=== PATIENT | female | born 1930 | race Caucasian/White ===

== ENCOUNTER 2016-08-25 01:11 | Observation (INO) | payer MEDICARE, BC ==
[2016-08-25] MEDS ORDERED: SODIUM CHLORIDE 0.9% 500 ML IV STA (01:22)
[2016-08-25] MEDS ORDERED: SODIUM CHLORIDE 0.9% 1,000 ML IV STA ×2 (01:22→02:37)
[2016-08-25 02:02] LABS: Basophils % (A) 0 %; CH 29.8; CHCM 33.8; Eosinophils # (A) 0.1 k/uL (0-0.7); Eosinophils % (A) 1 %; HCT 34.6 % (34.0-46.0); HDW 2.27; HGB 11.2 gm/dL (11.4-16.0); Luc # (Auto) 0.07; Luc % (Auto) 1; Lymphocytes # (A) 0.7 k/uL (1.0-4.8); Lymphocytes % (A) 7 %; MCH 28.7 pg (25.0-35.0); MCHC 32.3 g/dL (31.0-37.0); MCV 88.7 fL (80.0-100.0); Mean Platelet Volume 7.2; Monocytes # (A) 0.6 k/uL (0-1.0); Monocytes % (A) 6 %; Neutrophils # (A) 8.9 k/uL (1.3-7.7); Neutrophils % (A) 86 %; RDW 14.5 % (11.5-15.5); WBC 10.4 k/uL (3.8-10.6); WBC (Perox) 11.35
--- NOTE | 2016-08-25 02:05 | ED ---
General Adult HPI - General Chief complaint: Nausea/Vomiting/Diarrhea Stated complaint: nausea,dehydration Time Seen by Provider: 08/25/16 01:18 Source: patient, EMS, RN notes reviewed, old records reviewed Mode of arrival: EMS Limitations: physical limitation - History of Present Illness Initial comments: This is a 85-year-old female to the ER for evaluation. Patient presented here for second time this week for evaluation of diarrhea, weakness, dehydration. Patient does have significant medical history significant for multiple medical Arjun is. Patient does appear weak on exam. Patient has good historian, denies any fevers, also combining of nausea and vomiting. No modifying factors or complaints or symptoms at home. No fevers. Patient unable to keep down her medications. Patient denies any recent antibiotic use - Related Data Home Medications Medication Instructions Recorded Confirmed ALPRAZolam [Xanax] 0.25 mg PO DAILY 04/22/14 08/19/16 amLODIPine BESYLATE [Norvasc] 5 mg PO DAILY 04/22/14 08/19/16 Ergocalciferol [Vitamin D2 50,000 unit PO Q7D 09/09/15 08/19/16 (DRISDOL)] Potassium Chloride ER [K-Dur 10] 10 meq PO DAILY 09/09/15 08/19/16 Simvastatin [Zocor] 20 mg PO HS 09/09/15 08/19/16 Levothyroxine Sodium [Synthroid] 75 mcg PO DAILY 11/10/15 08/19/16 Isosorbide Mononitrate ER [Imdur] 30 mg PO DAILY 11/17/15 08/19/16 Atenolol 25 mg PO DAILY 08/09/16 08/19/16 Meclizine [Antivert] 12.5 mg PO TID PRN 08/09/16 08/19/16 Tolterodine [Detrol] 2 mg PO DAILY 08/09/16 08/19/16 Amiodarone [Cordarone] 200 mg PO DAILY 08/19/16 08/19/16 Previous Rx's Medication Instructions Recorded Furosemide [Lasix] 20 mg PO DAILY #0 11/11/15 traMADol HCL [Ultram] 50 mg PO Q6HR PRN #20 tab 08/09/16 Allergies Allergy/AdvReac Type Severity Reaction Status Date / Time morphine Allergy Confusion Verified 08/19/16 16:05 Penicillins Allergy Unknown Verified 08/19/16 16:05 Sulfa (Sulfonamide Allergy Unknown Verified 08/19/16 16:05 Antibiotics) Review of Systems ROS Statement: Those systems with pertinent positive or pertinent negative responses have been documented in the HPI. ROS Other: All systems not noted in ROS Statement are negative. Past Medical History Past Medical History: Atrial Fibrillation, Coronary Artery Disease (CAD), COPD, Dementia, GERD/Reflux, Hyperlipidemia, Hypertension, Osteoarthritis (OA), Pneumonia, Thyroid Disorder Additional Past Medical History / Comment(s): HIATAL HERNIA, COPD, CARDIMEGALY FOUND PER X RAY,UTI History of Any Multi-Drug Resistant Organisms: None Reported Past Surgical History: Joint Replacement, Orthopedic Surgery Additional Past Surgical History / Comment(s): right shoulder PLATE AND SCREWS, bilat , SANGITA CATARAACTS, RT EYE RETINAL SX, thyroid removed Past Anesthesia/Blood Transfusion Reactions: No Reported Reaction Past Psychological History: No Psychological Hx Reported Smoking Status: Former smoker Past Alcohol Use History: None Reported Past Drug Use History: None Reported - Past Family History Father History Unknown: Yes Family Medical History: Renal Disease Mother History Unknown: Yes Family Medical History: No Reported History Brother(s) Family Medical History: No Reported History Daughter(s) Family Medical History: Cancer Son(s) Family Medical History: No Reported History General Exam Limitations: physical limitation General appearance: lethargic, in distress, cachectic Head exam: Present: atraumatic, normocephalic, normal inspection Eye exam: Present: normal appearance, PERRL, EOMI. Absent: scleral icterus, conjunctival injection, periorbital swelling ENT exam: Present: normal exam, mucous membranes moist Neck exam: Present: normal inspection. Absent: tenderness, meningismus, lymphadenopathy Respiratory exam: Present: normal lung sounds bilaterally. Absent: respiratory distress, wheezes, rales, rhonchi, stridor Cardiovascular Exam: Present: regular rate, normal rhythm, normal heart sounds. Absent: systolic murmur, diastolic murmur, rubs, gallop, clicks GI/Abdominal exam: Present: soft, normal bowel sounds. Absent: distended, tenderness, guarding, rebound, rigid Extremities exam: Present: normal inspection, full ROM, normal capillary refill. Absent: tenderness, pedal edema, joint swelling, calf tenderness Back exam: Present: normal inspection Neurological exam: Present: alert, oriented X3, CN II-XII intact Psychiatric exam: Present: normal affect, normal mood Skin exam: Present: warm, dry, intact, normal color. Absent: rash Course Vital Signs 08/25/16 01:13 Temperature 97.5 F L Pulse Rate 56 L Respiratory 16 Rate Blood Pressure 164/73 O2 Sat by Pulse 96 Oximetry - Reevaluation(s) Reevaluation #1: 08/25/16 02:39 Patient with no real apparent clinical improvement EKG Findings - EKG Comments: EKG Findings:: EKG shows sinus bradycardia rate 50, VT 200, QRS 150, QTC 481 Medical Decision Making - Medical Decision Making A 59 [address] with continued nausea vomiting diarrhea, we'll culture for C. diff , we'll admit for IV fluid and continued monitoring. - Lab Data Result diagrams: 08/25/16 01:42 08/25/16 01:42 Lab Results 08/25/16 08/25/16 08/25/16 Range/Units 01:42 01:42 01:42 WBC 10.4 (3.8-10.6) k/uL RBC 3.90 (3.80-5.40) m/uL Hgb 11.2 L (11.4-16.0) gm/dL Hct 34.6 (34.0-46.0) % MCV 88.7 (80.0-100.0) fL MCH 28.7 (25.0-35.0) pg MCHC 32.3 (31.0-37.0) g/dL RDW 14.5 (11.5-15.5) % Plt Count 301 (150-450) k/uL Neutrophils % 86 % Lymphocytes % 7 % Monocytes % 6 % Eosinophils % 1 % Basophils % 0 % Neutrophils # 8.9 H (1.3-7.7) k/uL Lymphocytes # 0.7 L (1.0-4.8) k/uL Monocytes # 0.6 (0-1.0) k/uL Eosinophils # 0.1 (0-0.7) k/uL Basophils # 0.0 (0-0.2) k/uL PT (9.0-12.0) sec INR (<1.1) APTT (22.0-30.0) sec Sodium 132 L (137-145) mmol/L Potassium 4.0 (3.5-5.1) mmol/L Chloride 99 (98-107) mmol/L Carbon Dioxide 24 (22-30) mmol/L Anion Gap 9 mmol/L BUN 18 H (7-17) mg/dL Creatinine 1.00 (0.52-1.04) mg/dL Est GFR (MDRD) Af Amer >60 (>60 ml/min/1.73 sqM) Est GFR (MDRD) Non-Af 53 (>60 ml/min/1.73 sqM) Glucose 114 H (74-99) mg/dL Plasma Lactic Acid Aakash (0.7-2.0) mmol/L Calcium 8.2 L (8.4-10.2) mg/dL Phosphorus 4.1 (2.5-4.5) mg/dL Magnesium 1.8 (1.6-2.3) mg/dL Total Bilirubin 0.5 (0.2-1.3) mg/dL AST 37 H (14-36) U/L ALT 32 (9-52) U/L Alkaline Phosphatase 76 (38-126) U/L Total Creatine Kinase 44 (30-135) U/L Total Protein 5.8 L (6.3-8.2) g/dL Albumin 3.4 L (3.5-5.0) g/dL Urine Color Urine Appearance (Clear) Urine pH (5.0-8.0) Ur Specific [place] (1.001-1.035) Urine Protein (Negative) Urine Glucose (UA) (Negative) Urine Ketones (Negative) Urine Blood (Negative) Urine Nitrate (Negative) Urine Bilirubin (Negative) Urine Urobilinogen (<2.0) mg/dL Ur Leukocyte Esterase (Negative) 08/25/16 08/25/16 08/25/16 Range/Units 01:42 01:42 02:21 WBC (3.8-10.6) k/uL RBC (3.80-5.40) m/uL Hgb (11.4-16.0) gm/dL Hct (34.0-46.0) % MCV (80.0-100.0) fL MCH (25.0-35.0) pg MCHC (31.0-37.0) g/dL RDW (11.5-15.5) % Plt Count (150-450) k/uL Neutrophils % % Lymphocytes % % Monocytes % % Eosinophils % % Basophils % % Neutrophils # (1.3-7.7) k/uL Lymphocytes # (1.0-4.8) k/uL Monocytes # (0-1.0) k/uL Eosinophils # (0-0.7) k/uL Basophils # (0-0.2) k/uL PT 10.7 (9.0-12.0) sec INR 1.1 (<1.1) APTT 22.6 (22.0-30.0) sec Sodium (137-145) mmol/L Potassium (3.5-5.1) mmol/L Chloride (98-107) mmol/L Carbon Dioxide (22-30) mmol/L Anion Gap mmol/L BUN (7-17) mg/dL Creatinine (0.52-1.04) mg/dL Est GFR (MDRD) Af Amer (>60 ml/min/1.73 sqM) Est GFR (MDRD) Non-Af (>60 ml/min/1.73 sqM) Glucose (74-99) mg/dL Plasma Lactic Acid Aakash 1.0 (0.7-2.0) mmol/L Calcium (8.4-10.2) mg/dL Phosphorus (2.5-4.5) mg/dL Magnesium (1.6-2.3) mg/dL Total Bilirubin (0.2-1.3) mg/dL AST (14-36) U/L ALT (9-52) U/L Alkaline Phosphatase (38-126) U/L Total Creatine Kinase (30-135) U/L Total Protein (6.3-8.2) g/dL Albumin (3.5-5.0) g/dL Urine Color Light Yellow Urine Appearance Clear (Clear) Urine pH 7.0 (5.0-8.0) Ur Specific [place] 1.008 (1.001-1.035) Urine Protein Negative (Negative) Urine Glucose (UA) Negative (Negative) Urine Ketones Negative (Negative) Urine Blood Negative (Negative) Urine Nitrate Negative (Negative) Urine Bilirubin Negative (Negative) Urine Urobilinogen <2.0 (<2.0) mg/dL Ur Leukocyte Esterase Negative (Negative) Disposition Clinical Impression: Bradycardia, Dehydration, Failure of outpatient treatment, Weakness, Nausea & vomiting, Diarrhea Disposition: ADMITTED IP TO THIS [facility] Condition: Fair Referrals: Brandin Escoto MD [Primary Care Provider] - 1-2 days
[2016-08-25 02:10] LABS: INR 1.1 (<1.1); Partial Thromboplastin Time 22.6 sec (22.0-30.0); Prothrombin Time 10.7 sec (9.0-12.0)
[2016-08-25 02:18] LABS: ALT 32 U/L (9-52); AST 37 U/L (14-36); Alkaline Phosphatase 76 U/L (38-126); Anion Gap 9 mmol/L; Blood Urea Nitrogen 18 mg/dL (7-17); Calcium 8.2 mg/dL (8.4-10.2); Carbon Dioxide 24 mmol/L (22-30); Chloride 99 mmol/L (98-107); Glucose 114 mg/dL (74-99); Magnesium 1.8 mg/dL (1.6-2.3); Non-African American GFR(MDRD) 53 (>60 ml/min/1.73 sqM); Phosphorous 4.1 mg/dL (2.5-4.5); Sodium 132 mmol/L (137-145); Total Bilirubin 0.5 mg/dL (0.2-1.3); Total Protein 5.8 g/dL (6.3-8.2)
[2016-08-25 02:22] LABS: Creatine Kinase 44 U/L (30-135)
[2016-08-25 02:33] LABS: Appearance,Urine Clear (Clear); Bilirubin,Urine Negative (Negative); Glucose,Urine (UA) Negative (Negative); Ketones,Urine Negative (Negative); Leukocyte Esterase,Urine Negative (Negative); Nitrite,Urine Negative (Negative); Protein,Urine Negative (Negative); Specific Gravity,Urine 1.008 (1.001-1.035); UA Billing (MACRO vs. MICRO) CHEM; Urobilinogen,Urine <2.0 mg/dL (<2.0)
[2016-08-25 02:35] LABS: Troponin I <0.012 ng/mL (0.000-0.034)
[2016-08-25] MEDS ORDERED: DEXTROSE 5%-0.45% NACL 1,000 ML IV ONE (02:37)
[2016-08-25] MEDS ORDERED: ONDANSETRON 4 MG/2 ML VIAL IVP STA (02:37)
[2016-08-25] MEDS ORDERED: ONDANSETRON 4 MG/2 ML VIAL IVP PRN (02:37)
[2016-08-25 05:02] VITALS: BMI 17.2
--- NOTE | 2016-08-25 06:49 | CT ---
EXAMINATION TYPE: CT brain wo con DATE OF EXAM: 08/25/2016 6:05 AM COMPARISON: 03/27/2016 HISTORY: R/O Bleed, possible fall CT DLP: 1098.80 mGycm Automated exposure control for dose reduction was used. FINDINGS: No depressed skull fracture is noted. No significant cephalohematoma is identified. There is no acute intracranial hemorrhage, mass effect, or midline shift identified. The ventricles and sulci are within normal limits in size. Postsurgical changes are noted in the right eye globe. Mu cosal thickening is noted in the sphenoid sinus on the right side with chronic sinusitis changes. Prostate gland appears slightly prominent in size. IMPRESSION: No acute intracranial hemorrhage, mass effect, or midline shift is seen. Age related atrophic changes of brain. Postsurgical changes in the right eye globe. No significant interval change.
[2016-08-25] MEDS ORDERED: ENOXAPARIN 40 MG/0.4 ML SYRINGE SQ SCH (09:00)
[2016-08-25] MEDS: PANTOPRAZOLE 40 MG/10 ML VIAL IVP SCH (11:02)
[2016-08-25] MEDS ORDERED: traMADol 50 MG TAB PO PRN (15:54)
--- NOTE | 2016-08-25 15:54 | P.HPIM ---
History of Present Illness H&P Date: 08/25/16 Chief Complaint: Vomiting and diarrhea with generalized weakness This is an 85-year-old female patient of Dr. Escoto with a previous medical history significant for hypertension and hypertensive cardiovascular disease, hyperlipidemia, hypothyroidism, vascular dementia, paroxysmal atrial fibrillation. Patient was brought into [facility] emergency center by ambulance. Apparently this was the second time this week with complaints of diarrhea, weakness and dehydration. Patient was noted to have extreme weakness and was a very poor historian. She was complaining of nausea and vomiting. Sodium was 132, blood sugar 114, AST 37, white count 10.4, hemoglobin 11.2. Urinalysis was clear nitrate and leukoesterase negative. CAT scan of the brain showed no acute findings. Age related atrophy, postsurgical changes in the right eye globe. Patient was admitted to the hospital with bradycardia, dehydration, weakness, nausea vomiting and diarrhea. There was concern during the night about nonreactive pupils and a consult was placed with Dr. 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 Consult with Dr. Pace has been canceled. PT and OT evaluations requested and patient was found to have significant weakness and requiring 24-hour supervision. Patient denies having any nausea or vomiting. Regarding the diarrhea, patient did take Imodium at home and has not had a bowel movement since admission. Case management is working with family to set up 24-hour supervision at [facility]. Review of Systems All systems: negative Constitutional: Reports weakness, Denies chills, Denies fever Eyes: denies blurred vision, denies pain Ears, nose, mouth and throat: Denies headache, Denies sore throat Cardiovascular: Denies chest pain, Denies shortness of breath Respiratory: Denies cough Gastrointestinal: Reports diarrhea, Reports nausea, Reports vomiting, Denies abdominal pain Genitourinary: Denies dysuria, Denies hematuria Musculoskeletal: Denies myalgias Integumentary: Denies pruritus, Denies rash Neurological: Denies numbness, Denies weakness Psychiatric: Denies anxiety, Denies depression Endocrine: Denies fatigue, Denies weight change Past Medical History Past Medical History: Atrial Fibrillation, Coronary Artery Disease (CAD), COPD, Dementia, GERD/Reflux, Hyperlipidemia, Hypertension, Osteoarthritis (OA), Pneumonia, Thyroid Disorder Additional Past Medical History / Comment(s): HIATAL HERNIA, COPD, CARDIOMEGALY FOUND PER X RAY,UTI History of Any Multi-Drug Resistant Organisms: None Reported Past Surgical History: Joint Replacement, Orthopedic Surgery Additional Past Surgical History / Comment(s): right shoulder PLATE AND SCREWS, bilat , SANGITA CATARACTS, RT EYE RETINAL SX, thyroid removed Past Anesthesia/Blood Transfusion Reactions: No Reported Reaction Past Psychological History: No Psychological Hx Reported Smoking Status: Former smoker Past Alcohol Use History: None Reported Past Drug Use History: None Reported - Past Family History Father History Unknown: Yes Family Medical History: Renal Disease Mother History Unknown: Yes Family Medical History: Hypertension Brother(s) Family Medical History: No Reported History Daughter(s) Family Medical History: Cancer Son(s) Family Medical History: No Reported History Medications and Allergies Home Medications Medication Instructions Recorded Confirmed Type amLODIPine BESYLATE [Norvasc] 5 mg PO DAILY 04/22/14 08/25/16 History Ergocalciferol [Vitamin D2 50,000 unit PO Q7D 09/09/15 08/25/16 History (DRISDOL)] Potassium Chloride ER [K-Dur 10] 10 meq PO DAILY 09/09/15 08/25/16 History Simvastatin [Zocor] 20 mg PO HS 09/09/15 08/25/16 History Levothyroxine Sodium [Synthroid] 75 mcg PO DAILY 11/10/15 08/25/16 History Isosorbide Mononitrate ER [Imdur] 30 mg PO DAILY 11/17/15 08/25/16 History Atenolol 25 mg PO DAILY 08/09/16 08/25/16 History Meclizine [Antivert] 12.5 mg PO TID PRN 08/09/16 08/25/16 History Tolterodine [Detrol] 2 mg PO DAILY 08/09/16 08/25/16 History Amiodarone [Cordarone] 200 mg PO DAILY 08/19/16 08/25/16 History Allergies Allergy/AdvReac Type Severity Reaction Status Date / Time morphine Allergy Confusion Verified 08/25/16 08:04 Penicillins Allergy Unknown Verified 08/25/16 08:04 Sulfa (Sulfonamide Allergy Unknown Verified 08/25/16 08:04 Antibiotics) Physical Exam Vitals: Vital Signs Temp Pulse Pulse Resp BP BP Pulse Ox 08/25/16 13:57 98.2 F 53 L 16 162/71 97 08/25/16 07:00 97.2 F L 64 16 143/66 97 08/25/16 04:00 57 L 16 08/25/16 03:50 97.6 F 57 L 16 131/66 94 L 08/25/16 03:06 53 L 16 147/70 98 Intake and Output 08/25/16 08/25/16 08/25/16 06:59 14:59 22:59 Intake Total 1083 960 Balance 1083 960 Intake: IV 1083 540 Dextrose 5%-0.45% NaCl 1, 83 540 000 ml @ 83 mls/hr IV . Q12H3M ONE Rx#:[id number] Sodium Chloride 0.9% 1, 1000 000 ml @ 999 mls/hr IV . Q1H1M STA Rx#:[id number] Oral 420 Other: Voiding Method Bedpan # Voids 3 1 Weight 45.359 kg 45.359 kg Patient Weight 08/26/16 06:59 Weight 45.359 kg Gen: This is a 85 she rolled female. She is sitting up in a chair at the bedside and appears to be in no respiratory distress. Patient is anxious and is tearful during part of evaluation. She is concerned about issues with her children. HEENT: Head is atraumatic, normocephalic. Pupils round. Left pupil reactive, right pupil not reactive. Sclerae is anicteric. NECK: Supple. No JVD. No lymphadenopathy. No thyromegaly. LUNGS: Clear to auscultation. No wheezes or rhonchi. No intercostal retractions. HEART: Regular rate and rhythm. Systolic murmur. ABDOMEN: Soft. Bowel sounds are present. No masses. No tenderness. EXTREMITIES: No pedal edema. No calf tenderness. NEUROLOGICAL: Patient is awake, alert and oriented x2. Mild confusion and generalized weakness noted. Cranial nerves 2 through 12 are grossly intact. Results CBC & Chem 7: 08/25/16 01:42 08/25/16 01:42 Thrombosis Risk Factor Assmnt - DVT/VTE Prophylaxis DVT/VTE Prophylaxis: Pharmacologic Prophylaxis ordered Assessment and Plan Plan: 1. Nausea, vomiting, diarrhea which has resolved. Patient has had no documented or noted vomiting. Patient took Imodium at home with resolution of diarrhea. 2. Generalized weakness with mild confusion requiring 24-hour supervision. PT and OT evaluations. Case management working with family to set up 24-hour care at [facility]. 3. Prior history of CAD with mild disease of the LAD. Continue Imdur 15 mg orally once every day. Patient is off beta russell because of episodes of bradycardia. 3. Paroxysmal atrial fibrillation currently in sinus rhythm. Patient is not a candidate for anticoagulation because of the risk of bleeding. Continue amiodarone 200 mg daily and atenolol 25 mg daily. 4. Hyperlipidemia. Continue simvastatin 20 mg orally bedtime. 5. Hypothyroidism. Continue Synthroid 75 g orally once every day. 6. Vascular dementia. Patient was taken off Aricept because of risk of bradycardia. 7. Osteoarthritis. Stable. 8. DVT prophylaxis. Heparin subcu. 9. GI prophylaxis. Continue Prilosec or equivalent. 10. Patient was admitted as an observation Discharge plan: Return to [facility] with 24-hour supervision. Impression and plan of care have been directed as dictated by the signing physician. Irene Villegas nurse practitioner acting as scribe for signing physician. Time with Patient: Greater than 30
[2016-08-25] MEDS ORDERED: ATORVASTATIN 10 MG TAB PO SCH (21:00)
[2016-08-26] MEDS ORDERED: LEVOTHYROXINE 75 MCG TAB PO SCH (06:30)
[2016-08-26 07:41] VITALS: BP 144/72; PULSE 58; RESP 16; TEMP 98.1
[2016-08-26] MEDS: PANTOPRAZOLE 40 MG/10 ML VIAL IVP SCH (08:05)
[2016-08-26] MEDS ORDERED: OXYBUTYNIN XL 5 MG TAB.ER.24 PO SCH (09:00)
[2016-08-26] MEDS ORDERED: amLODIPine 5 MG TAB PO SCH (09:00)
[2016-08-26] MEDS ORDERED: FUROSEMIDE 20 MG TAB PO SCH (09:00)
[2016-08-26] MEDS ORDERED: ENOXAPARIN 30 MG/0.3 ML SYRINGE SQ SCH (09:00)
[2016-08-26] MEDS ORDERED: ISOSORBIDE MONONITRATE ER 30 MG TAB.ER.24H PO SCH (09:00)
[2016-08-26] MEDS ORDERED: AMIODARONE 200 MG TAB PO SCH (09:00)
[2016-08-26] MEDS ORDERED: ATENOLOL 25 MG TAB PO SCH (09:00)
[2016-08-26] MEDS ORDERED: POTASSIUM CHLORIDE ER 10 MEQ TAB.ER.PRT PO SCH (09:00)
[2016-08-27] MEDS ORDERED: PANTOPRAZOLE 40 MG TABLET PO SCH (07:30)
[2016-08-29] MEDS ORDERED: ERGOCALCIFEROL 50,000 UNIT CAP PO SCH (09:00)
== END 2016-08-26 11:55 | disposition home health service (06) ==
LOC: EC 01:11 → 4MS4W 02:38 → 3SUR 03:06
PROVIDERS: ADMIT Internal Medicine Geriatric Medicine; ATTEND Internal Medicine Geriatric Medicine
DX: R00.1 Bradycardia, unspecified (principal); E86.0 Dehydration; R11.2 Nausea with vomiting, unspecified; I48.0 Paroxysmal atrial fibrillation; R19.7 Diarrhea, unspecified; E03.9 Hypothyroidism, unspecified; F01.50 Vascular dementia, unspecified severity, without behavioral disturbance, psychotic disturbance, mood disturbance, and anxiety; I25.10 Atherosclerotic heart disease of native coronary artery without angina pectoris; J44.9 Chronic obstructive pulmonary disease, unspecified; K21.9 Gastro-esophageal reflux disease without esophagitis; E78.5 Hyperlipidemia, unspecified; I10 Essential (primary) hypertension; M19.90 Unspecified osteoarthritis, unspecified site; Z79.899 Other long term (current) drug therapy; Z88.5 Allergy status to narcotic agent; Z88.0 Allergy status to penicillin; Z88.2 Allergy status to sulfonamides; Z87.891 Personal history of nicotine dependence
CPT/HCPCS: 99285; 96374; 36415; 93005; 97116; 97162; 97166; 80053; 82550; 82553; 83605; 83735; 84100; 84484; 85025; 85610; 85730; 81003; 87086; 70450; G0378 ×2; J2405; J1650 ×2; C9113 ×2; 96372; 96375; 96376; 99283

== ENCOUNTER 2016-09-18 21:10 | Inpatient (IN) | payer MEDICARE, BC ==
[2016-09-18] MEDS ORDERED: SODIUM CHLORIDE 0.9% 1,000 ML IV ONE (21:49)
[2016-09-18] MEDS ORDERED: DIPH,PERTUS(ACELL)TETVAC-LF 0.5 ML VIAL IM ONE (21:52)
--- NOTE | 2016-09-18 22:00 | ED ---
General Adult HPI - General Chief complaint: Fall Stated complaint: fell (standing/bent position), left leg injury Time Seen by Provider: 09/18/16 21:20 Source: patient, EMS, RN notes reviewed Mode of arrival: EMS Limitations: no limitations - History of Present Illness Initial comments: Plain history of present illness an 86-year-old female reports when she stood up she stumbled and fell bumping against the wall injuring her left lower leg and bumping her head. Denies loss of consciousness. Answering questions appropriately at this time. She came by ambulance. - Related Data Home Medications Medication Instructions Recorded Confirmed amLODIPine BESYLATE [Norvasc] 5 mg PO DAILY 04/22/14 09/18/16 Ergocalciferol [Vitamin D2 50,000 unit PO Q7D 09/09/15 09/18/16 (DRISDOL)] Potassium Chloride ER [K-Dur 10] 10 meq PO DAILY 09/09/15 09/18/16 Simvastatin [Zocor] 20 mg PO HS 09/09/15 09/18/16 Levothyroxine Sodium [Synthroid] 75 mcg PO DAILY 11/10/15 09/18/16 Isosorbide Mononitrate ER [Imdur] 30 mg PO DAILY 11/17/15 09/18/16 Atenolol 25 mg PO DAILY 08/09/16 09/18/16 Meclizine [Antivert] 12.5 mg PO TID PRN 08/09/16 09/18/16 Tolterodine [Detrol] 2 mg PO DAILY 08/09/16 09/18/16 Amiodarone [Cordarone] 200 mg PO DAILY 08/19/16 09/18/16 Previous Rx's Medication Instructions Recorded Furosemide [Lasix] 20 mg PO DAILY #0 11/11/15 traMADol HCL [Ultram] 50 mg PO Q6HR PRN #20 tab 08/09/16 ALPRAZolam [Xanax] 0.25 mg PO DAILY #0 NS 08/25/16 Omeprazole [PriLOSEC] 20 mg PO AC-BRKFST #1 cap 08/25/16 Allergies Allergy/AdvReac Type Severity Reaction Status Date / Time morphine Allergy Confusion Verified 08/25/16 08:04 Penicillins Allergy Unknown Verified 08/25/16 08:04 Sulfa (Sulfonamide Allergy Unknown Verified 08/25/16 08:04 Antibiotics) Review of Systems ROS Statement: Those systems with pertinent positive or pertinent negative responses have been documented in the HPI. Review of systems starting from her head to her feet the patient's denying any headache she says she has mild neck discomfort no shoulder pain no elbow or wrist pain no low back pelvic pain. The left leg is significantly shorter than the right but she states she's had multiple surgeries which may have caused this. Mild discomfort with active range of motion and no discomfort with passive range of motion with full movement of the hip. She does have a dressing bandage applied to the wound on the lower leg. She does complain of ankle pain on the left side. Past medical problems significant for A. fib, coronary disease, COPD, dementia, GERD, hyperlipidemia and hypertension. He also she also has osteoarthritis pneumonia and hypothyroidism and hiatal hernia. The patient's surgeries include surgery on the right shoulder left hip. Family history noncontributory. ALLERGIES to morphine penicillin and sulfa drugs. Nonsmoker nondrinker ROS Other: All systems not noted in ROS Statement are negative. Past Medical History Past Medical History: Atrial Fibrillation, Coronary Artery Disease (CAD), COPD, Dementia, GERD/Reflux, Hyperlipidemia, Hypertension, Osteoarthritis (OA), Pneumonia, Thyroid Disorder Additional Past Medical History / Comment(s): HIATAL HERNIA, COPD, CARDIOMEGALY FOUND PER X RAY,UTI History of Any Multi-Drug Resistant Organisms: None Reported Past Surgical History: Joint Replacement, Orthopedic Surgery Additional Past Surgical History / Comment(s): right shoulder PLATE AND SCREWS, bilat , SANGITA CATARACTS, RT EYE RETINAL SX, thyroid removed Past Anesthesia/Blood Transfusion Reactions: No Reported Reaction Past Psychological History: No Psychological Hx Reported Smoking Status: Former smoker Past Alcohol Use History: None Reported Past Drug Use History: None Reported - Past Family History Father History Unknown: Yes Family Medical History: Renal Disease Mother History Unknown: Yes Family Medical History: Hypertension Brother(s) Family Medical History: No Reported History Daughter(s) Family Medical History: Cancer Son(s) Family Medical History: No Reported History General Exam - General Exam Comments Initial Comments: General: The patient is awake and alert, explains that she still up felt dizzy and slightly week trip stumbled and fell. Injuring her left lower leg and bumping her head. Vital signs show torus 98.2 pulse 51 respiratory rate 18 pulse ox 95 % on room air blood pressure 167/72. Elevated systolic noted. Patient will be seen by her family physician Eye: Pupils are equal, round and reactive to light, extra-ocular movements are intact ; there is normal conjunctiva bilaterally. No signs of icterus. Ears, nose, mouth and throat: There are moist mucous membranes and no oral lesions. Neck: Complains of neck discomfort after the fall but demonstrates full range of motion no bruising noted no complaint of a numbness tingling to the upper extremities. Cardiovascular: History of A. fib currently rates only 51 first degree A-V block with a left bundle branch block. Respiratory: Lungs are clear to auscultation, respirations are non-labored, breath sounds are equal. No wheezes, stridor, rales, or rhonchi. Gastrointestinal: Soft, non-distended, non-tender abdomen without masses or organomegaly noted. There is no rebound or guarding present. Back: There is no tenderness to palpation in the midline. There is no obvious deformity. Musculoskeletal: Left leg 1-2 inches shorter than the right but she states this is normal post surgeries. Laceration left lower leg. Neurological: CN II-XII intact, There are no obvious motor or sensory deficits. Coordination appears grossly intact. Speech is normal. Skin: Skin is warm and dry and no rashes or lesions are noted. Psychiatric: Cooperative, appropriate mood & affect, normal judgment. Reported history of dementia but patient's answering questions very appropriately. Limitations: no limitations Course Vital Signs 09/18/16 21:15 Temperature 98.2 F Pulse Rate 51 L Respiratory 18 Rate Blood Pressure 167/72 O2 Sat by Pulse 95 Oximetry Medical Decision Making - Medical Decision Making Medical decision-making. The patient remained alert and oriented without having any difficulties while here. Labs show white count 7.1 hemoglobin 10.9 hematocrit 32. INR 1.1. Potassium 4.9 with a BUN of 18 creatinine 1.1 and GFR 47. Glucose 83. CT of the brain and cervical spine were done and his final impression is cerebral atrophy and chronic small vessel ischemia. No intracranial abnormality. Multilevel moderate spondylosis. No significant change in the computed tomography scan of brain and cervical spine compared to old exam. As read by Dr. Zarate X-ray of the left tib-fib was done and reviewed by radiologist his findings are there is osteopenia. There is some sclerosis across the proximal tibial metaphysis that could relate to a healing nondisplaced fracture. The fibula appears intact. There is asked was chronic vascular classification. Ankle mortise is anatomic. Impression possible subacute transverse fracture of the proximal tibia. No displaced fracture seen. No acute bony abnormality seen. As read by Dr. Zarate. On physical examination after this report no evidence of any pain with palpation or movement of the knee. X-ray of the pelvis was done and reviewed by radiologist his impression is bone osteopenic. 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 There is some migration of the left prosthesis acetabulum. It is not change in position compared to 2015. No acute fracture. Impression; there are significant superior migration of the left prosthetic acetabulum but is stable compared to old exam. No acute fracture seen. As read by Dr. Zarate The patient's laceration on her leg measuring 10 cm. With a distal based flap. On her inner aspect of her left lower leg. The patient's heart rate stayed between 46 and 52. I discussed the case with Dr. Pop, her family physician she'll be admitted for symptomatic bradycardia. - Lab Data Result diagrams: 09/18/16 22:20 09/18/16 22:20 Lab Results 09/18/16 09/18/16 09/18/16 Range/Units 22:20 22:20 22:20 WBC 7.1 (3.8-10.6) k/uL RBC 3.66 L (3.80-5.40) m/uL Hgb 10.9 L (11.4-16.0) gm/dL Hct 32.5 L (34.0-46.0) % MCV 88.7 (80.0-100.0) fL MCH 29.7 (25.0-35.0) pg MCHC 33.5 (31.0-37.0) g/dL RDW 13.9 (11.5-15.5) % Plt Count 307 (150-450) k/uL Neutrophils % 72 % Lymphocytes % 12 % Monocytes % 9 % Eosinophils % 4 % Basophils % 1 % Neutrophils # 5.2 (1.3-7.7) k/uL Lymphocytes # 0.9 L (1.0-4.8) k/uL Monocytes # 0.6 (0-1.0) k/uL Eosinophils # 0.3 (0-0.7) k/uL Basophils # 0.1 (0-0.2) k/uL PT 10.9 (9.0-12.0) sec INR 1.1 (<1.1) Sodium 130 L (137-145) mmol/L Potassium 4.9 (3.5-5.1) mmol/L Chloride 96 L (98-107) mmol/L Carbon Dioxide 24 (22-30) mmol/L Anion Gap 10 mmol/L BUN 18 H (7-17) mg/dL Creatinine 1.10 H (0.52-1.04) mg/dL Est GFR (MDRD) Af Amer 57 (>60 ml/min/1.73 sqM) Est GFR (MDRD) Non-Af 47 (>60 ml/min/1.73 sqM) Glucose 83 (74-99) mg/dL Calcium 8.8 (8.4-10.2) mg/dL Disposition Clinical Impression: Bradycardia, Fall Disposition: ADMITTED IP TO THIS HOSP Condition: Fair
[2016-09-18 22:45] LABS: Basophils # (A) 0.1 k/uL (0-0.2); Basophils % (A) 1 %; CH 29.4; CHCM 33.3; Eosinophils # (A) 0.3 k/uL (0-0.7); Eosinophils % (A) 4 %; HCT 32.5 % (34.0-46.0); HDW 2.33; HGB 10.9 gm/dL (11.4-16.0); Luc % (Auto) 1; Lymphocytes # (A) 0.9 k/uL (1.0-4.8); Lymphocytes % (A) 12 %; MCH 29.7 pg (25.0-35.0); MCHC 33.5 g/dL (31.0-37.0); MCV 88.7 fL (80.0-100.0); Mean Platelet Volume 7.3; Monocytes # (A) 0.6 k/uL (0-1.0); Monocytes % (A) 9 %; Neutrophils # (A) 5.2 k/uL (1.3-7.7); Neutrophils % (A) 72 %; RBC 3.66 m/uL (3.80-5.40); RDW 13.9 % (11.5-15.5); WBC 7.1 k/uL (3.8-10.6); WBC (Perox) 7.25
[2016-09-18 22:55] LABS: INR 1.1 (<1.1); Prothrombin Time 10.9 sec (9.0-12.0)
[2016-09-18 22:56] LABS: Calcium 8.8 mg/dL (8.4-10.2); Potassium 4.9 mmol/L (3.5-5.1)
--- NOTE | 2016-09-18 23:41 | XR ---
EXAMINATION TYPE: XR pelvis AP view DATE OF EXAM: 09/18/2016 11:07 PM COMPARISON: NONE HISTORY: Fall. Pain. TECHNIQUE: Single view FINDINGS: Bones are osteopenic. 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 There is some migration of the le ft prosthetic acetabulum. This is not changed in position compared to 03/27/2016. I see no acute fractu re. IMPRESSION: There is significant superior migration of the left prosthetic acetabulum but is stable c ompared to old exam. No acute fracture seen.
--- NOTE | 2016-09-18 23:49 | CT ---
EXAMINATION TYPE: CT brain jennifer wo con DATE OF EXAM: 09/18/2016 11:15 PM COMPARISON: 03/27/2016 HISTORY: fall from standing, no LOC CT DLP: head:1037.30 body:233.70 mGycm Automated exposure control for dose reduction was used. TECHNIQUE: CT scan of the head and cervical spine are performed without contrast. FINDINGS: There is diffuse cervical cortical atrophy. There is no mass effect nor midline shift. Th ere is no sign of intracranial hemorrhage. The calvarium is intact. There is extensive spurring of the endplates throughout the cervical spine. There is a few millimeter anterior subluxation of C7 in relation to T1. Facet joints are intact. There is multilevel hypertrop hic facet arthropathy. There is moderate spurring of the endplates. The skull base is intact. IMPRESSION: Cerebral atrophy and chronic small vessel ischemia. No acute intracranial abnormality. Multilevel moderate spondylosis. No significant change in the CT scan of brain and cervical spine compared to old exam.
--- NOTE | 2016-09-18 23:51 | XR ---
EXAMINATION TYPE: XR tibia fibula LT DATE OF EXAM: 09/18/2016 11:07 PM COMPARISON: NONE HISTORY: Fell. Pain. TECHNIQUE: 2 views FINDINGS: There is osteopenia. There is some sclerosis across the proximal tibial metaphysis that cou ld relate to a healing nondisplaced fracture. The fibula appears intact. There is atherosclerotic vas cular calcification. Ankle mortise is anatomic. IMPRESSION: Possible subacute transverse fracture of the proximal tibia. No displaced fracture seen. No acute bony abnormality seen.
[2016-09-19] MEDS ORDERED: NALOXONE 0.4 MG/ML 1 ML VIAL IV PRN (00:17)
[2016-09-19] MEDS ORDERED: MECLIZINE 12.5 MG TAB PO PRN (00:19)
[2016-09-19 01:09] VITALS: BMI 17.4
[2016-09-19] MEDS: ACETAMINOPHEN TAB 325 MG TAB PO PRN ×3 (02:01→17:47)
[2016-09-19 02:51] LABS: Appearance,Urine Cloudy (Clear); Bacteria,Urine Occasional /hpf; Bilirubin,Urine Negative (Negative); Glucose,Urine (UA) Negative (Negative); Ketones,Urine Negative (Negative); Leukocyte Esterase,Urine Moderate (Negative); Nitrite,Urine Negative (Negative); PH, Urine 7.5 (5.0-8.0); Particle Count 64057; Protein,Urine Negative (Negative); RBC,Urine 3 /hpf (0-5); Specific Gravity,Urine 1.005 (1.001-1.035); UA Billing (MACRO vs. MICRO) MICRO; Urobilinogen,Urine <2.0 mg/dL (<2.0); WBC,Urine 23 /hpf (0-5)
[2016-09-19] MEDS: SODIUM CHLORIDE 0.9% 1,000 ML IV SCH ×2 (04:38→17:40)
[2016-09-19] MEDS: LEVOTHYROXINE 75 MCG TAB PO SCH (06:09)
[2016-09-19] MEDS ORDERED: AMIODARONE 200 MG TAB PO SCH (09:00)
[2016-09-19] MEDS ORDERED: ALPRAZolam 0.25 MG TAB PO SCH (09:00)
[2016-09-19] MEDS: amLODIPine 5 MG TAB PO SCH (09:04)
[2016-09-19] MEDS: POTASSIUM CHLORIDE ER 10 MEQ TAB.ER.PRT PO SCH (09:04)
[2016-09-19] MEDS: OXYBUTYNIN XL 5 MG TAB.ER.24 PO SCH (09:04)
[2016-09-19] MEDS: PANTOPRAZOLE 40 MG TABLET PO SCH (09:04)
[2016-09-19] MEDS ORDERED: traMADol 50 MG TAB PO PRN (12:51)
[2016-09-19] MEDS ORDERED: LEVOFLOXACIN 250 MG TAB PO SCH (14:00)
--- NOTE | 2016-09-19 15:31 | P.HPIM ---
History of Present Illness H&P Date: 09/19/16 Chief Complaint: Fall, closed head trauma, lower extremity weakness, severe bradycardia, chr 86-year-old female one of my office patient with long-standing history of CAD A. fib recurrent angina and chest pain with multiple fall is known to have mild COPD abnormal balance and gait for long time. Patient presented to the emergency department at [facility] on 09/18/2016 because of fall when she stood up she is pump and fell against the wall and hit her head and left lower legs denies any loss of consciousness no concussion slight bruise only she ended up calling 911 and arrived to the emergency department [facility] where was seen and evaluated her x-ray failed to show any major fracture of the time workup to some degree was negative with exception of severe bradycardia on her heart monitor and EKG. Patient has long-standing history of A. fib and previous need for pacemaker which was never done. Patient was admitted to the hospital with the above problem. Review of Systems Constitutional: Reports anorexia, Reports chronic headaches, Reports chronic pain, Reports fatigue, Reports lethargy, Reports malaise, Reports poor appetite , Reports weight loss, Denies as per HPI, Denies chills, Denies daytime sleepiness, Denies fever, Denies night sweats, Denies sweats, Denies weakness, Denies weight gain Eyes: bilateral as per HPI Ears: bilateral: decreased hearing Ears, nose, mouth and throat: Reports ant. neck pain, Reports nasal discharge, Reports sinus pain, Reports sinus pressure, Denies as per HPI, Denies bleeding gums, Denies dental pain, Denies dysphagia, Denies epistaxis, Denies headache, Denies hoarseness, Denies mouth pain, Denies nasal congestion, Denies neck fullness/pressure, Denies neck lump, Denies nose pain, Denies odynophagia, Denies post-nasal drip, Denies swelling in mouth, Denies swelling in throat, Denies sore throat, Denies vertigo, Denies voice changes Cardiovascular: Reports chest pain, Reports decreased exercise tolerance, Reports dyspnea on exertion, Reports edema, Reports high blood pressure, Reports irregular heart beat, Reports leg edema, Reports lightheadedness, Reports orthopnea, Reports paroxysmal nocturnal dyspnea, Reports shortness of breath, Reports syncope, Denies as per HPI, Denies claudication, Denies palpitations, Denies phlebitis, Denies rapid heart beat Respiratory: Reports congestion, Reports cough, Reports cough with sputum, Reports dyspnea, Reports pain on inspiration, Reports respiratory infections, Denies as per HPI, Denies excessive sputum, Denies hemoptysis, Denies home oxygen, Denies pain, Denies pleurisy, Denies sleep apnea, Denies snoring, Denies wheezing Gastrointestinal: Reports abdominal pain, Reports bloating, Reports constipation , Reports dyspepsia, Reports heartburn, Reports indigestion, Reports nausea, Denies as per HPI, Denies belching, Denies BRBPR, Denies change in bowel habits , Denies coffee ground emesis, Denies diarrhea, Denies early satiety, Denies excessive gas, Denies hematemesis, Denies hematochezia, Denies jaundice, Denies lactose intolerance, Denies loss of appetite, Denies melena, Denies vomiting Genitourinary: Reports nocturia, Reports stress incontinence, Reports urge incontinence, Reports urgency, Denies as per HPI, Denies abnormal vaginal bleeding, Denies decreased libido, Denies difficulty conceiving, Denies difficulty voiding, Denies dysmenorrhea, Denies dyspareunia, Denies dysuria, Denies flank pain, Denies genital sores, Denies hematuria, Denies hot flashes, Denies incomplete emptying, Denies kidney stones, Denies menorrhagia, Denies mixed incontinence, Denies pelvic pain, Denies post void dribbling, Denies , Denies prolapse symptoms, Denies urinary frequency, Denies vaginal discharge, Denies vaginal dryness, Denies vaginal itching, Denies vaginal odor Musculoskeletal: Reports arm numbness/tingling, Reports gait dysfunction, Reports low back pain, Reports myalgias, Reports neck pain, Reports shooting arm pain, Denies as per HPI, Denies atrophy, Denies fractures, Denies frequent falls, Denies hot joints, Denies leg numbness/tingling, Denies limitation of motion, Denies loss of height, Denies morning stiffness, Denies muscle cramps, Denies muscle weakness, Denies neck stiffness, Denies prior amputations, Denies redness of joints, Denies shooting leg pain Musculoskeletal: bilateral: ankle stiffness Integumentary: Reports pruritus, Reports rash, Denies as per HPI, Denies acne, Denies boils, Denies brittle nails, Denies change in hair/nails, Denies color changes, Denies darkening of skin, Denies depigmentation, Denies dryness, Denies foot/leg ulcers, Denies growths, Denies hirsutism, Denies lesions, Denies onychomycosis, Denies sores, Denies striae, Denies unusual bruising, Denies wounds Neurological: Reports ataxia, Reports confusion, Reports double vision, Reports memory loss, Reports numbness, Reports paralysis, Reports syncope, Reports tic, Reports tingling, Denies as per HPI, Denies aphasia, Denies balance difficulties , Denies burning pain, Denies change in mentation, Denies change in smell/taste , Denies change in speech, Denies convulsions, Denies gait dysfunction, Denies head injury, Denies headaches, Denies hearing difficulties, Denies lack of coordination, Denies loss of vision, Denies migraines, Denies motor disturbance , Denies paresthesias, Denies seizures, Denies sensory deficit, Denies spasticity, Denies transient paralysis, Denies tremors, Denies vertigo, Denies weakness, Denies visual changes Psychiatric: Reports anhedonia, Reports anxiety, Reports anxiety attacks, Reports depression, Reports mood swings, Reports sadness/tearfulness, Denies as per HPI, Denies change in appetite, Denies change in libido, Denies change in sleep habits, Denies confusion, Denies difficulty concentrating, Denies disorientation, Denies hallucinations, Denies hopelessness, Denies hypersomnia, Denies insomnia, Denies irritability, Denies memory loss, Denies paranoia, Denies sleep disturbances, Denies suicidal ideation Endocrine: Reports cold intolerance, Reports fatigue, Reports flushing, Reports polyuria, Denies as per HPI, Denies deepening of the voice, Denies excessive sweating, Denies excessive thirst, Denies heat intolerance, Denies high blood sugars, Denies increase in ring/shoe/hat size, Denies low blood sugars, Denies nocturia, Denies palpitations, Denies polydipsia, Denies polyphagia, Denies proptosis, Denies recent glucocorticoid use, Denies thyroid mass, Denies weight change Hematologic/Lymphatic: Reports easy bruising, Denies as per HPI, Denies easy bleeding, Denies lymphadenopathy, Denies lymphedema, Denies thrombophilia Allergic/Immunologic: Reports allergic rhinitis, Denies as per HPI, Denies anaphylaxis, Denies angioedema, Denies gluten intolerance, Denies persistent infections, Denies seasonal allergies, Denies urticaria, Denies wheezing Past Medical History Past Medical History: Atrial Fibrillation, Coronary Artery Disease (CAD), COPD, Dementia, GERD/Reflux, Hyperlipidemia, Hypertension, Osteoarthritis (OA), Pneumonia, Thyroid Disorder Additional Past Medical History / Comment(s): HIATAL HERNIA, COPD, CARDIOMEGALY FOUND PER X RAY,UTI History of Any Multi-Drug Resistant Organisms: None Reported Past Surgical History: Joint Replacement, Orthopedic Surgery Additional Past Surgical History / Comment(s): right shoulder PLATE AND SCREWS, bilat , SANGITA CATARACTS, RT EYE RETINAL SX, thyroid removed Past Anesthesia/Blood Transfusion Reactions: No Reported Reaction Past Psychological History: No Psychological Hx Reported Smoking Status: Former smoker Past Alcohol Use History: None Reported Past Drug Use History: None Reported - Past Family History Father History Unknown: Yes Family Medical History: Renal Disease Mother History Unknown: Yes Family Medical History: Hypertension Brother(s) Family Medical History: No Reported History Daughter(s) Family Medical History: Cancer Son(s) Family Medical History: No Reported History Medications and Allergies Home Medications Medication Instructions Recorded Confirmed Type amLODIPine BESYLATE [Norvasc] 5 mg PO DAILY 04/22/14 09/19/16 History Ergocalciferol [Vitamin D2 50,000 unit PO RAMÍREZ 09/09/15 09/19/16 History (DRISDOL)] Potassium Chloride ER [K-Dur 10] 10 meq PO DAILY 09/09/15 09/19/16 History Simvastatin [Zocor] 20 mg PO HS 09/09/15 09/19/16 History Levothyroxine Sodium [Synthroid] 75 mcg PO DAILY 11/10/15 09/19/16 History Isosorbide Mononitrate ER [Imdur] 30 mg PO DAILY 11/17/15 09/19/16 History Atenolol 25 mg PO DAILY 08/09/16 09/19/16 History Meclizine [Antivert] 12.5 mg PO TID PRN 08/09/16 09/19/16 History Amiodarone [Cordarone] 200 mg PO DAILY 08/19/16 09/19/16 History Temazepam [Restoril] 15 mg PO HS PRN 09/19/16 09/19/16 History Tolterodine ER [Detrol LA] 2 mg PO DAILY 09/19/16 09/19/16 History Allergies Allergy/AdvReac Type Severity Reaction Status Date / Time morphine Allergy Confusion Verified 09/19/16 10:55 Penicillins Allergy Unknown Verified 09/19/16 10:55 Sulfa (Sulfonamide Allergy Unknown Verified 09/19/16 10:55 Antibiotics) Physical Exam Vitals: Vital Signs Temp Pulse Pulse Resp BP BP Pulse Ox 09/19/16 07:37 97.5 F L 42 L 16 148/64 97 09/19/16 04:00 98.2 F 37 L 16 140/57 98 09/19/16 00:58 97.6 F 48 L 16 164/73 97 09/19/16 00:45 18 09/19/16 00:29 49 L 20 179/76 97 Intake and Output 09/18/16 09/19/16 09/19/16 22:59 06:59 14:59 Intake Total 270 236 Output Total 325 Balance -55 236 Intake: Amount of Fluid Infused ( 120 ml) Oral 150 236 Output: Urine 325 Other: Voiding Method Bedside Commode # Voids 1 Weight 46 kg - Constitutional General appearance: no average body habitus, cooperative, disheveled, mild distress, no morbidly obese, no no acute distress, no obese, no severe distress , thin - EENT Eyes: no abnormal pupil, anicteric sclerae, no disc margins sharp, no edentulous , no EOMI, no PERRLA, no fundus normal, no photophobia, no dentition normal, no poor dentition, no ptosis, scleral icterus, no normal appearance ENT: no hard of hearing, no hearing grossly normal, no NA/AT, normal oropharynx , no other, no pharyngeal erythema, no thrush, no tonsillar exudates, no tonsillar swelling Ears: bilateral: normal - Neck Neck: no lymphadenopathy, normal ROM, no other, no rigidity, no stridor, no thyromegaly Carotids: bilateral: upstroke normal Thyroid: bilateral: normal size - Respiratory Respiratory: bilateral: CTA, diminished, dullness - Cardiovascular Significant bradycardia still Rhythm: irregularly irregular Heart sounds: normal: S1, S2 Abnormal Heart Sounds: systolic murmur, S3 Gallop - Gastrointestinal General gastrointestinal: no absent bowel sounds, decreased bowel sounds, distended, no hepatomegaly, no hyperactive bowel sounds, normal bowel sounds, no organomegaly, no rigid, no scaphoid, soft, no splenomegaly, no tenderness, no umbilical hernia, no ventral hernia - Integumentary Integumentary: no calor, no cellulitis, no cyanotic, no decreased turgor, no flushed, no jaundiced, normal, no normal turgor, pale, rash, no ulcer - Neurologic Neurologic: CNII-XII intact - Musculoskeletal Musculoskeletal: gait normal, generalized weakness, strength equal bilaterally, no right sided weakness, no left sided weakness - Psychiatric Psychiatric: A&O x's 3, no appropriate affect, no intact judgment & insight Results CBC & Chem 7: 09/18/16 22:20 09/18/16 22:20 Labs: Abnormal Lab Results - Last 24 Hours (Table) 09/19/16 Range/Units 01:48 Urine Appearance Cloudy H (Clear) Ur Leukocyte Esterase Moderate H (Negative) Urine WBC 23 H (0-5) /hpf Urine Bacteria Occasional H (None) /hpf Thrombosis Risk Factor Assmnt - Choose All That Apply Each Factor Represents 1 point: Medical pt on bed rest Each Risk Factor Represents 2 Points: Patient confined to bed Each Risk Factor Represents 3 Points: Age 75 years or older Thrombosis Risk Factor Assessment Total Risk Factor Score: 6 Thrombosis Risk Factor Assessment Level: High Risk Assessment and Plan Plan: 1 severe bradycardia: Patient had long-standing history of A. fib with RVR more tachycardia in the past she is currently on atenolol 25 mg which will be held also she is on amiodarone 200 mg. 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 2 post fall with mild injury, no fracture but patient had significant decreased mobility she was in the hospital recently in 08/25/2016 for generalized weakness nausea and vomiting with diarrhea was supposed to go to assisted rehabilitation at the time. 3 CAD: Has been seeing cardiology for long time no invasive testing lately. For history of paroxysmal atrophy fibrillation more bradycardia lately patient has been on amiodarone and atenolol which probably had a created more bradycardia might require pacemaker for management. 5 vascular dementia patient has been off Aricept for now. 6 hypothyroidism: Continue Synthroid 75 g daily TSH will be done based on the Procardia for now. 7 hyperlipidemia: Patient was on simvastatin 20 mg daily. 8 UTI: Urine was very positive still waiting for culture patient be started on Levaquin 250 mg daily for the next 3-7 days depending on the culture. 9 GI prophylaxis: Continue Prilosec or Pepcid. 10 DVT prophylaxis: Patient will be on heparin subcutaneous. CODE STATUS: Full code. Expectation from this admission: Patient might be the hospital for more than 2 nights.
--- NOTE | 2016-09-19 18:08 | CONS ---
DATE OF CONSULTATION: Mrs. Bui is an 86 -year-old female who presented with history of fall . 12 lead ECG showed sinus rhythm with a prolonged VT interval with a left bundle branch block. Heart rates in the 50s. There is another EKG showed heart rate in the 30s. Past history of tachybrady syndrome. Hence, she is on amiodarone and beta blockers, but she continues to have episodes of bradycardia. REVIEW OF SYSTEMS: No fever, chills, or rigors. No cough or expectoration. No nausea, vomiting venogram or dysuria. No strokes or seizure. No skin lesions or musculoskeletal complaints. Past medical history of paroxysmal atrial fibrillation and tachybrady syndrome, hypertension, dyslipidemia. PAST SURGICAL HISTORY: Joint replacement surgery. SOCIAL HISTORY: She is a former smoker. FAMILY HISTORY: Noncontributory. Medications are reviewed and are documented in the chart. On examination her heart rate is in the high 30s, low 40s, sinus mechanism, prolonged VT interval, left bundle branch block. Blood pressure is 140/57 mm of Hg. Head and neck examination is normal. Heart sounds are S1, S2 are soft. LUNGS: Clear to auscultation. EXTREMITIES: Warm. No edema. IMPRESSION: 1. Symptomatic bradycardia with syncope. 2. Tachybrady syndrome requiring ( ). 3. History of hypertension. SUGGEST: Discontinue amiodarone. Discontinue beta blockers for rate control of paroxysmal atrial fibrillation. Check TSH and electrolytes are normal. I would suggest permanent pacemaker implantation followed by re-institution of beta blockers and stopping amiodarone. She is a patient of Dr. Layne. I will ask him to proceed with pacemaker implantation in the next 1 to 2 days.
[2016-09-19] MEDS: ATORVASTATIN 10 MG TAB PO SCH ×2 (22:47→23:03)
[2016-09-19] MEDS: ALPRAZolam 0.25 MG TAB PO SCH (23:03)
[2016-09-20] MEDS: LEVOTHYROXINE 75 MCG TAB PO SCH (06:22)
[2016-09-20] MEDS: amLODIPine 5 MG TAB PO SCH (06:24)
[2016-09-20] MEDS: FUROSEMIDE 20 MG TAB PO SCH (06:24)
[2016-09-20 07:43] LABS: ALT 50 U/L (9-52); AST 54 U/L (14-36); Alkaline Phosphatase 87 U/L (38-126); Anion Gap 10 mmol/L; Blood Urea Nitrogen 12 mg/dL (7-17); Calcium 8.5 mg/dL (8.4-10.2); Carbon Dioxide 20 mmol/L (22-30); Chloride 103 mmol/L (98-107); Glucose 77 mg/dL (74-99); Non-African American GFR(MDRD) 59 (>60 ml/min/1.73 sqM); Potassium 4.8 mmol/L (3.5-5.1); Sodium 133 mmol/L (137-145); Total Bilirubin 0.7 mg/dL (0.2-1.3); Total Protein 6.5 g/dL (6.3-8.2)
[2016-09-20] MEDS: ALPRAZolam 0.25 MG TAB PO SCH ×3 (08:28→21:06)
[2016-09-20] MEDS: PANTOPRAZOLE 40 MG TABLET PO SCH (08:28)
[2016-09-20] MEDS: ISOSORBIDE MONONITRATE ER 30 MG TAB.ER.24H PO SCH (08:28)
[2016-09-20] MEDS: OXYBUTYNIN XL 5 MG TAB.ER.24 PO SCH (08:28)
[2016-09-20] MEDS: POTASSIUM CHLORIDE ER 10 MEQ TAB.ER.PRT PO SCH (08:28)
[2016-09-20] MEDS: ACETAMINOPHEN TAB 325 MG TAB PO PRN ×2 (08:34→17:31)
[2016-09-20] MEDS ORDERED: TOLTERODINE 2 MG PO SCH (09:00)
[2016-09-20] MEDS ORDERED: FAMOTIDINE 20 MG TAB PO SCH (09:00)
[2016-09-20] MEDS ORDERED: ceFAZolin 1,000 MG in SODIUM CHLORIDE 0.9% IRRIGATIO 250 ML IRRIGATION ONE (09:16)
[2016-09-20] MEDS ORDERED: ceFAZolin 2 GM in SODIUM CHLORIDE 0.9% 100 ML IVPB ONE (09:16)
[2016-09-20] MEDS ORDERED: NITROFURANTOIN MONOHYD/M-CRYST 100 MG CAP PO SCH (13:30)
[2016-09-20] MEDS ORDERED: TEMAZEPAM 15 MG CAP PO PRN (15:47)
--- NOTE | 2016-09-20 15:55 | P.PN ---
Subjective 86-year-old female one of my office patient with long-standing history of CAD A. fib recurrent angina and chest pain with multiple fall is known to have mild COPD abnormal balance and gait for long time. Patient presented to the emergency department at [facility] on 09/18/2016 because of fall when she stood up she is pump and fell against the wall and hit her head and left lower legs denies any loss of consciousness no concussion slight bruise only she ended up calling 911 and arrived to the emergency department [facility] where was seen and evaluated her x-ray failed to show any major fracture of the time workup to some degree was negative with exception of severe bradycardia on her heart monitor and EKG. Patient has long-standing history of A. fib and previous need for pacemaker which was never done. Patient was admitted to the hospital with the above problem. 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 Patient is refusing to have pacemaker placement Objective - Vital Signs Vital signs: Vital Signs Temp 98 F 09/20/16 11:36 Pulse 57 L 09/20/16 11:36 Resp 16 09/20/16 11:36 BP 149/64 09/20/16 11:36 Pulse Ox 97 09/20/16 11:36 Intake & Output 09/19/16 09/20/16 09/20/16 18:59 06:59 18:59 Intake Total 100 200 Balance 100 200 Intake: Oral 100 200 Other: Voiding Method Bedside Commode Bedside Commode Bedside Commode # Voids 1 4 - Exam General appearance: no average body habitus, cooperative, disheveled, mild distress, no morbidly obese, no no acute distress, no obese, no severe distress , thin - EENT Eyes: no abnormal pupil, anicteric sclerae, no disc margins sharp, no edentulous , no EOMI, no PERRLA, no fundus normal, no photophobia, no dentition normal, no poor dentition, no ptosis, scleral icterus, no normal appearance ENT: no hard of hearing, no hearing grossly normal, no NA/AT, normal oropharynx , no other, no pharyngeal erythema, no thrush, no tonsillar exudates, no tonsillar swelling Ears: bilateral: normal - Neck Neck: no lymphadenopathy, normal ROM, no other, no rigidity, no stridor, no thyromegaly Carotids: bilateral: upstroke normal Thyroid: bilateral: normal size - Respiratory Respiratory: bilateral: CTA, diminished, dullness - Cardiovascular Significant bradycardia still Rhythm: irregularly irregular Heart sounds: normal: S1, S2 Abnormal Heart Sounds: systolic murmur, S3 Gallop - Gastrointestinal General gastrointestinal: no absent bowel sounds, decreased bowel sounds, distended, no hepatomegaly, no hyperactive bowel sounds, normal bowel sounds, no organomegaly, no rigid, no scaphoid, soft, no splenomegaly, no tenderness, no umbilical hernia, no ventral hernia - Integumentary Integumentary: no calor, no cellulitis, no cyanotic, no decreased turgor, no flushed, no jaundiced, normal, no normal turgor, pale, rash, no ulcer - Neurologic Neurologic: CNII-XII intact - Musculoskeletal Musculoskeletal: gait normal, generalized weakness, strength equal bilaterally, no right sided weakness, no left sided weakness - Psychiatric Psychiatric: A&O x's 3, no appropriate affect, no intact judgment & insight - Labs CBC & Chem 7: 09/18/16 22:20 09/20/16 07:07 Labs: Abnormal Lab Results - Last 24 Hours (Table) 09/20/16 Range/Units 07:07 Sodium 133 L (137-145) mmol/L Carbon Dioxide 20 L (22-30) mmol/L AST 54 H (14-36) U/L Assessment and Plan Plan: 1 severe bradycardia: Patient had long-standing history of A. fib with RVR more tachycardia in the past she is currently on atenolol 25 mg which was decreased to 12.5 mg daily. Amiodarone decreased from 200 mg daily to 100 mg daily. Cardiology consult is appreciated. Patient is refusing pacemaker. 3 CAD: Has been seeing cardiology for long time no invasive testing lately. 4 history of paroxysmal atrial fibrillation more bradycardia lately patient has been on amiodarone and atenolol which probably had a created more bradycardia might require pacemaker for management. 5 vascular dementia patient has been off Aricept for now. 6 hypothyroidism: Continue Synthroid 75 g daily TSH will be done based on the Procardia for now. 7 hyperlipidemia: Patient was on simvastatin 20 mg daily. 8 UTI: patient on Macrodantin 9. GI prophylaxis: Continue Prilosec or Pepcid. 10 DVT prophylaxis: Patient will be on heparin subcutaneous. CODE STATUS: Full code. Discharge plan: Subacute rehab. PT consult requested. Impression and plan of care have been directed as dictated by the signing physician. Irene Villegas nurse practitioner acting as scribe for signing physician. Time with Patient: Greater than 30
[2016-09-20] MEDS: SODIUM CHLORIDE 0.9% 1,000 ML IV SCH ×3 (16:21→23:29)
[2016-09-20] MEDS ORDERED: BISACODYL 5 MG TABLET.DR PO PRN (18:28)
[2016-09-21] MEDS: LEVOTHYROXINE 75 MCG TAB PO SCH (05:54)
[2016-09-21] MEDS: POTASSIUM CHLORIDE ER 10 MEQ TAB.ER.PRT PO SCH (09:42)
[2016-09-21] MEDS: FUROSEMIDE 20 MG TAB PO SCH (09:42)
[2016-09-21] MEDS: AMIODARONE 100 MG TAB PO SCH (09:42)
[2016-09-21] MEDS: ISOSORBIDE MONONITRATE ER 30 MG TAB.ER.24H PO SCH (09:42)
[2016-09-21] MEDS: ATENOLOL 12.5 MG TAB PO SCH (09:42)
[2016-09-21] MEDS: PANTOPRAZOLE 40 MG TABLET PO SCH (09:42)
[2016-09-21] MEDS: OXYBUTYNIN XL 5 MG TAB.ER.24 PO SCH (09:42)
[2016-09-21] MEDS: amLODIPine 5 MG TAB PO SCH (09:43)
[2016-09-21] MEDS: ALPRAZolam 0.25 MG TAB PO SCH ×3 (09:48→21:03)
--- NOTE | 2016-09-21 10:29 | P.PN ---
Progress Note - Text SUBJECTIVE: This is a progress note dictated for August. This 86- year-old female was admitted to the hospital with a fall and was noted to have severe bradycardia. She has history of coronary artery disease and also paroxysmal and persistent atrial fibrillation. Patient has been on amiodarone 200 mg and atenolol 25 mg. Patient is admitted to the hospital now with bradycardia with heart rates of 38-60. This is sinus bradycardia with evidence of first-degree heart block and also left bundle-branch block pattern. Because of tachybradycardia syndrome, patient was advised to have cardiac pacemaker. Patient however doesn't want to have the pacemaker. She claims that she fell because he slipped and she did not have syncope. At this point we decided to cut back the dose of amiodarone 200 mg and also atenolol to 12.5 mg. She will be monitored on the event monitor. If she is shows evidence of severe bradycardia especially associated with any symptoms then we may consider permanent pacemaker implantation. Prognosis is guarded OBJECTIVE: BP: 130/70 TEMPERATURE: Normal OXYGEN SATURATION: Normal PULSE: 30-60 NECK: No JVD EYES: No jaundice or anemia HEART: S1 and S2 heard short systolic murmur lUNGS: Clear to auscultation percussion ABDOMEN: Soft EXTREMITIES: No edema LABS: Normal electrolytes ASSESSMENT: #1. Severe bradycardia. The dose of the amiodarone and beta blockers is being cut back. Patient refuses to have permanent pacemaker #2. Persistent atrial fibrillation, currently in sinus rhythm #3. Recurrent falls #4. History of coronary artery disease PLAN:Continue current medical therapy as outlined watch for any significant bradyarrhythmias or high degree AV block , patient may be monitored with the event monitor as an outpatient
[2016-09-21] MEDS: SODIUM CHLORIDE 0.9% 1,000 ML IV SCH ×2 (10:45→10:56)
--- NOTE | 2016-09-21 11:45 | P.PN ---
Subjective Principal diagnosis: Fall and bradycardia This 86-year-old female was admitted with a fall. She is unstable and walks with a walker. Apparently she tripped and fell. She claimed that she did not have any syncopal episodes or loss of consciousness. Since admission patient was noted to be bradycardic. The dose of the atenolol and amiodarone were cut back. Patient is complaining of pain in the toes. Her heart rates while awake is in the range of 50-60. We'll continue current medical therapy. No plans for permanent pacemaker at this time Objective - Vital Signs Vital signs: Vital Signs Temp 98.2 F 09/21/16 07:51 Pulse 60 09/21/16 07:51 Resp 16 09/21/16 07:51 BP 155/67 09/21/16 07:51 Pulse Ox 98 09/21/16 07:51 Intake & Output 09/20/16 09/21/16 09/21/16 18:59 06:59 18:59 Intake Total 60 Balance 60 Weight 46 kg 51 kg Intake: Intake, IV Titration 60 Amount Sodium Chloride 0.9% 1, 60 000 ml @ 20 mls/hr IV . Q24H [facility] Rx#:[id number] Other: Voiding Method Bedside Commode Bedside Commode Bedside Commode # Voids 1 1 # Bowel Movements 1 1 - Exam GENERAL EXAM: Patient is alert and oriented and doesn't appear to be in any acute distress HEENT: Normocephalic. Normal reaction of pupils, equal size, normal range of extraocular motion. No erythema or exudates in the throat. NECK: No masses, no nuchal rigidity. CHEST: No chest wall deformity. LUNGS: Equal air entry with no crackles or wheeze. HEART: S1 and S2 normal with no audible mumurs or gallops. Regular rhythm, femorals equal on both sides.. ABDOMEN: No hepatosplenomegaly, normal bowel sounds, no guarding or rigidity. SKIN: No rashes CENTRAL NERVOUS SYSTEM: No focal deficits. EXTREMITIES: No cyanosis, clubbing or edema. - Labs CBC & Chem 7: 09/18/16 22:20 09/20/16 07:07 Labs: Microbiology - Last 24 Hours (Table) 09/21/16 04:23 Urine Culture - Preliminary Urine,Voided Assessment and Plan (1) Bradycardia Status: Acute (2) Fall Status: Acute (3) Degenerative arthritis of left shoulder region Status: Acute (4) Left bundle branch block Status: Acute (5) Renal insufficiency Status: Acute Plan: Continue current medical therapy. Unless significant bradycardia associated symptoms documented, we are not going to do pacemaker at this time. Consider event monitor as an outpatient. Continue low dose of beta russell on amiodarone
--- NOTE | 2016-09-21 14:29 | P.PN ---
Subjective 86-year-old female one of my office patient with long-standing history of CAD A. fib recurrent angina and chest pain with multiple fall is known to have mild COPD abnormal balance and gait for long time. Patient presented to the emergency department at [facility] on 09/18/2016 because of fall when she stood up she is pump and fell against the wall and hit her head and left lower legs denies any loss of consciousness no concussion slight bruise only she ended up calling 911 and arrived to the emergency department [facility] where was seen and evaluated her x-ray failed to show any major fracture of the time workup to some degree was negative with exception of severe bradycardia on her heart monitor and EKG. Patient has long-standing history of A. fib and previous need for pacemaker which was never done. Patient was admitted to the hospital with the above problem. 09/20: Patient has been seen by cost estimating clerk. Patient is refusing to have pacemaker placement 09/21: patient's heart rate has been running 45-60 bpm. She has been resumed back on amiodarone at 100 mg daily and atenolol 12.5 mg daily. Anticipate possible discharge by tomorrow.we will plan to continue monitoring patient overnight. Objective - Vital Signs Vital signs: Vital Signs Temp 98.2 F 09/21/16 07:51 Pulse 60 09/21/16 07:51 Resp 16 09/21/16 07:51 BP 155/67 09/21/16 07:51 Pulse Ox 98 09/21/16 07:51 Intake & Output 09/20/16 09/21/16 09/21/16 18:59 06:59 18:59 Intake Total 60 Balance 60 Weight 46 kg 51 kg Intake: Intake, IV Titration 60 Amount Sodium Chloride 0.9% 1, 60 000 ml @ 20 mls/hr IV . Q24H [facility] Rx#:[id number] Other: Voiding Method Bedside Commode Bedside Commode Bedside Commode # Voids 1 1 2 # Bowel Movements 1 1 - Exam General appearance: no average body habitus, cooperative, disheveled, mild distress, no morbidly obese, no no acute distress, no obese, no severe distress , thin - EENT Eyes: no abnormal pupil, anicteric sclerae, no disc margins sharp, no edentulous , no EOMI, no PERRLA, no fundus normal, no photophobia, no dentition normal, no poor dentition, no ptosis, scleral icterus, no normal appearance ENT: no hard of hearing, no hearing grossly normal, no NA/AT, normal oropharynx , no other, no pharyngeal erythema, no thrush, no tonsillar exudates, no tonsillar swelling Ears: bilateral: normal - Neck Neck: no lymphadenopathy, normal ROM, no other, no rigidity, no stridor, no thyromegaly Carotids: bilateral: upstroke normal Thyroid: bilateral: normal size - Respiratory Respiratory: bilateral: CTA, diminished, dullness - Cardiovascular Significant bradycardia still Rhythm: irregularly irregular Heart sounds: normal: S1, S2 Abnormal Heart Sounds: systolic murmur, S3 Gallop - Gastrointestinal General gastrointestinal: no absent bowel sounds, decreased bowel sounds, distended, no hepatomegaly, no hyperactive bowel sounds, normal bowel sounds, no organomegaly, no rigid, no scaphoid, soft, no splenomegaly, no tenderness, no umbilical hernia, no ventral hernia - Integumentary Integumentary: no calor, no cellulitis, no cyanotic, no decreased turgor, no flushed, no jaundiced, normal, no normal turgor, pale, rash, no ulcer - Neurologic Neurologic: CNII-XII intact - Musculoskeletal Musculoskeletal: gait normal, generalized weakness, strength equal bilaterally, no right sided weakness, no left sided weakness - Psychiatric Psychiatric: A&O x's 3, no appropriate affect, no intact judgment & insight - Labs CBC & Chem 7: 09/18/16 22:20 09/20/16 07:07 Labs: Microbiology - Last 24 Hours (Table) 09/21/16 04:23 Urine Culture - Preliminary Urine,Voided Assessment and Plan Plan: 1 severe bradycardia: Patient had long-standing history of A. fib with RVR more tachycardia in the past she is currently on atenolol 25 mg which was decreased to 12.5 mg daily. Amiodarone decreased from 200 mg daily to 100 mg daily. Cardiology consult is appreciated. Patient is refusing pacemaker. 3 CAD: Has been seeing cardiology for long time no invasive testing lately. 4 history of paroxysmal atrial fibrillation more bradycardia lately patient has been on amiodarone and atenolol which probably had a created more bradycardia might require pacemaker for management. 5 vascular dementia patient has been off Aricept for now. 6 hypothyroidism: Continue Synthroid 75 g daily TSH will be done based on the Procardia for now. 7 hyperlipidemia: Patient was on simvastatin 20 mg daily. 8 UTI: patient on Macrodantin 9. GI prophylaxis: Continue Prilosec or Pepcid. 10 DVT prophylaxis: Patient will be on heparin subcutaneous. CODE STATUS: Full code. Discharge plan: [facility] on Tuesday. Impression and plan of care have been directed as dictated by the signing physician. Irene Villegas nurse practitioner acting as scribe for signing physician. Time with Patient: Greater than 30
[2016-09-21] MEDS: NITROFURANTOIN MACROCRYSTAL 50 MG CAP PO SCH (17:24)
[2016-09-21] MEDS: ATORVASTATIN 10 MG TAB PO SCH (21:03)
[2016-09-22] MEDS: LEVOTHYROXINE 75 MCG TAB PO SCH (06:27)
[2016-09-22] MEDS: SODIUM CHLORIDE 0.9% 1,000 ML IV SCH ×2 (06:27→17:28)
[2016-09-22 08:07] VITALS: PULSE 58; RESP 18
[2016-09-22] MEDS: ATENOLOL 12.5 MG TAB PO SCH (08:54)
[2016-09-22] MEDS: POTASSIUM CHLORIDE ER 10 MEQ TAB.ER.PRT PO SCH (08:55)
[2016-09-22] MEDS: FUROSEMIDE 20 MG TAB PO SCH (08:55)
[2016-09-22] MEDS: PANTOPRAZOLE 40 MG TABLET PO SCH (08:55)
[2016-09-22] MEDS: NITROFURANTOIN MACROCRYSTAL 50 MG CAP PO SCH (08:55)
[2016-09-22] MEDS: amLODIPine 5 MG TAB PO SCH (08:55)
[2016-09-22] MEDS: OXYBUTYNIN XL 5 MG TAB.ER.24 PO SCH (08:55)
[2016-09-22] MEDS: AMIODARONE 100 MG TAB PO SCH (08:55)
[2016-09-22] MEDS: ISOSORBIDE MONONITRATE ER 30 MG TAB.ER.24H PO SCH (08:55)
[2016-09-22] MEDS: ALPRAZolam 0.25 MG TAB PO SCH ×2 (09:03→17:28)
--- NOTE | 2016-09-22 11:45 | P.DS ---
Providers Date of admission: 09/19/16 13:00 Expected date of discharge: 09/22/16 Attending physician: Brandin Escoto Primary care physician: Brandin Jevon [facility] Course: 86-year-old female one of my office patient with long-standing history of CAD A. fib recurrent angina and chest pain with multiple fall is known to have mild COPD abnormal balance and gait for long time. Patient presented to the emergency department at [facility] on 09/18/2016 because of fall when she stood up she is pump and fell against the wall and hit her head and left lower legs denies any loss of consciousness no concussion slight bruise only she ended up calling 911 and arrived to the emergency department [facility] where was seen and evaluated her x-ray failed to show any major fracture of the time workup to some degree was negative with exception of severe bradycardia on her heart monitor and EKG. Patient has long-standing history of A. fib and previous need for pacemaker which was never done. Patient was admitted to the hospital with the above problem. 09/20: Patient has been seen by veterinary surgery technician. Patient is refusing to have pacemaker placement 09/21: patient's heart rate has been running 45-60 bpm. She has been resumed back on amiodarone at 100 mg daily and atenolol 12.5 mg daily. Anticipate possible discharge by tomorrow.we will plan to continue monitoring patient overnight. 09/22: Heart rate is running between 45 and 62. She has been receiving the lower doses of amiodarone and atenolol. Cardiology is requesting event monitor which nursing will make arrangements through cardiology office. Patient will be discharged to [facility] today in stable condition. [facility] by Dr. Escoto. Discharge diagnoses: 1 severe bradycardia 3 CAD 4 history of paroxysmal atrial fibrillation 5 vascular dementia 6 hypothyroidism 7 hyperlipidemia 8 UTI 9 generalized anxiety disorder 10 insomnia Discharge plan: [facility] on Tuesday under Dr. Escoto. Impression and plan of care have been directed as dictated by the signing physician. Irene Villegas nurse practitioner acting as scribe for signing physician. Patient Condition at Discharge: Good Plan - Discharge Summary New Discharge Prescriptions: ALPRAZolam [Xanax] 0.25 mg PO TID #90 tablet NS Temazepam [Restoril] 15 mg PO HS PRN #30 cap PRN Reason: Insomnia traMADol HCL [Ultram] 50 mg PO Q6HR PRN #90 tab PRN Reason: Pain Discharge Medication List amLODIPine BESYLATE [Norvasc] 5 mg PO DAILY 04/22/14 [History] Ergocalciferol [Vitamin D2 (DRISDOL)] 50,000 unit PO RAMÍREZ 09/09/15 [History] Potassium Chloride ER [K-Dur 10] 10 meq PO DAILY 09/09/15 [History] Simvastatin [Zocor] 20 mg PO HS 09/09/15 [History] Levothyroxine Sodium [Synthroid] 75 mcg PO DAILY 11/10/15 [History] Furosemide [Lasix] 20 mg PO DAILY #0 11/11/15 [Rx] Isosorbide Mononitrate ER [Imdur] 30 mg PO DAILY 11/17/15 [History] Meclizine [Antivert] 12.5 mg PO TID PRN 08/09/16 [History] Omeprazole [PriLOSEC] 20 mg PO AC-BRKFST #1 cap 08/25/16 [Rx] Tolterodine ER [Detrol LA] 2 mg PO DAILY 09/19/16 [History] ALPRAZolam [Xanax] 0.25 mg PO TID #90 tablet NS 09/22/16 [Rx] Amiodarone [Cordarone] 100 mg PO DAILY #0 09/22/16 [Rx] Atenolol [Tenormin] 12.5 mg PO DAILY dose 09/22/16 [Rx] Nitrofurantoin Macrocrystal [Macrodantin] 50 mg PO BID #14 cap 09/22/16 [Rx] Temazepam [Restoril] 15 mg PO HS PRN #30 cap 09/22/16 [Rx] traMADol HCL [Ultram] 50 mg PO Q6HR PRN #90 tab 09/22/16 [Rx] Follow up Appointment(s)/Referral(s): Brandin Escoto MD [Primary Care Provider] - 1 Week Discharge Disposition: TRANSFER TO SNF/ECF
[2016-09-22 15:36] VITALS: BP 118/58; TEMP 97.1
== END 2016-09-22 18:25 | DRG 309 ==
LOC: EC 21:10 → 3OBS 09-19 00:20 → OBSVTOIN 09-19 13:00 → 5MS5E 09-20 20:25
PROVIDERS: ADMIT Internal Medicine Geriatric Medicine; ATTEND Internal Medicine Geriatric Medicine
PROC: 3E0234Z Introduction of Serum, Toxoid and Vaccine into Muscle, Percutaneous Approach (ICD-10-PCS; principal; 2016-09-18)
DX: I49.5 Sick sinus syndrome (principal); I48.1 Persistent atrial fibrillation; N39.0 Urinary tract infection, site not specified; J44.9 Chronic obstructive pulmonary disease, unspecified; S09.90XA Unspecified injury of head, initial encounter; F01.50 Vascular dementia, unspecified severity, without behavioral disturbance, psychotic disturbance, mood disturbance, and anxiety; I48.0 Paroxysmal atrial fibrillation; I44.7 Left bundle-branch block, unspecified; Z23 Encounter for immunization; I25.10 Atherosclerotic heart disease of native coronary artery without angina pectoris; E03.9 Hypothyroidism, unspecified; E78.5 Hyperlipidemia, unspecified; F41.1 Generalized anxiety disorder; I10 Essential (primary) hypertension; R29.6 Repeated falls; G47.00 Insomnia, unspecified; I44.0 Atrioventricular block, first degree; K21.9 Gastro-esophageal reflux disease without esophagitis; M47.9 Spondylosis, unspecified; K44.9 Diaphragmatic hernia without obstruction or gangrene; M85.80 Other specified disorders of bone density and structure, unspecified site; N28.9 Disorder of kidney and ureter, unspecified; Z98.41 Cataract extraction status, right eye; Z98.42 Cataract extraction status, left eye; Z87.891 Personal history of nicotine dependence; Z79.899 Other long term (current) drug therapy; Z82.49 Family history of ischemic heart disease and other diseases of the circulatory system; W01.0XXA Fall on same level from slipping, tripping and stumbling without subsequent striking against object, initial encounter
CPT/HCPCS: 36415; 70450; 72125; 72170; 80048; 80053; 81001; 84439; 84443; 85025; 85610; 87086; 90471; 90715; 93005; 93270; 93271; 99285

== ENCOUNTER 2016-11-01 03:26 | Inpatient (IN) | payer MEDICARE, BC ==
[2016-11-01] MEDS ORDERED: SODIUM CHLORIDE 0.9% 500 ML IV STA (03:58)
[2016-11-01] MEDS ORDERED: SODIUM CHLORIDE 0.9% 1,000 ML IV STA (03:58)
--- NOTE | 2016-11-01 04:02 | ED ---
General Adult HPI - General Chief complaint: Fall Stated complaint: fall Time Seen by Provider: 11/01/16 03:28 Source: patient, EMS, RN notes reviewed Mode of arrival: EMS Limitations: no limitations - History of Present Illness Initial comments: Patient is a pleasant 86-year-old female presenting to the emergency department for a fall. Patient states her walker hit the side of the wall and she fell down. Patient was unable to get up on her own. Patient eventually did push her lifeline for assistance. Patient believes she may have been laying on the ground for several hours prior to remembering to push her lifeline. Patient denies syncope. Patient is unclear whether or not she may have hit her head. No chest pain. No abdominal pain. No dyspnea. - Related Data Home Medications Medication Instructions Recorded Confirmed amLODIPine BESYLATE [Norvasc] 5 mg PO DAILY 04/22/14 09/19/16 Ergocalciferol [Vitamin D2 50,000 unit PO RAMÍREZ 09/09/15 09/19/16 (DRISDOL)] Potassium Chloride ER [K-Dur 10] 10 meq PO DAILY 09/09/15 09/19/16 Simvastatin [Zocor] 20 mg PO HS 09/09/15 09/19/16 Levothyroxine Sodium [Synthroid] 75 mcg PO DAILY 11/10/15 09/19/16 Isosorbide Mononitrate ER [Imdur] 30 mg PO DAILY 11/17/15 09/19/16 Meclizine [Antivert] 12.5 mg PO TID PRN 08/09/16 09/19/16 Tolterodine ER [Detrol LA] 2 mg PO DAILY 09/19/16 09/19/16 Previous Rx's Medication Instructions Recorded Furosemide [Lasix] 20 mg PO DAILY #0 11/11/15 Omeprazole [PriLOSEC] 20 mg PO AC-BRKFST #1 cap 08/25/16 ALPRAZolam [Xanax] 0.25 mg PO TID #90 tablet NS 09/22/16 Amiodarone [Cordarone] 100 mg PO DAILY #0 09/22/16 Atenolol [Tenormin] 12.5 mg PO DAILY dose 09/22/16 Nitrofurantoin Macrocrystal 50 mg PO BID #14 cap 09/22/16 [Macrodantin] Temazepam [Restoril] 15 mg PO HS PRN #30 cap 09/22/16 traMADol HCL [Ultram] 50 mg PO Q6HR PRN #90 tab 09/22/16 Allergies Allergy/AdvReac Type Severity Reaction Status Date / Time morphine Allergy Confusion Verified 11/01/16 03:46 Penicillins Allergy Unknown Verified 11/01/16 03:46 Sulfa (Sulfonamide Allergy Unknown Verified 11/01/16 03:46 Antibiotics) Review of Systems ROS Statement: Those systems with pertinent positive or pertinent negative responses have been documented in the HPI. ROS Other: All systems not noted in ROS Statement are negative. Constitutional: Denies: fever Eyes: Denies: eye pain ENT: Denies: ear pain Respiratory: Denies: cough Cardiovascular: Denies: chest pain Endocrine: Denies: fatigue Gastrointestinal: Denies: abdominal pain Genitourinary: Denies: dysuria Musculoskeletal: Denies: back pain Skin: Denies: rash Neurological: Denies: headache, weakness Past Medical History Past Medical History: Atrial Fibrillation, Coronary Artery Disease (CAD), COPD, Dementia, GERD/Reflux, Hyperlipidemia, Hypertension, Osteoarthritis (OA), Pneumonia, Thyroid Disorder Additional Past Medical History / Comment(s): HIATAL HERNIA, COPD, CARDIOMEGALY FOUND PER X RAY,UTI History of Any Multi-Drug Resistant Organisms: None Reported Past Surgical History: Joint Replacement, Orthopedic Surgery Additional Past Surgical History / Comment(s): right shoulder PLATE AND SCREWS, bilat , SANGITA CATARACTS, RT EYE RETINAL SX, thyroid removed Past Anesthesia/Blood Transfusion Reactions: No Reported Reaction Past Psychological History: No Psychological Hx Reported Smoking Status: Former smoker Past Alcohol Use History: None Reported Past Drug Use History: None Reported - Past Family History Father History Unknown: Yes Family Medical History: Renal Disease Mother History Unknown: Yes Family Medical History: Hypertension Brother(s) Family Medical History: No Reported History Daughter(s) Family Medical History: Cancer Son(s) Family Medical History: No Reported History General Exam Limitations: no limitations General appearance: alert, in no apparent distress Head exam: Present: atraumatic Eye exam: Present: normal appearance, PERRL ENT exam: Present: normal oropharynx Neck exam: Present: tenderness (Mild lower cervical spine tenderness) Respiratory exam: Present: normal lung sounds bilaterally Cardiovascular Exam: Present: regular rate, normal rhythm GI/Abdominal exam: Present: soft. Absent: tenderness Extremities exam: Present: normal inspection, full ROM. Absent: tenderness Neurological exam: Present: alert, CN II-XII intact. Absent: motor sensory deficit Expanded Patient oriented to: Present: person, place, time Cranial nerves: EOM's Intact: Normal Motor strength exam: RUE: 5, LUE: 5, RLE: 5, LLE: 5 Eye Response: (4) open spontaneously Motor Response: (6) obeys commands Verbal Response: (5) oriented Psychiatric exam: Present: normal affect, normal mood Skin exam: Absent: rash Course Vital Signs 11/01/16 11/01/16 03:42 06:23 Temperature 97.2 F L Pulse Rate 62 59 L Respiratory 18 18 Rate Blood Pressure 128/67 111/56 O2 Sat by Pulse 96 98 Oximetry EKG Findings - EKG Comments: EKG Findings:: Sinus bradycardia at 59. First-degree AV block with a SC of 242. QRS 94. QT 486. QTc 41. Normal axis. Septal Q waves. Lateral inverted T waves. Medical Decision Making - Medical Decision Making Case was discussed in detail with Dr. Dr. Escoto who is familiar with his patient. He will admit with social work consult. Patient reevaluated and updated. It is in agreement the patient cannot safely live on her own at this point. - Lab Data Result diagrams: 11/01/16 05:20 11/01/16 05:20 Lab Results 11/01/16 11/01/16 11/01/16 Range/Units 05:20 05:20 05:20 WBC 28.6 H* (3.8-10.6) k/uL RBC 4.86 (3.80-5.40) m/uL Hgb 14.1 (11.4-16.0) gm/dL Hct 44.4 (34.0-46.0) % MCV 91.2 (80.0-100.0) fL MCH 29.0 (25.0-35.0) pg MCHC 31.8 (31.0-37.0) g/dL RDW 14.0 (11.5-15.5) % Plt Count 279 (150-450) k/uL Neutrophils % 92 % Lymphocytes % 4 % Monocytes % 4 % Eosinophils % 0 % Basophils % 0 % Neutrophils # 26.2 H (1.3-7.7) k/uL Lymphocytes # 1.1 (1.0-4.8) k/uL Monocytes # 1.1 H (0-1.0) k/uL Eosinophils # 0.0 (0-0.7) k/uL Basophils # 0.0 (0-0.2) k/uL PT 12.8 H (9.0-12.0) sec INR 1.3 (<1.1) APTT 27.7 (22.0-30.0) sec Sodium 138 (137-145) mmol/L Potassium 3.7 (3.5-5.1) mmol/L Chloride 102 (98-107) mmol/L Carbon Dioxide 23 (22-30) mmol/L Anion Gap 13 mmol/L BUN 81 H* (7-17) mg/dL Creatinine 2.17 H (0.52-1.04) mg/dL Est GFR (MDRD) Af Amer 26 (>60 ml/min/1.73 sqM) Est GFR (MDRD) Non-Af 21 (>60 ml/min/1.73 sqM) Glucose 75 (74-99) mg/dL Calcium 8.5 (8.4-10.2) mg/dL Total Bilirubin 1.0 (0.2-1.3) mg/dL AST 205 H (14-36) U/L ALT 150 H (9-52) U/L Alkaline Phosphatase 180 H (38-126) U/L Total Creatine Kinase (30-135) U/L CK-MB (CK-2) (0.0-2.4) ng/mL CK-MB (CK-2) Rel Index Troponin I (0.000-0.034) ng/mL Total Protein 6.0 L (6.3-8.2) g/dL Albumin 2.9 L (3.5-5.0) g/dL Urine Color Urine Appearance (Clear) Urine pH (5.0-8.0) Ur Specific Rena Lara (1.001-1.035) Urine Protein (Negative) Urine Glucose (UA) (Negative) Urine Ketones (Negative) Urine Blood (Negative) Urine Nitrate (Negative) Urine Bilirubin (Negative) Urine Urobilinogen (<2.0) mg/dL Ur Leukocyte Esterase (Negative) 11/01/16 11/01/16 Range/Units 05:20 06:00 WBC (3.8-10.6) k/uL RBC (3.80-5.40) m/uL Hgb (11.4-16.0) gm/dL Hct (34.0-46.0) % MCV (80.0-100.0) fL MCH (25.0-35.0) pg MCHC (31.0-37.0) g/dL RDW (11.5-15.5) % Plt Count (150-450) k/uL Neutrophils % % Lymphocytes % % Monocytes % % Eosinophils % % Basophils % % Neutrophils # (1.3-7.7) k/uL Lymphocytes # (1.0-4.8) k/uL Monocytes # (0-1.0) k/uL Eosinophils # (0-0.7) k/uL Basophils # (0-0.2) k/uL PT (9.0-12.0) sec INR (<1.1) APTT (22.0-30.0) sec Sodium (137-145) mmol/L Potassium (3.5-5.1) mmol/L Chloride (98-107) mmol/L Carbon Dioxide (22-30) mmol/L Anion Gap mmol/L BUN (7-17) mg/dL Creatinine (0.52-1.04) mg/dL Est GFR (MDRD) Af Amer (>60 ml/min/1.73 sqM) Est GFR (MDRD) Non-Af (>60 ml/min/1.73 sqM) Glucose (74-99) mg/dL Calcium (8.4-10.2) mg/dL Total Bilirubin (0.2-1.3) mg/dL AST (14-36) U/L ALT (9-52) U/L Alkaline Phosphatase (38-126) U/L Total Creatine Kinase 28 L (30-135) U/L CK-MB (CK-2) 2.1 (0.0-2.4) ng/mL CK-MB (CK-2) Rel Index 7.5 Troponin I 0.037 H* (0.000-0.034) ng/mL Total Protein (6.3-8.2) g/dL Albumin (3.5-5.0) g/dL Urine Color Yellow Urine Appearance Clear (Clear) Urine pH 5.5 (5.0-8.0) Ur Specific Rena Lara 1.011 (1.001-1.035) Urine Protein Trace H (Negative) Urine Glucose (UA) Negative (Negative) Urine Ketones Negative (Negative) Urine Blood Negative (Negative) Urine Nitrate Negative (Negative) Urine Bilirubin Negative (Negative) Urine Urobilinogen <2.0 (<2.0) mg/dL Ur Leukocyte Esterase Negative (Negative) - Radiology Data Radiology results: report reviewed (Computed tomography scan of the brain and cervical spine reveal no acute abnormality.), image reviewed (Chest x-ray shows no acute process.) Disposition Clinical Impression: Acute renal failure (ARF), Pre-syncope Disposition: ADMITTED IP TO THIS HOSP
--- NOTE | 2016-11-01 05:12 | CT ---
EXAM: CT Head Without Intravenous Contrast. CLINICAL HISTORY: Reason: Pain TECHNIQUE: Axial computed tomography images of the head/brain without intravenous contrast. CTDI is 60.30 mGy and DLP is 1217.10 mGy-cm COMPARISON: 09/18/16 CT. FINDINGS: Brain: Global atrophy and diffuse presumed chronic small vessel ischemic changes are stable. No hemorrhage. Ventricles: Stable. Bones: No acute fracture. Sinuses: Unremarkable as visualized. No acute sinusitis. Mastoid air cells: Unremarkable as visualized. No mastoid effusion. Orbits: Stable chronic appearing postsurgical and/or posttraumatic changes within the right globe and orbit. IMPRESSION: No definite interval change since the previous CT. EXAM: CT Cervical Spine Without Intravenous Contrast. CLINICAL HISTORY: Reason: Pain TECHNIQUE: Axial computed tomography images of the cervical spine without intravenous contrast. CTDI is 13.50 mGy and DLP is 294.40 mGy-cm COMPARISON: 09/18/[address] FINDINGS: Vertebrae: The bones are osteopenic and there is again multilevel degenerative change present throughout. No acute fracture is identified. Alignment is stable including minor grade 1 anterolisthesis at C7-T1. Discs/spinal canal/neural foramina: No acute findings. Multilevel central canal and foraminal stenosis is unchanged. Soft tissues: Unremarkable. Vasculature: Bilateral atherosclerotic calcifications are noted. Lung apices: Unremarkable as visualized. IMPRESSION: No significant change, no new acute fracture is seen. Clinical clearance of the cervical spine is still recommended.
--- NOTE | 2016-11-01 05:15 | XR ---
EXAM: XR Chest, 1 View. CLINICAL HISTORY: Reason: Weakness TECHNIQUE: Frontal view of the chest. COMPARISON: 08/19/16 two-view exam. FINDINGS: Lungs: Unremarkable. No consolidation. Pleural spaces: Unremarkable. No pneumothorax. Heart: Stable cardiomegaly. Mediastinum: Hiatal hernia is now somewhat less conspicuous. Bones: Bones stable including previous proximal right humeral ORIF and associated chronic deformity. There is rightward curvature of the upper lumbar spine that is partially included. No acute fracture. IMPRESSION: No new acute findings.
[2016-11-01 06:05] LABS: Basophils % (A) 0 %; CH 29.3; CHCM 32.3; Eosinophils % (A) 0 %; HCT 44.4 % (34.0-46.0); HDW 2.28; HGB 14.1 gm/dL (11.4-16.0); Luc # (Auto) 0.21; Luc % (Auto) 1; Lymphocytes # (A) 1.1 k/uL (1.0-4.8); Lymphocytes % (A) 4 %; MCHC 31.8 g/dL (31.0-37.0); MCV 91.2 fL (80.0-100.0); Mean Platelet Volume 8.1; Monocytes # (A) 1.1 k/uL (0-1.0); Monocytes % (A) 4 %; Neutrophils # (A) 26.2 k/uL (1.3-7.7); Neutrophils % (A) 92 %; RBC 4.86 m/uL (3.80-5.40); WBC (Perox) 28.97
[2016-11-01 06:06] LABS: INR 1.3 (<1.1); Partial Thromboplastin Time 27.7 sec (22.0-30.0); Prothrombin Time 12.8 sec (9.0-12.0)
[2016-11-01 06:13] LABS: Calcium 8.5 mg/dL (8.4-10.2); Potassium 3.7 mmol/L (3.5-5.1)
[2016-11-01 06:17] LABS: Appearance,Urine Clear (Clear); Bilirubin,Urine Negative (Negative); Glucose,Urine (UA) Negative (Negative); Ketones,Urine Negative (Negative); Leukocyte Esterase,Urine Negative (Negative); Nitrite,Urine Negative (Negative); PH, Urine 5.5 (5.0-8.0); Protein,Urine Trace (Negative); Specific Gravity,Urine 1.011 (1.001-1.035); UA Billing (MACRO vs. MICRO) CHEM; Urobilinogen,Urine <2.0 mg/dL (<2.0)
[2016-11-01 06:24] LABS: WBC 28.6 k/uL (3.8-10.6)
[2016-11-01 06:42] LABS: Creatine Kinase MB 2.1 ng/mL (0.0-2.4)
[2016-11-01 06:49] LABS: Troponin I 0.037 ng/mL (0.000-0.034)
[2016-11-01] MEDS ORDERED: NALOXONE 0.4 MG/ML 1 ML VIAL IV PRN (07:20)
[2016-11-01 09:18] LABS: Glucose,Whole Blood 68 mg/dL (75-99)
[2016-11-01 09:37] LABS: Glucose,Whole Blood 157 mg/dL (75-99)
[2016-11-01] MEDS ORDERED: traMADol 50 MG TAB PO PRN (10:07)
[2016-11-01 11:56] LABS: Creatine Kinase MB 2.2 ng/mL (0.0-2.4); Troponin I 0.032 ng/mL (0.000-0.034)
[2016-11-01] MEDS: amLODIPine 5 MG TAB PO SCH (12:22)
[2016-11-01] MEDS: ISOSORBIDE MONONITRATE ER 30 MG TAB.ER.24H PO SCH (12:22)
[2016-11-01] MEDS: SODIUM CHLORIDE 0.9% 1,000 ML IV SCH ×2 (12:22→20:10)
[2016-11-01 15:12] VITALS: BMI 15.4
--- NOTE | 2016-11-01 15:29 | P.HPIM ---
History of Present Illness H&P Date: 11/01/16 Chief Complaint: fall 86-year-old female patient of Dr. Dr. Escoto with long-standing history of CAD, A. fib, recurrent angina and chest pain with multiple fall is known to have mild COPD, abnormal balance and gait for long time. Patient was recently hospitalized in August after a fall for bradycardia and changes were made to her amiodarone and atenolol. Patient went to [facility] for rehab where her course was complicated by a lower extremity wound infection. She was discharged from [facility] on Tuesday and went to [facility]. She apparently had a fall there and laid on the floor for an unknown amount of time. Patient is a very poor historian. CAT scan of the brain showed no interval change. CAT scan cervical spine revealed no significant change. Her white count was a 28.6. BUN 81 and creatinine 2.17. Liver enzymes were all elevated and troponin was 0.037. Urinalysis was clear with nitrate and leukoesterase negative. Patient has been admitted to the selective care unit, currently in ICU as an overflow. Consult requested with cardiology area did repeat lab work ordered, PT, OT and social work consult. Review of Systems All systems: negative Constitutional: Denies chills, Denies fever Eyes: denies blurred vision, denies pain Ears, nose, mouth and throat: Denies headache, Denies sore throat Cardiovascular: Reports syncope, Denies chest pain, Denies shortness of breath Respiratory: Denies cough Gastrointestinal: Denies abdominal pain, Denies diarrhea, Denies nausea, Denies vomiting Genitourinary: Denies dysuria, Denies hematuria Musculoskeletal: Reports frequent falls, Reports gait dysfunction, Reports muscle weakness, Denies myalgias Integumentary: Denies pruritus, Denies rash Neurological: Denies numbness, Denies weakness Psychiatric: Denies anxiety, Denies depression Endocrine: Denies fatigue, Denies weight change Past Medical History Past Medical History: Atrial Fibrillation, Coronary Artery Disease (CAD), Chest Pain / Angina, Heart Failure, COPD, Dementia, Eye Disorder, GERD/Reflux, Hyperlipidemia, Hypertension, Osteoarthritis (OA), Pneumonia, Thyroid Disorder, Vascular Disorder Additional Past Medical History / Comment(s): Bradycardia, left ventricular hypertrophy, PAD, macular degeneration R eye, R shoulder pain, UTIs, osteoporosis, vitamin D deficiency, multiple falls, gait dysturbance, abnormal balance, diverticulosis, goiter. History of Any Multi-Drug Resistant Organisms: None Reported Past Surgical History: Joint Replacement, Orthopedic Surgery Additional Past Surgical History / Comment(s): right shoulder PLATE AND SCREWS, SANGITA CATARACTS, RT EYE RETINAL SX, thyroid removed, total R hip, Total L hip with revision, total R knee, colonoscopy/polypectomy. Past Anesthesia/Blood Transfusion Reactions: No Reported Reaction Past Psychological History: No Psychological Hx Reported Additional Psychological History / Comment(s): Pt states she resides alone in a senior facility. She cannot recall name of facility. She states she does not have to use stairs-there is an elevator. Her law is active in her care. She has a caregiver twice a week. She no longer drives. Her caregiver takes her to appts. She uses a walker to ambulate. She has had falls. Smoking Status: Former smoker Past Alcohol Use History: None Reported Additional Past Alcohol Use History / Comment(s): Pt started smoking in 1948 and quit in 1993 Past Drug Use History: None Reported - Past Family History Father History Unknown: Yes Family Medical History: Renal Disease Mother History Unknown: Yes Family Medical History: Hypertension Brother(s) Family Medical History: No Reported History Daughter(s) Family Medical History: Cancer Additional Family Medical History / Comment(s): Pt states her oldest law of breast cancer. Son(s) Family Medical History: No Reported History Medications and Allergies Home Medications Medication Instructions Recorded Confirmed Type amLODIPine BESYLATE [Norvasc] 5 mg PO DAILY 04/22/14 11/01/16 History Ergocalciferol [Vitamin D2 50,000 unit PO RAMÍREZ 09/09/15 11/01/16 History (DRISDOL)] Potassium Chloride ER [K-Dur 10] 10 meq PO DAILY 09/09/15 11/01/16 History Simvastatin [Zocor] 20 mg PO HS 09/09/15 11/01/16 History Levothyroxine Sodium [Synthroid] 75 mcg PO MOTUWEFRSA 11/10/15 11/01/16 History Isosorbide Mononitrate ER [Imdur] 30 mg PO DAILY 11/17/15 11/01/16 History Meclizine [Antivert] 12.5 mg PO TID PRN 08/09/16 11/01/16 History Tolterodine ER [Detrol LA] 2 mg PO DAILY 09/19/16 11/01/16 History Atenolol [Tenormin] 25 mg PO DAILY 11/01/16 11/01/16 History Diphenoxylate HCl/Atropine 1 tab PO BID PRN 11/01/16 11/01/16 History [Lomotil] Ferrous Sulfate [Feosol] 325 mg PO DAILY 11/01/16 11/01/16 History Furosemide [Lasix] 40 mg PO DAILY 11/01/16 11/01/16 History Levothyroxine Sodium [Levoxyl] 37.5 mcg PO SUTH 11/01/16 11/01/16 History prednisoLONE ACETATE [Pred Forte] 1 drop RIGHT EYE QID 11/01/16 11/01/16 History Allergies Allergy/AdvReac Type Severity Reaction Status Date / Time morphine Allergy Confusion Verified 11/01/16 10:42 Penicillins Allergy Unknown Verified 11/01/16 10:42 Sulfa (Sulfonamide Allergy Unknown Verified 11/01/16 10:42 Antibiotics) Physical Exam Vitals: Vital Signs Pulse Resp BP Pulse Ox 11/01/16 08:33 54 L 14 134/59 95 11/01/16 07:40 53 L 14 127/58 98 Intake and Output 10/31/16 11/01/16 11/01/16 22:59 06:59 14:59 Intake Total 75 Balance 75 Intake: IV 75 Sodium Chloride 0.9% 1, 75 000 ml @ 75 mls/hr IV . [id number] [facility] Rx#:[id number] General appearance: no average body habitus, cooperative, disheveled, mild distress, no morbidly obese, no no acute distress, no obese, no severe distress , thin - EENT Eyes: no abnormal pupil, anicteric sclerae, no disc margins sharp, no edentulous , no EOMI, no PERRLA, no fundus normal, no photophobia, no dentition normal, no poor dentition, no ptosis, scleral icterus, no normal appearance ENT: no hard of hearing, no hearing grossly normal, no NA/AT, normal oropharynx , no other, no pharyngeal erythema, no thrush, no tonsillar exudates, no tonsillar swelling Ears: bilateral: normal - Neck Neck: no lymphadenopathy, normal ROM, no other, no rigidity, no stridor, no thyromegaly Carotids: bilateral: upstroke normal Thyroid: bilateral: normal size - Respiratory Respiratory: bilateral: CTA, diminished, dullness - Cardiovascular Significant bradycardia still Rhythm: irregularly irregular Heart sounds: normal: S1, S2 Abnormal Heart Sounds: systolic murmur, S3 Gallop - Gastrointestinal General gastrointestinal: no absent bowel sounds, decreased bowel sounds, distended, no hepatomegaly, no hyperactive bowel sounds, normal bowel sounds, no organomegaly, no rigid, no scaphoid, soft, no splenomegaly, no tenderness, no umbilical hernia, no ventral hernia - Integumentary Integumentary: no calor, no cellulitis, no cyanotic, no decreased turgor, no flushed, no jaundiced, normal, no normal turgor, pale, rash, no ulcer - Neurologic Neurologic: CNII-XII intact - Musculoskeletal Musculoskeletal: gait normal, generalized weakness, strength equal bilaterally, no right sided weakness, no left sided weakness - Psychiatric Psychiatric: A&O x's 3, no appropriate affect, no intact judgment & insight Results CBC & Chem 7: 11/01/16 05:20 11/01/16 05:20 Labs: Abnormal Lab Results - Last 24 Hours (Table) 11/01/16 11/01/16 Range/Units 09:10 09:36 POC Glucose (mg/dL) 68 L 157 H (75-99) mg/dL Thrombosis Risk Factor Assmnt - DVT/VTE Prophylaxis DVT/VTE Prophylaxis: Pharmacologic Prophylaxis ordered - Choose All That Apply Any of the Below Risk Factors Present?: Yes Each Factor Represents 1 point: Abnormal pulmonary function (COPD) Other Risk Factors: Yes Each Risk Factor Represents 3 Points: Age 75 years or older Other congenital or acquired thrombophilia - If yes, enter type in comment: No Thrombosis Risk Factor Assessment Total Risk Factor Score: 4 Thrombosis Risk Factor Assessment Level: Moderate Risk Assessment and Plan Plan: 1 fall versus possible syncopal episode. Patient had long-standing history of A. fib with RVR as well as recent hospitalization for bradycardia. Atenolol and amiodarone on hold. Cardiology consult. 2 acute kidney injury. Continue IV fluids at 75 mL per hour. Repeat lab work in the morning. 3 elevated liver function tests. Continue to monitor. Medications reviewed 4 CAD: Continue Lipitor. 5 history of paroxysmal atrial fibrillation more bradycardia lately patient has been on amiodarone and atenolol which probably had a created more bradycardia. Patient has refused pacemaker in the past 6 vascular dementia patient has been off Aricept for now. 7 hypothyroidism: Continue Synthroid 75 g daily TSH will be done based on the Procardia for now. 8 hyperlipidemia: Patient was on simvastatin 20 mg daily. 9 GI prophylaxis: Continue Prilosec or Pepcid. 10 DVT prophylaxis: Patient will be on heparin subcutaneous. CODE STATUS: Full code. Expectation from this admission: Patient might be the hospital for more than 2 nights. Discharge plan: PT, OT, social work consults Impression and plan of care have been directed as dictated by the signing physician. Irene Villegas nurse practitioner acting as scribe for signing physician. Time with Patient: Greater than 30
[2016-11-01 18:08] LABS: Creatine Kinase MB 2.1 ng/mL (0.0-2.4); Troponin I 0.029 ng/mL (0.000-0.034)
[2016-11-01] MEDS: ATORVASTATIN 10 MG TAB PO SCH (20:09)
[2016-11-01] MEDS: HEPARIN SODIUM,PORCINE 5,000 UNIT/ML 1 ML VIAL SQ SCH (20:09)
[2016-11-02 04:57] LABS: CH 29.3; CHCM 32.4; HCT 35.1 % (34.0-46.0); HDW 2.34; HGB 11.4 gm/dL (11.4-16.0); MCH 29.5 pg (25.0-35.0); MCHC 32.4 g/dL (31.0-37.0); MCV 90.9 fL (80.0-100.0); Mean Platelet Volume 8.1; RBC 3.86 m/uL (3.80-5.40); RDW 14.1 % (11.5-15.5); WBC 13.8 k/uL (3.8-10.6)
[2016-11-02 05:19] LABS: Calcium 7.5 mg/dL (8.4-10.2); Potassium 3.2 mmol/L (3.5-5.1); Total Bilirubin 0.8 mg/dL (0.2-1.3); Total Protein 4.5 g/dL (6.3-8.2)
[2016-11-02] MEDS: LEVOTHYROXINE 75 MCG TAB PO SCH (07:02)
[2016-11-02] MEDS: HEPARIN SODIUM,PORCINE 5,000 UNIT/ML 1 ML VIAL SQ SCH ×2 (08:12→20:36)
[2016-11-02] MEDS: amLODIPine 5 MG TAB PO SCH (08:12)
[2016-11-02] MEDS: ISOSORBIDE MONONITRATE ER 30 MG TAB.ER.24H PO SCH (08:12)
[2016-11-02] MEDS: PANTOPRAZOLE 40 MG TABLET PO SCH (08:12)
[2016-11-02 09:09] VITALS: RESP 18
--- NOTE | 2016-11-02 11:05 | P.CRDCN ---
History of Present Illness Consult date: 11/02/16 Requesting physician: Snow Randall Reason for Consult (text): Bradycardia Chief complaint: Fall History of present illness: This is a pleasant 86-year-old female with history of paroxysmal atrial fibrillation, hypertension, hyperlipidemia, tachybradycardia's hypo- thyroidism, coronary artery disease with documented LAD stenosis, multiple falls , COPD. Patient was recently in the hospital in August of this year after experiencing a fall. Patient was found to be significantly bradycardic and medication adjustments were made to her amiodarone and atenolol at that time. The patient again presents to the hospital on this occasion after experiencing a fall at the [facility] where she resides. According to the patient, her walker got caught on the side of the door, she became unsteady and fell. Patient does have mild dementia and clear history is difficult to obtain from her. EKG on arrival here shows a sinus bradycardia, first-degree AV block. Asked x-ray did not reveal any acute findings. CT of the head and spine did not reveal any definite interval change from prior. The pressure on arrival 128 /67 with a heart rate in the 50s. Blood cell count on admission 28.6, 13.8 this morning. Sodium 135 potassium 3.2 BUN on arrival 81 and creatinine 2.1 this morning BUN 50, creatinine 1.3. AST on arrival 205 ALT 150 alk phos 180, this morning AST 125, ALT 103, and alk phos 168. Troponins 0.029, 0.032, 0.037. At this time my examination this morning, patient is sitting up in the chair at bedside, denies any dizziness, no lightheadedness, just complains of pain from her dentures. Echocardiogram with Doppler study performed in October of last year revealed severe pulmonary hypertension ejection fraction 60-65%. On patient's recent admission in August , recommendation was to proceed with pacemaker implantation by Dr. Layne, we will speak with him regarding this. In August of this year patient did have a Holter monitor in place which revealed multiple episodes of bradycardia heart rate down into the 20s. Past Medical History Past Medical History: Atrial Fibrillation, Coronary Artery Disease (CAD), Chest Pain / Angina, Heart Failure, COPD, Dementia, Eye Disorder, GERD/Reflux, Hyperlipidemia, Hypertension, Osteoarthritis (OA), Pneumonia, Thyroid Disorder, Vascular Disorder Additional Past Medical History / Comment(s): Bradycardia, left ventricular hypertrophy, PAD, macular degeneration R eye, R shoulder pain, UTIs, osteoporosis, vitamin D deficiency, multiple falls, gait dysturbance, abnormal balance, diverticulosis, goiter. History of Any Multi-Drug Resistant Organisms: None Reported Past Surgical History: Joint Replacement, Orthopedic Surgery Additional Past Surgical History / Comment(s): right shoulder PLATE AND SCREWS, SANGITA CATARACTS, RT EYE RETINAL SX, thyroid removed, total R hip, Total L hip with revision, total R knee, colonoscopy/polypectomy. Past Anesthesia/Blood Transfusion Reactions: No Reported Reaction Past Psychological History: No Psychological Hx Reported Additional Psychological History / Comment(s): Pt states she resides alone in a senior facility. She cannot recall name of facility. She states she does not have to use stairs-there is an elevator. Her law is active in her care. She has a caregiver twice a week. She no longer drives. Her caregiver takes her to appts. She uses a walker to ambulate. She has had falls. Smoking Status: Former smoker Past Alcohol Use History: None Reported Additional Past Alcohol Use History / Comment(s): Pt started smoking in 1948 and quit in 1993 Past Drug Use History: None Reported - Past Family History Father History Unknown: Yes Family Medical History: Renal Disease Mother History Unknown: Yes Family Medical History: Hypertension Brother(s) Family Medical History: No Reported History Daughter(s) Family Medical History: Cancer Additional Family Medical History / Comment(s): Pt states her oldest law of breast cancer. Son(s) Family Medical History: No Reported History Medications and Allergies Home Medications Medication Instructions Recorded Confirmed Type amLODIPine BESYLATE [Norvasc] 5 mg PO DAILY 04/22/14 11/01/16 History Ergocalciferol [Vitamin D2 50,000 unit PO RAMÍREZ 09/09/15 11/01/16 History (DRISDOL)] Potassium Chloride ER [K-Dur 10] 10 meq PO DAILY 09/09/15 11/01/16 History Simvastatin [Zocor] 20 mg PO HS 09/09/15 11/01/16 History Levothyroxine Sodium [Synthroid] 75 mcg PO MOTUWEFRSA 11/10/15 11/01/16 History Isosorbide Mononitrate ER [Imdur] 30 mg PO DAILY 11/17/15 11/01/16 History Meclizine [Antivert] 12.5 mg PO TID PRN 08/09/16 11/01/16 History Tolterodine ER [Detrol LA] 2 mg PO DAILY 09/19/16 11/01/16 History Atenolol [Tenormin] 25 mg PO DAILY 11/01/16 11/01/16 History Diphenoxylate HCl/Atropine 1 tab PO BID PRN 11/01/16 11/01/16 History [Lomotil] Ferrous Sulfate [Feosol] 325 mg PO DAILY 11/01/16 11/01/16 History Furosemide [Lasix] 40 mg PO DAILY 11/01/16 11/01/16 History Levothyroxine Sodium [Levoxyl] 37.5 mcg PO SUTH 11/01/16 11/01/16 History prednisoLONE ACETATE [Pred Forte] 1 drop RIGHT EYE QID 11/01/16 11/01/16 History Allergies Allergy/AdvReac Type Severity Reaction Status Date / Time morphine Allergy Confusion Verified 11/01/16 10:42 Penicillins Allergy Unknown Verified 11/01/16 10:42 Sulfa (Sulfonamide Allergy Unknown Verified 11/01/16 10:42 Antibiotics) Physical Exam Vitals: Vital Signs Temp Pulse Pulse Resp BP BP Pulse Ox 11/02/16 08:00 97.1 F L 56 L 18 129/63 97 11/02/16 03:47 14 11/02/16 03:00 55 L 96 11/02/16 02:00 54 L 96 11/02/16 01:00 55 L 96 11/02/16 00:00 97.7 F 55 L 14 94 L 11/01/16 23:00 55 L 11/01/16 22:17 55 L 11/01/16 22:00 55 L 95 11/01/16 21:00 55 L 96 11/01/16 20:00 98.3 F 55 L 14 119/48 96 11/01/16 19:00 54 L 95 11/01/16 18:00 97.5 F L 54 L 119/48 96 11/01/16 17:00 54 L 95 11/01/16 16:00 57 L 18 98 11/01/16 15:00 53 L 98 11/01/16 14:00 52 L 98 11/01/16 13:00 51 L 18 123/57 98 11/01/16 12:00 97.2 F L 51 L 20 123/57 97 11/01/16 11:00 51 L 101/50 96 Intake and Output 11/01/16 11/02/16 11/02/16 22:59 06:59 14:59 Intake Total 500 1140 30 Balance 500 1140 30 Intake: IV 500 900 Sodium Chloride 0.9% 1, 500 900 000 ml @ 75 mls/hr IV . [id number] [facility] Rx#:[id number] Oral 240 30 Other: Voiding Method Diaper Diaper Diaper # Voids 4 4 1 Weight 40.823 kg 41.7 kg PHYSICAL EXAMINATION: HEENT: Head is atraumatic, normocephalic. Pupils equal, round. Neck is supple. There is no elevated jugular venous pressure. HEART EXAMINATION: Heart S1 and S2 systolic murmur is heard. CHEST EXAMINATION: Lungs are clear to auscultation and precussion. No chest wall tenderness is noted on palpation or with deep breathing. ABDOMEN: Soft, nontender. Bowel sounds are heard. No organomegaly noted. EXTREMITIES: 2+ peripheral pulses with no evidence of peripheral edema and no calf tenderness noted. NEUROLOGIC patient is awake, alert and oriented times2. . Results 11/02/16 04:14 11/02/16 04:14 Cardiac Enzymes 11/01/16 11/01/16 11/02/16 Range/Units 11:03 17:21 04:14 AST 125 H (14-36) U/L CK-MB (CK-2) 2.2 2.1 (0.0-2.4) ng/mL Troponin I 0.032 0.029 (0.000-0.034) ng/mL CBC 11/02/16 Range/Units 04:14 WBC 13.8 H (3.8-10.6) k/uL RBC 3.86 (3.80-5.40) m/uL Hgb 11.4 (11.4-16.0) gm/dL Hct 35.1 (34.0-46.0) % Plt Count 219 (150-450) k/uL Comprehensive Metabolic Panel 11/02/16 Range/Units 04:14 Sodium 135 L (137-145) mmol/L Potassium 3.2 L (3.5-5.1) mmol/L Chloride 106 (98-107) mmol/L Carbon Dioxide 19 L (22-30) mmol/L BUN 50 H (7-17) mg/dL Creatinine 1.30 H (0.52-1.04) mg/dL Glucose 57 L (74-99) mg/dL Calcium 7.5 L (8.4-10.2) mg/dL AST 125 H (14-36) U/L ALT 103 H (9-52) U/L Alkaline Phosphatase 168 H (38-126) U/L Total Protein 4.5 L (6.3-8.2) g/dL Albumin 2.1 L (3.5-5.0) g/dL Current Medications Generic Name Dose Route Start Last Admin Trade Name Freq PRN Reason Stop Dose Admin Amlodipine Besylate 5 mg 11/01/16 10:15 11/02/16 08:12 Norvasc PO 5 mg DAILY LILI Administration Atorvastatin Calcium 10 mg 11/01/16 21:00 11/01/16 20:09 Lipitor PO 10 mg HS LILI Administration Ergocalciferol 50,000 unit 11/07/16 09:00 Vitamin D2 PO Ramírez@0900 LILI Heparin Sodium (Porcine) 5,000 unit 11/01/16 21:00 11/02/16 08:12 Heparin SQ 5,000 unit Q12HR LILI Administration Sodium Chloride 1,000 mls @ 75 mls/hr 11/01/16 07:30 11/01/16 20:10 Saline 0.9% IV 75 mls/hr .[id number] [facility]ILI Administration Isosorbide Mononitrate 30 mg 11/01/16 10:15 11/02/16 08:12 Imdur PO 30 mg DAILY [facility]ILI Administration Levothyroxine Sodium 75 mcg 11/02/16 06:30 11/02/16 07:02 Synthroid PO 75 mcg 0630 LILI Administration Naloxone HCl 0.2 mg 11/01/16 07:20 Narcan IV Q2M PRN Opioid Reversal Pantoprazole Sodium 40 mg 11/02/16 07:30 11/02/16 08:12 Protonix PO 40 mg [id number] L[facility]I Administration Tramadol HCl 50 mg 11/01/16 10:07 11/01/16 23:36 Ultram PO 50 mg Q6HR PRN Administration Pain Intake and Output 11/01/16 11/02/16 11/02/16 22:59 06:59 14:59 Intake Total 500 1140 30 Balance 500 1140 30 Intake: IV 500 900 Sodium Chloride 0.9% 1, 500 900 000 ml @ 75 mls/hr IV . [id number] [facility] Rx#:[id number] Oral 240 30 Other: Voiding Method Diaper Diaper Diaper # Voids 4 4 1 Weight 40.823 kg 41.7 kg 11/02/16 04:14 11/02/16 04:14 EKG Interpretations (text) EKG shows a sinus bradycardia with first-degree AV block. Assessment and Plan Plan: Assessment and plan #1 fall no clear-cut evidence of syncope on this occasion. Likely secondary to unsteadiness. History of frequent falls #2 sinus bradycardia, patient has documented history of tachybradycardia syndrome as well as paroxysmal atrial fibrillation. Seen by Dr. Griffin in consultation in August, recommended at that time to undergo implantation of permanent pacemaker by Dr. Layne who she follows in the office. #3 known history of coronary artery disease, patient did have prior cardiac catheterization which revealed mid LAD stenosis and medical therapy was recommended this was performed in 2006 #4 hypertension # 5 hyperlipidemia #6 acute on chronic kidney failure, currently receiving IV fluids. #7 vascular dementia #8 mild troponin abnormality, not consistent with acute coronary syndrome. #9 abnormal liver functions Plan Amiodarone and Tenormin have currently been placed on hold. We will continue to monitor the patient's heart rate. We will also obtain records from the office and speak with Dr. Layne regarding the original plan for pacemaker. He has a patient's dementia, she does not recall discussing pacemaker in the past. Patient is not currently on anticoagulation because of the frequent falls. Obtain free T4 and TSH level. Further recommendations to follow. DNP note has been reviewed, I agree with a documented findings and plan of care. Patient was seen and examined.
[2016-11-02] MEDS: SODIUM CHLORIDE 0.9% 1,000 ML IV SCH (12:23)
--- NOTE | 2016-11-02 13:51 | P.PN ---
Subjective 86-year-old female patient of Dr. Dr. Escoto with long-standing history of CAD, A. fib, recurrent angina and chest pain with multiple fall is known to have mild COPD, abnormal balance and gait for long time. Patient was recently hospitalized in August after a fall for bradycardia and changes were made to her amiodarone and atenolol. Patient went to [facility] for rehab where her course was complicated by a lower extremity wound infection. She was discharged from [facility] on Tuesday and went to [facility]. She apparently had a fall there and laid on the floor for an unknown amount of time. Patient is a very poor historian. CAT scan of the brain showed no interval change. CAT scan cervical spine revealed no significant change. Her white count was a 28.6. BUN 81 and creatinine 2.17. Liver enzymes were all elevated and troponin was 0.037. Urinalysis was clear with nitrate and leukoesterase negative. Patient has been admitted to the selective care unit, currently in ICU as an overflow. Consult requested with cardiology area did repeat lab work ordered, PT, OT and social work consult. 11/02: Repeat BUN 15 creatinine 1.3. Repeat troponins were 0.032 and 0.029. Liver function tests have improved. She has been seen by cardiology and heart rate is between monitored. No anticoagulation due to frequent falls. Objective - Vital Signs Vital signs: Vital Signs Temp 97.7 F 11/02/16 00:00 Pulse 55 L 11/02/16 03:00 Resp 14 11/02/16 03:47 BP 119/48 11/01/16 20:00 Pulse Ox 96 11/02/16 03:00 Intake & Output 11/01/16 11/02/16 11/02/16 18:59 06:59 18:59 Intake Total 575 1140 Balance 575 1140 Weight 40.823 kg 41.7 kg Intake: IV 575 900 Sodium Chloride 0.9% 1, 575 900 000 ml @ 75 mls/hr IV . [id number] LILI Rx#:[id number] Oral 240 Other: Voiding Method Diaper Diaper # Voids 2 4 - Exam General appearance: no average body habitus, cooperative, disheveled, mild distress, no morbidly obese, no no acute distress, no obese, no severe distress , thin - EENT Eyes: no abnormal pupil, anicteric sclerae, no disc margins sharp, no edentulous , no EOMI, no PERRLA, no fundus normal, no photophobia, no dentition normal, no poor dentition, no ptosis, scleral icterus, no normal appearance ENT: no hard of hearing, no hearing grossly normal, no NA/AT, normal oropharynx , no other, no pharyngeal erythema, no thrush, no tonsillar exudates, no tonsillar swelling Ears: bilateral: normal - Neck Neck: no lymphadenopathy, normal ROM, no other, no rigidity, no stridor, no thyromegaly Carotids: bilateral: upstroke normal Thyroid: bilateral: normal size - Respiratory Respiratory: bilateral: CTA, diminished, dullness - Cardiovascular Significant bradycardia still Rhythm: irregularly irregular Heart sounds: normal: S1, S2 Abnormal Heart Sounds: systolic murmur, S3 Gallop - Gastrointestinal General gastrointestinal: no absent bowel sounds, decreased bowel sounds, distended, no hepatomegaly, no hyperactive bowel sounds, normal bowel sounds, no organomegaly, no rigid, no scaphoid, soft, no splenomegaly, no tenderness, no umbilical hernia, no ventral hernia - Integumentary Integumentary: no calor, no cellulitis, no cyanotic, no decreased turgor, no flushed, no jaundiced, normal, no normal turgor, pale, rash, no ulcer - Neurologic Neurologic: CNII-XII intact - Musculoskeletal Musculoskeletal: gait normal, generalized weakness, strength equal bilaterally, no right sided weakness, no left sided weakness - Psychiatric Psychiatric: A&O x's 3, no appropriate affect, no intact judgment & insight - Labs CBC & Chem 7: 11/02/16 04:14 11/02/16 04:14 Labs: Abnormal Lab Results - Last 24 Hours (Table) 11/01/16 11/01/16 11/02/16 Range/Units 09:10 09:36 04:14 WBC (3.8-10.6) k/uL Sodium 135 L (137-145) mmol/L Potassium 3.2 L (3.5-5.1) mmol/L Carbon Dioxide 19 L (22-30) mmol/L BUN 50 H (7-17) mg/dL Creatinine 1.30 H (0.52-1.04) mg/dL Glucose 57 L (74-99) mg/dL POC Glucose (mg/dL) 68 L 157 H (75-99) mg/dL Calcium 7.5 L (8.4-10.2) mg/dL AST 125 H (14-36) U/L ALT 103 H (9-52) U/L Alkaline Phosphatase 168 H (38-126) U/L Total Protein 4.5 L (6.3-8.2) g/dL Albumin 2.1 L (3.5-5.0) g/dL 11/02/16 Range/Units 04:14 WBC 13.8 H (3.8-10.6) k/uL Sodium (137-145) mmol/L Potassium (3.5-5.1) mmol/L Carbon Dioxide (22-30) mmol/L BUN (7-17) mg/dL Creatinine (0.52-1.04) mg/dL Glucose (74-99) mg/dL POC Glucose (mg/dL) (75-99) mg/dL Calcium (8.4-10.2) mg/dL AST (14-36) U/L ALT (9-52) U/L Alkaline Phosphatase (38-126) U/L Total Protein (6.3-8.2) g/dL Albumin (3.5-5.0) g/dL Assessment and Plan Plan: 1 fall versus possible syncopal episode. Patient had long-standing history of A. fib with RVR as well as recent hospitalization for bradycardia. Atenolol and amiodarone on hold. Cardiology consult. 2 acute kidney injury. Continue IV fluids at 75 mL per hour. Repeat lab work in the morning. 3 elevated liver function tests. Continue to monitor. Medications reviewed 4 CAD: Continue Lipitor. 5 history of paroxysmal atrial fibrillation more bradycardia lately patient has been on amiodarone and atenolol which probably had a created more bradycardia. Patient has refused pacemaker in the past 6 vascular dementia patient has been off Aricept for now. 7 hypothyroidism: Continue Synthroid 75 g daily TSH will be done based on the Procardia for now. 8 hyperlipidemia: Patient was on simvastatin 20 mg daily. 9 GI prophylaxis: Continue Prilosec or Pepcid. 10 DVT prophylaxis: Patient will be on heparin subcutaneous. 11. Wound left ankle. Medihoney daily. (Hasn't on admission CODE STATUS: Full code. Expectation from this admission: Patient might be the hospital for more than 2 nights. Discharge plan: PT, OT, social work consults Impression and plan of care have been directed as dictated by the signing physician. Irene Villegas nurse practitioner acting as scribe for signing physician. Time with Patient: Greater than 30
[2016-11-02] MEDS ORDERED: ALPRAZolam 0.25 MG TAB PO PRN (19:50)
[2016-11-02] MEDS: ATORVASTATIN 10 MG TAB PO SCH (20:35)
[2016-11-03] MEDS: SODIUM CHLORIDE 0.9% 1,000 ML IV SCH (00:36)
[2016-11-03 03:55] VITALS: TEMP 97.3
[2016-11-03 06:46] LABS: CHCM 30.9; HCT 38.3 % (34.0-46.0); HDW 2.41; HGB 11.6 gm/dL (11.4-16.0); Hypochromasia Slight; MCH 28.5 pg (25.0-35.0); MCHC 30.2 g/dL (31.0-37.0); MCV 94.3 fL (80.0-100.0); Mean Platelet Volume 7.8; RBC 4.06 m/uL (3.80-5.40); RDW 14.1 % (11.5-15.5); WBC 10.5 k/uL (3.8-10.6)
[2016-11-03] MEDS: LEVOTHYROXINE 75 MCG TAB PO SCH (06:53)
[2016-11-03] MEDS: PANTOPRAZOLE 40 MG TABLET PO SCH (06:53)
[2016-11-03 07:10] LABS: Calcium 7.9 mg/dL (8.4-10.2); Total Bilirubin 0.8 mg/dL (0.2-1.3); Total Protein 4.8 g/dL (6.3-8.2)
[2016-11-03] MEDS ORDERED: Potassium Replacement Protocol 1 EACH MISC MISCELLANE PRN (07:49)
[2016-11-03] MEDS: POTASSIUM CHLORIDE ER 20 MEQ TAB.ER PO SCH ×2 (08:21→09:37)
[2016-11-03] MEDS: HEPARIN SODIUM,PORCINE 5,000 UNIT/ML 1 ML VIAL SQ SCH (08:22)
[2016-11-03] MEDS: ISOSORBIDE MONONITRATE ER 30 MG TAB.ER.24H PO SCH (08:23)
[2016-11-03] MEDS: amLODIPine 5 MG TAB PO SCH (08:23)
--- NOTE | 2016-11-03 11:49 | P.DS ---
Providers Date of admission: 11/01/16 07:20 Expected date of discharge: 11/03/16 Attending physician: Brandin Escoto Consults: 11/01/16 10:27 Consult Physician Routine Consulting Provider: Reji Tabor Consult Reason/Comments: fall, possible syncope Do you want consulting provider notified?: Yes Primary care physician: [facility] Course: 86-year-old female patient of Dr. Dr. Escoto with long-standing history of CAD, A. fib, recurrent angina and chest pain with multiple fall is known to have mild COPD, abnormal balance and gait for long time. Patient was recently hospitalized in August after a fall for bradycardia and changes were made to her amiodarone and atenolol. Patient went to [facility] for rehab where her course was complicated by a lower extremity wound infection. She was discharged from [facility] on Tuesday and went to [facility]. She apparently had a fall there and laid on the floor for an unknown amount of time. Patient is a very poor historian. CAT scan of the brain showed no interval change. CAT scan cervical spine revealed no significant change. Her white count was a 28.6. BUN 81 and creatinine 2.17. Liver enzymes were all elevated and troponin was 0.037. Urinalysis was clear with nitrate and leukoesterase negative. Patient has been admitted to the selective care unit, currently in ICU as an overflow. Consult requested with cardiology area did repeat lab work ordered, PT, OT and social work consult. 11/02: Repeat BUN 15 creatinine 1.3. Repeat troponins were 0.032 and 0.029. Liver function tests have improved. She has been seen by cardiology and heart rate is between monitored. No anticoagulation due to frequent falls. 11/03: Patient has had increased confusion due to 's. Lipitor discontinued due to elevated liver enzymes. Bun 34 and creatinine 1.14. IV fluids stopped yesterday. Potassium replaced. Patient's son has wanted patient to return to [facility] but due to concern for safety, we are recommending return to [facility]. Social work is working with son and the final determination is to return to [facility] with 24-hour care. Ativan was decreased to once daily if needed,Lomotil, Detroland sleeping pill were discontinued. Discharge Diagnoses: 1 fall versus possible syncopal episode. 2 acute kidney injury. 3 elevated liver function tests. Lipitor stopped. 4 CAD 5 history of paroxysmal atrial fibrillation 6 vascular dementia 7 hypothyroidism 8 hyperlipidemia 9 Wound left ankle. Discharge plan: [facility]. Impression and plan of care have been directed as dictated by the signing physician. Irene Villegas nurse practitioner acting as scribe for signing physician. Patient Condition at Discharge: Good Plan - Discharge Summary New Discharge Prescriptions: ALPRAZolam [Xanax] 0.25 mg PO TID #90 tablet NS traMADol HCL [Ultram] 50 mg PO Q6HR PRN #90 tab PRN Reason: Pain Discharge Medication List amLODIPine BESYLATE [Norvasc] 5 mg PO DAILY 04/22/14 [History] Ergocalciferol [Vitamin D2 (DRISDOL)] 50,000 unit PO RAMÍREZ 09/09/15 [History] Potassium Chloride ER [K-Dur 10] 10 meq PO DAILY 09/09/15 [History] Levothyroxine Sodium [Synthroid] 75 mcg PO MOTUWEFRSA 11/10/15 [History] Isosorbide Mononitrate ER [Imdur] 30 mg PO DAILY 11/17/15 [History] Meclizine [Antivert] 12.5 mg PO TID PRN 08/09/16 [History] Omeprazole [PriLOSEC] 20 mg PO AC-BRKFST #1 cap 08/25/16 [Rx] Atenolol [Tenormin] 25 mg PO DAILY 11/01/16 [History] Ferrous Sulfate [Feosol] 325 mg PO DAILY 11/01/16 [History] Levothyroxine Sodium [Levoxyl] 37.5 mcg PO SUTH 11/01/16 [History] prednisoLONE ACETATE [Pred Forte] 1 drop RIGHT EYE QID 11/01/16 [History] ALPRAZolam [Xanax] 0.25 mg PO TID #90 tablet NS 11/03/16 [Rx] Furosemide [Lasix] 20 mg PO DAILY #0 11/03/16 [Rx] traMADol HCL [Ultram] 50 mg PO Q6HR PRN #90 tab 11/03/16 [Rx] Follow up Appointment(s)/Referral(s): Brandin Escoto MD [Primary Care Provider] - 11/11/16 1:00 pm () Patient Instructions/Handouts: Syncope (DC) Activity/Diet/Wound Care/Special Instructions: Return to [facility] with 14/03 care provided by [facility] - RN, PT, EMPLOYEE SERVICES MANAGER, HUNTER TRAPPER - The Care Team - [phone] Discharge Disposition: HOME WITH HOME HEALTH SERVICES
[2016-11-03 11:52] VITALS: BP 137/65; PULSE 63
[2016-11-03] MEDS ORDERED: POTASSIUM CHLORIDE ER 20 MEQ TAB.ER PO SCH (12:00)
--- NOTE | 2016-11-03 14:48 | P.PN ---
Subjective Principal diagnosis: Fall This is a pleasant 86-year-old female with history of paroxysmal atrial fibrillation, hypertension, hyperlipidemia, tachybradycardia's hypo- thyroidism, coronary artery disease with documented LAD stenosis, multiple falls , COPD. Patient was recently in the hospital in August of this year after experiencing a fall. Patient was found to be significantly bradycardic and medication adjustments were made to her amiodarone and atenolol at that time. The patient again presents to the hospital on this occasion after experiencing a fall at the [facility] where she resides. According to the patient, her walker got caught on the side of the door, she became unsteady and fell. Patient does have mild dementia and clear history is difficult to obtain from her. EKG on arrival here shows a sinus bradycardia, first-degree AV block. blood pressure 136/60, heart rate in the 60s. Patient is scheduled to be discharged home today. Objective - Vital Signs Vital signs: Vital Signs Temp 97.3 F L 11/03/16 03:54 Pulse 63 11/03/16 11:46 Resp 18 11/03/16 11:46 BP 137/65 11/03/16 11:46 Pulse Ox 98 11/03/16 11:46 Intake & Output 11/02/16 11/03/16 11/03/16 18:59 06:59 18:59 Intake Total 30 650 Balance 30 650 Weight 39 kg Intake: Oral 30 650 Other: Voiding Method Diaper Diaper Diaper # Voids 1 0 1 - Exam PHYSICAL EXAMINATION: HEENT: Head is atraumatic, normocephalic. Pupils equal, round. Neck is supple. There is no elevated jugular venous pressure. HEART EXAMINATION: Heart S1 and S2 systolic murmur is heard. CHEST EXAMINATION: Lungs are clear to auscultation and precussion. No chest wall tenderness is noted on palpation or with deep breathing. ABDOMEN: Soft, nontender. Bowel sounds are heard. No organomegaly noted. EXTREMITIES: 2+ peripheral pulses with no evidence of peripheral edema and no calf tenderness noted. NEUROLOGIC patient is awake, alert and oriented times2. - Labs CBC & Chem 7: 11/03/16 06:18 11/03/16 06:18 Labs: Abnormal Lab Results - Last 24 Hours (Table) 11/03/16 11/03/16 Range/Units 06:18 06:18 MCHC 30.2 L (31.0-37.0) g/dL Potassium 3.0 L* (3.5-5.1) mmol/L Chloride 109 H (98-107) mmol/L Carbon Dioxide 19 L (22-30) mmol/L BUN 34 H (7-17) mg/dL Creatinine 1.14 H (0.52-1.04) mg/dL Calcium 7.9 L (8.4-10.2) mg/dL AST 129 H (14-36) U/L ALT 92 H (9-52) U/L Alkaline Phosphatase 181 H (38-126) U/L Total Protein 4.8 L (6.3-8.2) g/dL Albumin 2.2 L (3.5-5.0) g/dL Assessment and Plan Plan: Assessment and plan #1 fall no clear-cut evidence of syncope on this occasion. Likely secondary to unsteadiness. History of frequent falls #2 sinus bradycardia, patient has documented history of tachybradycardia syndrome as well as paroxysmal atrial fibrillation. Seen by Dr. Sneed in consultation in August, recommended at that time to undergo implantation of permanent pacemaker by Dr. Layne but patient refused. #3 known history of coronary artery disease, patient did have prior cardiac catheterization which revealed mid LAD stenosis and medical therapy was recommended this was performed in 2006 #4 hypertension # 5 hyperlipidemia #6 acute on chronic kidney failure, currently receiving IV fluids. #7 vascular dementia #8 mild troponin abnormality, not consistent with acute coronary syndrome. #9 abnormal liver functions Plan Cardiology's perspective, patient may be able to be discharged. Follow-up appointment will be made with Dr. Layne in the office post discharge. DNP note has been reviewed, I agree with a documented findings and plan of care. Patient was seen and examined.
== END 2016-11-03 15:07 | disposition home health service (06) | DRG 309 ==
LOC: EC 03:26 → 6SEL 07:20 → 6ICU 08:41 → 6SEL 11-02 06:40
PROVIDERS: ADMIT Internal Medicine Geriatric Medicine; ATTEND Internal Medicine Geriatric Medicine
DX: I49.5 Sick sinus syndrome (principal); N17.9 Acute kidney failure, unspecified; I27.2 Other secondary pulmonary hypertension; I50.9 Heart failure, unspecified; F01.50 Vascular dementia, unspecified severity, without behavioral disturbance, psychotic disturbance, mood disturbance, and anxiety; I12.9 Hypertensive chronic kidney disease with stage 1 through stage 4 chronic kidney disease, or unspecified chronic kidney disease; E78.5 Hyperlipidemia, unspecified; E03.9 Hypothyroidism, unspecified; H35.30 Unspecified macular degeneration; I25.119 Atherosclerotic heart disease of native coronary artery with unspecified angina pectoris; Z87.891 Personal history of nicotine dependence; I44.0 Atrioventricular block, first degree; I48.0 Paroxysmal atrial fibrillation; J44.9 Chronic obstructive pulmonary disease, unspecified; K21.9 Gastro-esophageal reflux disease without esophagitis; M81.0 Age-related osteoporosis without current pathological fracture; N18.9 Chronic kidney disease, unspecified; R29.6 Repeated falls; Z82.49 Family history of ischemic heart disease and other diseases of the circulatory system; Z79.899 Other long term (current) drug therapy; Z91.81 History of falling; W19.XXXA Unspecified fall, initial encounter; R26.81 Unsteadiness on feet; R94.5 Abnormal results of liver function studies; R89.0 Abnormal level of enzymes in specimens from other organs, systems and tissues; E55.9 Vitamin D deficiency, unspecified; S91.002A Unspecified open wound, left ankle, initial encounter; M19.90 Unspecified osteoarthritis, unspecified site; K57.90 Diverticulosis of intestine, part unspecified, without perforation or abscess without bleeding; Z96.643 Presence of artificial hip joint, bilateral; Z96.651 Presence of right artificial knee joint; Z86.010 Personal history of colon polyps; Z60.2 Problems related to living alone; Z88.5 Allergy status to narcotic agent; Z88.0 Allergy status to penicillin; Z88.2 Allergy status to sulfonamides
CPT/HCPCS: 36415; 70450; 71010; 72125; 80053; 81003; 82550; 82553; 84484; 85025; 85027; 85610; 85730; 93005; 96360; 96361; 99285

== ENCOUNTER 2016-11-05 13:42 | Inpatient (IN) | payer MEDICARE, BC ==
[~2016-11-05 13:42] MED LIST: LEVOTHYROXINE 75 MCG TAB PO SCH
--- NOTE | 2016-11-05 14:12 | ED ---
General Adult HPI - General Stated complaint: psych Time Seen by Provider: 11/05/16 14:03 Source: RN notes reviewed, old records reviewed - History of Present Illness Initial comments: This is an 86-year-old female ER today for evaluation of altered mental status. Patient coming in for combative behavior that acting appropriately. Patient' s coming in from extended care facility. Patient's poor strength. From EMS and the patient's staff patient has a significant complex medical history including heart disease diabetes cholesterol hypertension, patient coming at [facility] care facility as she was combative with staff, not acting appropriately and throwing feces, history is obtained from EMS and the patient' s caregivers. - Related Data Home Medications Medication Instructions Recorded Confirmed amLODIPine BESYLATE [Norvasc] 5 mg PO DAILY 04/22/14 11/05/16 Ergocalciferol [Vitamin D2 50,000 unit PO RAMÍREZ 09/09/15 11/05/16 (DRISDOL)] Potassium Chloride ER [K-Dur 10] 10 meq PO DAILY 09/09/15 11/05/16 Levothyroxine Sodium [Synthroid] 75 mcg PO MOTUWEFRSA 11/10/15 11/05/16 Isosorbide Mononitrate ER [Imdur] 30 mg PO DAILY 11/17/15 11/05/16 Meclizine [Antivert] 12.5 mg PO TID PRN 08/09/16 11/05/16 Atenolol [Tenormin] 12.5 mg PO DAILY 11/01/16 11/05/16 Ferrous Sulfate [Feosol] 325 mg PO DAILY 11/01/16 11/05/16 Levothyroxine Sodium [Levoxyl] 37.5 mcg PO SUTH 11/01/16 11/05/16 prednisoLONE ACETATE [Pred Forte] 1 drop RIGHT EYE QID 11/01/16 11/05/16 Famotidine [Pepcid] 20 mg PO DAILY 11/05/16 11/05/16 Previous Rx's Medication Instructions Recorded Omeprazole [PriLOSEC] 20 mg PO AC-BRKFST #1 cap 08/25/16 ALPRAZolam [Xanax] 0.25 mg PO TID #90 tablet NS 11/03/16 Furosemide [Lasix] 20 mg PO DAILY #0 11/03/16 traMADol HCL [Ultram] 50 mg PO Q6HR PRN #90 tab 11/03/16 Allergies Allergy/AdvReac Type Severity Reaction Status Date / Time morphine Allergy Confusion Verified 11/01/16 10:42 Penicillins Allergy Unknown Verified 11/01/16 10:42 Sulfa (Sulfonamide Allergy Unknown Verified 11/01/16 10:42 Antibiotics) Review of Systems ROS Statement: Those systems with pertinent positive or pertinent negative responses have been documented in the HPI. ROS Other: All systems not noted in ROS Statement are negative. Past Medical History Past Medical History: Atrial Fibrillation, Coronary Artery Disease (CAD), Chest Pain / Angina, Heart Failure, COPD, Dementia, Eye Disorder, GERD/Reflux, Hyperlipidemia, Hypertension, Osteoarthritis (OA), Pneumonia, Thyroid Disorder, Vascular Disorder Additional Past Medical History / Comment(s): Bradycardia, left ventricular hypertrophy, PAD, macular degeneration R eye, R shoulder pain, UTIs, osteoporosis, vitamin D deficiency, multiple falls, gait dysturbance, abnormal balance, diverticulosis, goiter. History of Any Multi-Drug Resistant Organisms: None Reported Past Surgical History: Joint Replacement, Orthopedic Surgery Additional Past Surgical History / Comment(s): right shoulder PLATE AND SCREWS, SANGITA CATARACTS, RT EYE RETINAL SX, thyroid removed, total R hip, Total L hip with revision, total R knee, colonoscopy/polypectomy. Past Anesthesia/Blood Transfusion Reactions: No Reported Reaction Past Psychological History: No Psychological Hx Reported Additional Psychological History / Comment(s): Pt states she resides alone in a senior facility. She cannot recall name of facility. She states she does not have to use stairs-there is an elevator. Her law is active in her care. She has a caregiver twice a week. She no longer drives. Her caregiver takes her to appts. She uses a walker to ambulate. She has had falls. Smoking Status: Former smoker Past Alcohol Use History: None Reported Additional Past Alcohol Use History / Comment(s): Pt started smoking in 1948 and quit in 1993 Past Drug Use History: None Reported - Past Family History Father History Unknown: Yes Family Medical History: Renal Disease Mother History Unknown: Yes Family Medical History: Hypertension Brother(s) Family Medical History: No Reported History Daughter(s) Family Medical History: Cancer Additional Family Medical History / Comment(s): Pt states her oldest law of breast cancer. Son(s) Family Medical History: No Reported History General Exam General appearance: alert, in no apparent distress Head exam: Present: atraumatic, normocephalic, normal inspection Eye exam: Present: normal appearance, PERRL, EOMI. Absent: scleral icterus, conjunctival injection, periorbital swelling ENT exam: Present: normal exam, mucous membranes moist Neck exam: Present: normal inspection. Absent: tenderness, meningismus, lymphadenopathy Respiratory exam: Present: normal lung sounds bilaterally. Absent: respiratory distress, wheezes, rales, rhonchi, stridor Cardiovascular Exam: Present: regular rate, normal rhythm, normal heart sounds. Absent: systolic murmur, diastolic murmur, rubs, gallop, clicks GI/Abdominal exam: Present: soft, normal bowel sounds. Absent: distended, tenderness, guarding, rebound, rigid Extremities exam: Present: normal inspection, full ROM, normal capillary refill. Absent: tenderness, pedal edema, joint swelling, calf tenderness Back exam: Present: normal inspection Neurological exam: Present: alert, oriented X3, CN II-XII intact Psychiatric exam: Present: normal affect, normal mood Skin exam: Present: warm, dry, intact, normal color. Absent: rash Course Vital Signs 11/05/16 15:00 Temperature 97.5 F L Pulse Rate 83 Respiratory 18 Rate Blood Pressure 126/61 O2 Sat by Pulse 97 Oximetry - Reevaluation(s) Reevaluation #1: 11/05/16 15:58 Patient has significant urinary tract infection contributing to medical condition Medical Decision Making - Medical Decision Making Eighth female here for evaluation of altered mental status, gression anger not cooperativeness, positive urinary tract infection, patient will be admitted for IV hydration IV resuscitation treatment of UTI - Lab Data Result diagrams: 11/05/16 14:36 11/05/16 14:36 Lab Results 11/05/16 11/05/16 11/05/16 Range/Units 14:36 14:36 14:36 WBC 10.9 H (3.8-10.6) k/uL RBC 3.93 (3.80-5.40) m/uL Hgb 11.5 (11.4-16.0) gm/dL Hct 36.1 (34.0-46.0) % MCV 92.0 (80.0-100.0) fL MCH 29.2 (25.0-35.0) pg MCHC 31.8 (31.0-37.0) g/dL RDW 14.5 (11.5-15.5) % Plt Count 263 (150-450) k/uL Neutrophils % 82 % Lymphocytes % 11 % Monocytes % 4 % Eosinophils % 1 % Basophils % 1 % Neutrophils # 8.9 H (1.3-7.7) k/uL Lymphocytes # 1.2 (1.0-4.8) k/uL Monocytes # 0.5 (0-1.0) k/uL Eosinophils # 0.2 (0-0.7) k/uL Basophils # 0.1 (0-0.2) k/uL Sodium 136 L (137-145) mmol/L Potassium 4.1 (3.5-5.1) mmol/L Chloride 107 (98-107) mmol/L Carbon Dioxide 19 L (22-30) mmol/L Anion Gap 10 mmol/L BUN 23 H (7-17) mg/dL Creatinine 1.25 H (0.52-1.04) mg/dL Est GFR (MDRD) Af Amer 49 (>60 ml/min/1.73 sqM) Est GFR (MDRD) Non-Af 41 (>60 ml/min/1.73 sqM) Glucose 58 L (74-99) mg/dL POC Glucose (mg/dL) (75-99) mg/dL POC Glu Waiter/Waitress Cabin Class ID Calcium 8.0 L (8.4-10.2) mg/dL Urine Color Yellow Urine Appearance Cloudy H (Clear) Urine pH 6.5 (5.0-8.0) Ur Specific [place] 1.008 (1.001-1.035) Urine Protein Negative (Negative) Urine Glucose (UA) Negative (Negative) Urine Ketones Negative (Negative) Urine Blood Negative (Negative) Urine Nitrite Negative (Negative) Urine Bilirubin Negative (Negative) Urine Urobilinogen <2.0 (<2.0) mg/dL Ur Leukocyte Esterase Large H (Negative) Urine RBC 3 (0-5) /hpf Urine WBC 72 H (0-5) /hpf Urine Bacteria Occasional H (None) /hpf Urine Mucus Rare H (None) /hpf Salicylates <1.0 mg/dL Urine Opiates Screen Not Detected (NotDetected) Ur Oxycodone Screen Not Detected (NotDetected) Urine Methadone Screen Not Detected (NotDetected) Ur Propoxyphene Screen Not Detected (NotDetected) Acetaminophen <10.0 ug/mL Ur Barbiturates Screen Not Detected (NotDetected) U Tricyclic Antidepress Not Detected (NotDetected) Ur Phencyclidine Scrn Not Detected (NotDetected) Ur Amphetamines Screen Not Detected (NotDetected) U Methamphetamines Scrn Not Detected (NotDetected) U Benzodiazepines Scrn Detected H (NotDetected) Urine Cocaine Screen Not Detected (NotDetected) U Marijuana (THC) Screen Not Detected (NotDetected) Serum Alcohol <10 mg/dL 11/05/16 Range/Units 15:55 WBC (3.8-10.6) k/uL RBC (3.80-5.40) m/uL Hgb (11.4-16.0) gm/dL Hct (34.0-46.0) % MCV (80.0-100.0) fL MCH (25.0-35.0) pg MCHC (31.0-37.0) g/dL RDW (11.5-15.5) % Plt Count (150-450) k/uL Neutrophils % % Lymphocytes % % Monocytes % % Eosinophils % % Basophils % % Neutrophils # (1.3-7.7) k/uL Lymphocytes # (1.0-4.8) k/uL Monocytes # (0-1.0) k/uL Eosinophils # (0-0.7) k/uL Basophils # (0-0.2) k/uL Sodium (137-145) mmol/L Potassium (3.5-5.1) mmol/L Chloride (98-107) mmol/L Carbon Dioxide (22-30) mmol/L Anion Gap mmol/L BUN (7-17) mg/dL Creatinine (0.52-1.04) mg/dL Est GFR (MDRD) Af Amer (>60 ml/min/1.73 sqM) Est GFR (MDRD) Non-Af (>60 ml/min/1.73 sqM) Glucose (74-99) mg/dL POC Glucose (mg/dL) 81 (75-99) mg/dL POC Glu Waiter/Waitress Cabin Class ID Karishma Rabago Calcium (8.4-10.2) mg/dL Urine Color Urine Appearance (Clear) Urine pH (5.0-8.0) Ur Specific [place] (1.001-1.035) Urine Protein (Negative) Urine Glucose (UA) (Negative) Urine Ketones (Negative) Urine Blood (Negative) Urine Nitrite (Negative) Urine Bilirubin (Negative) Urine Urobilinogen (<2.0) mg/dL Ur Leukocyte Esterase (Negative) Urine RBC (0-5) /hpf Urine WBC (0-5) /hpf Urine Bacteria (None) /hpf Urine Mucus (None) /hpf Salicylates mg/dL Urine Opiates Screen (NotDetected) Ur Oxycodone Screen (NotDetected) Urine Methadone Screen (NotDetected) Ur Propoxyphene Screen (NotDetected) Acetaminophen ug/mL Ur Barbiturates Screen (NotDetected) U Tricyclic Antidepress (NotDetected) Ur Phencyclidine Scrn (NotDetected) Ur Amphetamines Screen (NotDetected) U Methamphetamines Scrn (NotDetected) U Benzodiazepines Scrn (NotDetected) Urine Cocaine Screen (NotDetected) U Marijuana (THC) Screen (NotDetected) Serum Alcohol mg/dL Disposition Clinical Impression: Altered mental status, Acute renal failure (ARF), Delirium due to general medical condition, Dehydration, UTI (urinary tract infection) Disposition: ADMITTED IP TO THIS [facility] Condition: Fair Referrals: Brandin Escoto MD [Primary Care Provider] - 1-2 days
[2016-11-05 15:15] LABS: Basophils # (A) 0.1 k/uL (0-0.2); Basophils % (A) 1 %; CH 29.8; CHCM 32.6; Eosinophils # (A) 0.2 k/uL (0-0.7); Eosinophils % (A) 1 %; HCT 36.1 % (34.0-46.0); HDW 2.69; HGB 11.5 gm/dL (11.4-16.0); Luc # (Auto) 0.12; Luc % (Auto) 1; Lymphocytes # (A) 1.2 k/uL (1.0-4.8); Lymphocytes % (A) 11 %; MCH 29.2 pg (25.0-35.0); MCHC 31.8 g/dL (31.0-37.0); Mean Platelet Volume 8.6; Monocytes # (A) 0.5 k/uL (0-1.0); Monocytes % (A) 4 %; Neutrophils # (A) 8.9 k/uL (1.3-7.7); Neutrophils % (A) 82 %; RBC 3.93 m/uL (3.80-5.40); RDW 14.5 % (11.5-15.5); WBC 10.9 k/uL (3.8-10.6); WBC (Perox) 11.34
[2016-11-05 15:25] LABS: Appearance,Urine Cloudy (Clear); Bacteria,Urine Occasional /hpf; Bilirubin,Urine Negative (Negative); Glucose,Urine (UA) Negative (Negative); Ketones,Urine Negative (Negative); Leukocyte Esterase,Urine Large (Negative); Mucus,Urine Rare /hpf; Nitrite,Urine Negative (Negative); PH, Urine 6.5 (5.0-8.0); Particle Count 23439; Protein,Urine Negative (Negative); RBC,Urine 3 /hpf (0-5); Specific Gravity,Urine 1.008 (1.001-1.035); UA Billing (MACRO vs. MICRO) MICRO; Urobilinogen,Urine <2.0 mg/dL (<2.0); WBC,Urine 72 /hpf (0-5)
[2016-11-05 15:27] LABS: Acetaminophen <10.0 ug/mL; Alcohol <10 mg/dL; Anion Gap 10 mmol/L; Blood Urea Nitrogen 23 mg/dL (7-17); Carbon Dioxide 19 mmol/L (22-30); Chloride 107 mmol/L (98-107); Glucose 58 mg/dL (74-99); Non-African American GFR(MDRD) 41 (>60 ml/min/1.73 sqM); Potassium 4.1 mmol/L (3.5-5.1); Salicylate <1.0 mg/dL; Sodium 136 mmol/L (137-145)
[2016-11-05 15:57] LABS: Glucose,Whole Blood 81 mg/dL (75-99)
[2016-11-05] MEDS ORDERED: SODIUM CHLORIDE 0.9% 1,000 ML IV ONE (16:38)
[2016-11-05] MEDS ORDERED: cefTRIAXone 2,000 MG in SODIUM CHLORIDE 0.9% 100 ML IVPB STA (16:39)
[2016-11-05] MEDS ORDERED: MECLIZINE 12.5 MG TAB PO PRN (22:28)
[2016-11-05] MEDS ORDERED: traMADol 50 MG TAB PO PRN (22:28)
[2016-11-06] MEDS: LEVOTHYROXINE 75 MCG TAB PO SCH (06:08)
[2016-11-06 07:44] LABS: Basophils % (A) 0 %; CH 29.2; CHCM 32.3; Eosinophils # (A) 0.2 k/uL (0-0.7); Eosinophils % (A) 2 %; HCT 33.8 % (34.0-46.0); HDW 2.55; HGB 10.9 gm/dL (11.4-16.0); Luc # (Auto) 0.08; Luc % (Auto) 1; Lymphocytes % (A) 10 %; MCH 29.4 pg (25.0-35.0); MCHC 32.4 g/dL (31.0-37.0); MCV 90.9 fL (80.0-100.0); Mean Platelet Volume 7.6; Monocytes # (A) 0.4 k/uL (0-1.0); Monocytes % (A) 4 %; Neutrophils # (A) 7.8 k/uL (1.3-7.7); Neutrophils % (A) 82 %; RBC 3.72 m/uL (3.80-5.40); RDW 14.6 % (11.5-15.5); WBC 9.4 k/uL (3.8-10.6); WBC (Perox) 9.98
[2016-11-06 08:07] LABS: Calcium 7.6 mg/dL (8.4-10.2); Potassium 3.8 mmol/L (3.5-5.1)
[2016-11-06] MEDS ORDERED: ENOXAPARIN 40 MG/0.4 ML SYRINGE SQ SCH (09:00)
[2016-11-06] MEDS: amLODIPine 5 MG TAB PO SCH (09:07)
[2016-11-06] MEDS: PANTOPRAZOLE 40 MG TABLET PO SCH (09:07)
[2016-11-06] MEDS: FUROSEMIDE 40 MG TAB PO SCH (09:08)
[2016-11-06] MEDS: FAMOTIDINE 20 MG TAB PO SCH (09:08)
[2016-11-06] MEDS: ATENOLOL 12.5 MG TAB PO SCH (09:08)
[2016-11-06] MEDS: HEPARIN SODIUM,PORCINE 5,000 UNIT/ML 1 ML VIAL SQ SCH ×2 (09:09→21:21)
[2016-11-06] MEDS: POTASSIUM CHLORIDE ER 10 MEQ TAB.ER.PRT PO SCH (09:09)
[2016-11-06] MEDS: prednisoLONE ACETATE 1% OPHTH DROPS 1 ML BTL RIGHT EYE SCH ×5 (09:09→21:21)
[2016-11-06] MEDS: FERROUS SULFATE 325 MG TAB PO SCH ×2 (09:09→09:27)
[2016-11-06] MEDS: ISOSORBIDE MONONITRATE ER 30 MG TAB.ER.24H PO SCH (09:09)
[2016-11-06 10:32] VITALS: BMI 19.2
[2016-11-06] MEDS: ALPRAZolam 0.25 MG TAB PO SCH ×3 (11:18→21:21)
--- NOTE | 2016-11-06 15:55 | HP ---
DATE OF ADMISSION: CODE STATUS: DNR. CHIEF COMPLAINT: Altered mental status. HISTORY OF PRESENT ILLNESS: This is an 86-year-old female who is a resident of independent living and recently assisted living who presented to the hospital with worsening mental status and agitation according to the caregiver, who called the son who called EMS and brought her to the hospital. Patient currently is still confused, not sure about her baseline but son said that she is definitely worse where she is more confused, agitated at the time and combative at some point. No major events reported by nursing staff. In the emergency department blood work showed positive UA and patient was dehydrated and started on IV fluids, IV antibiotics and admitted to the medical floor. REVIEW OF SYSTEMS: Limited to do patient's confusion, but seems to be negative except as in H&P. HOME MEDICATIONS: 1. Norvasc. 2. Vitamin D. 3. Potassium chloride. 4. Levothyroxine. 5. Imdur. 6. Meclizine. 7. Atenolol. 8. Ferrous sulfate. 9. Prednisone eyedrop. 10. Pepcid. ALLERGIES: 1. MORPHINE that causes her confusion. 2. PENICILLIN, unknown. 3. SULFA, unknown. PAST MEDICAL AND SURGICAL HISTORY: 1. Atrial fibrillation. 2. Coronary artery disease. 3. Congestive heart failure. 4. Chronic obstructive pulmonary disease. 5. Dementia. 6. Cataract. 7. GERD. 8. Hyperlipidemia. 9. Hypertension. 10. Osteoarthritis. 11. Hypothyroidism. 12. Peripheral vascular disease. 13. Macular degeneration of the right eye. 14. Recurrent urinary tract infection. 15. Osteoporosis. 16. Vitamin D deficiency. 17. Gait instability and frequent falls. 18. Diverticulosis. 19. Right shoulder plate and screws. 20. Bilateral cataract. 21. Right eye retinal detachment and surgery for repair more than one year ago. 22. Thyroid removal. 23. Right total hip arthroplasty. 24. Left hip with revision. 25. Colonoscopy. 26. Polypectomy. SOCIAL HISTORY: No tobacco, alcohol or drug use, but patient quit smoking more than 20 years ago. FAMILY HISTORY: Mother with hypertension. Father with renal disease. PHYSICAL EXAMINATION: VITAL SIGNS: Reviewed and stable. GENERAL: In her stated age, in no acute distress. HEENT: Atraumatic, normocephalic. PERRLA. LUNGS: Clear to auscultation bilaterally. HEART: Normal S1, S2. ABDOMEN: Soft, no tenderness, positive bowel sounds in all 4 quadrants. EXTREMITIES: Lower extremity no edema. PSYCH: Alert only, does not follow commands and seems to be confused and slightly agitated. NEURO: Unable to assess as patient is moving all 4 extremities without difficulties. IMAGING AND LABS: CBC showed white blood count slightly elevated at 10.9, normal otherwise. Chem-7 showed sodium 136, bicarb 19, BUN slightly elevated at 23, creat slightly irregular 1.25. Glucose was low at 58, but currently is 109. UA was positive for large leukocyte esterase, occasional bacteria and urine drug screen was positive only for benzo, which is consistent with for home medication. ASSESSMENT AND PLAN: 1. Altered mental status, likely related to urinary tract infection. We will continue with Rocephin 1 gram IV daily. Follow-up on urine culture results. 2. Dehydration. We will continue with gentle hydration. Encourage p.o. intake. 3. Cachexia and severe protein calorie malnutrition. The patient with advanced dementia made the criteria for hospice. I discussed with the son who would like to discuss it with the sister and return to me in the morning about the possibility of hospice care. No hospitalizations in the future. 4. Hypertension, under fair control. Continue home medication. 5. Hypothyroidism. Will continue Synthroid. Check on her TSH level. 6. Gastroesophageal reflux disease. Will continue proton pump inhibitors. 7. Anemia. We will continue with ferrous sulfate. 8. Discharge process based on clinical progress.
[2016-11-07] MEDS ORDERED: LEVOTHYROXINE 75 MCG TAB PO SCH ×2 (06:30→09:00)
[2016-11-07] MEDS: ALPRAZolam 0.25 MG TAB PO SCH ×3 (08:54→22:47)
[2016-11-07] MEDS: FAMOTIDINE 20 MG TAB PO SCH (08:54)
[2016-11-07] MEDS: ISOSORBIDE MONONITRATE ER 30 MG TAB.ER.24H PO SCH (08:54)
[2016-11-07] MEDS: HEPARIN SODIUM,PORCINE 5,000 UNIT/ML 1 ML VIAL SQ SCH ×2 (08:54→20:49)
[2016-11-07] MEDS: FUROSEMIDE 40 MG TAB PO SCH (08:54)
[2016-11-07] MEDS: ATENOLOL 12.5 MG TAB PO SCH (08:54)
[2016-11-07] MEDS: amLODIPine 5 MG TAB PO SCH (08:56)
[2016-11-07] MEDS: PANTOPRAZOLE 40 MG TABLET PO SCH (08:57)
[2016-11-07] MEDS ORDERED: ERGOCALCIFEROL 50,000 UNIT CAP PO SCH (09:00)
[2016-11-07] MEDS: POTASSIUM CHLORIDE ER 10 MEQ TAB.ER.PRT PO SCH (09:01)
[2016-11-07] MEDS: FERROUS SULFATE 325 MG TAB PO SCH (09:01)
[2016-11-07] MEDS: prednisoLONE ACETATE 1% OPHTH DROPS 1 ML BTL RIGHT EYE SCH ×4 (09:02→20:51)
[2016-11-07 15:24] VITALS: RESP 16
--- NOTE | 2016-11-07 17:24 | PN ---
INTERVAL HISTORY: The patient continues to be hemodynamically stable. No major events reported by nursing staff. Still with poor appetite, requiring 2-people assistance to ambulate and patient currently sitting up in chair. The patient is not oriented but alert and awake, following commands. PHYSICAL EXAMINATION: VITAL SIGNS: 98.3, 47, 16, 105/37, saturation is 99% on room air. LUNGS: Clear to auscultation bilaterally. HEART: Normal S1, S2. ABDOMEN: Soft, no tenderness. Normal bowel sounds. EXTREMITIES: Lower extremities positive for muscle wasting. SKIN: No new rash. IMAGING AND LABS: Reviewed. ASSESSMENT AND PLAN: 1. Acute encephalopathy, metabolic in nature, likely related to urinary tract infection. The patient seems to be improving. We will continue current antibiotics. Follow up on culture results. 2. Severe dehydration. We will continue with gentle hydration given the patient's is poor oral intake. 3. Cachexia and severe protein calorie malnutrition. We will discuss with the family alternative measures for feeding, given the patient's ongoing weight loss with advanced dementia. 4. Advanced dementia discuss with family hospice option and son is aware and he would like to discuss with the sister. I would like to wait on the family decision in that regard as the patient meets the criteria for hospice care given the advanced dementia and ongoing declining with weight loss and current hospitalization. 5. Anemia. We will continue monitoring. 6. Severe debility and weakness. Consider discharging to a care home tomorrow.
[2016-11-07 19:37] LABS: Glucose,Whole Blood 128 mg/dL (75-99)
[2016-11-07 22:29] VITALS: PULSE 52
[2016-11-08] MEDS: LEVOTHYROXINE 75 MCG TAB PO SCH (06:16)
[2016-11-08 07:43] LABS: Glucose,Whole Blood 75 mg/dL (75-99)
[2016-11-08 07:58] VITALS: BP 129/62; TEMP 97.8
[2016-11-08 09:43] LABS: Basophils % (A) 0 %; CH 29.5; CHCM 32.3; Eosinophils # (A) 0.2 k/uL (0-0.7); Eosinophils % (A) 2 %; HCT 34.1 % (34.0-46.0); HDW 2.67; HGB 10.7 gm/dL (11.4-16.0); Luc % (Auto) 1; Lymphocytes # (A) 1.2 k/uL (1.0-4.8); Lymphocytes % (A) 14 %; MCHC 31.5 g/dL (31.0-37.0); MCV 92.1 fL (80.0-100.0); Mean Platelet Volume 8.5; Monocytes # (A) 0.4 k/uL (0-1.0); Monocytes % (A) 5 %; Neutrophils # (A) 6.5 k/uL (1.3-7.7); Neutrophils % (A) 77 %; RDW 14.8 % (11.5-15.5); WBC 8.4 k/uL (3.8-10.6); WBC (Perox) 8.74
[2016-11-08 10:06] LABS: ALT 58 U/L (9-52); AST 66 U/L (14-36); Alkaline Phosphatase 159 U/L (38-126); Anion Gap 7 mmol/L; Blood Urea Nitrogen 15 mg/dL (7-17); Calcium 7.6 mg/dL (8.4-10.2); Carbon Dioxide 19 mmol/L (22-30); Chloride 108 mmol/L (98-107); Glucose 67 mg/dL (74-99); Non-African American GFR(MDRD) 60 (>60 ml/min/1.73 sqM); Potassium 4.1 mmol/L (3.5-5.1); Sodium 134 mmol/L (137-145); Total Bilirubin 0.5 mg/dL (0.2-1.3); Total Protein 4.6 g/dL (6.3-8.2)
[2016-11-08] MEDS: PANTOPRAZOLE 40 MG TABLET PO SCH (13:23)
[2016-11-08] MEDS: amLODIPine 5 MG TAB PO SCH (13:23)
[2016-11-08] MEDS: ATENOLOL 12.5 MG TAB PO SCH (13:23)
[2016-11-08] MEDS: POTASSIUM CHLORIDE ER 10 MEQ TAB.ER.PRT PO SCH (13:24)
[2016-11-08] MEDS: FERROUS SULFATE 325 MG TAB PO SCH (13:24)
[2016-11-08] MEDS: FUROSEMIDE 40 MG TAB PO SCH (13:24)
[2016-11-08] MEDS: prednisoLONE ACETATE 1% OPHTH DROPS 1 ML BTL RIGHT EYE SCH ×2 (13:25)
[2016-11-08] MEDS: FAMOTIDINE 20 MG TAB PO SCH (13:32)
[2016-11-08] MEDS: ISOSORBIDE MONONITRATE ER 30 MG TAB.ER.24H PO SCH (13:33)
[2016-11-08] MEDS: ALPRAZolam 0.25 MG TAB PO SCH ×2 (13:33→15:38)
[2016-11-08] MEDS: HEPARIN SODIUM,PORCINE 5,000 UNIT/ML 1 ML VIAL SQ SCH (13:33)
--- NOTE | 2016-11-08 14:33 | P.DS ---
Providers Date of admission: 11/05/16 16:38 Expected date of discharge: 11/08/16 Attending physician: Snow Randall [facility] Course: 86-year-old female patient of Dr. Dr. Escoto with long-standing history of CAD, paroxysmal A. fib, vascular dementia, hypothyroidism, hyperlipidemia off Lipitor due to elevated liver function tests, acute kidney injury, recurrent angina and chest pain with multiple fall is known to have mild COPD, abnormal balance and gait for long time. Patient was recently hospitalized in August after a fall for bradycardia and changes were made to her amiodarone and atenolol. Patient went to [facility] for rehab where her course was complicated by a lower extremity wound infection. She was discharged from [facility] on a Tuesday and went to [facility]. She apparently had a fall there and laid on the floor for an unknown amount of time. she was then hospitalized at [facility]. Physician and PT as well as social work recommended to the family the patient was not safe to be home or at [facility] alone. Son was adamant the patient was to return to [facility]. Patient was discharged on November 03.patient presented back to the hospital on November 05 due to worsening mental status and agitation according to the caregiver. The son was called and EMS brought the patient in the hospital. Apparently no major events happened at [facility]. Urinalysis was positive for urinary tract infection and dehydration and patient was started on IV fluids and antibiotics [facility]patient was hemodynamically stable over the weekend. She required 2 person assist to ambulate. Patient continued to have confusion but was able to follow commands. 11/08: Patient is pleasantly confused. Plan to discharge to [facility] today once arrangements are completed. Urine culture is currently pending. Patient will be discharged today in stable condition. Discharge Diagnoses: 1. Acute metabolic encephalopathy due to urinary tract infection and dehydration. 2. Cachexia and severe protein calorie malnutrition with ongoing weight loss and BMI of 19 and advanced dementia. protein supplementation 3. Advanced vascular dementia. 4. Frequent falls and syncopal episodes possibly due to bradycardia with previous hospitalizations. 5. Eelevated liver function tests. Lipitor was discontinued on last hospitalization. 6. CAD and hypertension. 7. History of paroxysmal atrial fibrillation 8. Hypothyroidism: 9. Hyperlipidemia. Off statin. 10. Wound left ankle. Medihoney daily. CODE STATUS: No code. Discharge plan: [place] under the care of Dr. Escoto Impression and plan of care have been directed as dictated by the signing physician. Irene Villegas nurse practitioner acting as scribe for signing physician. Patient Condition at Discharge: Fair Plan - Discharge Summary New Discharge Prescriptions: ALPRAZolam [Xanax] 0.25 mg PO TID #90 tablet NS Nitrofurantoin Macrocrystal [Macrodantin] 50 mg PO DAILY #7 capsule traMADol HCL [Ultram] 50 mg PO Q6HR PRN #90 tab PRN Reason: Pain Discharge Medication List amLODIPine BESYLATE [Norvasc] 5 mg PO DAILY 04/22/14 [History] Ergocalciferol [Vitamin D2 (DRISDOL)] 50,000 unit PO RAMÍREZ 09/09/15 [History] Potassium Chloride ER [K-Dur 10] 10 meq PO DAILY 09/09/15 [History] Levothyroxine Sodium [Synthroid] 75 mcg PO MOTUWEFRSA 11/10/15 [History] Isosorbide Mononitrate ER [Imdur] 30 mg PO DAILY 11/17/15 [History] Meclizine [Antivert] 12.5 mg PO TID PRN 08/09/16 [History] Omeprazole [PriLOSEC] 20 mg PO AC-BRKFST #1 cap 08/25/16 [Rx] Atenolol [Tenormin] 12.5 mg PO DAILY 11/01/16 [History] Ferrous Sulfate [Feosol] 325 mg PO DAILY 11/01/16 [History] Levothyroxine Sodium [Levoxyl] 37.5 mcg PO SUTH 11/01/16 [History] prednisoLONE ACETATE [Pred Forte] 1 drop RIGHT EYE QID 11/01/16 [History] Furosemide [Lasix] 20 mg PO DAILY #0 11/03/16 [Rx] Famotidine [Pepcid] 20 mg PO DAILY 11/05/16 [History] ALPRAZolam [Xanax] 0.25 mg PO TID #90 tablet NS 11/08/16 [Rx] Nitrofurantoin Macrocrystal [Macrodantin] 50 mg PO DAILY #7 capsule 11/08/16 [Rx ] traMADol HCL [Ultram] 50 mg PO Q6HR PRN #90 tab 11/08/16 [Rx] Follow up Appointment(s)/Referral(s): Brandin Escoto MD [Primary Care Provider] - 1 Week Discharge Disposition: TRANSFER TO SNF/ECF
== END 2016-11-08 16:50 | DRG 689 ==
LOC: EC 13:42 → 5MS5E 16:38
PROVIDERS: ADMIT Internal Medicine; ATTEND Internal Medicine
DX: N39.0 Urinary tract infection, site not specified (principal); G93.41 Metabolic encephalopathy; E43 Unspecified severe protein-calorie malnutrition; N17.9 Acute kidney failure, unspecified; F05 Delirium due to known physiological condition; I48.0 Paroxysmal atrial fibrillation; E11.51 Type 2 diabetes mellitus with diabetic peripheral angiopathy without gangrene; Z68.1 Body mass index [BMI] 19.9 or less, adult; R64 Cachexia; I50.9 Heart failure, unspecified; E86.0 Dehydration; I11.0 Hypertensive heart disease with heart failure; F01.50 Vascular dementia, unspecified severity, without behavioral disturbance, psychotic disturbance, mood disturbance, and anxiety; J44.9 Chronic obstructive pulmonary disease, unspecified; Z66 Do not resuscitate; S90.912A Unspecified superficial injury of left ankle, initial encounter; T46.6X5S Adverse effect of antihyperlipidemic and antiarteriosclerotic drugs, sequela; R74.8 Abnormal levels of other serum enzymes; I25.10 Atherosclerotic heart disease of native coronary artery without angina pectoris; M62.50 Muscle wasting and atrophy, not elsewhere classified, unspecified site; R53.1 Weakness; E89.0 Postprocedural hypothyroidism; E55.9 Vitamin D deficiency, unspecified; M25.511 Pain in right shoulder; M19.90 Unspecified osteoarthritis, unspecified site; K57.90 Diverticulosis of intestine, part unspecified, without perforation or abscess without bleeding; E78.5 Hyperlipidemia, unspecified; R29.6 Repeated falls; D64.9 Anemia, unspecified; M81.0 Age-related osteoporosis without current pathological fracture; H35.30 Unspecified macular degeneration; K21.9 Gastro-esophageal reflux disease without esophagitis; R26.9 Unspecified abnormalities of gait and mobility; Z88.5 Allergy status to narcotic agent; Z88.0 Allergy status to penicillin; Z88.2 Allergy status to sulfonamides; Z91.81 History of falling; Z86.19 Personal history of other infectious and parasitic diseases; Z82.49 Family history of ischemic heart disease and other diseases of the circulatory system; Z87.891 Personal history of nicotine dependence; Z87.440 Personal history of urinary (tract) infections; Z79.899 Other long term (current) drug therapy; Z80.3 Family history of malignant neoplasm of breast; Z71.3 Dietary counseling and surveillance; Z96.643 Presence of artificial hip joint, bilateral; Z96.651 Presence of right artificial knee joint; Z98.42 Cataract extraction status, left eye; Z98.41 Cataract extraction status, right eye; Z87.01 Personal history of pneumonia (recurrent); Z86.010 Personal history of colon polyps; Z84.1 Family history of disorders of kidney and ureter
CPT/HCPCS: 36415; 80048; 80053; 80306; 80320; 81001; 83520; 85025; 87086; 99285

== ENCOUNTER 2016-11-11 15:32 | Emergency (ER) | payer MEDICARE, BC ==
[2016-11-11 15:47] VITALS: TEMP 98.7
[2016-11-11] MEDS ORDERED: SODIUM CHLORIDE 0.9% 500 ML IV STA (15:51)
[2016-11-11 16:41] LABS: Appearance,Urine Clear (Clear); Bilirubin,Urine Negative (Negative); Glucose,Urine (UA) Negative (Negative); Ketones,Urine Trace (Negative); Leukocyte Esterase,Urine Negative (Negative); Nitrite,Urine Negative (Negative); PH, Urine 6.5 (5.0-8.0); Protein,Urine Negative (Negative); Specific Gravity,Urine 1.007 (1.001-1.035); UA Billing (MACRO vs. MICRO) CHEM; Urobilinogen,Urine <2.0 mg/dL (<2.0)
[2016-11-11 17:12] LABS: Basophils % (A) 0 %; CH 29.8; Eosinophils # (A) 0.1 k/uL (0-0.7); Eosinophils % (A) 1 %; HCT 41.3 % (34.0-46.0); HGB 13.5 gm/dL (11.4-16.0); Luc # (Auto) 0.14; Luc % (Auto) 2; Lymphocytes # (A) 0.9 k/uL (1.0-4.8); Lymphocytes % (A) 9 %; MCH 29.6 pg (25.0-35.0); MCHC 32.6 g/dL (31.0-37.0); MCV 90.9 fL (80.0-100.0); Mean Platelet Volume 7.6; Monocytes # (A) 0.3 k/uL (0-1.0); Monocytes % (A) 3 %; Neutrophils % (A) 84 %; RBC 4.54 m/uL (3.80-5.40); RDW 14.9 % (11.5-15.5); WBC 9.4 k/uL (3.8-10.6); WBC (Perox) 10.13
[2016-11-11 17:18] LABS: INR 1.1 (<1.1); Partial Thromboplastin Time 23.4 sec (22.0-30.0); Prothrombin Time 10.7 sec (9.0-12.0)
[2016-11-11 17:25] LABS: ALT 62 U/L (9-52); AST 87 U/L (14-36); Alcohol <10 mg/dL; Alkaline Phosphatase 188 U/L (38-126); Amylase 152 U/L (30-110); Anion Gap 9 mmol/L; Blood Urea Nitrogen 9 mg/dL (7-17); Calcium 8.4 mg/dL (8.4-10.2); Carbon Dioxide 23 mmol/L (22-30); Chloride 101 mmol/L (98-107); Glucose 74 mg/dL (74-99); Magnesium 1.9 mg/dL (1.6-2.3); Non-African American GFR(MDRD) 54 (>60 ml/min/1.73 sqM); Potassium 3.9 mmol/L (3.5-5.1); Sodium 133 mmol/L (137-145); Total Bilirubin 0.8 mg/dL (0.2-1.3)
--- NOTE | 2016-11-11 17:30 | XR ---
EXAMINATION TYPE: XR chest 2V DATE OF EXAM: 11/11/2016 5:25 PM COMPARISON: 11/01/2016 HISTORY: Abdominal pain and weakness TECHNIQUE: Frontal and lateral views of the chest are obtained. FINDINGS: There is a hiatal hernia. Exam is limited by the arms over the heart on the lateral view. There is no heart failure. Lungs are clear of consolidation. There is slight blunting of left costoph renic angle. There are chest leads. There is right shoulder surgery noted. Thoracic aorta is atheroma tous. IMPRESSION: There is a new small left pleural effusion compared to old exam. Hiatal hernia. No heart failure. Mild cardiomegaly. COPD.
[2016-11-11 17:39] LABS: Creatine Kinase 30 U/L (30-135)
[2016-11-11 17:52] LABS: Creatine Kinase MB 1.1 ng/mL (0.0-2.4); Troponin I <0.012 ng/mL (0.000-0.034)
--- NOTE | 2016-11-11 19:05 | ED ---
Nausea/Vomiting/Diarrhea HPI - General Source: patient, EMS, RN notes reviewed Mode of arrival: EMS Limitations: no limitations <Beau Poon - Last Filed: 11/11/16 19:02> <Timmy De Los Santos - Last Filed: 11/11/16 20:29> - General Chief complaint: Nausea/Vomiting/Diarrhea Stated complaint: Diarrhea/weak Time Seen by Provider: 11/11/16 15:47 - History of Present Illness Initial comments: 86-year-old female presents emergency Department from assisted living home for weakness, diarrhea and depression. Patient states she's had some loose stools the last 2 days states that she is woken up with stool in her brief. Patient states she was recently admitted for urinary tract infection. Patient denies any abdominal pain abdominal cramping, nausea vomiting. She states she just has a few episodes of diarrhea which just been loose. Denies any melena or hematochezia. Patient states that she is just tired of living in assisted living and feeling the way she does appear she states she just wishes she would . Patient denies any homicidal thoughts. (Beau Poon) - Related Data Home Medications Medication Instructions Recorded Confirmed amLODIPine BESYLATE [Norvasc] 5 mg PO DAILY 04/22/14 11/11/16 Ergocalciferol [Vitamin D2 50,000 unit PO RAMÍREZ 09/09/15 11/11/16 (DRISDOL)] Potassium Chloride ER [K-Dur 10] 10 meq PO DAILY 09/09/15 11/11/16 Levothyroxine Sodium [Synthroid] 75 mcg PO MOTUWEFRSA 11/10/15 11/11/16 Isosorbide Mononitrate ER [Imdur] 30 mg PO DAILY 11/17/15 11/11/16 Meclizine [Antivert] 12.5 mg PO TID PRN 08/09/16 11/11/16 Atenolol [Tenormin] 12.5 mg PO DAILY 11/01/16 11/11/16 Ferrous Sulfate [Feosol] 325 mg PO DAILY 11/01/16 11/11/16 Levothyroxine Sodium [Levoxyl] 37.5 mcg PO SUTH 11/01/16 11/11/16 prednisoLONE ACETATE [Pred Forte] 1 drop RIGHT EYE QID 11/01/16 11/11/16 Famotidine [Pepcid] 20 mg PO DAILY 11/05/16 11/11/16 ALPRAZolam [Xanax] 0.5 mg PO TID 11/11/16 11/11/16 Previous Rx's Medication Instructions Recorded Omeprazole [PriLOSEC] 20 mg PO AC-BRKFST #1 cap 08/25/16 Furosemide [Lasix] 20 mg PO DAILY #0 11/03/16 Nitrofurantoin Macrocrystal 50 mg PO DAILY #7 capsule 11/08/16 [Macrodantin] traMADol HCL [Ultram] 50 mg PO Q6HR PRN #90 tab 11/08/16 Allergies Allergy/AdvReac Type Severity Reaction Status Date / Time morphine Allergy Confusion Verified 11/11/16 17:16 Penicillins Allergy Unknown Verified 11/11/16 17:16 Sulfa (Sulfonamide Allergy Unknown Verified 11/11/16 17:16 Antibiotics) Review of Systems ROS Other: All systems not noted in ROS Statement are negative. <Beau Poon - Last Filed: 11/11/16 19:02> ROS Other: All systems not noted in ROS Statement are negative. <Timmy De Los Santos - Last Filed: 11/11/16 20:29> ROS Statement: Those systems with pertinent positive or pertinent negative responses have been documented in the HPI. Past Medical History Past Medical History: Atrial Fibrillation, Coronary Artery Disease (CAD), Chest Pain / Angina, Heart Failure, COPD, Dementia, Eye Disorder, GERD/Reflux, Hyperlipidemia, Hypertension, Osteoarthritis (OA), Pneumonia, Thyroid Disorder, Vascular Disorder Additional Past Medical History / Comment(s): Bradycardia, left ventricular hypertrophy, PAD, macular degeneration R eye, R shoulder pain, UTIs, osteoporosis, vitamin D deficiency, multiple falls, gait dysturbance, abnormal balance, diverticulosis, goiter. History of Any Multi-Drug Resistant Organisms: None Reported Past Surgical History: Joint Replacement, Orthopedic Surgery Additional Past Surgical History / Comment(s): right shoulder PLATE AND SCREWS, SANGITA CATARACTS, RT EYE RETINAL SX, thyroid removed, total R hip, Total L hip with revision, total R knee, colonoscopy/polypectomy. Past Anesthesia/Blood Transfusion Reactions: No Reported Reaction Past Psychological History: No Psychological Hx Reported Additional Psychological History / Comment(s): AT TIME OF THIS ADMIT PT CONFUSEDPT cannot recall WHERE SHE LIVES. . She has a caregiver twice a week. She no longer drives. Her caregiver takes her to appts. She uses a walker to ambulate. She has had falls. Smoking Status: Former smoker Past Alcohol Use History: None Reported Additional Past Alcohol Use History / Comment(s): Pt started smoking in 1948 and quit in 1993 Past Drug Use History: None Reported - Past Family History Father History Unknown: Yes Family Medical History: Renal Disease Mother History Unknown: Yes Family Medical History: Hypertension Brother(s) Family Medical History: No Reported History Daughter(s) Family Medical History: Cancer Additional Family Medical History / Comment(s): Pt states her oldest law of breast cancer. Son(s) Family Medical History: No Reported History <Beau Poon - Last Filed: 11/11/16 19:02> General Exam Limitations: no limitations General appearance: alert, in no apparent distress Head exam: Present: atraumatic, normocephalic, normal inspection Eye exam: Present: normal appearance, PERRL, EOMI. Absent: scleral icterus, conjunctival injection, periorbital swelling ENT exam: Present: normal exam, normal oropharynx, mucous membranes moist, TM's normal bilaterally, normal external ear exam Neck exam: Present: normal inspection, full ROM. Absent: tenderness, meningismus, lymphadenopathy Respiratory exam: Present: normal lung sounds bilaterally. Absent: respiratory distress, wheezes, rales, rhonchi, stridor Cardiovascular Exam: Present: normal rhythm, bradycardia, normal heart sounds. Absent: systolic murmur, diastolic murmur, rubs, gallop, clicks GI/Abdominal exam: Present: soft, normal bowel sounds. Absent: distended, tenderness, guarding, rebound, rigid Neurological exam: Present: alert Psychiatric exam: Present: depressed <Beau Poon - Last Filed: 11/11/16 19:02> Course <Beau Poon - Last Filed: 11/11/16 19:02> <Timmy De Los Santos - Last Filed: 11/11/16 20:29> Vital Signs 11/11/16 11/11/16 15:35 17:44 Temperature 98.7 F Pulse Rate 52 L 51 L Respiratory 16 16 Rate Blood Pressure 123/58 158/71 O2 Sat by Pulse 100 100 Oximetry And was endorsed to me by Beau was evaluated by psych department and now they felt that since they felt comfortable that she could go home she is able to contract for the safety denies any thoughts of self-harm and she contracts and she'll come back if she feels that she is being overwhelmed considering that she be discharged home to follow with the family doctor (Timmy De Los Santos) Medical Decision Making - Lab Data Result diagrams: 11/11/16 16:59 11/11/16 16:59 <Beau Poon - Last Filed: 11/11/16 19:02> - Lab Data Result diagrams: 11/11/16 16:59 11/11/16 16:59 <Timmy De Los Santos - Last Filed: 11/11/16 20:29> - Medical Decision Making 86-year-old female presented for diarrhea weakness and depression. Patient has a mild elevation in her amylase and lipase though she has no abdominal tenderness. Patient most likely is viral diarrhea as she has been unable to provide a sample here for C. diff testing. Patient's screening lab work comparable to prior. There is no evidence UTI. Patient's EKG unchanged. (Beau Poon) - Lab Data Lab Results 11/11/16 11/11/16 11/11/16 Range/Units 16:30 16:59 16:59 WBC (3.8-10.6) k/uL RBC (3.80-5.40) m/uL Hgb (11.4-16.0) gm/dL Hct (34.0-46.0) % MCV (80.0-100.0) fL MCH (25.0-35.0) pg MCHC (31.0-37.0) g/dL RDW (11.5-15.5) % Plt Count (150-450) k/uL Neutrophils % % Lymphocytes % % Monocytes % % Eosinophils % % Basophils % % Neutrophils # (1.3-7.7) k/uL Lymphocytes # (1.0-4.8) k/uL Monocytes # (0-1.0) k/uL Eosinophils # (0-0.7) k/uL Basophils # (0-0.2) k/uL PT (9.0-12.0) sec INR (<1.1) APTT (22.0-30.0) sec Sodium 133 L (137-145) mmol/L Potassium 3.9 (3.5-5.1) mmol/L Chloride 101 (98-107) mmol/L Carbon Dioxide 23 (22-30) mmol/L Anion Gap 9 mmol/L BUN 9 (7-17) mg/dL Creatinine 0.98 (0.52-1.04) mg/dL Est GFR (MDRD) Af Amer >60 (>60 ml/min/1.73 sqM) Est GFR (MDRD) Non-Af 54 (>60 ml/min/1.73 sqM) Glucose 74 (74-99) mg/dL Calcium 8.4 (8.4-10.2) mg/dL Magnesium 1.9 (1.6-2.3) mg/dL Total Bilirubin 0.8 (0.2-1.3) mg/dL AST 87 H (14-36) U/L ALT 62 H (9-52) U/L Alkaline Phosphatase 188 H (38-126) U/L Total Creatine Kinase 30 (30-135) U/L CK-MB (CK-2) 1.1 (0.0-2.4) ng/mL CK-MB (CK-2) Rel Index 3.7 Troponin I <0.012 (0.000-0.034) ng/mL Total Protein 6.0 L (6.3-8.2) g/dL Albumin 3.0 L (3.5-5.0) g/dL Amylase 152 H (30-110) U/L Lipase 520 H (23-300) U/L Urine Color Yellow Urine Appearance Clear (Clear) Urine pH 6.5 (5.0-8.0) Ur Specific [place] 1.007 (1.001-1.035) Urine Protein Negative (Negative) Urine Glucose (UA) Negative (Negative) Urine Ketones Trace H (Negative) Urine Blood Negative (Negative) Urine Nitrite Negative (Negative) Urine Bilirubin Negative (Negative) Urine Urobilinogen <2.0 (<2.0) mg/dL Ur Leukocyte Esterase Negative (Negative) Urine Opiates Screen Not Detected (NotDetected) Ur Oxycodone Screen Not Detected (NotDetected) Urine Methadone Screen Not Detected (NotDetected) Ur Propoxyphene Screen Not Detected (NotDetected) Ur Barbiturates Screen Not Detected (NotDetected) U Tricyclic Antidepress Not Detected (NotDetected) Ur Phencyclidine Scrn Not Detected (NotDetected) Ur Amphetamines Screen Not Detected (NotDetected) U Methamphetamines Scrn Not Detected (NotDetected) U Benzodiazepines Scrn Detected H (NotDetected) Urine Cocaine Screen Not Detected (NotDetected) U Marijuana (THC) Screen Not Detected (NotDetected) Serum Alcohol <10 mg/dL 11/11/16 11/11/16 Range/Units 16:59 16:59 WBC 9.4 (3.8-10.6) k/uL RBC 4.54 (3.80-5.40) m/uL Hgb 13.5 (11.4-16.0) gm/dL Hct 41.3 (34.0-46.0) % MCV 90.9 (80.0-100.0) fL MCH 29.6 (25.0-35.0) pg MCHC 32.6 (31.0-37.0) g/dL RDW 14.9 (11.5-15.5) % Plt Count 326 (150-450) k/uL Neutrophils % 84 % Lymphocytes % 9 % Monocytes % 3 % Eosinophils % 1 % Basophils % 0 % Neutrophils # 8.0 H (1.3-7.7) k/uL Lymphocytes # 0.9 L (1.0-4.8) k/uL Monocytes # 0.3 (0-1.0) k/uL Eosinophils # 0.1 (0-0.7) k/uL Basophils # 0.0 (0-0.2) k/uL PT 10.7 (9.0-12.0) sec INR 1.1 (<1.1) APTT 23.4 (22.0-30.0) sec Sodium (137-145) mmol/L Potassium (3.5-5.1) mmol/L Chloride (98-107) mmol/L Carbon Dioxide (22-30) mmol/L Anion Gap mmol/L BUN (7-17) mg/dL Creatinine (0.52-1.04) mg/dL Est GFR (MDRD) Af Amer (>60 ml/min/1.73 sqM) Est GFR (MDRD) Non-Af (>60 ml/min/1.73 sqM) Glucose (74-99) mg/dL Calcium (8.4-10.2) mg/dL Magnesium (1.6-2.3) mg/dL Total Bilirubin (0.2-1.3) mg/dL AST (14-36) U/L ALT (9-52) U/L Alkaline Phosphatase (38-126) U/L Total Creatine Kinase (30-135) U/L CK-MB (CK-2) (0.0-2.4) ng/mL CK-MB (CK-2) Rel Index Troponin I (0.000-0.034) ng/mL Total Protein (6.3-8.2) g/dL Albumin (3.5-5.0) g/dL Amylase (30-110) U/L Lipase (23-300) U/L Urine Color Urine Appearance (Clear) Urine pH (5.0-8.0) Ur Specific [place] (1.001-1.035) Urine Protein (Negative) Urine Glucose (UA) (Negative) Urine Ketones (Negative) Urine Blood (Negative) Urine Nitrite (Negative) Urine Bilirubin (Negative) Urine Urobilinogen (<2.0) mg/dL Ur Leukocyte Esterase (Negative) Urine Opiates Screen (NotDetected) Ur Oxycodone Screen (NotDetected) Urine Methadone Screen (NotDetected) Ur Propoxyphene Screen (NotDetected) Ur Barbiturates Screen (NotDetected) U Tricyclic Antidepress (NotDetected) Ur Phencyclidine Scrn (NotDetected) Ur Amphetamines Screen (NotDetected) U Methamphetamines Scrn (NotDetected) U Benzodiazepines Scrn (NotDetected) Urine Cocaine Screen (NotDetected) U Marijuana (THC) Screen (NotDetected) Serum Alcohol mg/dL 11/11/16 19:05 EKG performed at 16:02 sinus bradycardia with rate of 49 RI interval 198, QRS duration 108, QT/QTC 532/480 (Beau Poon) Disposition <Beau Poon - Last Filed: 11/11/16 19:02> <Timmy De Los Santos - Last Filed: 11/11/16 20:29> Clinical Impression: Diarrhea, Anxiety Disposition: HOME SELF-CARE Condition: Good
[2016-11-11 20:29] VITALS: BP 138/64; PULSE 52; RESP 18
== END 2016-11-11 21:01 | disposition home or self-care (01) ==
LOC: EC 15:32
DX: R19.7 Diarrhea, unspecified (principal); F41.9 Anxiety disorder, unspecified; R53.1 Weakness; F32.9 Major depressive disorder, single episode, unspecified; I48.91 Unspecified atrial fibrillation; I25.10 Atherosclerotic heart disease of native coronary artery without angina pectoris; I11.0 Hypertensive heart disease with heart failure; I50.9 Heart failure, unspecified; J44.9 Chronic obstructive pulmonary disease, unspecified; F03.90 Unspecified dementia, unspecified severity, without behavioral disturbance, psychotic disturbance, mood disturbance, and anxiety; K21.9 Gastro-esophageal reflux disease without esophagitis; I10 Essential (primary) hypertension; M19.90 Unspecified osteoarthritis, unspecified site; E07.9 Disorder of thyroid, unspecified; Z87.891 Personal history of nicotine dependence; Z79.899 Other long term (current) drug therapy; Z88.0 Allergy status to penicillin; Z88.5 Allergy status to narcotic agent; Z88.2 Allergy status to sulfonamides
CPT/HCPCS: 36415; 71020; 80053; 80306; 80320; 81003; 82150; 82550; 82553; 83690; 83735; 84484; 85025; 85610; 85730; 93005; 99285

== ENCOUNTER → 2017-06-08 | Outpatient (CLI) | payer MEDICARE, BC ==
[2017-06-08 13:51] LABS: CH 27.2; CHCM 30.3; HCT 37.1 % (34.0-46.0); HDW 2.36; HGB 10.8 gm/dL (11.4-16.0); Hypochromasia Moderate; MCH 26.3 pg (25.0-35.0); MCHC 29.1 g/dL (31.0-37.0); MCV 90.2 fL (80.0-100.0); Mean Platelet Volume 6.8; RBC 4.11 m/uL (3.80-5.40); RDW 12.7 % (11.5-15.5); WBC 8.1 k/uL (3.8-10.6)
[2017-06-08 16:15] LABS: Erythrocyte Sedimentation Rate 20 mm/hr (0-20)
== END ==
LOC: LABWHC1 13:20
PROVIDERS: ATTEND Ophthalmology
DX: H54.7 Unspecified visual loss (principal)
CPT/HCPCS: 36415; 85027; 85652; 86140

== ENCOUNTER 2017-10-15 10:21 | Emergency (ER) | payer MEDICARE, BC ==
[2017-10-15] MEDS ORDERED: SODIUM CHLORIDE 0.9% 500 ML IV STA (10:47)
[2017-10-15 11:20] LABS: Basophils # (A) 0.1 k/uL (0-0.2); Basophils % (A) 1 %; Eosinophils # (A) 0.2 k/uL (0-0.7); Eosinophils % (A) 3 %; HCT 35.6 % (34.0-46.0); HGB 11.1 gm/dL (11.4-16.0); Lymphocytes # (A) 1.3 k/uL (1.0-4.8); Lymphocytes % (A) 21 %; MCH 25.8 pg (25.0-35.0); MCHC 31.1 g/dL (31.0-37.0); Mean Platelet Volume 6.8; Monocytes # (A) 0.4 k/uL (0-1.0); Monocytes % (A) 6 %; Neutrophils % (A) 67 %; Platelet Count 357 k/uL (150-450); RDW 13.8 % (11.5-15.5)
[2017-10-15 11:28] LABS: ALT 17 U/L (9-52); AST 23 U/L (14-36); Albumin 3.7 g/dL (3.5-5.0); Alkaline Phosphatase 85 U/L (38-126); Anion Gap 12 mmol/L; Blood Urea Nitrogen 15 mg/dL (7-17); Carbon Dioxide 22 mmol/L (22-30); Chloride 101 mmol/L (98-107); Glucose 80 mg/dL (74-99); Potassium 4.4 mmol/L (3.5-5.1); Sodium 135 mmol/L (137-145); Total Bilirubin 0.6 mg/dL (0.2-1.3); Total Protein 6.4 g/dL (6.3-8.2)
[2017-10-15 11:32] LABS: INR 1.1 (<1.2); Partial Thromboplastin Time 23.4 sec (22.0-30.0); Prothrombin Time 10.5 sec (9.0-12.0)
--- NOTE | 2017-10-15 11:35 | ED ---
General Adult HPI - General Chief complaint: Dizziness Stated complaint: Dehydration Time Seen by Provider: 10/15/17 10:23 Source: patient, EMS, RN notes reviewed Mode of arrival: EMS Limitations: no limitations - History of Present Illness Initial comments: 87-year-old female presents to the emergency department with a chief complaint of feeling woozy. She had multiple falls in the past and she states she felt kind of woozy today and she was concerned that she may have a fall. She states she has no pain there is no injury. She states that she just feels kind of woozy. She states that she is also feeling very dehydrated. She has a very dry mouth. She denies any other complaints. She denies any chest pain or shortness of breath. She states just continues to say woozy. She denies a headache.Patient denies any recent fever, chills, shortness of breath, chest pain, back pain, abdominal pain, nausea vomiting, numbness or tingling, dysuria or hematuria, constipation or diarrhea, headaches or visual changes, or any other current symptoms. - Related Data Home Medications Medication Instructions Recorded Confirmed amLODIPine BESYLATE [Norvasc] 5 mg PO DAILY 04/22/14 10/15/17 Ergocalciferol [Vitamin D2 50,000 unit PO RAMÍREZ 09/09/15 10/15/17 (DRISDOL)] Potassium Chloride ER [K-Dur 10] 10 meq PO DAILY 09/09/15 10/15/17 Levothyroxine Sodium [Synthroid] 75 mcg PO DAILY 11/10/15 10/15/17 Isosorbide Mononitrate ER [Imdur] 30 mg PO DAILY 11/17/15 10/15/17 ALPRAZolam [Xanax] 0.25 mg PO DAILY PRN 10/15/17 10/15/17 Acetaminophen Tab [Tylenol Tab] 500 mg PO Q6H PRN 10/15/17 10/15/17 Acetaminophen-Codeine 300-30mg 1 tab PO Q6H PRN 10/15/17 10/15/17 [Tylenol #3] Diphenoxylate HCl/Atropine 1 tab PO DAILY PRN 10/15/17 10/15/17 [Lomotil 2.5-0.025 mg Tablet] Furosemide [Lasix] 40 mg PO DAILY 10/15/17 10/15/17 Gabapentin [Neurontin] 100 mg PO DAILY 10/15/17 10/15/17 Metoprolol Succinate [Toprol XL] 25 mg PO DAILY 10/15/17 10/15/17 Simvastatin [Zocor] 20 mg PO HS 10/15/17 10/15/17 Temazepam [Restoril] 15 mg PO HS PRN 10/15/17 10/15/17 Allergies Allergy/AdvReac Type Severity Reaction Status Date / Time morphine Allergy Confusion Verified 11/11/16 17:16 Penicillins Allergy Unknown Verified 11/11/16 17:16 Sulfa (Sulfonamide Allergy Unknown Verified 11/11/16 17:16 Antibiotics) Review of Systems ROS Statement: Those systems with pertinent positive or pertinent negative responses have been documented in the HPI. ROS Other: All systems not noted in ROS Statement are negative. Past Medical History Past Medical History: Atrial Fibrillation, Coronary Artery Disease (CAD), Chest Pain / Angina, Heart Failure, COPD, Dementia, Eye Disorder, GERD/Reflux, Hyperlipidemia, Hypertension, Osteoarthritis (OA), Pneumonia, Thyroid Disorder, Vascular Disorder Additional Past Medical History / Comment(s): Bradycardia, left ventricular hypertrophy, PAD, macular degeneration R eye, R shoulder pain, UTIs, osteoporosis, vitamin D deficiency, multiple falls, gait dysturbance, abnormal balance, diverticulosis, goiter. History of Any Multi-Drug Resistant Organisms: None Reported Past Surgical History: Joint Replacement, Orthopedic Surgery Additional Past Surgical History / Comment(s): right shoulder PLATE AND SCREWS, SANGITA CATARACTS, RT EYE RETINAL SX, thyroid removed, total R hip, Total L hip with revision, total R knee, colonoscopy/polypectomy. Past Anesthesia/Blood Transfusion Reactions: No Reported Reaction Past Psychological History: Anxiety, Depression Smoking Status: Former smoker Past Alcohol Use History: None Reported Past Drug Use History: None Reported - Past Family History Father History Unknown: Yes Family Medical History: Renal Disease Mother History Unknown: Yes Family Medical History: Hypertension Brother(s) Family Medical History: No Reported History Daughter(s) Family Medical History: Cancer Additional Family Medical History / Comment(s): Pt states her oldest law of breast cancer. Son(s) Family Medical History: No Reported History General Exam - General Exam Comments Initial Comments: General: The patient is awake and alert, in no distress, and does not appear acutely ill. Eye: left eye reactive to light. surgery to right eye. extra-ocular movements are intact; there is normal conjunctiva bilaterally. No signs of icterus. Ears, nose, mouth and throat: There are moist mucous membranes and no oral lesions. Neck: The neck is supple, there is no tenderness. Cardiovascular: There is a regular rate and rhythm. No murmur, rub or gallop is appreciated. Respiratory: Lungs are clear to auscultation, respirations are non-labored, breath sounds are equal. No wheezes, stridor, rales, or rhonchi. Gastrointestinal: Soft, non-distended, non-tender abdomen without masses or organomegaly noted. There is no rebound or guarding present. No CVA tenderness. Bowel sounds are unremarkable. Back: There is no tenderness to palpation in the midline. There is no obvious deformity. No rashes noted. Musculoskeletal: Normal ROM, no tenderness, There is no pedal edema. There is no calf tenderness or swelling. Sensation intact. Pulses equal bilaterally 2+. Neurological: CN II-XII intact, There are no obvious motor or sensory deficits. Coordination appears grossly intact. Speech is normal. Skin: Skin is warm and dry and no rashes or lesions are noted. Psychiatric: Cooperative, appropriate mood & affect, normal judgment. Limitations: no limitations Course Vital Signs 10/15/17 10/15/17 10/15/17 10:24 11:06 12:56 Temperature 97.2 F L 97.8 F Pulse Rate 83 84 105 H Respiratory 20 16 18 Rate Blood Pressure 165/88 169/83 163/88 O2 Sat by Pulse 99 99 97 Oximetry EKG Findings - EKG Comments: EKG Findings:: Atrial fibrillation, ventricular 83, or x-ray should ice 6, QT 376 Medical Decision Making - Medical Decision Making 87-year-old female presents for chief complaint of feeling woozy. This time lab work is been reviewed as well as imaging. This time there does not appear to be acute cause for her woozy numbness. She is able to get up and on the commode without any difficulties. Blood pressure has remained stable. At this time we discussed that we did hydrate her. We discussed that she can return home. We discussed close follow-up with her doctor. We discussed return parameters all questions. Patient stated that she understood and she is agreement this plan. She doesn't hear from anxiety patient has not been anxious with us. She states she is feeling better and she doesn't comfortable being discharged as well. - Lab Data Result diagrams: 10/15/17 11:00 10/15/17 11:00 Lab Results 10/15/17 10/15/17 10/15/17 Range/Units 11:00 11:00 11:00 WBC 6.0 (3.8-10.6) k/uL RBC 4.30 (3.80-5.40) m/uL Hgb 11.1 L (11.4-16.0) gm/dL Hct 35.6 (34.0-46.0) % MCV 83.0 (80.0-100.0) fL MCH 25.8 (25.0-35.0) pg MCHC 31.1 (31.0-37.0) g/dL RDW 13.8 (11.5-15.5) % Plt Count 357 (150-450) k/uL Neutrophils % 67 % Lymphocytes % 21 % Monocytes % 6 % Eosinophils % 3 % Basophils % 1 % Neutrophils # 4.0 (1.3-7.7) k/uL Lymphocytes # 1.3 (1.0-4.8) k/uL Monocytes # 0.4 (0-1.0) k/uL Eosinophils # 0.2 (0-0.7) k/uL Basophils # 0.1 (0-0.2) k/uL PT (9.0-12.0) sec INR (<1.2) APTT (22.0-30.0) sec Sodium 135 L (137-145) mmol/L Potassium 4.4 (3.5-5.1) mmol/L Chloride 101 (98-107) mmol/L Carbon Dioxide 22 (22-30) mmol/L Anion Gap 12 mmol/L BUN 15 (7-17) mg/dL Creatinine 0.83 (0.52-1.04) mg/dL Est GFR (MDRD) Af Amer >60 (>60 ml/min/1.73 sqM) Est GFR (MDRD) Non-Af >60 (>60 ml/min/1.73 sqM) Glucose 80 (74-99) mg/dL Calcium 9.0 (8.4-10.2) mg/dL Magnesium 2.0 (1.6-2.3) mg/dL Total Bilirubin 0.6 (0.2-1.3) mg/dL AST 23 (14-36) U/L ALT 17 (9-52) U/L Alkaline Phosphatase 85 (38-126) U/L Total Creatine Kinase 44 (30-135) U/L CK-MB (CK-2) 0.7 (0.0-2.4) ng/mL CK-MB (CK-2) Rel Index 1.6 Troponin I <0.012 (0.000-0.034) ng/mL NT-Pro-B Natriuret Pep pg/mL Total Protein 6.4 (6.3-8.2) g/dL Albumin 3.7 (3.5-5.0) g/dL Urine Color Urine Appearance (Clear) Urine pH (5.0-8.0) Ur Specific [place] (1.001-1.035) Urine Protein (Negative) Urine Glucose (UA) (Negative) Urine Ketones (Negative) Urine Blood (Negative) Urine Nitrite (Negative) Urine Bilirubin (Negative) Urine Urobilinogen (<2.0) mg/dL Ur Leukocyte Esterase (Negative) 10/15/17 10/15/17 10/15/17 Range/Units 11:00 11:00 12:55 WBC (3.8-10.6) k/uL RBC (3.80-5.40) m/uL Hgb (11.4-16.0) gm/dL Hct (34.0-46.0) % MCV (80.0-100.0) fL MCH (25.0-35.0) pg MCHC (31.0-37.0) g/dL RDW (11.5-15.5) % Plt Count (150-450) k/uL Neutrophils % % Lymphocytes % % Monocytes % % Eosinophils % % Basophils % % Neutrophils # (1.3-7.7) k/uL Lymphocytes # (1.0-4.8) k/uL Monocytes # (0-1.0) k/uL Eosinophils # (0-0.7) k/uL Basophils # (0-0.2) k/uL PT 10.5 (9.0-12.0) sec INR 1.1 (<1.2) APTT 23.4 (22.0-30.0) sec Sodium (137-145) mmol/L Potassium (3.5-5.1) mmol/L Chloride (98-107) mmol/L Carbon Dioxide (22-30) mmol/L Anion Gap mmol/L BUN (7-17) mg/dL Creatinine (0.52-1.04) mg/dL Est GFR (MDRD) Af Amer (>60 ml/min/1.73 sqM) Est GFR (MDRD) Non-Af (>60 ml/min/1.73 sqM) Glucose (74-99) mg/dL Calcium (8.4-10.2) mg/dL Magnesium (1.6-2.3) mg/dL Total Bilirubin (0.2-1.3) mg/dL AST (14-36) U/L ALT (9-52) U/L Alkaline Phosphatase (38-126) U/L Total Creatine Kinase (30-135) U/L CK-MB (CK-2) (0.0-2.4) ng/mL CK-MB (CK-2) Rel Index Troponin I (0.000-0.034) ng/mL NT-Pro-B Natriuret Pep 1110 pg/mL Total Protein (6.3-8.2) g/dL Albumin (3.5-5.0) g/dL Urine Color Light Yellow Urine Appearance Clear (Clear) Urine pH 7.5 (5.0-8.0) Ur Specific [place] 1.004 (1.001-1.035) Urine Protein Negative (Negative) Urine Glucose (UA) Negative (Negative) Urine Ketones Negative (Negative) Urine Blood Negative (Negative) Urine Nitrite Negative (Negative) Urine Bilirubin Negative (Negative) Urine Urobilinogen <2.0 (<2.0) mg/dL Ur Leukocyte Esterase Negative (Negative) - Radiology Data Radiology results: report reviewed, image reviewed Disposition Clinical Impression: Anxiety Disposition: HOME SELF-CARE Condition: Stable Instructions: Anxiety (ED) Additional Instructions: Please use medication as discussed. Please follow up with family doctor if symptoms have not improved over the next two days. Please return to the emergency room if your symptoms increase or worsen or for any other concerns. Referrals: Brandin Escoto MD [Primary Care Provider] - 1-2 days Time of Disposition: 13:07
[2017-10-15 11:42] LABS: Creatine Kinase 44 U/L (30-135)
--- NOTE | 2017-10-15 11:51 | XR ---
EXAMINATION TYPE: XR chest 2V DATE OF EXAM: 10/15/2017 HISTORY: Chest Pain. REFERENCE: Previous study dated 11/11/2016. FINDINGS: There has been previous internal fixation of the right humerus. The right humeral head neck appears to have been resorbed. Lung volumes are prominent. The heart is enlarged. There is unfolding of the thoracic aorta. Pleural spaces are clear. The lungs are clear. IMPRESSION: 1. CARDIOMEGALY. 2. COPD.
[2017-10-15 11:55] LABS: Creatine Kinase MB 0.7 ng/mL (0.0-2.4); Troponin I <0.012 ng/mL (0.000-0.034)
[2017-10-15 12:58] VITALS: RESP 18
[2017-10-15 13:03] LABS: Appearance,Urine Clear (Clear); Bilirubin,Urine Negative (Negative); Blood,Urine Negative (Negative); Color,Urine Light Yellow; Glucose,Urine (UA) Negative (Negative); Ketones,Urine Negative (Negative); Leukocyte Esterase,Urine Negative (Negative); Nitrite,Urine Negative (Negative); PH, Urine 7.5 (5.0-8.0); Protein,Urine Negative (Negative); Specific Gravity,Urine 1.004 (1.001-1.035); Urobilinogen,Urine <2.0 mg/dL (<2.0)
[2017-10-15 13:22] VITALS: BP 145/76; TEMP 97.4
[2017-10-15 14:08] VITALS: PULSE 97
== END 2017-10-15 16:05 | disposition home or self-care (01) ==
LOC: EC 10:21
DX: F41.9 Anxiety disorder, unspecified (principal); R68.2 Dry mouth, unspecified; E78.5 Hyperlipidemia, unspecified; I11.0 Hypertensive heart disease with heart failure; I50.9 Heart failure, unspecified; I25.10 Atherosclerotic heart disease of native coronary artery without angina pectoris; E07.9 Disorder of thyroid, unspecified; Z87.891 Personal history of nicotine dependence; Z79.899 Other long term (current) drug therapy; Z88.0 Allergy status to penicillin; Z88.2 Allergy status to sulfonamides; Z88.5 Allergy status to narcotic agent
CPT/HCPCS: 36415; 71046; 80053; 81003; 82550; 82553; 83735; 83880; 84484; 85025; 85610; 85730; 87086; 93005; 96360; 96361; 99285

== ENCOUNTER 2017-11-16 12:23 | Emergency (ER) | payer MEDICARE, BC ==
[2017-11-16 12:33] VITALS: TEMP 97.8
[2017-11-16] MEDS ORDERED: LORazepam 2 MG/ML INJ IV STA (12:36)
--- NOTE | 2017-11-16 12:42 | ED ---
General Adult HPI - General Chief complaint: Recheck/Abnormal Lab/Rx Stated complaint: Anxiety Time Seen by Provider: 11/16/17 12:30 Source: patient, EMS, RN notes reviewed Mode of arrival: ambulatory Limitations: no limitations - History of Present Illness Initial comments: This is an 87-year-old female who is brought into the emergency department because she thinks she's anxious. Patient states she's been concerned that she might be dehydrated since she's been drinking a lot of water but she still feels anxious. EMS states that they've been called to the house 3 times today. Family try to convince the patient she did not need to go to the hospital but she insisted. Patient denies any headache patient denies numbness weakness. Patient denies chest pain palpitations difficulty breathing or shortness of breath per patient denies abdominal pain patient denies nausea vomiting or diarrhea. Patient denies any recent fever chills or cough patient denies any abdominal pain patient denies nausea vomiting diarrhea - Related Data Home Medications Medication Instructions Recorded Confirmed amLODIPine BESYLATE [Norvasc] 5 mg PO DAILY 04/22/14 11/16/17 Ergocalciferol [Vitamin D2 50,000 unit PO RAMÍREZ 09/09/15 11/16/17 (DRISDOL)] Potassium Chloride ER [K-Dur 10] 10 meq PO DAILY 09/09/15 11/16/17 Levothyroxine Sodium [Synthroid] 75 mcg PO DAILY 11/10/15 11/16/17 Isosorbide Mononitrate ER [Imdur] 30 mg PO DAILY 11/17/15 11/16/17 ALPRAZolam [Xanax] 0.25 mg PO DAILY PRN 10/15/17 11/16/17 Acetaminophen Tab [Tylenol Tab] 1,000 mg PO Q4H PRN 10/15/17 11/16/17 Acetaminophen-Codeine 300-30mg 1 tab PO Q6H PRN 10/15/17 11/16/17 [Tylenol #3] Diphenoxylate HCl/Atropine 1 tab PO DAILY PRN 10/15/17 11/16/17 [Lomotil 2.5-0.025 mg Tablet] Furosemide [Lasix] 20 mg PO DAILY 10/15/17 11/16/17 Gabapentin [Neurontin] 100 mg PO DAILY 10/15/17 11/16/17 Metoprolol Succinate [Toprol XL] 25 mg PO DAILY 10/15/17 11/16/17 Simvastatin [Zocor] 20 mg PO HS 10/15/17 11/16/17 Temazepam [Restoril] 15 mg PO HS PRN 10/15/17 11/16/17 Acetaminophen [Tylenol] 325 mg PO Q4H PRN 11/16/17 11/16/17 Amiodarone [Cordarone] 100 mg PO DAILY 11/16/17 11/16/17 Famotidine [Pepcid] 20 mg PO DAILY 11/16/17 11/16/17 Meclizine [Antivert] 12.5 mg PO Q8HR PRN 11/16/17 11/16/17 Tolterodine [Detrol] 2 mg PO DAILY 11/16/17 11/16/17 prednisoLONE ACETATE 1% OPHTH 1 drops RIGHT EYE QID 11/16/17 11/16/17 [Pred Forte 1%] traMADol HCL [Ultram] 50 mg PO Q6HR PRN 11/16/17 11/16/17 Allergies Allergy/AdvReac Type Severity Reaction Status Date / Time morphine Allergy Confusion Verified 11/16/17 12:30 Penicillins Allergy Unknown Verified 11/16/17 12:30 Sulfa (Sulfonamide Allergy Unknown Verified 11/16/17 12:30 Antibiotics) Review of Systems ROS Statement: Those systems with pertinent positive or pertinent negative responses have been documented in the HPI. ROS Other: All systems not noted in ROS Statement are negative. Past Medical History Past Medical History: Atrial Fibrillation, Coronary Artery Disease (CAD), Chest Pain / Angina, Heart Failure, COPD, Dementia, Eye Disorder, GERD/Reflux, Hyperlipidemia, Hypertension, Osteoarthritis (OA), Pneumonia, Thyroid Disorder, Vascular Disorder Additional Past Medical History / Comment(s): Bradycardia, left ventricular hypertrophy, PAD, macular degeneration R eye, R shoulder pain, UTIs, osteoporosis, vitamin D deficiency, multiple falls, gait dysturbance, abnormal balance, diverticulosis, goiter. History of Any Multi-Drug Resistant Organisms: None Reported Past Surgical History: Joint Replacement, Orthopedic Surgery Additional Past Surgical History / Comment(s): right shoulder PLATE AND SCREWS, SANGITA CATARACTS, RT EYE RETINAL SX, thyroid removed, total R hip, Total L hip with revision, total R knee, colonoscopy/polypectomy. Past Anesthesia/Blood Transfusion Reactions: No Reported Reaction Past Psychological History: Anxiety, Depression Smoking Status: Former smoker Past Alcohol Use History: None Reported Past Drug Use History: None Reported - Past Family History Father History Unknown: Yes Family Medical History: Renal Disease Mother History Unknown: Yes Family Medical History: Hypertension Brother(s) Family Medical History: No Reported History Daughter(s) Family Medical History: Cancer Additional Family Medical History / Comment(s): Pt states her oldest law of breast cancer. Son(s) Family Medical History: No Reported History General Exam - General Exam Comments Initial Comments: GENERAL: Patient is well-developed and well-nourished. Patient is nontoxic and well- hydrated and is in no acute distress. ENT: Neck is soft and supple. No significant lymphadenopathy is noted. Oropharynx is clear. Moist mucous membranes. Neck has full range of motion without eliciting any pain. Which I'm told is her baseline EYES: The sclera were anicteric and conjunctiva were pink and moist. Extraocular movements were intact and pupils were equal round and reactive to light. Eyelids were unremarkable. PULMONARY: Unlabored respirations. Good breath sounds bilaterally. No audible rales rhonchi or wheezing was noted. CARDIOVASCULAR: Patient's heart rate is about 100 beats a minute and irregular ABDOMEN: Soft and nontender with normal bowel sounds. No palpable organomegaly was noted. There is no palpable pulsatile mass. SKIN: Skin is clear with no lesions or rashes and otherwise unremarkable. NEUROLOGIC: Patient is alert and oriented 2. Cranial nerves II through XII are grossly intact. Motor and sensory are also intact. Normal speech, volume and content. Symmetrical smile. MUSCULOSKELETAL: Normal extremities with adequate strength and full range of motion. No lower extremity swelling or edema. No calf tenderness. LYMPHATICS: No significant lymphadenopathy is noted PSYCHIATRIC: Patient is moderately anxious Limitations: no limitations Course Vital Signs 11/16/17 11/16/17 11/16/17 12:30 13:33 14:50 Temperature 97.8 F Pulse Rate 131 H 112 H 107 H Respiratory 20 18 18 Rate Blood Pressure 137/97 162/78 117/82 O2 Sat by Pulse 98 98 98 Oximetry 11/16/17 11/16/17 15:40 16:08 Temperature Pulse Rate 100 107 H Respiratory 18 Rate Blood Pressure 153/83 O2 Sat by Pulse 98 Oximetry Medical Decision Making - Medical Decision Making Patient was slightly tachycardic when she got here but she stated she did not take any of her meds today including her amiodarone and her metoprolol. I gave the patient those meds in the emergency department and her heart rate came down nicely. Patient also felt relaxant was no longer anxious. The patient feels anxious she needs to take her Xanax as prescribed. - Lab Data Result diagrams: 11/16/17 12:40 11/16/17 12:41 Lab Results 11/16/17 11/16/17 11/16/17 Range/Units 12:40 12:41 13:30 WBC 7.3 (3.8-10.6) k/uL RBC 4.07 (3.80-5.40) m/uL Hgb 10.4 L (11.4-16.0) gm/dL Hct 32.9 L (34.0-46.0) % MCV 80.8 (80.0-100.0) fL MCH 25.6 (25.0-35.0) pg MCHC 31.8 (31.0-37.0) g/dL RDW 14.4 (11.5-15.5) % Plt Count 342 (150-450) k/uL Neutrophils % 63 % Lymphocytes % 24 % Monocytes % 7 % Eosinophils % 4 % Basophils % 1 % Neutrophils # 4.6 (1.3-7.7) k/uL Lymphocytes # 1.8 (1.0-4.8) k/uL Monocytes # 0.5 (0-1.0) k/uL Eosinophils # 0.3 (0-0.7) k/uL Basophils # 0.0 (0-0.2) k/uL Sodium 137 (137-145) mmol/L Potassium 4.1 (3.5-5.1) mmol/L Chloride 102 (98-107) mmol/L Carbon Dioxide 21 L (22-30) mmol/L Anion Gap 14 mmol/L BUN 14 (7-17) mg/dL Creatinine 0.76 (0.52-1.04) mg/dL Est GFR (CKD-EPI)AfAm 82 (>60 ml/min/1.73 sqM) Est GFR (CKD-EPI)NonAf 71 (>60 ml/min/1.73 sqM) Glucose 78 (74-99) mg/dL Calcium 9.1 (8.4-10.2) mg/dL Total Bilirubin 0.7 (0.2-1.3) mg/dL AST 22 (14-36) U/L ALT 18 (9-52) U/L Alkaline Phosphatase 75 (38-126) U/L Total Protein 6.4 (6.3-8.2) g/dL Albumin 3.7 (3.5-5.0) g/dL Urine Color Colorless Urine Appearance Clear (Clear) Urine pH 7.5 (5.0-8.0) Ur Specific [place] 1.004 (1.001-1.035) Urine Protein Negative (Negative) Urine Glucose (UA) Negative (Negative) Urine Ketones Negative (Negative) Urine Blood Negative (Negative) Urine Nitrite Negative (Negative) Urine Bilirubin Negative (Negative) Urine Urobilinogen <2.0 (<2.0) mg/dL Ur Leukocyte Esterase Moderate H (Negative) Urine RBC 1 (0-5) /hpf Urine WBC 2 (0-5) /hpf Disposition Clinical Impression: Anxiety, Atrial fibrillation with RVR Disposition: HOME SELF-CARE Instructions: Anxiety (ED) Referrals: Brandin Escoto MD [Primary Care Provider] - 1-2 days Time of Disposition: 15:21
[2017-11-16] MEDS ORDERED: SODIUM CHLORIDE 0.9% 500 ML IV ONE (12:43)
[2017-11-16 12:51] LABS: Basophils % (A) 1 %; Eosinophils # (A) 0.3 k/uL (0-0.7); Eosinophils % (A) 4 %; HCT 32.9 % (34.0-46.0); HGB 10.4 gm/dL (11.4-16.0); Lymphocytes # (A) 1.8 k/uL (1.0-4.8); Lymphocytes % (A) 24 %; MCH 25.6 pg (25.0-35.0); MCHC 31.8 g/dL (31.0-37.0); MCV 80.8 fL (80.0-100.0); Mean Platelet Volume 7.3; Monocytes # (A) 0.5 k/uL (0-1.0); Monocytes % (A) 7 %; Neutrophils # (A) 4.6 k/uL (1.3-7.7); Neutrophils % (A) 63 %; Platelet Count 342 k/uL (150-450); RBC 4.07 m/uL (3.80-5.40); RDW 14.4 % (11.5-15.5); WBC 7.3 k/uL (3.8-10.6)
[2017-11-16 13:00] LABS: Albumin 3.7 g/dL (3.5-5.0); Calcium 9.1 mg/dL (8.4-10.2); Potassium 4.1 mmol/L (3.5-5.1); Total Bilirubin 0.7 mg/dL (0.2-1.3); Total Protein 6.4 g/dL (6.3-8.2)
[2017-11-16 13:36] VITALS: RESP 18
[2017-11-16 14:14] LABS: Appearance,Urine Clear (Clear); Bilirubin,Urine Negative (Negative); Blood,Urine Negative (Negative); Color,Urine Colorless; Glucose,Urine (UA) Negative (Negative); Ketones,Urine Negative (Negative); Leukocyte Esterase,Urine Moderate (Negative); Nitrite,Urine Negative (Negative); PH, Urine 7.5 (5.0-8.0); Protein,Urine Negative (Negative); RBC,Urine 1 /hpf (0-5); Specific Gravity,Urine 1.004 (1.001-1.035); Urobilinogen,Urine <2.0 mg/dL (<2.0); WBC,Urine 2 /hpf (0-5)
[2017-11-16] MEDS ORDERED: AMIODARONE 100 MG TAB PO STA (14:32)
[2017-11-16] MEDS ORDERED: amLODIPine 5 MG TAB PO STA (14:33)
[2017-11-16] MEDS ORDERED: METOPROLOL SUCCINATE (ER) 25 MG TAB.ER.24H PO STA (14:33)
[2017-11-16 18:18] VITALS: BP 144/79; PULSE 102
== END 2017-11-16 18:18 | disposition home or self-care (01) ==
LOC: EC 12:23
DX: F41.9 Anxiety disorder, unspecified (principal); I48.91 Unspecified atrial fibrillation; R00.0 Tachycardia, unspecified; E07.9 Disorder of thyroid, unspecified; I25.10 Atherosclerotic heart disease of native coronary artery without angina pectoris; I11.0 Hypertensive heart disease with heart failure; I50.9 Heart failure, unspecified; E78.5 Hyperlipidemia, unspecified; K21.9 Gastro-esophageal reflux disease without esophagitis; M81.0 Age-related osteoporosis without current pathological fracture; H35.30 Unspecified macular degeneration; E66.9 Obesity, unspecified; Z88.0 Allergy status to penicillin; Z88.2 Allergy status to sulfonamides; Z88.5 Allergy status to narcotic agent; Z79.52 Long term (current) use of systemic steroids; Z79.899 Other long term (current) drug therapy; Z87.891 Personal history of nicotine dependence
CPT/HCPCS: 96374; 99284; 36415; 80053; 85025; 81001; J2060

== ENCOUNTER 2017-12-27 22:33 | Emergency (ER) | payer MEDICARE, BC ==
[2017-12-27] MEDS ORDERED: ACETAMINOPHEN IV (For NPO) 1,000 MG in EMPTY BAG 1 BAG IVPB STA (22:53)
[2017-12-27] MEDS ORDERED: fentaNYL (PF) 50 MCG/ML 2 ML AMP IV STA (22:53)
--- NOTE | 2017-12-27 23:15 | ED ---
General Adult HPI - General Chief complaint: Extremity Injury, Upper Stated complaint: arm injury Time Seen by Provider: 12/27/17 22:43 Source: patient, EMS, RN notes reviewed, old records reviewed Mode of arrival: EMS Limitations: physical limitation - History of Present Illness Initial comments: This is an 79-year-old female the ER for evaluation. Presents today for evaluation regarding right shoulder pain. Denies any injury, she does have significant bruising and right shoulder, is unremarkable. Denies thoughts, no headache. No chest pain or shortness of breath. No other injury. Just right shoulder injury - Related Data Home Medications Medication Instructions Recorded Confirmed amLODIPine BESYLATE [Norvasc] 5 mg PO DAILY 04/22/14 12/27/17 Ergocalciferol [Vitamin D2 50,000 unit PO RAMÍREZ 09/09/15 12/27/17 (DRISDOL)] Potassium Chloride ER [K-Dur 10] 10 meq PO DAILY 09/09/15 12/27/17 Levothyroxine Sodium [Synthroid] 75 mcg PO DAILY 11/10/15 12/27/17 Isosorbide Mononitrate ER [Imdur] 30 mg PO DAILY 11/17/15 12/27/17 ALPRAZolam [Xanax] 0.25 mg PO DAILY PRN 10/15/17 12/27/17 Acetaminophen Tab [Tylenol Tab] 1,000 mg PO Q4H PRN 10/15/17 12/27/17 Acetaminophen-Codeine 300-30mg 1 tab PO Q6H PRN 10/15/17 12/27/17 [Tylenol #3] Diphenoxylate HCl/Atropine 1 tab PO DAILY PRN 10/15/17 12/27/17 [Lomotil 2.5-0.025 mg Tablet] Furosemide [Lasix] 20 mg PO DAILY 10/15/17 12/27/17 Gabapentin [Neurontin] 100 mg PO DAILY 10/15/17 12/27/17 Metoprolol Succinate [Toprol XL] 25 mg PO DAILY 10/15/17 12/27/17 Simvastatin [Zocor] 20 mg PO HS 10/15/17 12/27/17 Temazepam [Restoril] 15 mg PO HS PRN 10/15/17 12/27/17 Acetaminophen [Tylenol] 325 mg PO Q4H PRN 11/16/17 12/27/17 Amiodarone [Cordarone] 100 mg PO DAILY 11/16/17 12/27/17 Famotidine [Pepcid] 20 mg PO DAILY 11/16/17 12/27/17 Meclizine [Antivert] 12.5 mg PO TID PRN 11/16/17 12/27/17 Tolterodine [Detrol] 2 mg PO DAILY 11/16/17 12/27/17 prednisoLONE ACETATE 1% OPHTH 1 drops RIGHT EYE QID 11/16/17 12/27/17 [Pred Forte 1%] traMADol HCL [Ultram] 50 mg PO Q6HR PRN 11/16/17 12/27/17 Allergies Allergy/AdvReac Type Severity Reaction Status Date / Time morphine Allergy Confusion Verified 11/16/17 12:30 Penicillins Allergy Unknown Verified 11/16/17 12:30 Sulfa (Sulfonamide Allergy Unknown Verified 11/16/17 12:30 Antibiotics) Review of Systems ROS Statement: Those systems with pertinent positive or pertinent negative responses have been documented in the HPI. ROS Other: All systems not noted in ROS Statement are negative. Past Medical History Past Medical History: Atrial Fibrillation, Coronary Artery Disease (CAD), Chest Pain / Angina, Heart Failure, COPD, Dementia, Eye Disorder, GERD/Reflux, Hyperlipidemia, Hypertension, Osteoarthritis (OA), Pneumonia, Thyroid Disorder, Vascular Disorder Additional Past Medical History / Comment(s): Bradycardia, left ventricular hypertrophy, PAD, macular degeneration R eye, R shoulder pain, UTIs, osteoporosis, vitamin D deficiency, multiple falls, gait dysturbance, abnormal balance, diverticulosis, goiter. History of Any Multi-Drug Resistant Organisms: None Reported Past Surgical History: Joint Replacement, Orthopedic Surgery Additional Past Surgical History / Comment(s): right shoulder PLATE AND SCREWS, SANGITA CATARACTS, RT EYE RETINAL SX, thyroid removed, total R hip, Total L hip with revision, total R knee, colonoscopy/polypectomy. Past Anesthesia/Blood Transfusion Reactions: No Reported Reaction Past Psychological History: Anxiety, Depression Smoking Status: Former smoker Past Alcohol Use History: None Reported Past Drug Use History: None Reported - Past Family History Father History Unknown: Yes Family Medical History: Renal Disease Mother History Unknown: Yes Family Medical History: Hypertension Brother(s) Family Medical History: No Reported History Daughter(s) Family Medical History: Cancer Additional Family Medical History / Comment(s): Pt states her oldest law of breast cancer. Son(s) Family Medical History: No Reported History General Exam Limitations: physical limitation General appearance: alert, in no apparent distress Head exam: Present: atraumatic, normocephalic, normal inspection Eye exam: Present: normal appearance, PERRL, EOMI. Absent: scleral icterus, conjunctival injection, periorbital swelling ENT exam: Present: normal exam, mucous membranes moist Neck exam: Present: normal inspection. Absent: tenderness, meningismus, lymphadenopathy Respiratory exam: Present: normal lung sounds bilaterally. Absent: respiratory distress, wheezes, rales, rhonchi, stridor Cardiovascular Exam: Present: regular rate, normal rhythm, normal heart sounds. Absent: systolic murmur, diastolic murmur, rubs, gallop, clicks GI/Abdominal exam: Present: soft, normal bowel sounds. Absent: distended, tenderness, guarding, rebound, rigid Extremities exam: Present: normal inspection, full ROM, normal capillary refill , other (Shoulder pain and bruising). Absent: tenderness, pedal edema, joint swelling, calf tenderness Back exam: Present: normal inspection Neurological exam: Present: alert, oriented X3, CN II-XII intact Psychiatric exam: Present: normal affect, normal mood Skin exam: Present: warm, dry, intact, normal color. Absent: rash Course Vital Signs 12/27/17 22:41 Temperature 96.9 F L Pulse Rate 67 Respiratory 18 Rate Blood Pressure 117/65 O2 Sat by Pulse 97 Oximetry Disposition Clinical Impression: Contusion of right shoulder, Shoulder pain Disposition: HOME SELF-CARE Condition: Good Instructions: Shoulder Pain (ED) Is patient prescribed a controlled substance at d/c from ED?: No Referrals: Brandin Escoto MD [Primary Care Provider] - 1-2 days
--- NOTE | 2017-12-28 00:07 | XR ---
EXAMINATION TYPE: XR chest 1V DATE OF EXAM: 12/27/2017 COMPARISON: 10/15/2017 HISTORY: Fall and arm pain TECHNIQUE: Single frontal view of the chest is obtained. FINDINGS: There is a large hiatal hernia. There is no heart failure. Costophrenic angles are clear. There is osteopenia. There is old right humerus fracture with a plate and screws. IMPRESSION: Cardiomegaly. No active cardiopulmonary disease. Large hiatal hernia. No acute lung dise ase. No change.
--- NOTE | 2017-12-28 00:10 | XR ---
EXAMINATION TYPE: XR shoulder complete RT DATE OF EXAM: 12/27/2017 COMPARISON: 08/09/2016 HISTORY: Pain TECHNIQUE: 3 views FINDINGS: There is a plate with screws fixing an old humeral neck fracture. I see no acute fracture. There is significant osteopenia. I see no dislocation. There is some widening of AC joint space. IMPRESSION: Old humeral neck fracture. No acute fracture seen. No significant change compared to old exam. There is widening of the AC joint space that is a change compared to old exam. This is suggestive of an acute ligamentous tear in this patient with a fall.
--- NOTE | 2017-12-28 00:11 | XR ---
EXAMINATION TYPE: XR humerus RT DATE OF EXAM: 12/27/2017 COMPARISON: 10/02/2014 HISTORY: Fall. Pain. TECHNIQUE: 2 views FINDINGS: There is IMPRESSION: A plate with screws fixing an old humeral neck fracture. There is some angulation at the lower end of the plate. This is however a stable appearance compared to old exam. I see no acute frac ture. CONCLUSION: No acute abnormality of the right humerus. Old proximal fracture.
[2017-12-28 00:54] VITALS: BP 121/78; PULSE 71; RESP 17; TEMP 97.1
== END 2017-12-28 00:54 | disposition home or self-care (01) ==
LOC: EC 22:33
DX: S40.011A Contusion of right shoulder, initial encounter (principal); I48.91 Unspecified atrial fibrillation; I25.119 Atherosclerotic heart disease of native coronary artery with unspecified angina pectoris; I11.0 Hypertensive heart disease with heart failure; I50.9 Heart failure, unspecified; J44.9 Chronic obstructive pulmonary disease, unspecified; K21.9 Gastro-esophageal reflux disease without esophagitis; E78.5 Hyperlipidemia, unspecified; M19.90 Unspecified osteoarthritis, unspecified site; F32.9 Major depressive disorder, single episode, unspecified; F41.9 Anxiety disorder, unspecified; Z87.891 Personal history of nicotine dependence; Z79.899 Other long term (current) drug therapy; Z88.0 Allergy status to penicillin; Z88.2 Allergy status to sulfonamides; Z88.5 Allergy status to narcotic agent
CPT/HCPCS: 73030; 73060; 71045; 99284; 96374; 96375; J3010; J0131

== ENCOUNTER 2018-01-01 08:24 | Emergency (ER) | payer MEDICARE, BC ==
[2018-01-01] MEDS ORDERED: SODIUM CHLORIDE 0.9% 1,000 ML IV STA (08:31)
[2018-01-01] MEDS ORDERED: SODIUM CHLORIDE 0.9% 500 ML IV STA (08:31)
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
[2018-01-01 08:55] LABS: Basophils # (A) 0.1 k/uL (0-0.2); Basophils % (A) 1 %; Eosinophils # (A) 0.3 k/uL (0-0.7); Eosinophils % (A) 4 %; HCT 27.1 % (34.0-46.0); Lymphocytes # (A) 0.9 k/uL (1.0-4.8); Lymphocytes % (A) 12 %; MCH 26.8 pg (25.0-35.0); MCHC 31.9 g/dL (31.0-37.0); MCV 84.1 fL (80.0-100.0); Mean Platelet Volume 7.5; Monocytes # (A) 0.7 k/uL (0-1.0); Monocytes % (A) 10 %; Neutrophils # (A) 5.6 k/uL (1.3-7.7); Neutrophils % (A) 73 %; Platelet Count 334 k/uL (150-450); RBC 3.22 m/uL (3.80-5.40); RDW 14.7 % (11.5-15.5); WBC 7.6 k/uL (3.8-10.6)
--- NOTE | 2018-01-01 09:01 | XR ---
EXAMINATION TYPE: XR chest 2V DATE OF EXAM: 01/01/2018 HISTORY: cough. REFERENCE: Previous study dated 12/27/2017. FINDINGS: There has been previous internal fixation of the right humerus. The heart is enlarged. There is minimal atelectatic change in the right midlung. Lungs otherwise lucio r. Pleural spaces are clear. There is a hiatal hernia present behind the heart. IMPRESSION: 1. CARDIOMEGALY. 2. HIATAL HERNIA. 3. POSTSURGICAL CHANGE.
[2018-01-01 09:02] LABS: HGB 8.6 gm/dL (11.4-16.0)
[2018-01-01 09:13] LABS: Creatine Kinase MB 0.9 ng/mL (0.0-2.4)
[2018-01-01 09:46] LABS: Appearance,Urine Clear (Clear); Bilirubin,Urine Negative (Negative); Blood,Urine Negative (Negative); Color,Urine Yellow; Glucose,Urine (UA) Negative (Negative); Ketones,Urine Negative (Negative); Leukocyte Esterase,Urine Negative (Negative); Nitrite,Urine Negative (Negative); PH, Urine 6.5 (5.0-8.0); Protein,Urine Trace (Negative); Urobilinogen,Urine <2.0 mg/dL (<2.0)
[2018-01-01 10:04] LABS: Albumin 3.6 g/dL (3.5-5.0); Calcium 8.9 mg/dL (8.4-10.2); Potassium 4.7 mmol/L (3.5-5.1); Total Bilirubin 0.9 mg/dL (0.2-1.3); Total Protein 6.2 g/dL (6.3-8.2)
[2018-01-01 12:10] VITALS: BP 144/64; PULSE 101; RESP 16; TEMP 97.9
== END 2018-01-01 12:09 | disposition home or self-care (01) ==
LOC: EC 08:24
DX: S20.211D Contusion of right front wall of thorax, subsequent encounter (principal); S20.01XD Contusion of right breast, subsequent encounter; S40.021D Contusion of right upper arm, subsequent encounter; S30.1XXD Contusion of abdominal wall, subsequent encounter; D64.9 Anemia, unspecified; E86.0 Dehydration; M40.209 Unspecified kyphosis, site unspecified; R23.8 Other skin changes; I48.91 Unspecified atrial fibrillation; E78.5 Hyperlipidemia, unspecified; I11.0 Hypertensive heart disease with heart failure; I50.9 Heart failure, unspecified; I25.10 Atherosclerotic heart disease of native coronary artery without angina pectoris; E04.9 Nontoxic goiter, unspecified; K21.9 Gastro-esophageal reflux disease without esophagitis; H35.30 Unspecified macular degeneration; E55.9 Vitamin D deficiency, unspecified; F41.9 Anxiety disorder, unspecified; Z87.891 Personal history of nicotine dependence; Z79.52 Long term (current) use of systemic steroids; Z79.899 Other long term (current) drug therapy; Z88.0 Allergy status to penicillin; Z88.2 Allergy status to sulfonamides; Z88.5 Allergy status to narcotic agent; Z86.79 Personal history of other diseases of the circulatory system; W22.8XXD Striking against or struck by other objects, subsequent encounter; Z98.890 Other specified postprocedural states
CPT/HCPCS: 36415; 71046; 80053; 81003; 82550; 82553; 83735; 85025; 96360; 96361; 99284

== ENCOUNTER 2018-01-31 21:52 | Emergency (ER) | payer MEDICARE, BC ==
[2018-01-31 22:07] VITALS: RESP 18
[2018-01-31] MEDS ORDERED: MORPHINE SULFATE 2 MG/ML SYRINGE IV STA (22:13)
--- NOTE | 2018-01-31 22:20 | ED ---
Upper Extremity HPI - General Chief Complaint: Extremity Injury, Upper Stated Complaint: RT arm pain Time Seen by Provider: 01/31/18 22:01 Source: patient, EMS Mode of arrival: EMS Limitations: no limitations - History of Present Illness Initial Comments: This patient is an 87-year-old woman who presents to the emergency department by ambulance. They were called to bring the patient as she was complaining of right shoulder/arm pain. Patient states that it started tonight when she was attempting to get into bed. She states that the blankets were too tight on the bed and when she was trying to pull him, she injured the upper portion of her right arm into the shoulder. When the pain was not relieved she felt she needed to be seen in the ambulance was called. She did receive 2mg morphine from EMS, but states it hasn't really helped much. She denies numbness or weakness into the hand. She states that she did have shoulder replacement surgery but this was many many years ago. MD Complaint: Injury to:: right, shoulder, arm -: hour(s) Other Extremity Injury: Arm: Right, Shoulder: Right Other Injuries: none Handedness: right Place: home Improves With: none Worsens With: none Associated Symptoms: denies other symptoms Treatments Prior to Arrival: other (Morphine) - Related Data Home Medications Medication Instructions Recorded Confirmed amLODIPine BESYLATE [Norvasc] 5 mg PO DAILY 04/22/14 01/01/18 Ergocalciferol [Vitamin D2 50,000 unit PO RAMÍREZ 09/09/15 01/01/18 (DRISDOL)] Potassium Chloride ER [K-Dur 10] 10 meq PO DAILY 09/09/15 01/01/18 Levothyroxine Sodium [Synthroid] 75 mcg PO DAILY 11/10/15 01/01/18 Isosorbide Mononitrate ER [Imdur] 30 mg PO DAILY 11/17/15 01/01/18 ALPRAZolam [Xanax] 0.25 mg PO DAILY PRN 10/15/17 01/01/18 Acetaminophen Tab [Tylenol Tab] 1,000 mg PO Q4H PRN 10/15/17 01/01/18 Acetaminophen-Codeine 300-30mg 1 tab PO Q6H PRN 10/15/17 01/01/18 [Tylenol #3] Diphenoxylate HCl/Atropine 1 tab PO DAILY PRN 10/15/17 01/01/18 [Lomotil 2.5-0.025 mg Tablet] Furosemide [Lasix] 20 mg PO DAILY 10/15/17 01/01/18 Gabapentin [Neurontin] 100 mg PO DAILY 10/15/17 01/01/18 Metoprolol Succinate [Toprol XL] 25 mg PO DAILY 10/15/17 01/01/18 Simvastatin [Zocor] 20 mg PO HS 10/15/17 01/01/18 Temazepam [Restoril] 15 mg PO HS PRN 10/15/17 01/01/18 Acetaminophen [Tylenol] 325 mg PO Q4H PRN 11/16/17 01/01/18 Amiodarone [Cordarone] 100 mg PO DAILY 11/16/17 01/01/18 Famotidine [Pepcid] 20 mg PO DAILY 11/16/17 01/01/18 Meclizine [Antivert] 12.5 mg PO TID PRN 11/16/17 01/01/18 Tolterodine [Detrol] 2 mg PO DAILY 11/16/17 01/01/18 prednisoLONE ACETATE 1% OPHTH 1 drops RIGHT EYE QID 11/16/17 01/01/18 [Pred Forte 1%] traMADol HCL [Ultram] 50 mg PO Q6HR PRN 11/16/17 01/01/18 Allergies Allergy/AdvReac Type Severity Reaction Status Date / Time morphine Allergy Confusion Verified 01/01/18 08:32 Penicillins Allergy Unknown Verified 01/01/18 08:32 Sulfa (Sulfonamide Allergy Unknown Verified 01/01/18 08:32 Antibiotics) Review of Systems ROS Statement: Those systems with pertinent positive or pertinent negative responses have been documented in the HPI. ROS Other: All systems not noted in ROS Statement are negative. Constitutional: Denies: fever, chills, weakness Respiratory: Denies: cough, dyspnea Cardiovascular: Denies: chest pain Musculoskeletal: Reports: as per HPI, arthralgia. Denies: back pain, joint swelling Skin: Denies: rash Neurological: Denies: headache, weakness, numbness, paresthesias Past Medical History Past Medical History: Atrial Fibrillation, Coronary Artery Disease (CAD), Chest Pain / Angina, Heart Failure, COPD, Dementia, Eye Disorder, GERD/Reflux, Hyperlipidemia, Hypertension, Osteoarthritis (OA), Pneumonia, Thyroid Disorder, Vascular Disorder Additional Past Medical History / Comment(s): Bradycardia, left ventricular hypertrophy, PAD, macular degeneration R eye, R shoulder pain, UTIs, osteoporosis, vitamin D deficiency, multiple falls, gait dysturbance, abnormal balance, diverticulosis, goiter. History of Any Multi-Drug Resistant Organisms: None Reported Past Surgical History: Joint Replacement, Orthopedic Surgery Additional Past Surgical History / Comment(s): right shoulder PLATE AND SCREWS, SANGITA CATARACTS, RT EYE RETINAL SX, thyroid removed, total R hip, Total L hip with revision, total R knee, colonoscopy/polypectomy. Past Anesthesia/Blood Transfusion Reactions: No Reported Reaction Past Psychological History: Anxiety, Depression Smoking Status: Former smoker Past Alcohol Use History: None Reported Past Drug Use History: None Reported - Past Family History Father History Unknown: Yes Family Medical History: Renal Disease Mother History Unknown: Yes Family Medical History: Hypertension Brother(s) Family Medical History: No Reported History Daughter(s) Family Medical History: Cancer Additional Family Medical History / Comment(s): Pt states her oldest law of breast cancer. Son(s) Family Medical History: No Reported History General Exam Limitations: no limitations General appearance: alert, in no apparent distress, cachectic Head exam: Present: atraumatic, normocephalic Neck exam: Present: tenderness, full ROM Cardiovascular Exam: Present: regular rate, normal rhythm, other (Radial pulse normal in strength, capillary refill it and normal) GI/Abdominal exam: Present: soft. Absent: distended, tenderness Extremities exam: Present: normal capillary refill, other (There is some ecchymosis to the lateral aspect of the humerus at about the proximal third level. This does appear to be subacute.) Back exam: Absent: CVA tenderness (R), CVA tenderness (L), paraspinal tenderness , vertebral tenderness Neurological exam: Present: alert. Absent: motor sensory deficit Skin exam: Present: warm, dry, intact, normal color. Absent: rash Course Vital Signs 01/31/18 21:55 Temperature 97 F L Pulse Rate 105 H Respiratory 18 Rate Blood Pressure 142/101 O2 Sat by Pulse 98 Oximetry Disposition Clinical Impression: Shoulder pain, right Disposition: HOME SELF-CARE Condition: Fair Instructions: Shoulder Sprain (ED), Shoulder Pain (ED) Is patient prescribed a controlled substance at d/c from ED?: No Referrals: Brandin Escoto MD [Primary Care Provider] - 1-2 days
--- NOTE | 2018-01-31 22:39 | XR ---
EXAMINATION TYPE: XR shoulder complete RT DATE OF EXAM: 01/31/2018 COMPARISON: 12/27/2017 HISTORY: Shoulder pain TECHNIQUE: 3 views FINDINGS: There is a plate with screws fixing the proximal right humerus and old fracture. There is d eformity of the glenoid. There is deformity of the humeral head. I see no acute fracture. There is wi dening of the AC joint space. IMPRESSION: Deformity of the right shoulder. No change compared to old exam. No acute fracture seen.
--- NOTE | 2018-01-31 22:41 | XR ---
EXAMINATION TYPE: XR humerus RT DATE OF EXAM: 01/31/2018 COMPARISON: 12/27/2017 HISTORY: Arm pain TECHNIQUE: 4 views FINDINGS: There is a plate with screws fixing the proximal humerus. There is an old healed fracture a t the lower end of the plate. I see no acute fracture nor dislocation. There is deformity of the scap jana. IMPRESSION: No acute abnormality of the right humerus. No change compared to old exam. Osteopenia.
[2018-01-31 23:41] VITALS: BP 121/66; PULSE 100; TEMP 97.2
== END 2018-01-31 23:52 | disposition home or self-care (01) ==
LOC: EC 21:52
DX: M25.511 Pain in right shoulder (principal); I48.91 Unspecified atrial fibrillation; I25.10 Atherosclerotic heart disease of native coronary artery without angina pectoris; S40.021A Contusion of right upper arm, initial encounter; I11.0 Hypertensive heart disease with heart failure; I50.9 Heart failure, unspecified; K21.9 Gastro-esophageal reflux disease without esophagitis; E78.5 Hyperlipidemia, unspecified; M19.90 Unspecified osteoarthritis, unspecified site; E07.9 Disorder of thyroid, unspecified; F41.9 Anxiety disorder, unspecified; F32.9 Major depressive disorder, single episode, unspecified; Z87.891 Personal history of nicotine dependence; Z98.890 Other specified postprocedural states; Z96.619 Presence of unspecified artificial shoulder joint; Z79.52 Long term (current) use of systemic steroids; Z79.899 Other long term (current) drug therapy; Z88.0 Allergy status to penicillin; Z88.2 Allergy status to sulfonamides; Z88.5 Allergy status to narcotic agent; X50.0XXA Overexertion from strenuous movement or load, initial encounter; Y92.009 Unspecified place in unspecified non-institutional (private) residence as the place of occurrence of the external cause
CPT/HCPCS: 73030; 73060; 99284; 96374; J2270

== ENCOUNTER 2018-06-01 07:55 | Emergency (ER) | payer MEDICARE, BC ==
[2018-06-01] MEDS ORDERED: SODIUM CHLORIDE 0.9% 1,000 ML IV ONE (08:12)
[2018-06-01] MEDS ORDERED: Acetaminophen-Codeine 300-30mg TAB PO STA (08:12)
--- NOTE | 2018-06-01 08:28 | ED ---
Recheck HPI - General Chief Complaint: Recheck/Abnormal Lab/Rx Stated Complaint: Anxiety Time Seen by Provider: 06/01/18 08:02 Source: patient, RN notes reviewed Mode of arrival: ambulatory Limitations: no limitations - History of Present Illness Initial Comments: This an 87-year-old female presents emergency Department with chief complaint of possible dehydration. Patient states that she [facility] [place] states that she's not been eating and drinking much because of food is not good for her. Patient states that she has lost weight but she knows this is related to because she does not eat much. She states that his heartbeat certain foods because she has dentures. Patient does complain that she is out of her pain medication, codeine for her arthritis. Patient states she is ambulatory uses a walker. Patient denies any chest pain, shortness breath, headache or dizziness. She has no nausea vomiting diarrhea constipation. Patient states that she attempted to call her PCP but cannot get in for her appointment also called her pharmacist and which are attempting to get a refill of her medication though she felt that she should just come to the emergency department at this point. Patient does admit that she is very anxious about her condition. Patient states she is anxious because her family does not come and visit - Related Data Home Medications Medication Instructions Recorded Confirmed amLODIPine BESYLATE [Norvasc] 5 mg PO DAILY 04/22/14 06/01/18 Ergocalciferol [Vitamin D2 50,000 unit PO RAMÍREZ 09/09/15 06/01/18 (DRISDOL)] Potassium Chloride ER [K-Dur 10] 10 meq PO DAILY 09/09/15 06/01/18 Levothyroxine Sodium [Synthroid] 75 mcg PO DAILY 11/10/15 06/01/18 Isosorbide Mononitrate ER [Imdur] 30 mg PO DAILY 11/17/15 06/01/18 ALPRAZolam [Xanax] 0.25 mg PO DAILY PRN 10/15/17 06/01/18 Furosemide [Lasix] 20 mg PO DAILY 10/15/17 06/01/18 Gabapentin [Neurontin] 100 mg PO DAILY 10/15/17 06/01/18 Metoprolol Succinate [Toprol XL] 25 mg PO DAILY 10/15/17 06/01/18 Simvastatin [Zocor] 20 mg PO HS 10/15/17 06/01/18 Temazepam [Restoril] 15 mg PO HS PRN 10/15/17 06/01/18 Previous Rx's Medication Instructions Recorded Cephalexin [Keflex] 500 mg PO Q6HR #28 cap 06/01/18 Allergies Allergy/AdvReac Type Severity Reaction Status Date / Time morphine Allergy Confusion Verified 06/01/18 09:08 Penicillins Allergy Unknown Verified 06/01/18 09:08 Sulfa (Sulfonamide Allergy Unknown Verified 06/01/18 09:08 Antibiotics) Review of Systems ROS Statement: Those systems with pertinent positive or pertinent negative responses have been documented in the HPI. ROS Other: All systems not noted in ROS Statement are negative. Past Medical History Past Medical History: Atrial Fibrillation, Coronary Artery Disease (CAD), Chest Pain / Angina, Heart Failure, COPD, Dementia, Eye Disorder, GERD/Reflux, Hyperlipidemia, Hypertension, Osteoarthritis (OA), Pneumonia, Thyroid Disorder, Vascular Disorder Additional Past Medical History / Comment(s): Bradycardia, left ventricular hypertrophy, PAD, macular degeneration R eye, R shoulder pain, UTIs, osteoporosis, vitamin D deficiency, multiple falls, gait dysturbance, abnormal balance, diverticulosis, goiter. History of Any Multi-Drug Resistant Organisms: None Reported Past Surgical History: Joint Replacement, Orthopedic Surgery Additional Past Surgical History / Comment(s): right shoulder PLATE AND SCREWS, SANGITA CATARACTS, RT EYE RETINAL SX, thyroid removed, total R hip, Total L hip with revision, total R knee, colonoscopy/polypectomy. Past Anesthesia/Blood Transfusion Reactions: No Reported Reaction Past Psychological History: Anxiety, Depression Smoking Status: Former smoker Past Alcohol Use History: None Reported Past Drug Use History: None Reported - Past Family History Father History Unknown: Yes Family Medical History: Renal Disease Mother History Unknown: Yes Family Medical History: Hypertension Brother(s) Family Medical History: No Reported History Daughter(s) Family Medical History: Cancer Additional Family Medical History / Comment(s): Pt states her oldest law of breast cancer. Son(s) Family Medical History: No Reported History General Exam Limitations: no limitations General appearance: alert, in no apparent distress Head exam: Present: atraumatic, normocephalic, normal inspection Eye exam: Present: normal appearance, PERRL, EOMI. Absent: scleral icterus, conjunctival injection, periorbital swelling ENT exam: Present: normal oropharynx, mucous membranes moist Neck exam: Present: normal inspection, full ROM. Absent: tenderness, meningismus, lymphadenopathy Respiratory exam: Present: normal lung sounds bilaterally. Absent: respiratory distress, wheezes, rales, rhonchi, stridor Cardiovascular Exam: Present: regular rate, normal rhythm, normal heart sounds. Absent: systolic murmur, diastolic murmur, rubs, gallop, clicks GI/Abdominal exam: Present: soft, normal bowel sounds. Absent: distended, tenderness, guarding, rebound, rigid Back exam: Absent: CVA tenderness (R), CVA tenderness (L) Neurological exam: Present: alert, oriented X3, CN II-XII intact Skin exam: Present: warm, dry, intact, normal color. Absent: rash Course Vital Signs 06/01/18 07:58 Temperature 97.3 F L Pulse Rate 86 Respiratory 18 Rate Blood Pressure 166/103 O2 Sat by Pulse 98 Oximetry Medical Decision Making - Medical Decision Making 87-year-old female presented for possible dehydration, out of her pain medication. Patient does feel improved after child codeine. Patient's found to have a urinary tract infection and which she'll be started on Keflex for. Patient will be discharged back to [facility] and return parameters were discussed. Patient will follow-up with her PCP in one to 2 days. - Lab Data Result diagrams: 06/01/18 08:27 06/01/18 08:27 Lab Results 06/01/18 06/01/18 06/01/18 Range/Units 08:27 08:27 09:37 WBC 5.9 (3.8-10.6) k/uL RBC 4.21 (3.80-5.40) m/uL Hgb 11.2 L (11.4-16.0) gm/dL Hct 35.2 (34.0-46.0) % MCV 83.6 (80.0-100.0) fL MCH 26.6 (25.0-35.0) pg MCHC 31.8 (31.0-37.0) g/dL RDW 15.2 (11.5-15.5) % Plt Count 377 (150-450) k/uL Neutrophils % 70 % Lymphocytes % 17 % Monocytes % 7 % Eosinophils % 4 % Basophils % 1 % Neutrophils # 4.2 (1.3-7.7) k/uL Lymphocytes # 1.0 (1.0-4.8) k/uL Monocytes # 0.4 (0-1.0) k/uL Eosinophils # 0.2 (0-0.7) k/uL Basophils # 0.1 (0-0.2) k/uL Hypochromasia Slight Sodium 140 (137-145) mmol/L Potassium 4.6 (3.5-5.1) mmol/L Chloride 107 (98-107) mmol/L Carbon Dioxide 23 (22-30) mmol/L Anion Gap 10 mmol/L BUN 15 (7-17) mg/dL Creatinine 0.75 (0.52-1.04) mg/dL Est GFR (CKD-EPI)AfAm 82 (>60 ml/min/1.73 sqM) Est GFR (CKD-EPI)NonAf 72 (>60 ml/min/1.73 sqM) Glucose 95 (74-99) mg/dL Calcium 9.0 (8.4-10.2) mg/dL Total Bilirubin 0.5 (0.2-1.3) mg/dL AST 23 (14-36) U/L ALT 14 (9-52) U/L Alkaline Phosphatase 69 (38-126) U/L Total Protein 6.8 (6.3-8.2) g/dL Albumin 3.8 (3.5-5.0) g/dL Lipase 90 (23-300) U/L Urine Color Yellow Urine Appearance Cloudy H (Clear) Urine pH 7.5 (5.0-8.0) Ur Specific [place] 1.011 (1.001-1.035) Urine Protein Trace H (Negative) Urine Glucose (UA) Negative (Negative) Urine Ketones Negative (Negative) Urine Blood Negative (Negative) Urine Nitrite Positive H (Negative) Urine Bilirubin Negative (Negative) Urine Urobilinogen <2.0 (<2.0) mg/dL Ur Leukocyte Esterase Large H (Negative) Urine WBC 167 H (0-5) /hpf Urine WBC Clumps Few H (None) /hpf Ur Squamous Epith Cells 2 (0-4) /hpf Urine Bacteria Occasional H (None) /hpf Urine Mucus Rare H (None) /hpf Disposition Clinical Impression: UTI (urinary tract infection), Chronic pain of multiple joints Disposition: HOME SELF-CARE Condition: Stable Instructions: Urinary Tract Infection in Men (ED) Additional Instructions: Please return to the Emergency Department if symptoms worsen or any other concerns. Prescriptions: Cephalexin [Keflex] 500 mg PO Q6HR #28 cap Is patient prescribed a controlled substance at d/c from ED?: No Referrals: Brandin Escoto MD [Primary Care Provider] - 1-2 days Time of Disposition: 10:14
[2018-06-01 08:36] LABS: Basophils # (A) 0.1 k/uL (0-0.2); Basophils % (A) 1 %; Eosinophils # (A) 0.2 k/uL (0-0.7); Eosinophils % (A) 4 %; HCT 35.2 % (34.0-46.0); HGB 11.2 gm/dL (11.4-16.0); Hypochromasia Slight; Lymphocytes % (A) 17 %; MCH 26.6 pg (25.0-35.0); MCHC 31.8 g/dL (31.0-37.0); MCV 83.6 fL (80.0-100.0); Mean Platelet Volume 6.8; Monocytes # (A) 0.4 k/uL (0-1.0); Monocytes % (A) 7 %; Neutrophils # (A) 4.2 k/uL (1.3-7.7); Neutrophils % (A) 70 %; Platelet Count 377 k/uL (150-450); RBC 4.21 m/uL (3.80-5.40); RDW 15.2 % (11.5-15.5); WBC 5.9 k/uL (3.8-10.6)
[2018-06-01 08:46] LABS: Albumin 3.8 g/dL (3.5-5.0); Potassium 4.6 mmol/L (3.5-5.1); Total Bilirubin 0.5 mg/dL (0.2-1.3); Total Protein 6.8 g/dL (6.3-8.2)
[2018-06-01 10:02] LABS: Appearance,Urine Cloudy (Clear); Bacteria,Urine Occasional /hpf; Bilirubin,Urine Negative (Negative); Blood,Urine Negative (Negative); Color,Urine Yellow; Glucose,Urine (UA) Negative (Negative); Ketones,Urine Negative (Negative); Leukocyte Esterase,Urine Large (Negative); Mucus,Urine Rare /hpf; Nitrite,Urine Positive (Negative); PH, Urine 7.5 (5.0-8.0); Protein,Urine Trace (Negative); Specific Gravity,Urine 1.011 (1.001-1.035); Squamous Epithelial Cell,Urine 2 /hpf (0-4); Urobilinogen,Urine <2.0 mg/dL (<2.0); WBC,Urine 167 /hpf (0-5)
[2018-06-01] MEDS ORDERED: ACET/COD 300 MG/30 MG STARTER PACK 6 TAB BTL PO STA (10:12)
[2018-06-01] MEDS ORDERED: CEPHALEXIN 500MG STARTER PACK 4 CAP BTL PO STA (10:12)
[2018-06-01 10:42] VITALS: BP 139/93; PULSE 98; RESP 20; TEMP 97.9
== END 2018-06-01 10:47 | disposition home or self-care (01) ==
LOC: EC 07:55
DX: N39.0 Urinary tract infection, site not specified (principal); G89.29 Other chronic pain; M19.90 Unspecified osteoarthritis, unspecified site; F41.9 Anxiety disorder, unspecified; E07.9 Disorder of thyroid, unspecified; I48.91 Unspecified atrial fibrillation; I25.10 Atherosclerotic heart disease of native coronary artery without angina pectoris; E78.5 Hyperlipidemia, unspecified; I11.0 Hypertensive heart disease with heart failure; I50.9 Heart failure, unspecified; F32.9 Major depressive disorder, single episode, unspecified; I73.9 Peripheral vascular disease, unspecified; Z87.891 Personal history of nicotine dependence; Z96.643 Presence of artificial hip joint, bilateral; Z96.651 Presence of right artificial knee joint; Z98.890 Other specified postprocedural states; Z79.899 Other long term (current) drug therapy; Z88.0 Allergy status to penicillin; Z88.2 Allergy status to sulfonamides; Z88.5 Allergy status to narcotic agent
CPT/HCPCS: 36415; 80053; 81001; 83690; 85025; 87077; 87086; 87186; 96360; 99283

== ENCOUNTER 2018-06-03 15:34 | Inpatient (IN) | payer MEDICARE, BC ==
[2018-06-03] MEDS ORDERED: DILTIAZEM DRIP BOLUS FROM BAG 1 MG SOLN IV ONE (16:28)
[2018-06-03] MEDS ORDERED: HEPARIN SOD,PORK IN 0.45% NACL 25,000 UNIT in 0.45% NACL 1 500ML.BAG IV SCH (16:30)
--- NOTE | 2018-06-03 16:33 | ED ---
General Adult HPI - General Chief complaint: Psychiatric Symptoms Stated complaint: Weakness Time Seen by Provider: 06/03/18 15:53 Source: patient, EMS Mode of arrival: EMS Limitations: no limitations - History of Present Illness Initial comments: Patient is an 87-year-old female presenting for psychiatric evaluation. Family comes from assisted living facility and they requested the patient come in as she has been becoming more and more depressed. She is upset that her family will not visit her and denies any physical complaints including chest pain, shortness breath, abdominal discomfort, nausea/vomiting/diarrhea. She was also seen here a couple days ago for concern about dehydration and she states that she was told that she had a urinary tract infection. She also states that she has been drinking increased water but she still feels maybe a little dehydrated. - Related Data Home Medications Medication Instructions Recorded Confirmed amLODIPine BESYLATE [Norvasc] 5 mg PO DAILY 04/22/14 06/03/18 Ergocalciferol [Vitamin D2 50,000 unit PO RAMÍREZ 09/09/15 06/03/18 (DRISDOL)] Potassium Chloride ER [K-Dur 10] 10 meq PO DAILY 09/09/15 06/03/18 Levothyroxine Sodium [Synthroid] 75 mcg PO DAILY 11/10/15 06/03/18 Isosorbide Mononitrate ER [Imdur] 30 mg PO DAILY 11/17/15 06/03/18 ALPRAZolam [Xanax] 0.25 mg PO DAILY PRN 10/15/17 06/03/18 Furosemide [Lasix] 20 mg PO DAILY 10/15/17 06/03/18 Gabapentin [Neurontin] 100 mg PO DAILY 10/15/17 06/03/18 Metoprolol Succinate [Toprol XL] 25 mg PO DAILY 10/15/17 06/03/18 Simvastatin [Zocor] 20 mg PO HS 10/15/17 06/03/18 Temazepam [Restoril] 15 mg PO HS PRN 10/15/17 06/03/18 Previous Rx's Medication Instructions Recorded Cephalexin [Keflex] 500 mg PO Q6HR #28 cap 06/01/18 Allergies Allergy/AdvReac Type Severity Reaction Status Date / Time morphine Allergy Confusion Verified 06/03/18 15:59 Penicillins Allergy Unknown Verified 06/03/18 15:59 Sulfa (Sulfonamide Allergy Unknown Verified 06/03/18 15:59 Antibiotics) Review of Systems ROS Statement: Those systems with pertinent positive or pertinent negative responses have been documented in the HPI. Constitutional: Negative for chills, and fever. Positive for fatigue HENT: Negative for congestion. Respiratory: Negative for chest tightness, shortness of breath and wheezing. Negative for cough Cardiovascular: Negative for chest pain and palpitations. Gastrointestinal: Positive for abdominal pain. Negative for abdominal distention , diarrhea, nausea and vomiting. Genitourinary: Negative for dysuria. Musculoskeletal: Negative for back pain, neck pain and neck stiffness. Skin: Negative for color change. Neurological: Negative for dizziness, speech difficulty, weakness and light- headedness. Psychiatric/Behavioral: Negative for agitation and confusion. Positive for anxiety and depression ROS Other: All systems not noted in ROS Statement are negative. Past Medical History Past Medical History: Atrial Fibrillation, Coronary Artery Disease (CAD), Chest Pain / Angina, Heart Failure, COPD, Dementia, Eye Disorder, GERD/Reflux, Hyperlipidemia, Hypertension, Osteoarthritis (OA), Pneumonia, Thyroid Disorder, Vascular Disorder Additional Past Medical History / Comment(s): Bradycardia, left ventricular hypertrophy, PAD, macular degeneration R eye, R shoulder pain, UTIs, osteoporosis, vitamin D deficiency, multiple falls, gait dysturbance, abnormal balance, diverticulosis, goiter. History of Any Multi-Drug Resistant Organisms: None Reported Past Surgical History: Joint Replacement, Orthopedic Surgery Additional Past Surgical History / Comment(s): right shoulder PLATE AND SCREWS, SANGITA CATARACTS, RT EYE RETINAL SX, thyroid removed, total R hip, Total L hip with revision, total R knee, colonoscopy/polypectomy. Past Anesthesia/Blood Transfusion Reactions: No Reported Reaction Past Psychological History: Anxiety, Depression Smoking Status: Former smoker Past Alcohol Use History: None Reported Past Drug Use History: None Reported - Past Family History Father History Unknown: Yes Family Medical History: Renal Disease Mother History Unknown: Yes Family Medical History: Hypertension Brother(s) Family Medical History: No Reported History Daughter(s) Family Medical History: Cancer Additional Family Medical History / Comment(s): Pt states her oldest law of breast cancer. Son(s) Family Medical History: No Reported History General Exam - General Exam Comments Initial Comments: Constitutional: Pt is oriented to person, place, and time. Pt appears well- developed and well-nourished. No distress. HENT: Head: Normocephalic and atraumatic. Eyes: EOM are normal. Neck: Normal range of motion. Neck supple. Cardiovascular: Irregularly irregular with tachycardia. S1 normal, S2 normal and normal heart sounds. Exam reveals no gallop and no friction rub. No murmur heard. Pulmonary/Chest: Effort normal and breath sounds normal. No tachypnea and no bradypnea. No respiratory distress. No wheezes or rales noted. Abdominal: Soft. Bowel sounds are normal. Pt exhibits no shifting dullness, no distension, no pulsatile liver, no fluid wave, no abdominal bruit and no ascites. There is no tenderness. There is no rigidity, no rebound, no guarding, no tenderness at McBurney's point and negative Bunch's sign. Musculoskeletal: Normal range of motion. Neurological: Pt is alert and oriented to person, place, and time. No cranial nerve deficit. Skin: Skin is warm and dry. No rash noted. Pt is not diaphoretic. No erythema. No pallor. Psychiatric: Pt has a normal mood and affect. Pt behavior is normal. Thought content normal. Limitations: no limitations Course Vital Signs 06/03/18 06/03/18 06/03/18 15:55 17:30 19:12 Temperature 98.8 F Pulse Rate 112 H 92 84 Pulse Rate [ Hand [place] ] Respiratory 16 16 16 Rate Blood Pressure 137/94 116/64 103/55 O2 Sat by Pulse 95 92 L 95 Oximetry 06/03/18 06/03/18 20:20 20:25 Temperature Pulse Rate 94 Pulse Rate [ 140 H [employer] [place] ] Respiratory 16 Rate Blood Pressure 133/66 O2 Sat by Pulse 97 Oximetry EKG Findings - EKG Comments: EKG Findings:: EKG shows atrial fibrillation with RVR. Rate of 117, QRS duration 88, QTC 460. There is mild ST depression in lead V6 measuring approximately 1-2 mm Medical Decision Making - Medical Decision Making Laboratory studies showed a hemoglobin was stable at 10.5 and there is no evidence of leukocytosis. Chest x-ray also showed no evidence of acute infiltrate. Electrolytes were within normal limits and from a cardiac standpoint, troponin was not elevated. However, EKG did show atrial fibrillation with RVR for which the patient was started on a Cardizem drip. Additionally, BNP was elevated at 2280 and therefore the patient was given Lasix. Because of the concern of underlying CHF as well as A. fib with RVR, patient will be admitted to the hospital. Patient has profound dementia and is unable to give us the history about anticoagulation and because the patient has a high ChadVasc score, the patient was started on heparin drip. Explained all labs and diagnostic test results and that we will admit patient to hospital. Pt is agreeable to plan and case has been discussed with Dr. Khan and they agree to accept the pt. - Lab Data Result diagrams: 06/03/18 17:20 06/03/18 17:20 Lab Results 06/03/18 06/03/18 06/03/18 Range/Units 17:20 17:20 17:20 WBC 11.4 H (3.8-10.6) k/uL RBC 4.04 (3.80-5.40) m/uL Hgb 10.5 L (11.4-16.0) gm/dL Hct 33.5 L (34.0-46.0) % MCV 82.9 (80.0-100.0) fL MCH 26.0 (25.0-35.0) pg MCHC 31.4 (31.0-37.0) g/dL RDW 15.1 (11.5-15.5) % Plt Count 354 (150-450) k/uL Neutrophils % 88 % Lymphocytes % 7 % Monocytes % 4 % Eosinophils % 1 % Basophils % 0 % Neutrophils # 10.0 H (1.3-7.7) k/uL Lymphocytes # 0.8 L (1.0-4.8) k/uL Monocytes # 0.4 (0-1.0) k/uL Eosinophils # 0.1 (0-0.7) k/uL Basophils # 0.0 (0-0.2) k/uL PT (9.0-12.0) sec INR (<1.2) APTT (22.0-30.0) sec Sodium 135 L (137-145) mmol/L Potassium 4.5 (3.5-5.1) mmol/L Chloride 104 (98-107) mmol/L Carbon Dioxide 22 (22-30) mmol/L Anion Gap 9 mmol/L BUN 14 (7-17) mg/dL Creatinine 0.75 (0.52-1.04) mg/dL Est GFR (CKD-EPI)AfAm 82 (>60 ml/min/1.73 sqM) Est GFR (CKD-EPI)NonAf 72 (>60 ml/min/1.73 sqM) Glucose 85 (74-99) mg/dL Calcium 8.8 (8.4-10.2) mg/dL Magnesium 1.9 (1.6-2.3) mg/dL Total Bilirubin 1.1 (0.2-1.3) mg/dL AST 24 (14-36) U/L ALT 16 (9-52) U/L Alkaline Phosphatase 59 (38-126) U/L Total Creatine Kinase 62 (30-135) U/L CK-MB (CK-2) 0.7 (0.0-2.4) ng/mL CK-MB (CK-2) Rel Index 1.1 Troponin I <0.012 (0.000-0.034) ng/mL NT-Pro-B Natriuret Pep pg/mL Total Protein 6.4 (6.3-8.2) g/dL Albumin 3.6 (3.5-5.0) g/dL Lipase 43 (23-300) U/L 06/03/18 06/03/18 Range/Units 17:20 17:20 WBC (3.8-10.6) k/uL RBC (3.80-5.40) m/uL Hgb (11.4-16.0) gm/dL Hct (34.0-46.0) % MCV (80.0-100.0) fL MCH (25.0-35.0) pg MCHC (31.0-37.0) g/dL RDW (11.5-15.5) % Plt Count (150-450) k/uL Neutrophils % % Lymphocytes % % Monocytes % % Eosinophils % % Basophils % % Neutrophils # (1.3-7.7) k/uL Lymphocytes # (1.0-4.8) k/uL Monocytes # (0-1.0) k/uL Eosinophils # (0-0.7) k/uL Basophils # (0-0.2) k/uL PT 11.0 (9.0-12.0) sec INR 1.1 (<1.2) APTT 23.8 (22.0-30.0) sec Sodium (137-145) mmol/L Potassium (3.5-5.1) mmol/L Chloride (98-107) mmol/L Carbon Dioxide (22-30) mmol/L Anion Gap mmol/L BUN (7-17) mg/dL Creatinine (0.52-1.04) mg/dL Est GFR (CKD-EPI)AfAm (>60 ml/min/1.73 sqM) Est GFR (CKD-EPI)NonAf (>60 ml/min/1.73 sqM) Glucose (74-99) mg/dL Calcium (8.4-10.2) mg/dL Magnesium (1.6-2.3) mg/dL Total Bilirubin (0.2-1.3) mg/dL AST (14-36) U/L ALT (9-52) U/L Alkaline Phosphatase (38-126) U/L Total Creatine Kinase (30-135) U/L CK-MB (CK-2) (0.0-2.4) ng/mL CK-MB (CK-2) Rel Index Troponin I (0.000-0.034) ng/mL NT-Pro-B Natriuret Pep 2280 pg/mL Total Protein (6.3-8.2) g/dL Albumin (3.5-5.0) g/dL Lipase (23-300) U/L Disposition Clinical Impression: CHF exacerbation, Atrial fibrillation with RVR Disposition: ADMITTED IP TO THIS [facility] Condition: Fair Decision to Admit Reason: Admit from EC Decision Date: 06/03/18 Decision Time: 19:01
[2018-06-03] MEDS: DILTIAZEM 50 MG in SODIUM CHLORIDE 0.9% 40 ML IV SCH ×2 (17:19→22:40)
[2018-06-03 17:35] LABS: Basophils % (A) 0 %; Eosinophils # (A) 0.1 k/uL (0-0.7); Eosinophils % (A) 1 %; HCT 33.5 % (34.0-46.0); HGB 10.5 gm/dL (11.4-16.0); Lymphocytes # (A) 0.8 k/uL (1.0-4.8); Lymphocytes % (A) 7 %; MCHC 31.4 g/dL (31.0-37.0); MCV 82.9 fL (80.0-100.0); Monocytes # (A) 0.4 k/uL (0-1.0); Monocytes % (A) 4 %; Neutrophils % (A) 88 %; Platelet Count 354 k/uL (150-450); RBC 4.04 m/uL (3.80-5.40); RDW 15.1 % (11.5-15.5); WBC 11.4 k/uL (3.8-10.6)
[2018-06-03 17:40] LABS: INR 1.1 (<1.2); Partial Thromboplastin Time 23.8 sec (22.0-30.0)
[2018-06-03 17:48] LABS: Albumin 3.6 g/dL (3.5-5.0); Calcium 8.8 mg/dL (8.4-10.2); Creatine Kinase 62 U/L (30-135); Magnesium 1.9 mg/dL (1.6-2.3); Potassium 4.5 mmol/L (3.5-5.1); Total Bilirubin 1.1 mg/dL (0.2-1.3); Total Protein 6.4 g/dL (6.3-8.2)
[2018-06-03 18:00] LABS: Creatine Kinase MB 0.7 ng/mL (0.0-2.4); Troponin I <0.012 ng/mL (0.000-0.034)
--- NOTE | 2018-06-03 18:20 | XR ---
EXAMINATION TYPE: XR chest 2V DATE OF EXAM: 06/03/2018 COMPARISON: Chest x-ray from 5 months ago. HISTORY: History of atrial fibrillation with chest pain. TECHNIQUE: Frontal and lateral views of the chest are obtained. FINDINGS: There is chronic parenchymal change without suspicious focal air space opacity, pleural ef fusion, or pneumothorax seen. The cardiac silhouette size remains enlarged. Retrocardiac opacity co nsistent with moderate to large size hiatal hernia is again seen. The osseous structures remain demin eralized. Underlying scoliosis is redemonstrated. Surgical change right proximal humerus is redemonst rated. IMPRESSION: Cardiomegaly and chronic parenchymal change without acute pulmonary process.
[2018-06-03] MEDS ORDERED: FUROSEMIDE 10 MG/ML 4 ML VIAL IV STA (18:50)
[2018-06-03] MEDS ORDERED: NALOXONE 0.4 MG/ML 1 ML VIAL IV PRN (19:01)
[2018-06-03 19:57] LABS: Appearance,Urine Clear (Clear); Bilirubin,Urine Negative (Negative); Blood,Urine Negative (Negative); Color,Urine Yellow; Glucose,Urine (UA) Negative (Negative); Hyaline Casts,Urine 3 /lpf (0-2); Ketones,Urine 2+ (Negative); Leukocyte Esterase,Urine Small (Negative); Mucus,Urine Rare /hpf; Nitrite,Urine Negative (Negative); PH, Urine 6.5 (5.0-8.0); Protein,Urine Negative (Negative); RBC,Urine 1 /hpf (0-5); Squamous Epithelial Cell,Urine <1 /hpf (0-4); Urobilinogen,Urine <2.0 mg/dL (<2.0); WBC,Urine 1 /hpf (0-5)
[2018-06-03] MEDS ORDERED: ALPRAZolam 0.25 MG TAB PO PRN (21:31)
[2018-06-03] MEDS: ATORVASTATIN 10 MG TAB PO SCH (22:13)
[2018-06-03] MEDS: CEPHALEXIN 500 MG CAP PO SCH (23:14)
[2018-06-04] MEDS: DILTIAZEM 50 MG in SODIUM CHLORIDE 0.9% 40 ML IV SCH (04:04)
[2018-06-04] MEDS: LEVOTHYROXINE 75 MCG TAB PO SCH (06:53)
--- NOTE | 2018-06-04 06:57 | P.CRDCN ---
History of Present Illness Consult date: 06/04/18 History of present illness: This is a pleasant 87-year-old female patient with a past medical history significant for chronic atrial fibrillation not on any oral anticoagulation as well as history of underlying dementia who was brought into the hospital because she was not feeling well. Overall the patient is a poor historian. No indication of any chest pain or chest discomfort, shortness of breath, dizziness or lightheadedness, or loss of consciousness. When the patient arrived to the emergency room, she was in A. fib with RVR and she was started on Cardizem drip at 5 mg per hour. Currently she has been maintaining a heart rate around 80 bpm. I am going to increase the dose of oral metoprolol to 25 mg by mouth twice a day. The right wean her from the Cardizem drip. With her dementia and high risk of falling and bleeding I do not recommend the patient to be on any oral anticoagulation. I will DC the heparin IV on her at this point. And obtain an echocardiogram was Doppler. Past Medical History Past Medical History: Atrial Fibrillation, Coronary Artery Disease (CAD), Chest Pain / Angina, Heart Failure, COPD, Dementia, Eye Disorder, GERD/Reflux, Hyperlipidemia, Hypertension, Osteoarthritis (OA), Pneumonia, Thyroid Disorder, Vascular Disorder Additional Past Medical History / Comment(s): Bradycardia, left ventricular hypertrophy, PAD, macular degeneration R eye, R shoulder pain, UTIs, osteoporosis, vitamin D deficiency, multiple falls, gait dysturbance, abnormal balance, diverticulosis, goiter. History of Any Multi-Drug Resistant Organisms: None Reported Past Surgical History: Joint Replacement, Orthopedic Surgery Additional Past Surgical History / Comment(s): right shoulder PLATE AND SCREWS, SANGITA CATARACTS, RT EYE RETINAL SX, thyroid removed, total R hip, Total L hip with revision, total R knee, colonoscopy/polypectomy. Past Anesthesia/Blood Transfusion Reactions: No Reported Reaction Past Psychological History: Anxiety, Depression Smoking Status: Former smoker Past Alcohol Use History: None Reported Past Drug Use History: None Reported - Past Family History Father History Unknown: Yes Family Medical History: Renal Disease Mother History Unknown: Yes Family Medical History: Hypertension Brother(s) Family Medical History: No Reported History Daughter(s) Family Medical History: Cancer Additional Family Medical History / Comment(s): Pt states her oldest law of breast cancer. Son(s) Family Medical History: No Reported History Medications and Allergies Home Medications Medication Instructions Recorded Confirmed Type amLODIPine BESYLATE [Norvasc] 5 mg PO DAILY 04/22/14 06/03/18 History Ergocalciferol [Vitamin D2 50,000 unit PO RAMÍREZ 09/09/15 06/03/18 History (DRISDOL)] Potassium Chloride ER [K-Dur 10] 10 meq PO DAILY 09/09/15 06/03/18 History Levothyroxine Sodium [Synthroid] 75 mcg PO DAILY 11/10/15 06/03/18 History Isosorbide Mononitrate ER [Imdur] 30 mg PO DAILY 11/17/15 06/03/18 History ALPRAZolam [Xanax] 0.25 mg PO DAILY PRN 10/15/17 06/03/18 History Furosemide [Lasix] 20 mg PO DAILY 10/15/17 06/03/18 History Gabapentin [Neurontin] 100 mg PO DAILY 10/15/17 06/03/18 History Metoprolol Succinate [Toprol XL] 25 mg PO DAILY 10/15/17 06/03/18 History Simvastatin [Zocor] 20 mg PO HS 10/15/17 06/03/18 History Temazepam [Restoril] 15 mg PO HS PRN 10/15/17 06/03/18 History Cephalexin [Keflex] 500 mg PO Q6HR #28 cap 06/01/18 06/03/18 Rx Allergies Allergy/AdvReac Type Severity Reaction Status Date / Time morphine Allergy Confusion Verified 06/03/18 15:59 Penicillins Allergy Unknown Verified 06/03/18 15:59 Sulfa (Sulfonamide Allergy Unknown Verified 06/03/18 15:59 Antibiotics) Physical Exam Vitals: Vital Signs Temp Pulse Pulse Pulse Resp BP BP 06/04/18 04:00 98.1 F 98 18 112/64 06/03/18 23:00 97.9 F 98 18 132/67 06/03/18 21:10 97.7 F 98 18 133/67 06/03/18 20:30 97.7 F 98 18 133/67 06/03/18 20:25 140 H 06/03/18 20:20 94 16 133/66 06/03/18 19:12 84 16 103/55 06/03/18 17:30 92 16 116/64 10/13/18 15:55 98.8 F 112 H 16 137/94 Pulse Ox 06/04/18 04:00 06/03/18 23:00 97 06/03/18 21:10 96 06/03/18 20:30 96 06/03/18 20:25 06/03/18 20:20 97 06/03/18 19:12 95 06/03/18 17:30 92 L 06/03/18 15:55 95 Intake and Output 06/03/18 06/03/18 06/04/18 14:59 22:59 06:59 Intake Total 50 191.114 Output Total 1100 Balance 50 -908.886 Intake: Intake, IV Titration 50 191.114 Amount Diltiazem 50 mg In Sodium 50 50 Chloride 0.9% 40 ml @ Per Protocol IV .Q0M [facility] Rx#:[id number] Heparin Sod,Pork in 0.45% 141.114 NaCl 25,000 unit In 0.45 % NaCl 1 500ml.bag @ 12 UNITS/KG/HR 9.79 mls/hr IV .Q24H [facility] Rx#: [id number] Output: Urine 1100 Other: Voiding Method Indwelling Catheter Indwelling Catheter Weight 45 kg 41.4 kg - Constitutional General appearance: no acute distress - Respiratory Respiratory: bilateral: CTA - Cardiovascular Rhythm: irregularly irregular Heart sounds: normal: S1, S2 Results 06/03/18 17:20 06/03/18 17:20 Cardiac Enzymes 06/03/18 06/03/18 Range/Units 17:20 17:20 AST 24 (14-36) U/L CK-MB (CK-2) 0.7 (0.0-2.4) ng/mL Troponin I <0.012 (0.000-0.034) ng/mL Coagulation 06/03/18 06/03/18 06/04/18 Range/Units 17:20 23:37 05:12 PT 11.0 (9.0-12.0) sec APTT 23.8 33.6 H 41.3 H (22.0-30.0) sec CBC 06/03/18 Range/Units 17:20 WBC 11.4 H (3.8-10.6) k/uL RBC 4.04 (3.80-5.40) m/uL Hgb 10.5 L (11.4-16.0) gm/dL Hct 33.5 L (34.0-46.0) % Plt Count 354 (150-450) k/uL Comprehensive Metabolic Panel 06/03/18 Range/Units 17:20 Sodium 135 L (137-145) mmol/L Potassium 4.5 (3.5-5.1) mmol/L Chloride 104 (98-107) mmol/L Carbon Dioxide 22 (22-30) mmol/L BUN 14 (7-17) mg/dL Creatinine 0.75 (0.52-1.04) mg/dL Glucose 85 (74-99) mg/dL Calcium 8.8 (8.4-10.2) mg/dL AST 24 (14-36) U/L ALT 16 (9-52) U/L Alkaline Phosphatase 59 (38-126) U/L Total Protein 6.4 (6.3-8.2) g/dL Albumin 3.6 (3.5-5.0) g/dL Current Medications Generic Name Dose Route Start Last Admin Trade Name Freq PRN Reason Stop Dose Admin Alprazolam 0.25 mg 06/03/18 21:31 Xanax PO DAILY PRN Anxiety Amlodipine Besylate 5 mg 06/04/18 09:00 Norvasc PO DAILY [facility] Atorvastatin Calcium 10 mg 06/03/18 21:45 06/03/18 22:13 Lipitor PO 10 mg HS [facility] Administration Cephalexin 500 mg 06/04/18 00:00 06/03/18 23:14 Keflex PO 500 mg Q12H [facility] Administration Ergocalciferol 50,000 unit 06/04/18 09:00 Vitamin D2 PO RAMÍREZ [facility] Furosemide 20 mg 06/04/18 09:00 Lasix PO DAILY [facility] Gabapentin 100 mg 06/04/18 09:00 Neurontin PO DAILY [facility] Diltiazem HCl 50 mg/ Sodium 50 mls @ 0 mls/hr 06/03/18 16:30 06/04/18 04:04 Chloride IV 10 ml/hr .Q0M [facility] 10 mls/hr Administration Protocol Per Protocol Isosorbide Mononitrate 30 mg 06/04/18 09:00 Imdur PO DAILY [facility] Levothyroxine Sodium 75 mcg 06/04/18 06:30 06/04/18 06:53 Synthroid PO 75 mcg DAILY@0630 [facility] Administration Metoprolol Succinate 25 mg 06/04/18 09:00 Toprol Xl PO BID [facility] Naloxone HCl 0.2 mg 06/03/18 19:01 Narcan IV Q2M PRN Opioid Reversal Potassium Chloride 10 meq 06/04/18 09:00 K-Dur 10 PO DAILY [facility] Temazepam 15 mg 06/03/18 21:31 Restoril PO HS PRN RESTLESS LEGS Intake and Output 06/03/18 06/03/18 06/04/18 14:59 22:59 06:59 Intake Total 50 191.114 Output Total 1100 Balance 50 -908.886 Intake: Intake, IV Titration 50 191.114 Amount Diltiazem 50 mg In Sodium 50 50 Chloride 0.9% 40 ml @ Per Protocol IV .Q0M [facility] Rx#:[id number] Heparin Sod,Pork in 0.45% 141.114 NaCl 25,000 unit In 0.45 % NaCl 1 500ml.bag @ 12 UNITS/KG/HR 9.79 mls/hr IV .Q24H [facility] Rx#: [id number] Output: Urine 1100 Other: Voiding Method Indwelling Catheter Indwelling Catheter Weight 45 kg 41.4 kg Patient Weight 06/04/18 06:59 Weight 41.4 kg 06/03/18 17:20 06/03/18 17:20 Assessment and Plan Assessment: Assessment A. fib with RVR Known chronic atrial fibrillation Known underlying dementia Plan Increase the dose of metoprolol Wean the patient from the Cardizem drip Obtain an echocardiogram was Doppler Follow-up with the patient
[2018-06-04] MEDS: POTASSIUM CHLORIDE ER 10 MEQ TAB.ER.PRT PO SCH (08:20)
[2018-06-04] MEDS: amLODIPine 5 MG TAB PO SCH (08:20)
[2018-06-04] MEDS: METOPROLOL SUCCINATE (ER) 25 MG TAB.ER.24H PO SCH ×2 (08:20→20:42)
[2018-06-04] MEDS: ISOSORBIDE MONONITRATE ER 30 MG TAB.ER.24H PO SCH (08:20)
[2018-06-04] MEDS: FUROSEMIDE 40 MG TAB PO SCH (08:20)
[2018-06-04] MEDS: GABAPENTIN 100 MG CAP PO SCH (08:20)
[2018-06-04] MEDS ORDERED: METOPROLOL SUCCINATE (ER) 25 MG TAB.ER.24H PO SCH (09:00)
[2018-06-04] MEDS ORDERED: ERGOCALCIFEROL 50,000 UNIT CAP PO SCH (09:00)
[2018-06-04] MEDS: CEPHALEXIN 500 MG CAP PO SCH ×2 (13:32→23:06)
--- NOTE | 2018-06-04 14:27 | P.HPIM ---
History of Present Illness H&P Date: 06/04/18 This is an 87-year-old female patient of Dr. Dr. Escoto with long- standing history of CAD, A. fib, recurrent angina and chest pain with multiple fall is known to have mild COPD, abnormal balance and gait for long time, apparently the patient was brought into the emergency department at [facility] and for evaluation of psychiatric illness due to her dementia and behavioral disturbances and she was found to have an atrial fibrillation with rapid response, she was placed on Cardizem drip as well as heparin drip, spoke with the ER physician that the patient has chronic atrial fibrillation and she is very poor candidate for anticoagulation because of her age recurrent falls as well as the dementia history, however the patient ended up admitted to the hospital with cardiology evaluation. Patient was taken off her Cardizem drip as well as her heparin drip, she was started on metoprolol 25 mg orally twice every day, patient developed to have history of bradycardia in the past and we have to be very careful introducing beta russell to her regimen. Review of Systems Constitutional: Reports fatigue, Reports weakness, Reports weight loss Eyes: bilateral blurred vision Ears: bilateral: decreased hearing Ears, nose, mouth and throat: Denies dysphagia, Denies neck lump, Denies sore throat Cardiovascular: Reports decreased exercise tolerance, Reports dyspnea on exertion, Reports high blood pressure, Reports rapid heart beat, Reports shortness of breath, Denies chest pain, Denies syncope Respiratory: Denies congestion, Denies cough with sputum, Denies hemoptysis, Denies home oxygen, Denies snoring, Denies wheezing Gastrointestinal: Denies abdominal pain, Denies BRBPR, Denies heartburn, Denies melena, Denies nausea, Denies vomiting Genitourinary: Denies dysuria, Denies hematuria Menstruation: Reports postmenopausal Musculoskeletal: Reports atrophy, Reports frequent falls, Reports gait dysfunction Musculoskeletal: absent: ankle pain, ankle stiffness, ankle swelling, elbow pain , elbow stiffness, elbow swelling, foot pain, foot stiffness, foot swelling, hand pain, hand stiffness, hand swelling, hip pain, hip stiffness, hip swelling , knee pain, knee stiffness, knee swelling, shoulder pain, shoulder stiffness, shoulder swelling, wrist pain, wrist stiffness, wrist swelling Integumentary: Denies pruritus, Denies rash Neurological: Denies numbness, Denies weakness Psychiatric: Reports anxiety, Reports confusion, Reports irritability, Reports memory loss Endocrine: Denies fatigue, Denies weight change Past Medical History Past Medical History: Atrial Fibrillation, Coronary Artery Disease (CAD), Chest Pain / Angina, Heart Failure, COPD, Dementia, Eye Disorder, GERD/Reflux, Hyperlipidemia, Hypertension, Osteoarthritis (OA), Pneumonia, Thyroid Disorder, Vascular Disorder Additional Past Medical History / Comment(s): Bradycardia, left ventricular hypertrophy, PAD, macular degeneration R eye, R shoulder pain, UTIs, osteoporosis, vitamin D deficiency, multiple falls, gait dysturbance, abnormal balance, diverticulosis, goiter. History of Any Multi-Drug Resistant Organisms: None Reported Past Surgical History: Joint Replacement, Orthopedic Surgery Additional Past Surgical History / Comment(s): right shoulder PLATE AND SCREWS, SANGITA CATARACTS, RT EYE RETINAL SX, thyroid removed, total R hip, Total L hip with revision, total R knee, colonoscopy/polypectomy. Past Anesthesia/Blood Transfusion Reactions: No Reported Reaction Past Psychological History: Anxiety, Depression Smoking Status: Former smoker Past Alcohol Use History: None Reported Past Drug Use History: None Reported - Past Family History Father History Unknown: Yes Family Medical History: Renal Disease Mother History Unknown: Yes Family Medical History: Hypertension Brother(s) Family Medical History: No Reported History Daughter(s) Family Medical History: Cancer Additional Family Medical History / Comment(s): Pt states her oldest law of breast cancer. Son(s) Family Medical History: No Reported History Medications and Allergies Home Medications Medication Instructions Recorded Confirmed Type amLODIPine BESYLATE [Norvasc] 5 mg PO DAILY 04/22/14 06/03/18 History Ergocalciferol [Vitamin D2 50,000 unit PO RAMÍREZ 09/09/15 06/03/18 History (DRISDOL)] Potassium Chloride ER [K-Dur 10] 10 meq PO DAILY 09/09/15 06/03/18 History Levothyroxine Sodium [Synthroid] 75 mcg PO DAILY 11/10/15 06/03/18 History Isosorbide Mononitrate ER [Imdur] 30 mg PO DAILY 11/17/15 06/03/18 History ALPRAZolam [Xanax] 0.25 mg PO DAILY PRN 10/15/17 06/03/18 History Furosemide [Lasix] 20 mg PO DAILY 10/15/17 06/03/18 History Gabapentin [Neurontin] 100 mg PO DAILY 10/15/17 06/03/18 History Metoprolol Succinate [Toprol XL] 25 mg PO DAILY 10/15/17 06/03/18 History Simvastatin [Zocor] 20 mg PO HS 10/15/17 06/03/18 History Temazepam [Restoril] 15 mg PO HS PRN 10/15/17 06/03/18 History Cephalexin [Keflex] 500 mg PO Q6HR #28 cap 06/01/18 06/03/18 Rx Allergies Allergy/AdvReac Type Severity Reaction Status Date / Time morphine Allergy Confusion Verified 06/03/18 15:59 Penicillins Allergy Unknown Verified 06/03/18 15:59 Sulfa (Sulfonamide Allergy Unknown Verified 06/03/18 15:59 Antibiotics) Physical Exam Vitals: Vital Signs Temp Pulse Pulse Pulse Resp BP BP 06/04/18 08:00 97.7 F 85 18 109/64 06/04/18 06:57 80 06/04/18 04:00 98.1 F 98 18 112/64 06/03/18 23:00 97.9 F 98 18 132/67 06/03/18 21:10 97.7 F 98 18 133/67 06/03/18 20:30 97.7 F 98 18 133/67 06/03/18 20:25 140 H 06/03/18 20:20 94 16 133/66 06/03/18 19:12 84 16 103/55 06/03/18 17:30 92 16 116/64 06/03/18 15:55 98.8 F 112 H 16 137/94 Pulse Ox 06/04/18 08:00 95 06/04/18 06:57 06/04/18 04:00 06/03/18 23:00 97 06/03/18 21:10 96 06/03/18 20:30 96 06/03/18 20:25 06/03/18 20:20 97 06/03/18 19:12 95 06/03/18 17:30 92 L 06/03/18 15:55 95 Intake and Output 06/03/18 06/04/18 06/04/18 22:59 06:59 14:59 Intake Total 50 191.114 180 Output Total 1100 Balance 50 -908.886 180 Intake: Intake, IV Titration 50 191.114 Amount Diltiazem 50 mg In Sodium 50 50 Chloride 0.9% 40 ml @ Per Protocol IV .Q0M [facility] Rx#:[id number] Heparin Sod,Pork in 0.45% 141.114 NaCl 25,000 unit In 0.45 % NaCl 1 500ml.bag @ 12 UNITS/KG/HR 9.79 mls/hr IV .Q24H [facility] Rx#: [id number] Oral 180 Output: Urine 1100 Other: Voiding Method Indwelling Catheter Indwelling Catheter Indwelling Catheter Weight 45 kg 41.4 kg - Constitutional General appearance: mild distress, thin - EENT Eyes: anicteric sclerae, EOMI, PERRLA, no ptosis, no scleral icterus, normal appearance ENT: hard of hearing, NA/AT, normal oropharynx Ears: bilateral: normal - Neck Neck: no lymphadenopathy, normal ROM, no rigidity, no stridor, no thyromegaly Carotids: bilateral: upstroke delayed Thyroid: bilateral: normal size - Respiratory Respiratory: bilateral: diminished, negative: dullness, rales, rhonchi, wheezing , prolonged expiration, prolonged inspiration - Cardiovascular Rhythm: irregularly irregular Heart sounds: normal: S1, S2 Abnormal Heart Sounds: systolic murmur - Gastrointestinal General gastrointestinal: normal bowel sounds, soft, no splenomegaly, no tenderness, no umbilical hernia - Integumentary Integumentary: normal, normal turgor - Neurologic Neurologic: CNII-XII intact - Musculoskeletal Musculoskeletal: generalized weakness - Psychiatric Psychiatric: no A&O x's 3, no appropriate affect, no intact judgment & insight Results CBC & Chem 7: 06/03/18 17:20 06/03/18 17:20 Labs: Abnormal Lab Results - Last 24 Hours (Table) 06/03/18 06/03/18 06/03/18 Range/Units 17:20 17:20 19:20 WBC 11.4 H (3.8-10.6) k/uL Hgb 10.5 L (11.4-16.0) gm/dL Hct 33.5 L (34.0-46.0) % Neutrophils # 10.0 H (1.3-7.7) k/uL Lymphocytes # 0.8 L (1.0-4.8) k/uL APTT (22.0-30.0) sec Sodium 135 L (137-145) mmol/L Urine Ketones 2+ H (Negative) Ur Leukocyte Esterase Small H (Negative) Hyaline Casts 3 H (0-2) /lpf Urine Mucus Rare H (None) /hpf 06/03/18 06/04/18 Range/Units 23:37 05:12 WBC (3.8-10.6) k/uL Hgb (11.4-16.0) gm/dL Hct (34.0-46.0) % Neutrophils # (1.3-7.7) k/uL Lymphocytes # (1.0-4.8) k/uL APTT 33.6 H 41.3 H (22.0-30.0) sec Sodium (137-145) mmol/L Urine Ketones (Negative) Ur Leukocyte Esterase (Negative) Hyaline Casts (0-2) /lpf Urine Mucus (None) /hpf Thrombosis Risk Factor Assmnt - DVT/VTE Prophylaxis DVT/VTE Prophylaxis: Mechanical Prophylaxis ordered - Choose All That Apply Each Risk Factor Represents 3 Points: Age 75 years or older Thrombosis Risk Factor Assessment Total Risk Factor Score: 3 Thrombosis Risk Factor Assessment Level: Moderate Risk Assessment and Plan Assessment: Assessment and plan: 1. Atrial fibrillation with rapid ventricular response. Discontinue Cardizem drip, discontinue heparin drip, continue patient on metoprolol 25 mg orally twice every day, monitor the patient very closely, echocardiogram was done, cardiology already saw the patient. 2. History of CAD. Continue patient on Lipitor 10 mg orally once every day, Imdur 30 mg orally once every day, Toprol-XL 25 mg orally twice every day. 3. Hypertension and hypertensive cardiovascular disease. Continue patient on Toprol-XL 25 mg orally twice every day as well as Norvasc 5 mg orally once every day. 4. vascular dementia patient has been off Aricept for now. 5. hypothyroidism: Continue Synthroid 75 g daily. 6. hyperlipidemia. Continue Lipitor 10 mg orally once every day. 7. Anxiety. Continue patient on Xanax 0.25 mg orally once every day as needed. 8. Insomnia. Continue patient on Restoril 15 mg orally once at bedtime. 9. Chronic anemia. Monitor the patient's CBC. 10. Vitamin D deficiency. Continue vitamin D 2 once a week. 11. Recent UTI. Complete Keflex 500 mg orally twice every day until done. 12. Patient is full code. 13. Admit to inpatient. Estimate length of stay 2 midnights.
[2018-06-04] MEDS: ATORVASTATIN 10 MG TAB PO SCH (20:42)
[2018-06-04] MEDS: TEMAZEPAM 15 MG CAP PO PRN (23:06)
[2018-06-05] MEDS: LEVOTHYROXINE 75 MCG TAB PO SCH (05:57)
[2018-06-05 09:00] LABS: Basophils % (A) 0 %; Eosinophils # (A) 0.2 k/uL (0-0.7); Eosinophils % (A) 3 %; HCT 36.1 % (34.0-46.0); HGB 11.5 gm/dL (11.4-16.0); Lymphocytes # (A) 0.9 k/uL (1.0-4.8); Lymphocytes % (A) 13 %; MCH 26.2 pg (25.0-35.0); MCV 81.8 fL (80.0-100.0); Mean Platelet Volume 7.1; Monocytes # (A) 0.6 k/uL (0-1.0); Monocytes % (A) 8 %; Neutrophils # (A) 4.8 k/uL (1.3-7.7); Neutrophils % (A) 73 %; Platelet Count 354 k/uL (150-450); RBC 4.41 m/uL (3.80-5.40); RDW 14.9 % (11.5-15.5); WBC 6.5 k/uL (3.8-10.6)
[2018-06-05] MEDS: amLODIPine 5 MG TAB PO SCH (09:07)
[2018-06-05] MEDS: ISOSORBIDE MONONITRATE ER 30 MG TAB.ER.24H PO SCH (09:07)
[2018-06-05] MEDS: GABAPENTIN 100 MG CAP PO SCH (09:07)
[2018-06-05] MEDS: METOPROLOL SUCCINATE (ER) 25 MG TAB.ER.24H PO SCH ×2 (09:07→20:02)
[2018-06-05] MEDS: FUROSEMIDE 40 MG TAB PO SCH (09:07)
[2018-06-05] MEDS: POTASSIUM CHLORIDE ER 10 MEQ TAB.ER.PRT PO SCH (09:07)
[2018-06-05 09:14] LABS: Albumin 3.7 g/dL (3.5-5.0); Calcium 8.8 mg/dL (8.4-10.2); Potassium 3.9 mmol/L (3.5-5.1); Total Bilirubin 0.7 mg/dL (0.2-1.3); Total Protein 6.7 g/dL (6.3-8.2)
[2018-06-05 11:56] VITALS: BMI 17.2
--- NOTE | 2018-06-05 12:18 | P.PN ---
Subjective Progress Note Date: 06/05/18 Assessment pleasant 87-year-old female patient with past medical history significant for #chronic atrial fibrillation, not on any oral anticoagulation, history of underlying dementia. She is brought to the hospital because she was not feeling well. Overall the patient is a poor historian. No indication of any chest discomfort or pain, shortness of breath, dizziness, lightheadedness or loss of consciousness. She was found to be in atrial fibrillation with rapid ventricular response when she was admitted to the emergency department and was started on Cardizem drip at 5 mg per hour. Cardizem drip has since been discontinued and patient has been started on metoprolol succinate 25 mg by mouth twice a day. Heart rate remains around 100 bpm. We're waiting echocardiogram results. Objective - Vital Signs Vital signs: Vital Signs Temp 98.1 F 06/05/18 08:00 Pulse 102 H 06/05/18 08:00 Resp 18 06/05/18 08:00 BP 111/57 06/05/18 08:00 Pulse Ox 98 06/05/18 08:00 Intake & Output 06/04/18 06/05/18 06/05/18 18:59 06:59 18:59 Intake Total 298 100 Output Total 400 Balance -102 100 Weight 41.2 kg 41.2 kg Intake: Oral 298 100 Output: Urine 400 Uretheral (Bell) 200 Other: Voiding Method Toilet Toilet Diaper Diaper # Voids 1 # Bowel Movements 2 - Exam PHYSICAL EXAMINATION: HEENT: Head is atraumatic, normocephalic. Pupils equal, round. Neck is supple. There is no elevated jugular venous pressure. HEART EXAMINATION: Heart sounds irregularly irregular, S1 and S2 systolic murmur. CHEST EXAMINATION: Lungs are clear to auscultation and precussion. No chest wall tenderness is noted on palpation or with deep breathing. ABDOMEN: Soft, nontender. Bowel sounds are heard. No organomegaly noted. EXTREMITIES: 2+ peripheral pulses with no evidence of peripheral edema and no calf tenderness noted. NEUROLOGIC patient is awake, alert and oriented x1-2. . - Labs CBC & Chem 7: 06/05/18 08:04 06/05/18 08:04 Labs: Abnormal Lab Results - Last 24 Hours (Table) 06/05/18 06/05/18 Range/Units 08:04 08:04 Lymphocytes # 0.9 L (1.0-4.8) k/uL ALT 8 L (9-52) U/L Assessment and Plan Assessment: #1 atrial fibrillation with rapid ventricular response #2 known chronic atrial fibrillation, not on long-term anticoagulation due to advanced dementia, fall risk and risk of bleeding #3 dementia Plan: Cardiology's perspective, we will maximize dose of metoprolol. Await results of echocardiogram. We will continue to follow the patient and write further recommendations accordingly. VULCANIZER note has been reviewed, I agree with a documented findings and plan of care. Patient was seen and examined.
[2018-06-05] MEDS: CEPHALEXIN 500 MG CAP PO SCH ×2 (12:24→23:12)
--- NOTE | 2018-06-05 12:33 | ECHOF ---
Referral Reason:chf MEASUREMENTS -------- HEIGHT: 154.9 cm WEIGHT: 40.8 kg BP: 130/61 RVIDd: 2.4 cm (< 3.3) IVSd: 1.3 cm (0.6 - 1.1) LVIDd: 3.0 cm (3.9 - 5.3) LVPWd: 1.6 cm (0.6 - 1.1) IVSs: 1.9 cm LVIDs: 1.7 cm LVPWs: 2.0 cm LAESV Index (A-L): 44.43 ml/m Ao Diam: 2.3 cm (2.0 - 3.7) AV Cusp: 1.1 cm (1.5 - 2.6) LA Diam: 3.3 cm (2.7 - 3.8) MV EXCURSION: 8.503 mm (> 18.000) MV EF SLOPE: 37 mm/s (70 - 150) EPSS: 0.8 cm AV maxP.96 mmHg AV meanP.37 mmHg AR PHT: 278 ms RAP: 5.00 mmHg RVSP: 31.07 mmHg FINDINGS -------- Atrial fibrillation. This was a technically good study. The left ventricular size is normal. There is mild concentric left ventricular hypertrophy. Overa ll left ventricular systolic function is normal with, an EF between 55 - 60 %. The right ventricle is normal in size and function. LA is severely dilated >40 ml/m2 RA appears enlarged. Aortic valve is trileaflet and is moderately thickened. There is moderate aortic valve sclerosis. There is mild aortic regurgitation. Peak/mean gradient across the Aortic Valve is 11.96mmHg / 7.37 mmHg. The mitral valve leaflets are mildly thickened. Mild mitral regurgitation is present. Severe tricuspid regurgitation present. The right ventricular systolic pressure, as measured by Dop pler, is 31.07mmHg. Pulmonic valve appears structurally normal. The aortic root size is normal. Normal inferior vena cava with normal inspiratory collapse consistent with estimated right atrial pre ssure of 5 mmHg. The pericardium is normal. CONCLUSIONS -------- 1. Atrial fibrillation. 2. This was a technically good study. 3. The left ventricular size is normal. 4. There is mild concentric left ventricular hypertrophy. 5. Overall left ventricular systolic function is normal with, an EF between 55 - 60 %. 6. The right ventricle is normal in size and function. 7. LA is severely dilated >40 ml/m2 8. RA appears enlarged. 9. Aortic valve is trileaflet and is moderately thickened. 10. There is moderate aortic valve sclerosis. 11. There is mild aortic regurgitation. 12. Peak/mean gradient across the Aortic Valve is 11.96mmHg / 7.37mmHg. 13. The mitral valve leaflets are mildly thickened. 14. Mild mitral regurgitation is present. 15. Severe tricuspid regurgitation present. 16. The right ventricular systolic pressure, as measured by Doppler, is 31.07mmHg. 17. Pulmonic valve appears structurally normal. 18. The aortic root size is normal. 19. Normal inferior vena cava with normal inspiratory collapse consistent with estimated right atrial pressure of 5 mmHg. 20. The pericardium is normal. CAROUSEL ATTENDANT: Hina Diaz RDCS
--- NOTE | 2018-06-05 13:40 | P.PN ---
Subjective This is an 87-year-old female patient of Dr. Dr. Escoto with long- standing history of CAD, A. fib, recurrent angina and chest pain with multiple fall is known to have mild COPD, abnormal balance and gait for long time, apparently the patient was brought into the emergency department at [facility] and for evaluation of psychiatric illness due to her dementia and behavioral disturbances and she was found to have an atrial fibrillation with rapid response, she was placed on Cardizem drip as well as heparin drip, spoke with the ER physician that the patient has chronic atrial fibrillation and she is very poor candidate for anticoagulation because of her age recurrent falls as well as the dementia history, however the patient ended up admitted to the hospital with cardiology evaluation. Patient was taken off her Cardizem drip as well as her heparin drip, she was started on metoprolol 25 mg orally twice every day, patient developed to have history of bradycardia in the past and we have to be very careful introducing beta russell to her regimen. 06/05: Patient evaluated today, denies any shortness of breath or chest pain. Cardizem drip was discontinued, she remains on metoprolol 25 mg twice a day. Heart rate remains in the 100s. Echocardiogram shows a.fib, EF 55-60%, mild aortic regurgitation, mild mitral regurgitation, and severe tricuspid regurgitation. Will have PT evaluate patient, may need rehab upon discharge. Objective - Vital Signs Vital signs: Vital Signs Temp 97.8 F 06/04/18 20:00 Pulse 101 H 06/05/18 04:00 Resp 20 06/05/18 04:00 BP 130/61 06/05/18 04:00 Pulse Ox 96 06/05/18 04:00 Intake & Output 06/04/18 06/05/18 06/05/18 18:59 06:59 18:59 Intake Total 298 100 Output Total 400 Balance -102 100 Weight 41.2 kg Intake: Oral 298 100 Output: Urine 400 Uretheral (Bell) 200 Other: Voiding Method Toilet Toilet Diaper Diaper # Voids 1 # Bowel Movements 2 - Exam - Constitutional General appearance: mild distress, thin - EENT Eyes: anicteric sclerae, EOMI, PERRLA, no ptosis, no scleral icterus, normal appearance ENT: hard of hearing, NA/AT, normal oropharynx Ears: bilateral: normal - Neck Neck: no lymphadenopathy, normal ROM, no rigidity, no stridor, no thyromegaly Carotids: bilateral: upstroke delayed Thyroid: bilateral: normal size - Respiratory Respiratory: bilateral: diminished, negative: dullness, rales, rhonchi, wheezing , prolonged expiration, prolonged inspiration - Cardiovascular Rhythm: irregularly irregular Heart sounds: normal: S1, S2 Abnormal Heart Sounds: systolic murmur - Gastrointestinal General gastrointestinal: normal bowel sounds, soft, no splenomegaly, no tenderness, no umbilical hernia - Integumentary Integumentary: normal, normal turgor - Neurologic Neurologic: CNII-XII intact - Musculoskeletal Musculoskeletal: generalized weakness - Psychiatric Psychiatric: no A&O x's 3, no appropriate affect, no intact judgment & insight - Labs CBC & Chem 7: 06/05/18 08:04 06/05/18 08:04 Labs: Abnormal Lab Results - Last 24 Hours (Table) 06/05/18 06/05/18 Range/Units 08:04 08:04 Lymphocytes # 0.9 L (1.0-4.8) k/uL ALT 8 L (9-52) U/L Assessment and Plan Plan: 1. Atrial fibrillation with rapid ventricular response. Discontinue Cardizem drip, discontinue heparin drip, continue patient on metoprolol 25 mg orally twice every day, monitor the patient very closely, echocardiogram done, cardiology already saw the patient. 2. History of CAD. Continue patient on Lipitor 10 mg orally once every day, Imdur 30 mg orally once every day, Toprol-XL 25 mg orally twice every day. 3. Hypertension and hypertensive cardiovascular disease. Continue patient on Toprol-XL 25 mg orally twice every day as well as Norvasc 5 mg orally once every day. 4. vascular dementia patient has been off Aricept for now. 5. hypothyroidism: Continue Synthroid 75 g daily. 6. hyperlipidemia. Continue Lipitor 10 mg orally once every day. 7. Anxiety. Continue patient on Xanax 0.25 mg orally once every day as needed. 8. Insomnia. Continue patient on Restoril 15 mg orally once at bedtime. 9. Chronic anemia. Monitor the patient's CBC. 10. Vitamin D deficiency. Continue vitamin D 2 once a week. 11. Recent UTI. Complete Keflex 500 mg orally twice every day until done. 12. Patient is full code. 13. Admit to inpatient. Estimate length of stay 2 midnights. The above impression and plan of care have been discussed and directed by signing physician. Dayana Villanueva nurse practitioner acting as scribe for signing physician.
[2018-06-05] MEDS: ATORVASTATIN 10 MG TAB PO SCH (20:02)
[2018-06-05] MEDS: TEMAZEPAM 15 MG CAP PO PRN (23:12)
[2018-06-06] MEDS: LEVOTHYROXINE 75 MCG TAB PO SCH (06:46)
[2018-06-06] MEDS: POTASSIUM CHLORIDE ER 10 MEQ TAB.ER.PRT PO SCH (09:07)
[2018-06-06] MEDS: ISOSORBIDE MONONITRATE ER 30 MG TAB.ER.24H PO SCH (09:07)
[2018-06-06] MEDS: GABAPENTIN 100 MG CAP PO SCH (09:07)
[2018-06-06] MEDS: METOPROLOL SUCCINATE (ER) 25 MG TAB.ER.24H PO SCH (09:07)
[2018-06-06] MEDS: FUROSEMIDE 40 MG TAB PO SCH (09:07)
[2018-06-06] MEDS: amLODIPine 5 MG TAB PO SCH (09:07)
[2018-06-06 09:12] VITALS: RESP 20
[2018-06-06] MEDS: CEPHALEXIN 500 MG CAP PO SCH (11:25)
[2018-06-06 12:26] VITALS: BP 97/61; PULSE 94; TEMP 97.6
--- NOTE | 2018-06-06 12:33 | P.DS ---
Providers Date of admission: 06/03/18 19:01 Attending physician: Snow Randall Consults: 06/03/18 19:03 Consult Physician Routine Consulting Provider: Tristan Tejada Consult Reason/Comments: Atrial fibrillation with RVR Do you want consulting provider notified?: Yes Primary care physician: Brandin Escoto [facility] Course: This is an 87-year-old female patient of Dr. Dr. Escoto with long- standing history of CAD, A. fib, recurrent angina and chest pain with multiple fall is known to have mild COPD, abnormal balance and gait for long time, apparently the patient was brought into the emergency department at [facility] and for evaluation of psychiatric illness due to her dementia and behavioral disturbances and she was found to have an atrial fibrillation with rapid response, she was placed on Cardizem drip as well as heparin drip, spoke with the ER physician that the patient has chronic atrial fibrillation and she is very poor candidate for anticoagulation because of her age recurrent falls as well as the dementia history, however the patient ended up admitted to the hospital with cardiology evaluation. Patient was taken off her Cardizem drip as well as her heparin drip, she was started on metoprolol 25 mg orally twice every day, patient developed to have history of bradycardia in the past and we have to be very careful introducing beta russell to her regimen. 06/05: Patient evaluated today, denies any shortness of breath or chest pain. Cardizem drip was discontinued, she remains on metoprolol 25 mg twice a day. Heart rate remains in the 100s. Echocardiogram shows a.fib, EF 55-60%, mild aortic regurgitation, mild mitral regurgitation, and severe tricuspid regurgitation. Will have PT evaluate patient, may need rehab upon discharge. 06/06: Patient noted to be sitting up in bedside chair today. She reports she is feeling well, no chest pain, palpitations, or shortness of breath. She will be discharged to [facility] for subacute rehab. She will continue on Metoprolol 25mg BID, no anticoagulation is recommended due to her high risk for falls. Heart rate remains in the 100's. Discharge Diagnoses: 1. Atrial fibrillation with rapid ventricular response. 2. History of CAD. 3. Hypertension and hypertensive cardiovascular disease. 4. vascular dementia 5. hypothyroidism 6. hyperlipidemia 7. Anxiety 8. Insomnia 9. Chronic anemia 10. Vitamin D deficiency 11. Recent UTI The above impression and plan of care have been discussed and directed by signing physician. Dayana Villanueva nurse practitioner acting as scribe for signing physician. Patient Condition at Discharge: Good Plan - Discharge Summary New Discharge Prescriptions: No Action amLODIPine BESYLATE [Norvasc] 5 mg PO DAILY Ergocalciferol [Vitamin D2 (DRISDOL)] 50,000 unit PO RAMÍREZ Potassium Chloride ER [K-Dur 10] 10 meq PO DAILY Levothyroxine Sodium [Synthroid] 75 mcg PO DAILY Isosorbide Mononitrate ER [Imdur] 30 mg PO DAILY Temazepam [Restoril] 15 mg PO HS PRN PRN Reason: RESTLESS LEGS Simvastatin [Zocor] 20 mg PO HS Metoprolol Succinate [Toprol XL] 25 mg PO DAILY Gabapentin [Neurontin] 100 mg PO DAILY ALPRAZolam [Xanax] 0.25 mg PO DAILY PRN PRN Reason: Anxiety Furosemide [Lasix] 20 mg PO DAILY Cephalexin [Keflex] 500 mg PO Q6HR #28 cap Discharge Medication List amLODIPine BESYLATE [Norvasc] 5 mg PO DAILY 04/22/14 [History] Ergocalciferol [Vitamin D2 (DRISDOL)] 50,000 unit PO RAMÍREZ 09/09/15 [History] Potassium Chloride ER [K-Dur 10] 10 meq PO DAILY 09/09/15 [History] Levothyroxine Sodium [Synthroid] 75 mcg PO DAILY 11/10/15 [History] Isosorbide Mononitrate ER [Imdur] 30 mg PO DAILY 11/17/15 [History] ALPRAZolam [Xanax] 0.25 mg PO DAILY PRN 10/15/17 [History] Furosemide [Lasix] 20 mg PO DAILY 10/15/17 [History] Gabapentin [Neurontin] 100 mg PO DAILY 10/15/17 [History] Metoprolol Succinate [Toprol XL] 25 mg PO DAILY 10/15/17 [History] Simvastatin [Zocor] 20 mg PO HS 10/15/17 [History] Temazepam [Restoril] 15 mg PO HS PRN 10/15/17 [History] Cephalexin [Keflex] 500 mg PO Q6HR #28 cap 06/01/18 [Rx] Follow up Appointment(s)/Referral(s): Brandin Escoto MD [Primary Care Provider] - 1-2 days
--- NOTE | 2018-06-06 14:15 | P.PN ---
Subjective Progress Note Date: 06/06/18 Assessment pleasant 87-year-old female patient with past medical history significant for #chronic atrial fibrillation, not on any oral anticoagulation, history of underlying dementia. She is brought to the hospital because she was not feeling well. Overall the patient is a poor historian. No indication of any chest discomfort or pain, shortness of breath, dizziness, lightheadedness or loss of consciousness. She was found to be in atrial fibrillation with rapid ventricular response when she was admitted to the emergency department and was started on Cardizem drip at 5 mg per hour. Cardizem drip has since been discontinued and patient has been started on metoprolol succinate 25 mg by mouth twice a day. Heart rate are reasonably well controlled. Cardiogram showed normal LV systolic function with ejection fraction between 55-60%, moderate aortic valve sclerosis, mild aortic regurgitation, mild mitral regurgitation and severe tricuspid regurgitation. Upon Examination this morning, patient is sitting up in a chair. Overall she feels fairly well. She is anticipating being discharged to an extended care facility. Objective - Vital Signs Vital signs: Vital Signs Temp 97.6 F 06/06/18 12:00 Pulse 94 06/06/18 12:00 Resp 20 06/06/18 12:00 BP 97/61 06/06/18 12:00 Pulse Ox 96 06/06/18 12:00 Intake & Output 06/05/18 06/06/18 06/06/18 18:59 06:59 18:59 Intake Total 580 120 400 Balance 580 120 400 Weight 41.2 kg 41.1 kg Intake: Oral 580 120 400 Other: Voiding Method Toilet Diaper # Voids 1 1 # Bowel Movements 0 - Exam PHYSICAL EXAMINATION: HEENT: Head is atraumatic, normocephalic. Pupils equal, round. Neck is supple. There is no elevated jugular venous pressure. HEART EXAMINATION: Heart sounds irregularly irregular, S1 and S2 systolic murmur. CHEST EXAMINATION: Lungs are clear to auscultation and precussion. No chest wall tenderness is noted on palpation or with deep breathing. ABDOMEN: Soft, nontender. Bowel sounds are heard. No organomegaly noted. EXTREMITIES: 2+ peripheral pulses with no evidence of peripheral edema and no calf tenderness noted. NEUROLOGIC patient is awake, alert and oriented x3. . - Labs CBC & Chem 7: 06/05/18 08:04 06/05/18 08:04 Assessment and Plan Assessment: #1 atrial fibrillation with rapid ventricular response #2 known chronic atrial fibrillation, not on long-term anticoagulation due to advanced dementia, fall risk and risk of bleeding #3 dementia Plan: Cardiology's perspective, we will continue current medications. Anticipate discharge today. PUMPER GAUGER APPRENTICE note has been reviewed, I agree with a documented findings and plan of care. Patient was seen and examined.
--- NOTE | 2018-06-08 08:29 | CDI ---
Last Revision, July 2017 Documentation Clarification Form Date: 06/08/18 From: Kristie Serra Phone: If you have a question regarding this query, please contact Mery Fink at [phone] between 8am and 5pm. Admit Date: 06/03/2018 7:01:00 PM Patient Name: Christin Bui Visit Number: [id number] Discharge Date: 06/06/18 ATTENTION: The Clinical Documentation Specialists (CDI) and [facility] Coding Staff appreciate your assistance in clarifying documentation. Please respond to the clarification below the line at the bottom and electronically sign. The CDI & [facility] Coding staff will review the response and follow-up if needed. Please note: Queries are made part of the Legal Health Record. If you have any questions, please contact the author of this message via ITS. Derrick Ames MD CHF exacerbation is documented in the H&P. Heart failure is documented in the past medical history of the H&P and your consult note. History/Risk Factors: Patient has a history of hypertension, CAD and mitral, tricuspid and aortic regurgitation. Clinical Indicators: Weakness, dyspnea on exertion, rapid heart rate, shortness of breath VS/Pulse OX: T. 98.8, P. 112, R. 16, BP 137/94, Pulse Ox. 95% BNP: 2280 Echocardiogram Results: Overall LV systolic function is normal with an EF between 55 - 60% Chest X Ray: Cardiomegaly and chronic parenchymal without acute pulmonary process. Treatment: IV Lasix 40 mg once, PO Lasix 20 mg daily. In your professional opinion, can you please clarify the acuity and type of CHF if known? Systolic Heart Failure: Acute Chronic Acute on Chronic Diastolic Heart Failure: Acute Chronic Acute on Chronic Systolic & Diastolic Heart Failure: Acute Chronic Acute on Chronic Heart Failure Unable to Determine Other, please specify MTDD
[2018-06-11] MEDS ORDERED: ERGOCALCIFEROL 50,000 UNIT CAP PO SCH (09:00)
== END 2018-06-06 15:54 | DRG 309 ==
LOC: EC 15:34 → 6SEL 19:01 → 3SCARD 06-04 11:17 → 6SEL 06-04 11:17 → 3SCARD 06-05 16:19
PROVIDERS: ADMIT Internal Medicine; ATTEND Internal Medicine
DX: I48.2 Chronic atrial fibrillation (principal); F01.51 Vascular dementia, unspecified severity, with behavioral disturbance; N39.0 Urinary tract infection, site not specified; D64.9 Anemia, unspecified; E89.0 Postprocedural hypothyroidism; E55.9 Vitamin D deficiency, unspecified; E78.5 Hyperlipidemia, unspecified; F32.9 Major depressive disorder, single episode, unspecified; F41.9 Anxiety disorder, unspecified; G47.00 Insomnia, unspecified; H35.30 Unspecified macular degeneration; I08.3 Combined rheumatic disorders of mitral, aortic and tricuspid valves; I11.0 Hypertensive heart disease with heart failure; I25.10 Atherosclerotic heart disease of native coronary artery without angina pectoris; J44.9 Chronic obstructive pulmonary disease, unspecified; K21.9 Gastro-esophageal reflux disease without esophagitis; M81.0 Age-related osteoporosis without current pathological fracture; R29.6 Repeated falls; K57.90 Diverticulosis of intestine, part unspecified, without perforation or abscess without bleeding; M19.90 Unspecified osteoarthritis, unspecified site; I73.9 Peripheral vascular disease, unspecified; R26.9 Unspecified abnormalities of gait and mobility; Z87.891 Personal history of nicotine dependence; Z79.899 Other long term (current) drug therapy; Z88.5 Allergy status to narcotic agent; Z88.0 Allergy status to penicillin; Z88.2 Allergy status to sulfonamides; Z87.01 Personal history of pneumonia (recurrent); Z98.42 Cataract extraction status, left eye; Z98.41 Cataract extraction status, right eye; Z96.1 Presence of intraocular lens; Z96.643 Presence of artificial hip joint, bilateral; Z96.651 Presence of right artificial knee joint; Z80.3 Family history of malignant neoplasm of breast; Z82.49 Family history of ischemic heart disease and other diseases of the circulatory system; Z84.1 Family history of disorders of kidney and ureter
CPT/HCPCS: 36415; 51798; 71046; 80053; 81001; 82550; 82553; 83690; 83735; 83880; 84484; 85025; 85610; 85730; 87077; 87086; 87186; 93005; 93306; 96360; 96365; 96366; 96368; 96375; 96376; 99283; 99285

== ENCOUNTER 2018-08-24 07:45 | Inpatient (IN) | payer MEDICARE, BC ==
[2018-08-24] MEDS ORDERED: SODIUM CHLORIDE 0.9% 1,000 ML IV STA (07:57)
--- NOTE | 2018-08-24 08:11 | ED ---
General Adult HPI - General Stated complaint: POSS CVA Time Seen by Provider: 08/24/18 07:45 Source: RN notes reviewed - History of Present Illness Initial comments: This is an 87-year-old female presents emergency Department complaining slurred speech and left-sided facial droop and left arm weakness. According to the staff the last time the patient was seen normal was 8 PM last evening. Patient is a poor historian and cannot add much to this history. We have no other history at this time. Patient does not complain of any chest pain or abdominal pain. There has been no history of any trauma. - Related Data Home Medications Medication Instructions Recorded Confirmed amLODIPine BESYLATE [Norvasc] 5 mg PO DAILY 04/22/14 08/24/18 Ergocalciferol [Vitamin D2 50,000 unit PO RAMÍREZ 09/09/15 08/24/18 (DRISDOL)] Potassium Chloride ER [K-Dur 10] 10 meq PO DAILY 09/09/15 08/24/18 Levothyroxine Sodium [Synthroid] 75 mcg PO DAILY 11/10/15 08/24/18 Isosorbide Mononitrate ER [Imdur] 30 mg PO DAILY 11/17/15 08/24/18 Furosemide [Lasix] 20 mg PO DAILY 10/15/17 08/24/18 Gabapentin [Neurontin] 100 mg PO DAILY 10/15/17 08/24/18 Metoprolol Succinate [Toprol XL] 25 mg PO DAILY 10/15/17 08/24/18 Simvastatin [Zocor] 20 mg PO HS 10/15/17 08/24/18 Previous Rx's Medication Instructions Recorded ALPRAZolam [Xanax] 0.25 mg PO DAILY PRN #3 tab 06/06/18 Temazepam [Restoril] 15 mg PO HS PRN #3 cap 06/06/18 Allergies Allergy/AdvReac Type Severity Reaction Status Date / Time morphine Allergy Confusion Verified 06/03/18 15:59 Penicillins Allergy Unknown Verified 06/03/18 15:59 Sulfa (Sulfonamide Allergy Unknown Verified 06/03/18 15:59 Antibiotics) Review of Systems ROS Statement: Those systems with pertinent positive or pertinent negative responses have been documented in the HPI. ROS Other: All systems not noted in ROS Statement are negative. Past Medical History Past Medical History: Atrial Fibrillation, Coronary Artery Disease (CAD), Chest Pain / Angina, Heart Failure, COPD, Dementia, Eye Disorder, GERD/Reflux, Hyperlipidemia, Hypertension, Osteoarthritis (OA), Pneumonia, Thyroid Disorder, Vascular Disorder Additional Past Medical History / Comment(s): Bradycardia, left ventricular hypertrophy, PAD, macular degeneration R eye, R shoulder pain, UTIs, osteoporosis, vitamin D deficiency, multiple falls, gait dysturbance, abnormal balance, diverticulosis, goiter. History of Any Multi-Drug Resistant Organisms: None Reported Past Surgical History: Joint Replacement, Orthopedic Surgery Additional Past Surgical History / Comment(s): right shoulder PLATE AND SCREWS, SANGITA CATARACTS, RT EYE RETINAL SX, thyroid removed, total R hip, Total L hip with revision, total R knee, colonoscopy/polypectomy. Past Anesthesia/Blood Transfusion Reactions: No Reported Reaction Past Psychological History: Anxiety, Depression Smoking Status: Former smoker Past Alcohol Use History: None Reported Past Drug Use History: None Reported - Past Family History Father History Unknown: Yes Family Medical History: Renal Disease Mother History Unknown: Yes Family Medical History: Hypertension Brother(s) Family Medical History: No Reported History Daughter(s) Family Medical History: Cancer Additional Family Medical History / Comment(s): Pt states her oldest law of breast cancer. Son(s) Family Medical History: No Reported History General Exam - General Exam Comments Initial Comments: GENERAL: Patient is well-developed and well-nourished. Patient is nontoxic and well- hydrated and is in no acute distress. ENT: Neck is soft and supple. No significant lymphadenopathy is noted. Oropharynx is clear. Moist mucous membranes. Neck has full range of motion without eliciting any pain. EYES: The sclera were anicteric and conjunctiva were pink and moist. Extraocular movements were intact and pupils were equal round and reactive to light. Eyelids were unremarkable. PULMONARY: Unlabored respirations. Good breath sounds bilaterally. No audible rales rhonchi or wheezing was noted. CARDIOVASCULAR: Patient has an irregular rate and rhythm ABDOMEN: Soft and nontender with normal bowel sounds. No palpable organomegaly was noted. There is no palpable pulsatile mass. SKIN: Skin is clear with no lesions or rashes and otherwise unremarkable. NEUROLOGIC: Patient is alert and oriented 2. Patient has slurred speech and left-sided facial droop. Rations left arm is considerably weaker than the right. Patient has slurred speech. Please review nursing notes for the full NIH score MUSCULOSKELETAL: Normal extremities with adequate strength and full range of motion. No lower extremity swelling or edema. No calf tenderness. LYMPHATICS: No significant lymphadenopathy is noted PSYCHIATRIC: Normal psychiatric evaluation. Course Vital Signs 08/24/18 08/24/18 08/24/18 07:48 08:11 08:15 Temperature 98.5 F Pulse Rate 96 98 100 Respiratory 20 20 20 Rate Blood Pressure 163/103 186/100 163/103 O2 Sat by Pulse 98 98 99 Oximetry 08/24/18 08/24/18 08/24/18 08:21 08:45 09:00 Temperature Pulse Rate 90 97 96 Respiratory 18 20 18 Rate Blood Pressure 163/100 163/97 144/86 O2 Sat by Pulse 100 99 100 Oximetry 08/24/18 08/24/18 08/24/18 09:15 10:00 10:15 Temperature Pulse Rate 105 H 104 H Respiratory 18 22 Rate Blood Pressure 148/82 160/105 176/108 O2 Sat by Pulse Oximetry 08/24/18 10:30 Temperature Pulse Rate 106 H Respiratory 21 Rate Blood Pressure 160/89 O2 Sat by Pulse Oximetry Medical Decision Making - Medical Decision Making EKG shows atrial fibrillation at 96 bpm QRS is 84 QT interval 366 QTC C is 462. Patient's EKG shows no ST segment elevation or depression or T wave abnormalities are noted. Dr. Liang reviewed the CT of the brain and the CTA and determined that there was no intervention at this time is far as thrombectomy or TPA. Patient was going to get Lipitor and Plavix however patient is unable to pass a swallow screen so that will be held at this time. Patient will be admitted I spoke with Dr. sevilla. Agreed to admit the patient admitted the patient remaining was consulted neurology - Lab Data Result diagrams: 08/24/18 07:55 08/24/18 07:55 Lab Results 08/24/18 08/24/18 08/24/18 Range/Units 07:55 07:55 07:55 WBC 6.7 (3.8-10.6) k/uL RBC 4.07 (3.80-5.40) m/uL Hgb 10.8 L (11.4-16.0) gm/dL Hct 34.5 (34.0-46.0) % MCV 84.7 (80.0-100.0) fL MCH 26.4 (25.0-35.0) pg MCHC 31.2 (31.0-37.0) g/dL RDW 14.3 (11.5-15.5) % Plt Count 338 (150-450) k/uL Neutrophils % 64 % Lymphocytes % 16 % Monocytes % 9 % Eosinophils % 8 % Basophils % 1 % Neutrophils # 4.3 (1.3-7.7) k/uL Lymphocytes # 1.1 (1.0-4.8) k/uL Monocytes # 0.6 (0-1.0) k/uL Eosinophils # 0.5 (0-0.7) k/uL Basophils # 0.0 (0-0.2) k/uL Hypochromasia Slight PT (9.0-12.0) sec INR (<1.2) APTT (22.0-30.0) sec Sodium 142 (137-145) mmol/L Potassium 4.7 (3.5-5.1) mmol/L Chloride 109 H (98-107) mmol/L Carbon Dioxide 25 (22-30) mmol/L Anion Gap 8 mmol/L BUN 17 (7-17) mg/dL Creatinine 0.82 (0.52-1.04) mg/dL Est GFR (CKD-EPI)AfAm 74 (>60 ml/min/1.73 sqM) Est GFR (CKD-EPI)NonAf 64 (>60 ml/min/1.73 sqM) Glucose 88 (74-99) mg/dL Calcium 8.7 (8.4-10.2) mg/dL Total Bilirubin 0.4 (0.2-1.3) mg/dL AST 19 (14-36) U/L ALT 18 (9-52) U/L Alkaline Phosphatase 73 (38-126) U/L Total Creatine Kinase 33 (30-135) U/L CK-MB (CK-2) 0.5 (0.0-2.4) ng/mL CK-MB (CK-2) Rel Index 1.5 Troponin I <0.012 (0.000-0.034) ng/mL Total Protein 6.3 (6.3-8.2) g/dL Albumin 3.5 (3.5-5.0) g/dL 08/24/18 Range/Units 07:55 WBC (3.8-10.6) k/uL RBC (3.80-5.40) m/uL Hgb (11.4-16.0) gm/dL Hct (34.0-46.0) % MCV (80.0-100.0) fL MCH (25.0-35.0) pg MCHC (31.0-37.0) g/dL RDW (11.5-15.5) % Plt Count (150-450) k/uL Neutrophils % % Lymphocytes % % Monocytes % % Eosinophils % % Basophils % % Neutrophils # (1.3-7.7) k/uL Lymphocytes # (1.0-4.8) k/uL Monocytes # (0-1.0) k/uL Eosinophils # (0-0.7) k/uL Basophils # (0-0.2) k/uL Hypochromasia PT 10.2 (9.0-12.0) sec INR 0.9 (<1.2) APTT 22.2 (22.0-30.0) sec Sodium (137-145) mmol/L Potassium (3.5-5.1) mmol/L Chloride (98-107) mmol/L Carbon Dioxide (22-30) mmol/L Anion Gap mmol/L BUN (7-17) mg/dL Creatinine (0.52-1.04) mg/dL Est GFR (CKD-EPI)AfAm (>60 ml/min/1.73 sqM) Est GFR (CKD-EPI)NonAf (>60 ml/min/1.73 sqM) Glucose (74-99) mg/dL Calcium (8.4-10.2) mg/dL Total Bilirubin (0.2-1.3) mg/dL AST (14-36) U/L ALT (9-52) U/L Alkaline Phosphatase (38-126) U/L Total Creatine Kinase (30-135) U/L CK-MB (CK-2) (0.0-2.4) ng/mL CK-MB (CK-2) Rel Index Troponin I (0.000-0.034) ng/mL Total Protein (6.3-8.2) g/dL Albumin (3.5-5.0) g/dL Disposition Clinical Impression: Cerebrovascular accident Disposition: ADMITTED IP TO THIS HOSP Referrals: Brandin Escoto MD [Primary Care Provider] - 1-2 days Time of Disposition: 10:46
[2018-08-24 08:24] LABS: Basophils % (A) 1 %; Eosinophils # (A) 0.5 k/uL (0-0.7); Eosinophils % (A) 8 %; HCT 34.5 % (34.0-46.0); HGB 10.8 gm/dL (11.4-16.0); Hypochromasia Slight; Lymphocytes # (A) 1.1 k/uL (1.0-4.8); Lymphocytes % (A) 16 %; MCH 26.4 pg (25.0-35.0); MCHC 31.2 g/dL (31.0-37.0); MCV 84.7 fL (80.0-100.0); Monocytes # (A) 0.6 k/uL (0-1.0); Monocytes % (A) 9 %; Neutrophils # (A) 4.3 k/uL (1.3-7.7); Neutrophils % (A) 64 %; Platelet Count 338 k/uL (150-450); RBC 4.07 m/uL (3.80-5.40); RDW 14.3 % (11.5-15.5); WBC 6.7 k/uL (3.8-10.6)
[2018-08-24 08:39] LABS: Albumin 3.5 g/dL (3.5-5.0); Calcium 8.7 mg/dL (8.4-10.2); Potassium 4.7 mmol/L (3.5-5.1); Total Bilirubin 0.4 mg/dL (0.2-1.3); Total Protein 6.3 g/dL (6.3-8.2)
--- NOTE | 2018-08-24 08:50 | CT ---
EXAMINATION TYPE: CT brain wo con for TPA DATE OF EXAM: 08/24/2018 COMPARISON: 11/01/2016 HISTORY: Lt facial droop, arm weakness CT DLP: 1164.4 mGycm Automated exposure control for dose reduction was used. FINDINGS: There is encephalomalacia of the left temporal lobe as seen on the prior exam of 11/01/2016. Old lacun ar injuries are seen within the external capsules, also unchanged from the prior. Few dystrophic waylon gn basal ganglia calcifications are noted. There is focal hypoattenuation of the right frontal lobe t hat appears to have volume loss and is near CSF attenuation although not seen on the prior exam of 20 17. Given the imaging findings this is favored to be chronic or at least subacute there is symmetric prominence of the peripheral sulci and ventricular system compatible with age-related volume loss. No acute intracranial hemorrhage, midline shift or mass effect. Confluent areas of hypoattenuation are noted within the periventricular and subcortical white matter. Incidentally noted hyperostosis frontal sinus and talus. Bilateral scleral calcifications and right s cleral banding are seen. Mild mucosal thickening of the sphenoid, left maxillary, and ethmoid sinuses are noted. Remaining paranasal sinuses and mastoid air cells are well aerated. Calvarium displays os seous demineralization. IMPRESSION: 1. RIGHT FRONTAL REGIONAL HYPOATTENUATION WITH NEAR CSF ATTENUATION AND SULCAL ATROPHY IS COMPATIBLE WITH ENCEPHALOMALACIA FROM PRIOR INFARCT HAVING OCCURRED IN THE INTERIM IN COMPARISON TO EXAM OF 2016. 2. NO ACUTE INTRACRANIAL HEMORRHAGE OR MIDLINE SHIFT. 3. ADDITIONAL ENCEPHALOMALACIA IN THE LEFT TEMPORAL LOBE AND INSULAR CORTICES UNCHANGED FROM THE PRIO R. AGE-RELATED VOLUME LOSS AND MODERATE BURDEN NONSPECIFIC WHITE MATTER CHANGE ARE ALSO SEEN.
--- NOTE | 2018-08-24 08:57 | CT ---
EXAMINATION TYPE: CT angio head neck DATE OF EXAM: 08/24/2018 COMPARISON: None HISTORY: Lt facial droop, arm weakness CT DLP: 1164.4 mGycm CONTRAST: Performed with IV Contrast, patient injected with 65 mL of Isovue 370. Combination Contrast CTA cervical carotids and [place] CTA cervical carotids with 3-D recons truction Contrast CTA of the cervical carotids was performed 3-D reconstruction imaging obtained at a separate workstation. Right carotid system: Mild plaque is seen of the right common carotid artery. There is mild plaque a lso noted at the carotid bulb and proximal ICA. Moderate to tortuosity of the right ICA noted. 50% st enosis seen mid Right ICA. ECA is patent. Right vertebral artery appears unremarkable. Left carotid system: Mild plaque is seen of the left common carotid artery. There is mild plaque als o noted at the carotid bulb and proximal ICA. No significant diameter reduction. ECA is patent. Lef t vertebral artery appears unremarkable. IMPRESSION: 1. No significant diameter reduction to account for the patient's symptoms. CTA [place] with 3-D reconstruction Contrast CTA of the [place] was performed 3-D reconstruction imaging obtained at a separate workstation. Vertebrobasilar system as well as intracranial portions of the internal carotid arteries and their ma erlinda tributaries are patent. I do not see evidence for sizable aneurysm or vascular malformation. Poo r visualization right A1 segment. Please note MRI provides greater sensitivity and specificity. Visu alized brain appears grossly unremarkable. IMPRESSION: 1. Poor visualization right A1 segment. Otherwise unremarkable study.
[2018-08-24 08:58] LABS: INR 0.9 (<1.2); Partial Thromboplastin Time 22.2 sec (22.0-30.0); Prothrombin Time 10.2 sec (9.0-12.0)
[2018-08-24 09:17] LABS: Creatine Kinase 33 U/L (30-135)
[2018-08-24 09:28] LABS: Creatine Kinase MB 0.5 ng/mL (0.0-2.4); Troponin I <0.012 ng/mL (0.000-0.034)
[2018-08-24] MEDS ORDERED: ATORVASTATIN 80 MG TAB PO STA (09:35)
--- NOTE | 2018-08-24 10:14 | XR ---
EXAMINATION TYPE: XR chest 2V DATE OF EXAM: 08/24/2018 COMPARISON: 06/03/2018 HISTORY: Shortness of breath TECHNIQUE: Frontal and lateral views of the chest are obtained. FINDINGS: Scattered senescent parenchymal changes noted. Hyperinflation compatible with COPD. No evidence for infiltrate. No evidence for atelectasis. Heart size is stable. Mediastinal structures are stable and grossly unremarkable. No evidence for hilar prominence. Degenerative changes dorsal spine. IMPRESSION: 1. No evidence for acute pulmonary disease.
[2018-08-24] MEDS ORDERED: ALPRAZolam 0.25 MG TAB PO PRN (12:35)
[2018-08-24] MEDS ORDERED: TEMAZEPAM 15 MG CAP PO PRN (12:35)
[2018-08-24] MEDS ORDERED: FUROSEMIDE 20 MG TAB PO SCH (12:45)
[2018-08-24] MEDS ORDERED: METOPROLOL SUCCINATE (ER) 25 MG TAB.ER.24H PO SCH (12:45)
[2018-08-24] MEDS ORDERED: GABAPENTIN 100 MG CAP PO SCH (12:45)
[2018-08-24] MEDS ORDERED: ISOSORBIDE MONONITRATE ER 30 MG TAB.ER.24H PO SCH (12:45)
[2018-08-24] MEDS ORDERED: POTASSIUM CHLORIDE ER 10 MEQ TAB.ER.PRT PO SCH (12:45)
[2018-08-24] MEDS ORDERED: ENALAPRILAT 1.25 MG/ML 1 ML VIAL IVP PRN (14:55)
[2018-08-24] MEDS ORDERED: METOCLOPRAMIDE 5 MG/ML 2 ML VIAL IVP SCH (15:00)
--- NOTE | 2018-08-24 15:19 | P.HPIM ---
History of Present Illness H&P Date: 08/24/18 Chief Complaint: Left-sided weakness This is an 87-year-old female patient of Dr. Escoto with long-standing history of CAD, chronic A. fib but poor candidate for anticoagulation due to her age and recurrent falls and dementia history, recurrent angina and chest pain with multiple fall is known to have mild COPD, abnormal balance and gait for long time. Apparently the patient was brought into the emergency department at [facility] for evaluation of left facial droop, left-sided weakness. She states that her caregiver thought she had a stroke and she was brought in here. She apparently has had 3 recent falls. she is currently residing in a [facility]. Patient also states she has had a weight loss of 60 pounds since living at [facility]. Chest x-ray shows no evidence of acute pulmonary disease. CT angiogram of the head and neck showed no significant diameter reduction to account for the patient's symptoms. CTA of the [place] showed poor visualization and right A1 segment but otherwise unremarkable. CT of the brain showed right frontal regional hypoattenuation with near CSF attenuation and sulcal atrophy is compatible with encephalomalacia from prior infarct having occurred in the interim in comparison to exam of October 2016. No acute intracranial hemorrhage or midline shift. Additional encephalomalacia in the left temporal lobe and insular cortices unchanged from the prior. Age-related volume loss and moderate burden nonspecific white matter change are also seen. Patient was determined to not be candidate for thrombectomy or TPA. EKG is atrial fibrillation rate controlled. Blood pressures running high 163/103. Patient awaiting admission to the selective care unit. Neurology consult requested. Patient has failed swallow eval in the emergency center. Speech, physical and occupational therapies requested. Review of Systems All systems: negative Constitutional: Reports fatigue, Reports weakness, Reports weight loss, Denies chills, Denies fever Eyes: denies blurred vision, denies pain Ears, nose, mouth and throat: Denies dysphagia, Denies headache, Denies hoarseness, Denies mouth pain, Denies nasal congestion, Denies nasal discharge, Denies sore throat, Denies vertigo Cardiovascular: Denies chest pain, Denies decreased exercise tolerance, Denies dyspnea on exertion, Denies edema, Denies irregular heart beat, Denies lightheadedness, Denies shortness of breath, Denies syncope Respiratory: Denies cough Gastrointestinal: Denies abdominal pain, Denies diarrhea, Denies loss of appetite, Denies melena, Denies nausea, Denies vomiting Genitourinary: Denies dysuria, Denies hematuria, Denies urgency, Denies urinary frequency Musculoskeletal: Reports frequent falls, Reports gait dysfunction, Denies myalgias Integumentary: Denies pruritus, Denies rash, Denies wounds Neurological: Reports balance difficulties, Reports change in speech, Reports gait dysfunction, Denies change in mentation, Denies confusion, Denies convulsions, Denies double vision, Denies head injury, Denies numbness, Denies vertigo, Denies weakness Psychiatric: Denies anxiety, Denies depression Endocrine: Denies fatigue, Denies weight change Past Medical History Past Medical History: Atrial Fibrillation, Coronary Artery Disease (CAD), Chest Pain / Angina, Heart Failure, COPD, Dementia, Eye Disorder, GERD/Reflux, Hyperlipidemia, Hypertension, Osteoarthritis (OA), Pneumonia, Thyroid Disorder, Vascular Disorder Additional Past Medical History / Comment(s): Bradycardia, left ventricular hypertrophy, PAD, macular degeneration R eye, R shoulder pain, UTIs, osteoporosis, vitamin D deficiency, multiple falls, gait dysturbance, abnormal balance, diverticulosis, goiter. History of Any Multi-Drug Resistant Organisms: None Reported Past Surgical History: Joint Replacement, Orthopedic Surgery Additional Past Surgical History / Comment(s): right shoulder PLATE AND SCREWS, SANGITA CATARACTS, RT EYE RETINAL SX, thyroid removed, total R hip, Total L hip with revision, total R knee, colonoscopy/polypectomy. Past Anesthesia/Blood Transfusion Reactions: No Reported Reaction Past Psychological History: Anxiety, Depression Smoking Status: Former smoker Past Alcohol Use History: None Reported Past Drug Use History: None Reported - Past Family History Father History Unknown: Yes Family Medical History: Renal Disease Mother History Unknown: Yes Family Medical History: Hypertension Brother(s) Family Medical History: No Reported History Daughter(s) Family Medical History: Cancer Additional Family Medical History / Comment(s): Pt states her oldest law of breast cancer. Son(s) Family Medical History: No Reported History Medications and Allergies Home Medications Medication Instructions Recorded Confirmed Type amLODIPine BESYLATE [Norvasc] 5 mg PO DAILY 04/22/14 08/24/18 History Ergocalciferol [Vitamin D2 50,000 unit PO RAMÍREZ 09/09/15 08/24/18 History (DRISDOL)] Potassium Chloride ER [K-Dur 10] 10 meq PO DAILY 09/09/15 08/24/18 History Levothyroxine Sodium [Synthroid] 75 mcg PO DAILY 11/10/15 08/24/18 History Isosorbide Mononitrate ER [Imdur] 30 mg PO DAILY 11/17/15 08/24/18 History Furosemide [Lasix] 20 mg PO DAILY 10/15/17 08/24/18 History Gabapentin [Neurontin] 100 mg PO DAILY 10/15/17 08/24/18 History Metoprolol Succinate [Toprol XL] 25 mg PO DAILY 10/15/17 08/24/18 History Simvastatin [Zocor] 20 mg PO HS 10/15/17 08/24/18 History ALPRAZolam [Xanax] 0.25 mg PO DAILY PRN #3 tab 06/06/18 08/24/18 Rx Temazepam [Restoril] 15 mg PO HS PRN #3 cap 06/06/18 08/24/18 Rx Allergies Allergy/AdvReac Type Severity Reaction Status Date / Time morphine Allergy Confusion Verified 06/03/18 15:59 Penicillins Allergy Unknown Verified 06/03/18 15:59 Sulfa (Sulfonamide Allergy Unknown Verified 06/03/18 15:59 Antibiotics) Physical Exam Vitals: Vital Signs Temp Pulse Resp BP Pulse Ox 08/24/18 13:14 98.7 F 110 H 24 166/100 96 08/24/18 12:15 115 H 22 167/85 08/24/18 11:45 103 H 20 151/77 08/24/18 11:30 97 18 152/96 08/24/18 11:00 105 H 22 152/97 08/24/18 10:45 110 H 20 158/98 08/24/18 10:30 106 H 21 160/89 08/24/18 10:15 104 H 22 176/108 08/24/18 10:00 160/105 08/24/18 09:15 105 H 18 148/82 08/24/18 09:00 96 18 144/86 100 08/24/18 08:45 97 20 163/97 99 08/24/18 08:21 90 18 163/100 100 01/03/19 08:15 100 20 163/103 99 08/24/18 08:11 98 20 186/100 98 08/24/18 07:48 98.5 F 96 20 163/103 98 Intake and Output 08/23/18 08/24/18 08/24/18 22:59 06:59 14:59 Other: Weight 43.091 kg General appearance: no distress, thin - EENT Eyes: anicteric sclerae, EOMI, PERRLA, no ptosis, no scleral icterus, normal appearance ENT: hard of hearing, NA/AT, normal oropharynx Ears: bilateral: normal - Neck Neck: no lymphadenopathy, normal ROM, no rigidity, no stridor, no thyromegaly Carotids: bilateral: upstroke delayed Thyroid: bilateral: normal size - Respiratory Respiratory: bilateral: diminished, negative: dullness, rales, rhonchi, wheezing , prolonged expiration, prolonged inspiration - Cardiovascular Rhythm: irregularly irregular Heart sounds: normal: S1, S2 Abnormal Heart Sounds: systolic murmur - Gastrointestinal General gastrointestinal: normal bowel sounds, soft, no splenomegaly, no tenderness, no umbilical hernia - Integumentary Integumentary: normal, normal turgor - Neurologic Neurologic: CNII-XII intact - Musculoskeletal Musculoskeletal: generalized weakness - Psychiatric Psychiatric: A&O x's 2-3, appropriate affect, intact judgment & insight, patient is slow to respond to questions. Speech is slurred and somewhat difficult to understand. Left-sided facial droop, strength left lower extremity 3/5, right 5/5. Results CBC & Chem 7: 08/24/18 07:55 08/24/18 07:55 Labs: Abnormal Lab Results - Last 24 Hours (Table) 08/24/18 08/24/18 Range/Units 07:55 07:55 Hgb 10.8 L (11.4-16.0) gm/dL Chloride 109 H (98-107) mmol/L Thrombosis Risk Factor Assmnt - DVT/VTE Prophylaxis DVT/VTE Prophylaxis: Pharmacologic Prophylaxis ordered Assessment and Plan Plan: 1. 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 Patient admitted to the selective care unit, neurology consult requested, neuro checks per protocol. Speech, physical and occupational therapies requested. Patient started on full strength aspirin rectally. Patient has failed swallow evaluation. 2. Chronic atrial fibrillation. Patient has not been a candidate for any anticoagulation due to frequent falls. Patient started on Lopressor 5 mg IV push every 6 hours. 2. History of CAD. Start nitro bid ointment 0.5 inch every 8 hours. 3. Hypertension and hypertensive cardiovascular disease. Vasotec 1.25 mg IV push every 6 hours as needed for systolic blood pressure greater than 160. 4. Vascular dementia patient has been off Aricept for now. 5. Hhypothyroidism: Continue Synthroid 75 g daily and will be switched to IV at 37.5 g daily. 6. Hyperlipidemia. 7. Generalized anxiety disorder Anxiety. IV Ativan as needed. 8. Insomnia. IV Ativan as needed. 9. Chronic anemia of chronic disease. 10. Vitamin D deficiency. . 11. DVT prophylaxis. Heparin subcu. 12. GI prophylaxis. Protonix IV. 13. Admit to inpatient. Estimate length of stay 2 midnights. Discharge plan: Most likely subacute rehab Impression and plan of care have been directed as dictated by the signing physician. Irene Villegas nurse practitioner acting as scribe for signing physician.
[2018-08-24] MEDS: SODIUM CHLORIDE 0.9% 1,000 ML IV SCH (15:40)
[2018-08-24] MEDS: NITROGLYCERIN OINT 1 INCH/GM PACKET TOPICAL SCH ×2 (16:19→22:59)
[2018-08-24] MEDS: METOPROLOL TARTRATE 5 MG/5 ML VIAL IVP SCH ×2 (16:20→22:59)
[2018-08-24] MEDS: LORazepam 2 MG/ML INJ IV PRN ×2 (16:28→20:55)
[2018-08-24] MEDS ORDERED: ATORVASTATIN 10 MG TAB PO SCH (21:00)
--- NOTE | 2018-08-24 22:08 | P.CNNES ---
History of Present Illness Consult date: 08/24/18 History of Present Illness: The patient is an 87-year-old woman a resident of [facility], with history of multiple medical problems including atrial fibrillation dementia coronary artery disease hypertension recurrent falls who was found to have some left facial droop and left-sided weakness today. Patient is a poor historian. She is able to speak. He is able to follow a few commands. She states she wants us cigarette and a match. She had a CT of the brain which showed right frontal infarct with encephalomalacia as well as a left temporal lobe infarct and some atrophy. There is encephalomalacia of the left temporal lobe which was seen in the prior scan of October 2016 and unchanged. There appears to be a new focal hypoattenuation in the right frontal lobe which was not seen in 2017. Neurology is requested see the patient regarding stroke. She is admitted to the hospital with right sided stroke and left-sided weakness. She has a history of chronic A. fib but not on anticoagulation due to recurrent falls. The patient underwent CTA was found not to be TPA candidate in the emergency room. Review of Systems ROS unobtainable: due to mental status Past Medical History Past Medical History: Atrial Fibrillation, Coronary Artery Disease (CAD), Chest Pain / Angina, Heart Failure, COPD, Dementia, Eye Disorder, GERD/Reflux, Hyperlipidemia, Hypertension, Osteoarthritis (OA), Pneumonia, Thyroid Disorder, Vascular Disorder Additional Past Medical History / Comment(s): Bradycardia, left ventricular hypertrophy, PAD, macular degeneration R eye, R shoulder pain, UTIs, osteoporosis, vitamin D deficiency, multiple falls, gait dysturbance, abnormal balance, diverticulosis, goiter. History of Any Multi-Drug Resistant Organisms: None Reported Past Surgical History: Joint Replacement, Orthopedic Surgery Additional Past Surgical History / Comment(s): right shoulder PLATE AND SCREWS, SANGITA CATARACTS, RT EYE RETINAL SX, thyroid removed, total R hip, Total L hip with revision, total R knee, colonoscopy/polypectomy. Past Anesthesia/Blood Transfusion Reactions: No Reported Reaction Past Psychological History: Anxiety, Depression Smoking Status: Former smoker Past Alcohol Use History: None Reported Past Drug Use History: None Reported - Past Family History Father History Unknown: Yes Family Medical History: Renal Disease Mother History Unknown: Yes Family Medical History: Hypertension Brother(s) Family Medical History: No Reported History Daughter(s) Family Medical History: Cancer Additional Family Medical History / Comment(s): Pt states her oldest law of breast cancer. Son(s) Family Medical History: No Reported History Medications and Allergies Home Medications Medication Instructions Recorded Confirmed Type amLODIPine BESYLATE [Norvasc] 5 mg PO DAILY 04/22/14 08/24/18 History Ergocalciferol [Vitamin D2 50,000 unit PO RAMÍREZ 09/09/15 08/24/18 History (DRISDOL)] Potassium Chloride ER [K-Dur 10] 10 meq PO DAILY 09/09/15 08/24/18 History Levothyroxine Sodium [Synthroid] 75 mcg PO DAILY 11/10/15 08/24/18 History Isosorbide Mononitrate ER [Imdur] 30 mg PO DAILY 11/17/15 08/24/18 History Furosemide [Lasix] 20 mg PO DAILY 10/15/17 08/24/18 History Gabapentin [Neurontin] 100 mg PO DAILY 10/15/17 08/24/18 History Metoprolol Succinate [Toprol XL] 25 mg PO DAILY 10/15/17 08/24/18 History Simvastatin [Zocor] 20 mg PO HS 10/15/17 08/24/18 History ALPRAZolam [Xanax] 0.25 mg PO DAILY PRN #3 tab 06/06/18 08/24/18 Rx Temazepam [Restoril] 15 mg PO HS PRN #3 cap 06/06/18 08/24/18 Rx Allergies Allergy/AdvReac Type Severity Reaction Status Date / Time morphine Allergy Confusion Verified 06/03/18 15:59 Penicillins Allergy Unknown Verified 06/03/18 15:59 Sulfa (Sulfonamide Allergy Unknown Verified 06/03/18 15:59 Antibiotics) Physical Examination - Vital Signs Vital Signs: Vital Signs Temp Pulse Pulse Resp BP BP Pulse Ox 08/24/18 20:00 98 F 130 H 22 146/70 97 08/24/18 19:52 102 H 20 148/90 97 08/24/18 17:46 107 H 144/93 08/24/18 16:00 97.8 F 106 H 20 154/93 94 L 08/24/18 15:46 147/86 08/24/18 13:46 147/86 08/24/18 13:14 98.7 F 110 H 24 166/100 96 08/24/18 12:46 167/85 08/24/18 12:15 115 H 22 167/85 08/24/18 11:45 103 H 20 151/77 08/24/18 11:30 97 18 152/96 08/24/18 11:00 105 H 22 152/97 08/24/18 10:45 110 H 20 158/98 08/24/18 10:30 106 H 21 160/89 08/24/18 10:15 104 H 22 176/108 08/24/18 10:00 160/105 08/24/18 09:15 105 H 18 148/82 08/24/18 09:00 96 18 144/86 100 08/24/18 08:45 97 20 163/97 99 08/24/18 08:21 90 18 163/100 100 08/24/18 08:15 100 20 163/103 99 08/24/18 08:11 98 20 186/100 98 08/24/18 07:48 98.5 F 96 20 163/103 98 Intake and Output 08/24/18 08/24/18 08/24/18 06:59 14:59 22:59 Other: Voiding Method Diaper # Voids 3 1 Weight 43.091 kg - Constitutional General appearance: disheveled, thin - EENT EENT: PERRL, vision intact - Respiratory Respiratory: lungs clear - Cardiovascular Cardiovascular: regular rate - Neurologic Neurologic examination: Next Mental status: She was awake and alert. She was oriented to person. She had mild dysarthria. She knew she was in the hospital. Cranial nerve examination: Left facial droop X Motor examination: She had some difficulty lifting her left leg and's gravity Gait: Could not be tested Results - Laboratory Findings CBC and BMP: 08/24/18 07:55 08/24/18 07:55 Abnormal Lab Findings: Abnormal Labs 08/24/18 08/24/18 07:55 07:55 Hgb 10.8 L Chloride 109 H Assessment and Plan (1) Cerebrovascular accident Current Visit: Yes Status: Acute SNOMED Code(s): 364816775 (2) Atrial fibrillation with RVR Current Visit: No Status: Acute SNOMED Code(s): 214241782498492 (3) Dementia Current Visit: Yes Status: Acute SNOMED Code(s): 69743015 Plan: Patient is an 87-year-old woman admitted to the hospital with left facial droop and left arm weakness. She has a history of prior strokes. She was unable to be on anticoagulation for her atrial fibrillation due to her unsteady gait. She is admitted with new stroke. Recommend Plavix. Recommend speech to evaluate swallow. Recommend PT OT and rehab
[2018-08-24] MEDS: HALOPERIDOL ORAL SOLN 10 MG/5 ML CUP PO PRN (22:50)
[2018-08-24] MEDS: HEPARIN SODIUM,PORCINE 5,000 UNIT/ML 1 ML VIAL SQ SCH (22:56)
[2018-08-25 03:17] LABS: Cholesterol 120 mg/dL (<200); HDL Cholesterol 54 mg/dL (40-60); LDL Cholesterol,Calculated 53 mg/dL (0-99); Triglycerides 66 mg/dL (<150)
[2018-08-25] MEDS: METOPROLOL TARTRATE 5 MG/5 ML VIAL IVP SCH ×4 (06:10→23:40)
[2018-08-25] MEDS: LEVOTHYROXINE IVP 100 MCG/5 ML VIAL IV SCH (06:11)
[2018-08-25] MEDS ORDERED: LEVOTHYROXINE 75 MCG TAB PO SCH (06:30)
[2018-08-25] MEDS ORDERED: amLODIPine 5 MG TAB PO SCH (09:00)
[2018-08-25] MEDS: PANTOPRAZOLE 40 MG/10 ML VIAL IVP SCH (10:01)
[2018-08-25] MEDS: NITROGLYCERIN OINT 1 INCH/GM PACKET TOPICAL SCH ×2 (10:01→19:45)
[2018-08-25] MEDS: HEPARIN SODIUM,PORCINE 5,000 UNIT/ML 1 ML VIAL SQ SCH ×2 (10:02→21:18)
[2018-08-25] MEDS: ASPIRIN 300 MG SUPP RECTAL SCH (10:03)
--- NOTE | 2018-08-25 14:53 | P.PN ---
Subjective Progress Note Date: 08/25/18 This is an 87-year-old female patient of Dr. Escoto with long-standing history of CAD, chronic A. fib but poor candidate for anticoagulation due to her age and recurrent falls and dementia history, recurrent angina and chest pain with multiple fall is known to have mild COPD, abnormal balance and gait for long time. Apparently the patient was brought into the emergency department at [facility] for evaluation of left facial droop, left-sided weakness. She states that her caregiver thought she had a stroke and she was brought in here. She apparently has had 3 recent falls. she is currently residing in a [facility]. Patient also states she has had a weight loss of 60 pounds since living at [facility]. Chest x-ray shows no evidence of acute pulmonary disease. CT angiogram of the head and neck showed no significant diameter reduction to account for the patient's symptoms. CTA of the [place] showed poor visualization and right A1 segment but otherwise unremarkable. CT of the brain showed right frontal regional hypoattenuation with near CSF attenuation and sulcal atrophy is compatible with encephalomalacia from prior infarct having occurred in the interim in comparison to exam of October 2016. No acute intracranial hemorrhage or midline shift. Additional encephalomalacia in the left temporal lobe and insular cortices unchanged from the prior. Age-related volume loss and moderate burden nonspecific white matter change are also seen. Patient was determined to not be candidate for thrombectomy or TPA. EKG is atrial fibrillation rate controlled. Blood pressures running high 163/103. Patient awaiting admission to the selective care unit. Neurology consult requested. Patient has failed swallow eval in the emergency center. Speech, physical and occupational therapies requested. 08/25: Patient has again failed swallow evaluation and speech therapy is unable to get her to follow directions. We have changed her medications to IV or aspirin as rectally. Patient is refusing to cooperate for aspirin and she was screaming throughout the night. She does have a sitter at the bedside. Patient 's son is her power of vfx artist and she is been made DO NOT RESUSCITATE. Plan is to reassess in 24 hours to make further determination. Review of Systems All systems: negative Constitutional: Reports fatigue, Reports weakness, Reports weight loss, Denies chills, Denies fever Eyes: denies blurred vision, denies pain Ears, nose, mouth and throat: Denies dysphagia, Denies headache, Denies hoarseness, Denies mouth pain, Denies nasal congestion, Denies nasal discharge, Denies sore throat, Denies vertigo Cardiovascular: Denies chest pain, Denies decreased exercise tolerance, Denies dyspnea on exertion, Denies edema, Denies irregular heart beat, Denies lightheadedness, Denies shortness of breath, Denies syncope Respiratory: Denies cough Gastrointestinal: Denies abdominal pain, Denies diarrhea, Denies loss of appetite, Denies melena, Denies nausea, Denies vomiting Genitourinary: Denies dysuria, Denies hematuria, Denies urgency, Denies urinary frequency Musculoskeletal: Reports frequent falls, Reports gait dysfunction, Denies myalgias Integumentary: Denies pruritus, Denies rash, Denies wounds Neurological: Reports balance difficulties, Reports change in speech, Reports gait dysfunction, Denies change in mentation, Denies confusion, Denies convulsions, Denies double vision, Denies head injury, Denies numbness, Denies vertigo, Denies weakness Psychiatric: Denies anxiety, Denies depression Endocrine: Denies fatigue, Denies weight change Objective - Vital Signs Vital signs: Vital Signs Temp 97.0 F L 08/25/18 04:00 Pulse 89 08/25/18 04:00 Resp 24 08/25/18 04:00 BP 142/76 08/25/18 04:00 Pulse Ox 96 08/25/18 04:00 Intake & Output 08/24/18 08/25/18 08/25/18 18:59 06:59 18:59 Intake Total 400 Balance 400 Weight 43.091 kg 43 kg Intake: Intake, IV Titration 400 Amount Sodium Chloride 0.9% 1, 400 000 ml @ 50 mls/hr IV . Q20H [facility] Rx#:[id number] Other: Voiding Method Diaper Diaper # Voids 3 2 - Exam General appearance: no distress, thin - EENT Eyes: anicteric sclerae, EOMI, PERRLA, no ptosis, no scleral icterus, normal appearance ENT: hard of hearing, NA/AT, normal oropharynx Ears: bilateral: normal - Neck Neck: no lymphadenopathy, normal ROM, no rigidity, no stridor, no thyromegaly Carotids: bilateral: upstroke delayed Thyroid: bilateral: normal size - Respiratory Respiratory: bilateral: diminished, negative: dullness, rales, rhonchi, wheezing , prolonged expiration, prolonged inspiration - Cardiovascular Rhythm: irregularly irregular Heart sounds: normal: S1, S2 Abnormal Heart Sounds: systolic murmur - Gastrointestinal General gastrointestinal: normal bowel sounds, soft, no splenomegaly, no tenderness, no umbilical hernia - Integumentary Integumentary: normal, normal turgor - Neurologic Neurologic: CNII-XII intact - Musculoskeletal Musculoskeletal: generalized weakness - Psychiatric Psychiatric: A&O x's 1, no appropriate affect, no intact judgment & insight, patient is slow to respond to questions. Speech is slurred and somewhat difficult to understand. Left-sided facial droop, strength left lower extremity 3/5, right 5/5. - Labs CBC & Chem 7: 08/24/18 07:55 08/24/18 07:55 Assessment and Plan Plan: 1. 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 Patient admitted to the selective care unit, neurology consult requested, neuro checks per protocol. Speech, physical and occupational therapies requested. Patient started on full strength aspirin rectally. Patient has failed swallow evaluation. To reassess swallowing evaluation tomorrow 2. Chronic atrial fibrillation. Patient has not been a candidate for any anticoagulation due to frequent falls. Patient started on Lopressor 5 mg IV push every 6 hours. 2. History of CAD. Start nitro bid ointment 0.5 inch every 8 hours. 3. Hypertension and hypertensive cardiovascular disease. Vasotec 1.25 mg IV push every 6 hours as needed for systolic blood pressure greater than 160. 4. Vascular dementia patient has been off Aricept for now. 5. Hhypothyroidism: Continue Synthroid 75 g daily and will be switched to IV at 37.5 g daily. 6. Hyperlipidemia. 7. Generalized anxiety disorder Anxiety. IV Ativan as needed. 8. Insomnia. IV Ativan as needed. 9. Chronic anemia of chronic disease. 10. Vitamin D deficiency. . 11. DVT prophylaxis. Heparin subcu. 12. GI prophylaxis. Protonix IV. Discharge plan: Most likely subacute rehab Impression and plan of care have been directed as dictated by the signing physician. Irene Villegas nurse practitioner acting as scribe for signing physician.
[2018-08-25] MEDS: SODIUM CHLORIDE 0.9% 1,000 ML IV SCH (21:18)
[2018-08-25] MEDS: HALOPERIDOL ORAL SOLN 10 MG/5 ML CUP PO PRN (21:45)
[2018-08-25] MEDS: LORazepam 2 MG/ML INJ IV PRN (23:10)
[2018-08-26] MEDS: NITROGLYCERIN OINT 1 INCH/GM PACKET TOPICAL SCH ×3 (01:58→16:28)
[2018-08-26] MEDS: METOPROLOL TARTRATE 5 MG/5 ML VIAL IVP SCH ×3 (03:43→17:47)
[2018-08-26] MEDS: DILTIAZEM 50 MG in SODIUM CHLORIDE 0.9% 40 ML IV SCH ×3 (05:02→22:30)
[2018-08-26] MEDS: SODIUM CHLORIDE 0.9% 1,000 ML IV SCH (05:02)
[2018-08-26] MEDS: LEVOTHYROXINE IVP 100 MCG/5 ML VIAL IV SCH (07:53)
[2018-08-26] MEDS: PANTOPRAZOLE 40 MG/10 ML VIAL IVP SCH (07:54)
[2018-08-26] MEDS: HEPARIN SODIUM,PORCINE 5,000 UNIT/ML 1 ML VIAL SQ SCH ×2 (07:54→19:53)
[2018-08-26 07:56] LABS: Albumin 3.8 g/dL (3.5-5.0); Potassium 4.4 mmol/L (3.5-5.1); Total Bilirubin 0.8 mg/dL (0.2-1.3); Total Protein 6.6 g/dL (6.3-8.2)
--- NOTE | 2018-08-26 09:32 | XR ---
EXAMINATION TYPE: XR chest 1V portable DATE OF EXAM: 08/26/2018 HISTORY: aspiration. REFERENCE: Previous study dated 08/24/2018. FINDINGS: There has been previous internal fixation of the proximal right humerus. A ring projects ov er the neck. The heart is enlarged. The lungs remain clear. Pleural spaces are clear. IMPRESSION: CARDIOMEGALY.
[2018-08-26] MEDS: AZTREONAM 1 GM in SODIUM CHLORIDE 0.9% 50 ML IVPB SCH ×2 (10:40→19:53)
[2018-08-26] MEDS: LEVOFLOXACIN 250MG-D5W PMX 250 MG in DEXTROSE/WATER 1 50ML.BAG IVPB SCH (11:25)
--- NOTE | 2018-08-26 11:34 | P.PN ---
Subjective Progress Note Date: 08/26/18 This is an 87-year-old female patient of Dr. Escoto with long-standing history of CAD, chronic A. fib but poor candidate for anticoagulation due to her age and recurrent falls and dementia history, recurrent angina and chest pain with multiple fall is known to have mild COPD, abnormal balance and gait for long time. Apparently the patient was brought into the emergency department at [facility] for evaluation of left facial droop, left-sided weakness. She states that her caregiver thought she had a stroke and she was brought in here. She apparently has had 3 recent falls. she is currently residing in a [facility] [place]. Patient also states she has had a weight loss of 60 pounds since living at [facility]. Chest x-ray shows no evidence of acute pulmonary disease. CT angiogram of the head and neck showed no significant diameter reduction to account for the patient's symptoms. CTA of [place] showed poor visualization and right A1 segment but otherwise unremarkable. CT of the brain showed right frontal regional hypoattenuation with near CSF attenuation and sulcal atrophy is compatible with encephalomalacia from prior infarct having occurred in the interim in comparison to exam of October 2016. No acute intracranial hemorrhage or midline shift. Additional encephalomalacia in the left temporal lobe and insular cortices unchanged from the prior. Age-related volume loss and moderate burden nonspecific white matter change are also seen. Patient was determined to not be candidate for thrombectomy or TPA. EKG is atrial fibrillation rate controlled. Blood pressures running high 163/103. Patient awaiting admission to the selective care unit. Neurology consult requested. Patient has failed swallow eval in the emergency center. Speech, physical and occupational therapies requested. 08/25: Patient has again failed swallow evaluation and speech therapy is unable to get her to follow directions. We have changed her medications to IV or aspirin as rectally. Patient is refusing to cooperate for aspirin and she was screaming throughout the night. She does have a sitter at the bedside. Patient 's son is her power of deputy county attorney and she is been made DO NOT RESUSCITATE. Plan is to reassess in 24 hours to make further determination. 08/26: Patient remains confused. During the night, she went into A. fib with RVR and was started on Cardizem drip. We will ask for cardiology consult. Patient remains nothing by mouth as she is not able to pass a swallow evaluation 1 was noted to be aspirating. Family is discussing possibility of comfort care. Review of Systems Unable to obtain accurate review of system due to patient's mental status. Objective - Vital Signs Vital signs: Vital Signs Temp 97.8 F 08/26/18 08:25 Pulse 142 H 08/26/18 08:25 Resp 26 H 08/26/18 08:25 BP 136/88 08/26/18 08:25 Pulse Ox 96 08/26/18 08:25 Intake & Output 08/25/18 08/26/18 08/26/18 18:59 06:59 18:59 Weight 43 kg 37 kg Other: Voiding Method Diaper Diaper Diaper # Voids 2 1 - Exam General appearance: no distress, thin - EENT Eyes: anicteric sclerae, EOMI, PERRLA, no ptosis, no scleral icterus, normal appearance ENT: hard of hearing, NA/AT, normal oropharynx Ears: bilateral: normal - Neck Neck: no lymphadenopathy, normal ROM, no rigidity, no stridor, no thyromegaly Carotids: bilateral: upstroke delayed Thyroid: bilateral: normal size - Respiratory Respiratory: bilateral: diminished, negative: dullness, rales, rhonchi, wheezing , prolonged expiration, prolonged inspiration - Cardiovascular Rhythm: irregularly irregular Heart sounds: normal: S1, S2 Abnormal Heart Sounds: systolic murmur - Gastrointestinal General gastrointestinal: normal bowel sounds, soft, no splenomegaly, no tenderness, no umbilical hernia - Integumentary Integumentary: normal, normal turgor - Neurologic Neurologic: CNII-XII intact - Musculoskeletal Musculoskeletal: generalized weakness - Psychiatric Psychiatric: A&O x's 1, no appropriate affect, no intact judgment & insight, patient is slow to respond to questions. Speech is slurred and somewhat difficult to understand. Left-sided facial droop, strength left lower extremity 3/5, right 5/5. - Labs CBC & Chem 7: 08/24/18 07:55 08/26/18 06:50 Labs: Abnormal Lab Results - Last 24 Hours (Table) 08/26/18 Range/Units 06:50 Chloride 109 H (98-107) mmol/L Carbon Dioxide 17 L (22-30) mmol/L BUN 20 H (7-17) mg/dL Assessment and Plan Plan: 1. 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 Patient admitted to the selective care unit, neurology consult requested, neuro checks per protocol. Speech, physical and occupational therapies requested. Patient started on full strength aspirin rectally. Patient has failed swallow evaluation. To reassess swallowing evaluation tomorrow 2. Chronic atrial fibrillation with RVR. Patient started on Cardizem drip. Cardiology consult.. Patient has not been a candidate for any anticoagulation due to frequent falls. Patient started on Lopressor 5 mg IV push every 6 hours. 2. History of CAD. Start nitro bid ointment 0.5 inch every 8 hours. 3. Hypertension and hypertensive cardiovascular disease. Vasotec 1.25 mg IV push every 6 hours as needed for systolic blood pressure greater than 160. 4. Vascular dementia patient has been off Aricept for now. 5. Hhypothyroidism: Continue Synthroid 75 g daily and will be switched to IV at 37.5 g daily. 6. Hyperlipidemia. 7. Generalized anxiety disorder Anxiety. IV Ativan as needed. 8. Insomnia. IV Ativan as needed. 9. Chronic anemia of chronic disease. 10. Vitamin D deficiency. . 11. DVT prophylaxis. Heparin subcu. 12. GI prophylaxis. Protonix IV. 13. Possible aspiration pneumonia. Patient started on IV Levaquin and Azactam. Code status: No code Discharge plan: Most likely subacute rehab Impression and plan of care have been directed as dictated by the signing physician. Irene Villegas nurse practitioner acting as scribe for signing physician.
[2018-08-26] MEDS: ASPIRIN 300 MG SUPP RECTAL SCH (15:50)
--- NOTE | 2018-08-26 17:12 | P.PN ---
Subjective Progress Note Date: 08/26/18 The patient is an 87-year-old woman admitted to the hospital with left-sided weakness and left facial droop. Patient is a resident of [facility]. The patient is laying in bed quiet didn't much less restless today. She continues to exhibit some dysarthria and dysphagia. She is admitted to the hospital with right subcortical stroke. She has multiple medical problems including atrial fibrillation dementia hypertension and unsteady gait. He has been started on aspirin. She has no specific complaints. Objective - Vital Signs Vital signs: Vital Signs Temp 97.5 F L 08/26/18 16:00 Pulse 118 H 08/26/18 16:00 Resp 16 08/26/18 16:00 BP 128/76 08/26/18 16:00 Pulse Ox 96 08/26/18 16:00 Intake & Output 08/25/18 08/26/18 08/26/18 18:59 06:59 18:59 Intake Total 31.917 Balance 31.917 Weight 43 kg 37 kg Intake: Intake, IV Titration 31.917 Amount Diltiazem 50 mg In Sodium 31.917 Chloride 0.9% 40 ml @ 5 MG/HR 5 mls/hr IV .Q10H [facility] Rx#:[id number] Other: Voiding Method Diaper Diaper Diaper # Voids 2 1 3 - Constitutional General appearance: Present: cooperative - EENT ENT: Present: hard of hearing - Respiratory Respiratory: bilateral: CTA - Cardiovascular Rhythm: regular - Neurologic Neurologic Comment(s): Neurologic examination: Mental status: She was awake and alert and oriented to person and place. She had severe dysarthria Cranial nerve examination: Pupils were 2 mm and equal. Next Motor examination she was moving all 4 extremities equally today. Next Gait: Not tested - Labs CBC & Chem 7: 08/24/18 07:55 08/26/18 06:50 Labs: Abnormal Lab Results - Last 24 Hours (Table) 08/26/18 Range/Units 06:50 Chloride 109 H (98-107) mmol/L Carbon Dioxide 17 L (22-30) mmol/L BUN 20 H (7-17) mg/dL Assessment and Plan (1) Cerebrovascular accident Current Visit: Yes Status: Acute SNOMED Code(s): 747102847 (2) Atrial fibrillation with RVR Current Visit: No Status: Acute SNOMED Code(s): 800631207547871 (3) Dementia Current Visit: Yes Status: Acute SNOMED Code(s): 63082853 Plan: Patient is an 87-year-old woman admitted to the hospital with left facial droop and left arm weakness. She has a history of prior strokes. She has been started on aspirin. She is doing much better with mental status today and more cooperative. Also her left-sided symptoms seem to have improved. She still has severe dysphagia and dysarthria.
[2018-08-27] MEDS: NITROGLYCERIN OINT 1 INCH/GM PACKET TOPICAL SCH ×4 (00:13→23:10)
[2018-08-27] MEDS: METOPROLOL TARTRATE 5 MG/5 ML VIAL IVP SCH ×3 (00:13→11:52)
[2018-08-27] MEDS: SODIUM CHLORIDE 0.9% 1,000 ML IV SCH ×2 (03:18→15:55)
[2018-08-27] MEDS: LEVOTHYROXINE IVP 100 MCG/5 ML VIAL IV SCH (06:33)
[2018-08-27] MEDS: AZTREONAM 1 GM in SODIUM CHLORIDE 0.9% 50 ML IVPB SCH ×2 (07:49→20:12)
[2018-08-27] MEDS: HEPARIN SODIUM,PORCINE 5,000 UNIT/ML 1 ML VIAL SQ SCH ×2 (07:49→20:19)
[2018-08-27] MEDS: PANTOPRAZOLE 40 MG/10 ML VIAL IVP SCH (07:49)
[2018-08-27] MEDS: LEVOFLOXACIN 250MG-D5W PMX 250 MG in DEXTROSE/WATER 1 50ML.BAG IVPB SCH (09:17)
--- NOTE | 2018-08-27 09:31 | P.PN ---
Subjective Progress Note Date: 08/27/18 This is an 87-year-old female patient of Dr. Escoto with long-standing history of CAD, chronic A. fib but poor candidate for anticoagulation due to her age and recurrent falls and dementia history, recurrent angina and chest pain with multiple fall is known to have mild COPD, abnormal balance and gait for long time. Apparently the patient was brought into the emergency department at [facility] for evaluation of left facial droop, left-sided weakness. She states that her caregiver thought she had a stroke and she was brought in here. She apparently has had 3 recent falls. she is currently residing in a [facility]. Patient also states she has had a weight loss of 60 pounds since living at [facility]. Chest x-ray shows no evidence of acute pulmonary disease. CT angiogram of the head and neck showed no significant diameter reduction to account for the patient's symptoms. CTA of the [place] showed poor visualization and right A1 segment but otherwise unremarkable. CT of the brain showed right frontal regional hypoattenuation with near CSF attenuation and sulcal atrophy is compatible with encephalomalacia from prior infarct having occurred in the interim in comparison to exam of October 2016. No acute intracranial hemorrhage or midline shift. Additional encephalomalacia in the left temporal lobe and insular cortices unchanged from the prior. Age-related volume loss and moderate burden nonspecific white matter change are also seen. Patient was determined to not be candidate for thrombectomy or TPA. EKG is atrial fibrillation rate controlled. Blood pressures running high 163/103. Patient awaiting admission to the selective care unit. Neurology consult requested. Patient has failed swallow eval in the emergency center. Speech, physical and occupational therapies requested. 08/25: Patient has again failed swallow evaluation and speech therapy is unable to get her to follow directions. We have changed her medications to IV or aspirin as rectally. Patient is refusing to cooperate for aspirin and she was screaming throughout the night. She does have a sitter at the bedside. Patient 's son is her power of compliance attorney and she is been made DO NOT RESUSCITATE. Plan is to reassess in 24 hours to make further determination. 08/26: Patient remains confused. During the night, she went into A. fib with RVR and was started on Cardizem drip. We will ask for cardiology consult. Patient remains nothing by mouth as she is not able to pass a swallow evaluation 1 was noted to be aspirating. Family is discussing possibility of comfort care. 08/27: Patient seems to be more alert today. Left-sided weakness is improved. No change in swallowing ability. Plan for speech therapy to reevaluate tomorrow. Patient has been refusing rectal aspirin. She is continued on IV antibiotics with Azactam and Levaquin. Chest x-ray from yesterday shows cardiomegaly. Heart rate is controlled. Cardiology on consult. Review of Systems Unable to obtain accurate review of system due to patient's mental status. Objective - Vital Signs Vital signs: Vital Signs Temp 97.6 F 08/27/18 04:00 Pulse 92 08/27/18 04:00 Resp 18 08/27/18 04:00 BP 122/74 08/27/18 04:00 Pulse Ox 94 L 08/27/18 04:00 Intake & Output 08/26/18 08/27/18 08/27/18 18:59 06:59 18:59 Intake Total 31.917 50 Balance 31.917 50 Weight 39.5 kg Intake: Intake, IV Titration 31.917 50 Amount Diltiazem 50 mg In Sodium 31.917 50 Chloride 0.9% 40 ml @ 5 MG/HR 5 mls/hr IV .Q10H [facility] Rx#:[id number] Other: Voiding Method Diaper Diaper # Voids 4 - Exam General appearance: no distress, thin - EENT Eyes: anicteric sclerae, EOMI, PERRLA, no ptosis, no scleral icterus, normal appearance ENT: hard of hearing, NA/AT, normal oropharynx Ears: bilateral: normal - Neck Neck: no lymphadenopathy, normal ROM, no rigidity, no stridor, no thyromegaly Carotids: bilateral: upstroke delayed Thyroid: bilateral: normal size - Respiratory Respiratory: bilateral: diminished, negative, frequent moist cough: dullness, rales, rhonchi, wheezing, prolonged expiration, prolonged inspiration - Cardiovascular Rhythm: irregularly irregular Heart sounds: normal: S1, S2 Abnormal Heart Sounds: systolic murmur - Gastrointestinal General gastrointestinal: normal bowel sounds, soft, no splenomegaly, no tenderness, no umbilical hernia - Integumentary Integumentary: normal, normal turgor - Neurologic Neurologic: CNII-XII intact - Musculoskeletal Musculoskeletal: generalized weakness - Psychiatric Psychiatric: A&O x's 1, no appropriate affect, no intact judgment & insight, patient is slow to respond to questions. Speech is slurred and somewhat difficult to understand. - Labs CBC & Chem 7: 08/24/18 07:55 08/26/18 06:50 Labs: Abnormal Lab Results - Last 24 Hours (Table) 08/26/18 Range/Units 06:50 Chloride 109 H (98-107) mmol/L Carbon Dioxide 17 L (22-30) mmol/L BUN 20 H (7-17) mg/dL Assessment and Plan Plan: 1. 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 Patient admitted to the selective care unit, neurology consult requested, neuro checks per protocol. Speech, physical and occupational therapies requested. Patient started on full strength aspirin rectally--patient has been refusing. Patient has failed swallow evaluation. To reassess swallowing evaluation tomorrow 2. Chronic atrial fibrillation with RVR. Patient started on Cardizem drip. Cardiology consult. Patient has not been a candidate for any anticoagulation due to frequent falls. Patient started on Lopressor 5 mg IV push every 6 hours. 2. History of CAD. Start nitro bid ointment 0.5 inch every 8 hours. 3. Hypertension and hypertensive cardiovascular disease. Vasotec 1.25 mg IV push every 6 hours as needed for systolic blood pressure greater than 160. 4. Vascular dementia patient has been off Aricept for now. 5. Hhypothyroidism: Continue Synthroid 75 g daily and will be switched to IV at 37.5 g daily. 6. Hyperlipidemia. 7. Generalized anxiety disorder Anxiety. IV Ativan as needed. 8. Insomnia. IV Ativan as needed. 9. Chronic anemia of chronic disease. 10. Vitamin D deficiency. . 11. DVT prophylaxis. Heparin subcu. 12. GI prophylaxis. Protonix IV. 13. Possible aspiration pneumonia. Patient started on IV Levaquin and Azactam. Code status: No code Discharge plan: Most likely subacute rehab Impression and plan of care have been directed as dictated by the signing physician. Irene Villegas nurse practitioner acting as scribe for signing physician.
[2018-08-27] MEDS: DILTIAZEM 50 MG in SODIUM CHLORIDE 0.9% 40 ML IV SCH ×2 (11:52→20:35)
[2018-08-27] MEDS: ASPIRIN 300 MG SUPP RECTAL SCH (16:04)
[2018-08-27 19:49] LABS: Glucose,Whole Blood 58 mg/dL (75-99)
[2018-08-27] MEDS ORDERED: FUROSEMIDE 10 MG/ML 4 ML VIAL IV STA (19:51)
[2018-08-27] MEDS ORDERED: DEXTROSE 50%-WATER 50 ML SYRINGE IVP STA (19:52)
[2018-08-27] MEDS: DEXTROSE 5%-0.45% NACL 1,000 ML IV SCH (20:35)
[2018-08-27 20:41] LABS: Glucose,Whole Blood 118 mg/dL (75-99)
[2018-08-28 02:01] LABS: Glucose,Whole Blood 79 mg/dL (75-99)
[2018-08-28] MEDS: DILTIAZEM 50 MG in SODIUM CHLORIDE 0.9% 40 ML IV SCH ×3 (05:09→19:51)
[2018-08-28 05:23] LABS: Glucose,Whole Blood 93 mg/dL (75-99)
[2018-08-28] MEDS: LEVOTHYROXINE IVP 100 MCG/5 ML VIAL IV SCH (06:11)
[2018-08-28 06:49] LABS: HCT 38.3 % (34.0-46.0); HGB 11.9 gm/dL (11.4-16.0); Hypochromasia Slight; MCH 26.2 pg (25.0-35.0); MCHC 31.1 g/dL (31.0-37.0); MCV 84.4 fL (80.0-100.0); Mean Platelet Volume 6.9; Platelet Count 420 k/uL (150-450); RBC 4.54 m/uL (3.80-5.40); RDW 14.2 % (11.5-15.5); WBC 10.6 k/uL (3.8-10.6)
[2018-08-28 06:52] LABS: Albumin 3.9 g/dL (3.5-5.0); Calcium 9.3 mg/dL (8.4-10.2); Potassium 3.6 mmol/L (3.5-5.1); Total Bilirubin 0.8 mg/dL (0.2-1.3); Total Protein 7.1 g/dL (6.3-8.2)
[2018-08-28] MEDS: AZTREONAM 1 GM in SODIUM CHLORIDE 0.9% 50 ML IVPB SCH ×2 (10:17→19:52)
[2018-08-28] MEDS: NITROGLYCERIN OINT 1 INCH/GM PACKET TOPICAL SCH ×3 (10:17→23:08)
[2018-08-28] MEDS: PANTOPRAZOLE 40 MG/10 ML VIAL IVP SCH (10:18)
[2018-08-28] MEDS: HEPARIN SODIUM,PORCINE 5,000 UNIT/ML 1 ML VIAL SQ SCH (10:18)
[2018-08-28] MEDS: LEVOFLOXACIN 250MG-D5W PMX 250 MG in DEXTROSE/WATER 1 50ML.BAG IVPB SCH (10:20)
--- NOTE | 2018-08-28 11:11 | FL ---
EXAMINATION TYPE: FL barium swallow w video DATE OF EXAM: 08/28/2018 MODIFIED SWALLOW / DEGLUTITION STUDY CLINICAL HISTORY: Dysphagia. TECHNIQUE: Deglutition study is performed utilizing honey and nectar thick liquid barium, and barium thick applesauce. A total of 1.31 minutes of fluoroscopic time was utilized during procedure. 0 spot images are saved. COMPARISON: None. FINDINGS: The oral and pharyngeal phases show some delay in initiation with satisfactory propagation with all modalities tested. There is aspiration which does not initiate cough reflex with honey thick liquid barium. Less viscous modalities were not tested. No significant pharyngeal residue was appre ciated. IMPRESSION: Aspiration with honey thick liquid barium. Please refer to speech therapist notes for fu rther details if necessary.
[2018-08-28 12:06] LABS: Glucose,Whole Blood 142 mg/dL (75-99)
[2018-08-28] MEDS: ASPIRIN 300 MG SUPP RECTAL SCH (13:00)
--- NOTE | 2018-08-28 13:04 | P.CRDCN ---
History of Present Illness Consult date: 08/27/18 Requesting physician: Snow Randall History of present illness: This is an 87-year-old female patient of Dr. Escoto with long-standing history of CAD, chronic A. fib but had been felt to be a poor candidate for anticoagulation due to her age and recurrent falls and dementia history, recurrent angina and chest pain with multiple fall is known to have mild COPD, abnormal balance and gait for long time. Apparently the patient was brought into the emergency department at [facility] for evaluation of left facial droop, left-sided weakness. She states that her caregiver thought she had a stroke and she was brought in here. She apparently has had 3 recent falls. she is currently residing in a [facility] [place]. Patient also states she has had a weight loss of 60 pounds since living at [facility]. Chest x-ray shows no evidence of acute pulmonary disease. CT angiogram of the head and neck showed no significant diameter reduction to account for the patient's symptoms. CTA of the [place] showed poor visualization and right A1 segment but otherwise unremarkable. CT of the brain showed right frontal regional hypoattenuation with near CSF attenuation and sulcal atrophy is compatible with encephalomalacia from prior infarct having occurred in the interim in comparison to exam of October 2016. No acute intracranial hemorrhage or midline shift. Additional encephalomalacia in the left temporal lobe and insular cortices unchanged from the prior. Age-related volume loss and moderate burden nonspecific white matter change are also seen. Patient was determined to not be candidate for thrombectomy or TPA. EKG is atrial fibrillation rate controlled. Blood pressures running high 163/103. Patient has failed swallow eval in the emergency center. Speech, physical and occupational therapies requested. White blood cell count 6.7, hemoglobin 10.8, platelet count 338. Sodium 142, potassium 4.7, BUN 17, creatinine 0.8. Troponin negative. Past Medical History Past Medical History: Atrial Fibrillation, Coronary Artery Disease (CAD), Chest Pain / Angina, Heart Failure, COPD, Dementia, Eye Disorder, GERD/Reflux, Hyperlipidemia, Hypertension, Osteoarthritis (OA), Pneumonia, Thyroid Disorder, Vascular Disorder Additional Past Medical History / Comment(s): Bradycardia, left ventricular hypertrophy, PAD, macular degeneration R eye, R shoulder pain, UTIs, osteoporosis, vitamin D deficiency, multiple falls, gait dysturbance, abnormal balance, diverticulosis, goiter. History of Any Multi-Drug Resistant Organisms: None Reported Past Surgical History: Joint Replacement, Orthopedic Surgery Additional Past Surgical History / Comment(s): right shoulder PLATE AND SCREWS, SANGITA CATARACTS, RT EYE RETINAL SX, thyroid removed, total R hip, Total L hip with revision, total R knee, colonoscopy/polypectomy. Past Anesthesia/Blood Transfusion Reactions: No Reported Reaction Past Psychological History: Anxiety, Depression Smoking Status: Former smoker Past Alcohol Use History: None Reported Past Drug Use History: None Reported - Past Family History Father History Unknown: Yes Family Medical History: Renal Disease Mother History Unknown: Yes Family Medical History: Hypertension Brother(s) Family Medical History: No Reported History Daughter(s) Family Medical History: Cancer Additional Family Medical History / Comment(s): Pt states her oldest law of breast cancer. Son(s) Family Medical History: No Reported History Medications and Allergies Home Medications Medication Instructions Recorded Confirmed Type amLODIPine BESYLATE [Norvasc] 5 mg PO DAILY 04/22/14 08/24/18 History Ergocalciferol [Vitamin D2 50,000 unit PO RAMÍREZ 09/09/15 08/24/18 History (DRISDOL)] Potassium Chloride ER [K-Dur 10] 10 meq PO DAILY 09/09/15 08/24/18 History Levothyroxine Sodium [Synthroid] 75 mcg PO DAILY 11/10/15 08/24/18 History Isosorbide Mononitrate ER [Imdur] 30 mg PO DAILY 11/17/15 08/24/18 History Furosemide [Lasix] 20 mg PO DAILY 10/15/17 08/24/18 History Gabapentin [Neurontin] 100 mg PO DAILY 10/15/17 08/24/18 History Metoprolol Succinate [Toprol XL] 25 mg PO DAILY 10/15/17 08/24/18 History Simvastatin [Zocor] 20 mg PO HS 10/15/17 08/24/18 History ALPRAZolam [Xanax] 0.25 mg PO DAILY PRN #3 tab 06/06/18 08/24/18 Rx Temazepam [Restoril] 15 mg PO HS PRN #3 cap 06/06/18 08/24/18 Rx Allergies Allergy/AdvReac Type Severity Reaction Status Date / Time morphine Allergy Confusion Verified 06/03/18 15:59 Penicillins Allergy Unknown Verified 06/03/18 15:59 Sulfa (Sulfonamide Allergy Unknown Verified 06/03/18 15:59 Antibiotics) Physical Exam Vitals: Vital Signs Temp Pulse Pulse Resp BP Pulse Ox 08/28/18 08:30 98.1 F 112 H 22 142/84 98 08/28/18 03:43 112 H 20 08/28/18 03:40 98.1 F 112 H 20 144/69 93 L 08/27/18 23:38 79 20 08/27/18 23:34 98 F 79 20 139/71 95 08/27/18 20:00 98 F 91 20 160/71 95 08/27/18 16:00 98.0 F 87 16 134/73 96 Intake and Output 08/27/18 08/28/18 08/28/18 22:59 06:59 14:59 Intake Total 43.583 342.833 0 Output Total 200 Balance -156.417 342.833 0 Intake: Intake, IV Titration 43.583 342.833 Amount Aztreonam 1 gm In Sodium 100 Chloride 0.9% 50 ml @ 100 mls/hr IVPB Q12HR L[facility] Rx #:[id number] Dextrose 5%-0.45% NaCl 1, 200 000 ml @ 20 mls/hr IV . Q24H LILI Rx#:[id number] Diltiazem 50 mg In Sodium 43.583 42.833 Chloride 0.9% 40 ml @ 5 MG/HR 5 mls/hr IV .Q10H LILI Rx#:[id number] Oral 0 Output: Urine 200 Other: Voiding Method Diaper Diaper Diaper # Voids 3 Weight 39.4 kg PHYSICAL EXAMINATION: GENERAL: 87-year-old female in no acute distress at the time of my examination HEENT: Head is atraumatic, normocephalic. Pupils equal, round. Sclera anicteric. Conjunctiva are clear. Mucous membranes of the mouth are moist. Neck is supple. There is no elevated jugular venous pressure.] bruit is heard. HEART EXAMINATION: Heart S1 and S2 irregularly irregular a systolic murmur is heard CHEST EXAMINATION: On's reveal diminished air entry bilaterally. ABDOMEN: Soft, nontender. Bowel sounds are heard. No organomegaly noted. EXTREMITIES: 2+ peripheral pulses with no evidence of peripheral edema and no calf tenderness noted. NEUROLOGIC patient is awake, alert and oriented 2, slurring of speech, left- sided facial droop, left-sided weakness. . Results 08/28/18 06:05 08/28/18 06:05 Cardiac Enzymes 08/28/18 Range/Units 06:05 AST 26 (14-36) U/L CBC 08/28/18 Range/Units 06:05 WBC 10.6 (3.8-10.6) k/uL RBC 4.54 (3.80-5.40) m/uL Hgb 11.9 (11.4-16.0) gm/dL Hct 38.3 (34.0-46.0) % Plt Count 420 (150-450) k/uL Comprehensive Metabolic Panel 08/28/18 Range/Units 06:05 Sodium 141 (137-145) mmol/L Potassium 3.6 (3.5-5.1) mmol/L Chloride 108 H (98-107) mmol/L Carbon Dioxide 15 L (22-30) mmol/L BUN 19 H (7-17) mg/dL Creatinine 0.86 (0.52-1.04) mg/dL Glucose 94 (74-99) mg/dL Calcium 9.3 (8.4-10.2) mg/dL AST 26 (14-36) U/L ALT 18 (9-52) U/L Alkaline Phosphatase 82 (38-126) U/L Total Protein 7.1 (6.3-8.2) g/dL Albumin 3.9 (3.5-5.0) g/dL Current Medications Generic Name Dose Route Start Last Admin Trade Name Petra PRN Reason Stop Dose Admin Aspirin 300 mg 08/25/18 09:00 08/27/18 16:04 Aspirin RECTAL 300 mg DAILY LILI Administration Heparin Sodium (Porcine) 5,000 unit 08/24/18 21:00 08/28/18 10:18 Heparin SQ 5,000 unit Q12HR LILI Administration Aztreonam 1 gm/ Sodium 50 mls @ 100 mls/hr 08/26/18 09:00 08/28/18 10:17 Chloride IVPB 100 mls/hr Q12HR LILI Administration Protocol Levofloxacin/Dextrose 250 mg/ 50 mls @ 50 mls/hr 08/26/18 09:00 08/28/18 10: 20 IV Solution IVPB 50 mls/hr Q24H LILI Administration Dextrose/Sodium Chloride 1,000 mls @ 20 mls/hr 08/27/18 20:00 08/27/18 20:35 Dextrose 5%-1/2ns Iv Soln IV 20 mls/hr .Q24H LILI Administration Diltiazem HCl 50 mg/ Sodium 50 mls @ 7.5 mls/hr 08/28/18 12:30 Chloride IV .Q6H40M LILI 7.5 MG/HR Levothyroxine Sodium 37.5 mcg 08/25/18 06:30 08/28/18 06:11 Synthroid Ivp IV 37.5 mcg DAILY@0630 LILI Administration Lorazepam 0.5 mg 08/24/18 15:17 08/25/18 23:10 Ativan IV 0.5 mg Q6HR PRN Administration Anxiety Nitroglycerin 0.5 inch 08/24/18 16:00 08/28/18 10:17 Nitro-Bid Oint TOPICAL 0.5 inch Q8HR LILI Administration Pantoprazole Sodium 40 mg 08/25/18 09:00 08/28/18 10:18 Protonix IVP 40 mg DAILY LILI Administration Intake and Output 08/27/18 08/28/18 08/28/18 22:59 06:59 14:59 Intake Total 43.583 342.833 0 Output Total 200 Balance -156.417 342.833 0 Intake: Intake, IV Titration 43.583 342.833 Amount Aztreonam 1 gm In Sodium 100 Chloride 0.9% 50 ml @ 100 mls/hr IVPB Q12HR [facility] Rx #:[id number] Dextrose 5%-0.45% NaCl 1, 200 000 ml @ 20 mls/hr IV . Q24H LILI Rx#:[id number] Diltiazem 50 mg In Sodium 43.583 42.833 Chloride 0.9% 40 ml @ 5 MG/HR 5 mls/hr IV .Q10H LILI Rx#:[id number] Oral 0 Output: Urine 200 Other: Voiding Method Diaper Diaper Diaper # Voids 3 Weight 39.4 kg 08/28/18 06:05 08/28/18 06:05 EKG Interpretations (text) EKG on admission showed atrial fibrillation with a controlled ventricular response Assessment and Plan Plan: Assessment and plan 1. 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 2. Chronic, persistent atrial fibrillation. Patient has not been felt to be a candidate for any anticoagulation due to frequent falls. 2. History of CAD 3. Hypertension 4. Vascular dementia 5. Hypothyroidism: 6. Hyperlipidemia. 7. Generalized anxiety disorder 8. Insomnia. 9. Chronic anemia Plan We will obtain an echocardiogram with Doppler study. Patient will also need to be initiated on anticoagulation. From tomorrow if the patient is able to swallow we will initiate Eliquis 2-1/2 mg one tablet by mouth twice a day. DNP note has been reviewed, I agree with a documented findings and plan of care. Patient was seen and examined.
[2018-08-28] MEDS: LORazepam 2 MG/ML INJ IV PRN ×2 (13:34→20:38)
[2018-08-28 13:37] VITALS: BMI 14.4
[2018-08-28] MEDS ORDERED: DILTIAZEM DRIP BOLUS FROM BAG 1 MG SOLN IV ONE (13:48)
--- NOTE | 2018-08-28 14:19 | P.PN ---
Subjective Progress Note Date: 08/28/18 This is an 87-year-old female patient of Dr. Escoto with long-standing history of CAD, chronic A. fib but had been felt to be a poor candidate for anticoagulation due to her age and recurrent falls and dementia history, recurrent angina and chest pain with multiple fall is known to have mild COPD, abnormal balance and gait for long time. Apparently the patient was brought into the emergency department at [facility] for evaluation of left facial droop, left-sided weakness. She states that her caregiver thought she had a stroke and she was brought in here. She apparently has had 3 recent falls. she is currently residing in a [facility]. Patient also states she has had a weight loss of 60 pounds since living at [facility]. Chest x-ray shows no evidence of acute pulmonary disease. CT angiogram of the head and neck showed no significant diameter reduction to account for the patient's symptoms. CTA of the [place] showed poor visualization and right A1 segment but otherwise unremarkable. CT of the brain showed right frontal regional hypoattenuation with near CSF attenuation and sulcal atrophy is compatible with encephalomalacia from prior infarct having occurred in the interim in comparison to exam of October 2016. No acute intracranial hemorrhage or midline shift. Additional encephalomalacia in the left temporal lobe and insular cortices unchanged from the prior. Age-related volume loss and moderate burden nonspecific white matter change are also seen. Patient was determined to not be candidate for thrombectomy or TPA. EKG is atrial fibrillation rate controlled. Blood pressures running high 163/103. Patient has failed swallow eval in the emergency center. Speech, physical and occupational therapies requested. White blood cell count 6.7, hemoglobin 10.8, platelet count 338. Sodium 142, potassium 4.7, BUN 17, creatinine 0.8. Troponin negative. 08/28/2018 Patient was seen and examined today, currently she has a sitter at the bedside, she apparently was physically aggressive with the nurse earlier today. She somewhat confused at the time of my examination. She continues to be in atrial fibrillation, her heart rate is currently in the 120 range, we have given an additional dose of IV Cardizem bolus and increased her drip to 10 mg per hour. Blood pressure 144/80, 96% on room air. White blood cell count 10.6, hemoglobin 11.9, platelet count 420. Sodium 141, potassium 3.6, BUN 19, creatinine 0.8. Patient did undergo a swallow study today, which she failed. Objective - Vital Signs Vital signs: Vital Signs Temp 97.6 F 08/28/18 12:00 Pulse 125 H 08/28/18 12:00 Resp 20 08/28/18 12:00 BP 144/89 08/28/18 12:00 Pulse Ox 96 08/28/18 12:00 Intake & Output 08/27/18 08/28/18 08/28/18 18:59 06:59 18:59 Intake Total 50 386.416 0 Output Total 600 200 Balance -550 186.416 0 Weight 39.4 kg 39.4 kg Intake: Intake, IV Titration 50 386.416 Amount Aztreonam 1 gm In Sodium 100 Chloride 0.9% 50 ml @ 100 mls/hr IVPB Q12HR [facility] Rx #:[id number] Dextrose 5%-0.45% NaCl 1, 200 000 ml @ 20 mls/hr IV . Q24H [facility] Rx#:[id number] Diltiazem 50 mg In Sodium 50 86.416 Chloride 0.9% 40 ml @ 5 MG/HR 5 mls/hr IV .Q10H [facility] Rx#:[id number] Oral 0 Output: Urine 600 200 Other: Voiding Method Diaper Diaper Diaper # Voids 3 1 - Exam PHYSICAL EXAMINATION: GENERAL: 87-year-old female in no acute distress at the time of my examination HEENT: Head is atraumatic, normocephalic. Pupils equal, round. Sclera anicteric. Conjunctiva are clear. Mucous membranes of the mouth are moist. Neck is supple. There is no elevated jugular venous pressure.] bruit is heard. HEART EXAMINATION: Heart S1 and S2 irregularly irregular a systolic murmur is heard CHEST EXAMINATION: On's reveal diminished air entry bilaterally. ABDOMEN: Soft, nontender. Bowel sounds are heard. No organomegaly noted. EXTREMITIES: 2+ peripheral pulses with no evidence of peripheral edema and no calf tenderness noted. NEUROLOGIC patient is awake, alert and oriented 1, slurring of speech, left- sided facial droop, left-sided weakness. Mildly aggressive. . - Labs CBC & Chem 7: 08/28/18 06:05 08/28/18 06:05 Labs: Abnormal Lab Results - Last 24 Hours (Table) 08/27/18 08/27/18 08/28/18 Range/Units 19:47 20:38 06:05 Chloride 108 H (98-107) mmol/L Carbon Dioxide 15 L (22-30) mmol/L BUN 19 H (7-17) mg/dL POC Glucose (mg/dL) 58 L 118 H (75-99) mg/dL 08/28/18 Range/Units 11:56 Chloride (98-107) mmol/L Carbon Dioxide (22-30) mmol/L BUN (7-17) mg/dL POC Glucose (mg/dL) 142 H (75-99) mg/dL Assessment and Plan Plan: Assessment and plan 1. 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 2. Chronic, persistent atrial fibrillation. Patient has not been felt to be a candidate for any anticoagulation due to frequent falls. 2. History of CAD 3. Hypertension 4. Vascular dementia 5. Hypothyroidism: 6. Hyperlipidemia. 7. Generalized anxiety disorder 8. Insomnia. 9. Chronic anemia Plan An echocardiogram with Doppler study has been performed which we will review. Cardizem drip will be increased to 10 mg per hour. Continue subcu heparin. Once the patient is able to take oral we will start the patient on Eliquis 2-1/ 2 mg one tablet by mouth twice a day. DNP note has been reviewed, I agree with a documented findings and plan of care. Patient was seen and examined.
--- NOTE | 2018-08-28 16:03 | P.PN ---
Subjective Progress Note Date: 08/28/18 This is an 87-year-old female patient of Dr. Escoot with long-standing history of CAD, chronic A. fib but poor candidate for anticoagulation due to her age and recurrent falls and dementia history, recurrent angina and chest pain with multiple fall is known to have mild COPD, abnormal balance and gait for long time. Apparently the patient was brought into the emergency department at [facility] for evaluation of left facial droop, left-sided weakness. She states that her caregiver thought she had a stroke and she was brought in here. She apparently has had 3 recent falls. she is currently residing in a [facility] [place]. Patient also states she has had a weight loss of 60 pounds since living at [facility]. Chest x-ray shows no evidence of acute pulmonary disease. CT angiogram of the head and neck showed no significant diameter reduction to account for the patient's symptoms. CTA of the [place] showed poor visualization and right A1 segment but otherwise unremarkable. CT of the brain showed right frontal regional hypoattenuation with near CSF attenuation and sulcal atrophy is compatible with encephalomalacia from prior infarct having occurred in the interim in comparison to exam of October 2016. No acute intracranial hemorrhage or midline shift. Additional encephalomalacia in the left temporal lobe and insular cortices unchanged from the prior. Age-related volume loss and moderate burden nonspecific white matter change are also seen. Patient was determined to not be candidate for thrombectomy or TPA. EKG is atrial fibrillation rate controlled. Blood pressures running high 163/103. Patient awaiting admission to the selective care unit. Neurology consult requested. Patient has failed swallow eval in the emergency center. Speech, physical and occupational therapies requested. 08/25: Patient has again failed swallow evaluation and speech therapy is unable to get her to follow directions. We have changed her medications to IV or aspirin as rectally. Patient is refusing to cooperate for aspirin and she was screaming throughout the night. She does have a sitter at the bedside. Patient 's son is her power of patent attorney and she is been made DO NOT RESUSCITATE. Plan is to reassess in 24 hours to make further determination. 08/26: Patient remains confused. During the night, she went into A. fib with RVR and was started on Cardizem drip. We will ask for cardiology consult. Patient remains nothing by mouth as she is not able to pass a swallow evaluation 1 was noted to be aspirating. Family is discussing possibility of comfort care. 08/27: Patient seems to be more alert today. Left-sided weakness is improved. No change in swallowing ability. Plan for speech therapy to reevaluate tomorrow. Patient has been refusing rectal aspirin. She is continued on IV antibiotics with Azactam and Levaquin. Chest x-ray from yesterday shows cardiomegaly. Heart rate is controlled. Cardiology on consult. 08/28: Patient did poorly with modified very swallow but speech therapy has recommended pured diet, honey thick liquids, one-to-one supervision, aspiration precautions, no straws. Patient will be started on eliquis 2.5 mg twice daily, aspirin and subcu heparin discontinued. Levothyroxine will be switched to oral as well as Protonix. Patient did have symptoms of fluid overload last evening and was given 1 dose of IV Lasix. IV fluids were changed to KVO. Anticipate discharge to [facility] tomorrow. Review of Systems Unable to obtain accurate review of system due to patient's mental status. Objective - Vital Signs Vital signs: Vital Signs Temp 98.1 F 08/28/18 08:30 Pulse 112 H 08/28/18 08:30 Resp 22 08/28/18 08:30 BP 142/84 08/28/18 08:30 Pulse Ox 98 08/28/18 08:30 Intake & Output 08/27/18 08/28/18 08/28/18 18:59 06:59 18:59 Intake Total 50 386.416 0 Output Total 600 200 Balance -550 186.416 0 Weight 39.4 kg Intake: Intake, IV Titration 50 386.416 Amount Aztreonam 1 gm In Sodium 100 Chloride 0.9% 50 ml @ 100 mls/hr IVPB Q12HR [facility] Rx #:[id number] Dextrose 5%-0.45% NaCl 1, 200 000 ml @ 20 mls/hr IV . Q24H [facility] Rx#:[id number] Diltiazem 50 mg In Sodium 50 86.416 Chloride 0.9% 40 ml @ 5 MG/HR 5 mls/hr IV .Q10H [facility] Rx#:[id number] Oral 0 Output: Urine 600 200 Other: Voiding Method Diaper Diaper Diaper # Voids 3 - Exam General appearance: no distress, thin - EENT Eyes: anicteric sclerae, EOMI, PERRLA, no ptosis, no scleral icterus, normal appearance ENT: hard of hearing, NA/AT, normal oropharynx Ears: bilateral: normal - Neck Neck: no lymphadenopathy, normal ROM, no rigidity, no stridor, no thyromegaly Carotids: bilateral: upstroke delayed Thyroid: bilateral: normal size - Respiratory Respiratory: bilateral: diminished, negative, frequent moist cough: dullness, rales, rhonchi, wheezing, prolonged expiration, prolonged inspiration - Cardiovascular Rhythm: irregularly irregular Heart sounds: normal: S1, S2 Abnormal Heart Sounds: systolic murmur - Gastrointestinal General gastrointestinal: normal bowel sounds, soft, no splenomegaly, no tenderness, no umbilical hernia - Integumentary Integumentary: normal, normal turgor - Neurologic Neurologic: CNII-XII intact - Musculoskeletal Musculoskeletal: generalized weakness - Psychiatric Psychiatric: A&O x's 1, no appropriate affect, no intact judgment & insight, patient is slow to respond to questions. Speech is slurred and somewhat difficult to understand. Patient is cooperative today. - Labs CBC & Chem 7: 08/28/18 06:05 08/28/18 06:05 Labs: Abnormal Lab Results - Last 24 Hours (Table) 08/27/18 08/27/18 08/28/18 Range/Units 19:47 20:38 06:05 Chloride 108 H (98-107) mmol/L Carbon Dioxide 15 L (22-30) mmol/L BUN 19 H (7-17) mg/dL POC Glucose (mg/dL) 58 L 118 H (75-99) mg/dL Assessment and Plan Plan: 1. 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 Patient admitted to the selective care unit, neurology consult requested, neuro checks per protocol. Speech, physical and occupational therapies requested. Eliquis started. Aspirin and subcu heparin discontinued. 2. Chronic atrial fibrillation with RVR. Patient on Cardizem drip. Cardiology consult. Eliquis started. 2. History of CAD. Start nitro bid ointment 0.5 inch every 8 hours. 3. Hypertension and hypertensive cardiovascular disease. 4. Vascular dementia patient has been off Aricept for now. 5. Hypothyroidism: Continue Synthroid 75 g daily. 6. Hyperlipidemia. 7. Generalized anxiety disorder Anxiety. IV Ativan as needed. 8. Insomnia. IV Ativan as needed. 9. Chronic anemia of chronic disease. 10. Vitamin D deficiency. . 11. DVT prophylaxis. Eliquis 12. GI prophylaxis. Protonix oral. 13. Possible aspiration pneumonia. Patient started on IV Levaquin and Azactam. 14. Fluid overload secondary to IV fluids status post 1 dose of IV Lasix. Code status: No code Discharge plan: on Tuesday Impression and plan of care have been directed as dictated by the signing physician. Irene Villegas nurse practitioner acting as scribe for signing physician.
[2018-08-28 16:08] LABS: Glucose,Whole Blood 124 mg/dL (75-99)
--- NOTE | 2018-08-28 18:35 | P.PN ---
Subjective Progress Note Date: 08/28/18 The patient is an 87-year-old woman admitted to the hospital with left-sided weakness and left facial droop. She was found to have a new right subcortical infarct. The patient has had some dysphagia and today she was given clearance from speech to have soft diet. The patient is awake and alert and cooperative today. She has no specific complaints. Her left-sided weakness seems to have improved. She still has dysarthria, but she is able to communicate. She states she normally walks with a walker and cane at [facility] Objective - Vital Signs Vital signs: Vital Signs Temp 98.9 F 08/28/18 16:00 Pulse 107 H 08/28/18 16:00 Resp 20 08/28/18 16:00 BP 118/80 08/28/18 16:00 Pulse Ox 93 L 08/28/18 16:00 Intake & Output 08/27/18 08/28/18 08/28/18 18:59 06:59 18:59 Intake Total 50 386.416 0 Output Total 600 200 Balance -550 186.416 0 Weight 39.4 kg 39.4 kg Intake: Intake, IV Titration 50 386.416 Amount Aztreonam 1 gm In Sodium 100 Chloride 0.9% 50 ml @ 100 mls/hr IVPB Q12HR LILI Rx #:[id number] Dextrose 5%-0.45% NaCl 1, 200 000 ml @ 20 mls/hr IV . Q24H LILI Rx#:[id number] Diltiazem 50 mg In Sodium 50 86.416 Chloride 0.9% 40 ml @ 5 MG/HR 5 mls/hr IV .Q10H LILI Rx#:[id number] Oral 0 Output: Urine 600 200 Other: Voiding Method Diaper Diaper Diaper # Voids 3 1 - Constitutional General appearance: Present: thin - EENT Eyes: Present: EOMI ENT: Present: hard of hearing - Neurologic Neurologic Comment(s): Neurologic examination: Mental status: She was awake and alert. She was able to follow simple commands. She had severe dysarthria Cranial nerve examination: Pupils were 2 mm and equal Motor examination: Moving all 4 extremities today, with minimal left-sided weakness - Labs CBC & Chem 7: 08/28/18 06:05 08/28/18 06:05 Labs: Abnormal Lab Results - Last 24 Hours (Table) 08/27/18 08/27/18 08/28/18 Range/Units 19:47 20:38 06:05 Chloride 108 H (98-107) mmol/L Carbon Dioxide 15 L (22-30) mmol/L BUN 19 H (7-17) mg/dL POC Glucose (mg/dL) 58 L 118 H (75-99) mg/dL 08/28/18 08/28/18 Range/Units 11:56 16:06 Chloride (98-107) mmol/L Carbon Dioxide (22-30) mmol/L BUN (7-17) mg/dL POC Glucose (mg/dL) 142 H 124 H (75-99) mg/dL Assessment and Plan (1) Cerebrovascular accident Current Visit: Yes Status: Acute SNOMED Code(s): 369888510 (2) Atrial fibrillation with RVR Current Visit: No Status: Acute SNOMED Code(s): 430557060714095 (3) Dementia Current Visit: Yes Status: Acute SNOMED Code(s): 82414285 Plan: Patient is an 87-year-old woman admitted to the hospital with history of atrial fibrillation and multiple strokes. Presented with left-sided paresis and dysarthria and dysphagia. Her swallowing has improved. She is tolerating some oral liquids today. She resides in the [facility] and cardiology is following for treatment of atrial fibrillation. Recommend PT and rehab
[2018-08-28] MEDS: APIXABAN 2.5 MG TABLET PO SCH (19:52)
[2018-08-28] MEDS: DEXTROSE 5%-0.45% NACL 1,000 ML IV SCH (20:05)
[2018-08-28 20:10] LABS: Glucose,Whole Blood 102 mg/dL (75-99)
[2018-08-29] MEDS: DILTIAZEM 50 MG in SODIUM CHLORIDE 0.9% 40 ML IV SCH ×3 (00:29→11:13)
[2018-08-29] MEDS ORDERED: FUROSEMIDE 10 MG/ML 2 ML VIAL IV STA (01:08)
[2018-08-29] MEDS ORDERED: ACETAMINOPHEN IV (For NPO) 1,000 MG in EMPTY BAG 1 BAG IVPB STA (01:09)
[2018-08-29 03:57] LABS: Glucose,Whole Blood 193 mg/dL (75-99)
[2018-08-29 06:08] LABS: Glucose,Whole Blood 128 mg/dL (75-99)
[2018-08-29 06:29] LABS: Basophils % (A) 0 %; Eosinophils # (A) 0.2 k/uL (0-0.7); Eosinophils % (A) 2 %; HCT 38.2 % (34.0-46.0); HGB 12.3 gm/dL (11.4-16.0); Lymphocytes % (A) 10 %; MCH 26.3 pg (25.0-35.0); MCHC 32.1 g/dL (31.0-37.0); Mean Platelet Volume 7.1; Monocytes # (A) 0.9 k/uL (0-1.0); Monocytes % (A) 9 %; Neutrophils # (A) 7.4 k/uL (1.3-7.7); Neutrophils % (A) 77 %; Platelet Count 368 k/uL (150-450); RBC 4.66 m/uL (3.80-5.40); RDW 14.5 % (11.5-15.5); WBC 9.6 k/uL (3.8-10.6)
[2018-08-29] MEDS ORDERED: LEVOTHYROXINE 75 MCG TAB PO SCH (06:30)
[2018-08-29 06:41] LABS: Anion Gap 11 mmol/L; Blood Urea Nitrogen 18 mg/dL (7-17); Calcium 9.2 mg/dL (8.4-10.2); Carbon Dioxide 21 mmol/L (22-30); Chloride 106 mmol/L (98-107); Glucose 120 mg/dL (74-99); Potassium 3.2 mmol/L (3.5-5.1); Sodium 138 mmol/L (137-145)
[2018-08-29] MEDS ORDERED: PANTOPRAZOLE 40 MG TABLET PO SCH (07:30)
[2018-08-29] MEDS: AZTREONAM 1 GM in SODIUM CHLORIDE 0.9% 50 ML IVPB SCH (07:41)
[2018-08-29] MEDS: LEVOFLOXACIN 250MG-D5W PMX 250 MG in DEXTROSE/WATER 1 50ML.BAG IVPB SCH (07:42)
[2018-08-29] MEDS ORDERED: METOPROLOL TARTRATE 5 MG/5 ML VIAL IVP STA (10:07)
[2018-08-29] MEDS: APIXABAN 2.5 MG TABLET PO SCH (11:11)
[2018-08-29] MEDS: NITROGLYCERIN OINT 1 INCH/GM PACKET TOPICAL SCH (11:12)
[2018-08-29 11:47] LABS: Glucose,Whole Blood 112 mg/dL (75-99)
--- NOTE | 2018-08-29 13:52 | P.PN ---
Subjective Progress Note Date: 08/29/18 This is an 87-year-old female patient of Dr. Escoto with long-standing history of CAD, chronic A. fib but had been felt to be a poor candidate for anticoagulation due to her age and recurrent falls and dementia history, recurrent angina and chest pain with multiple fall is known to have mild COPD, abnormal balance and gait for long time. Apparently the patient was brought into the emergency department at [facility] for evaluation of left facial droop, left-sided weakness. She states that her caregiver thought she had a stroke and she was brought in here. She apparently has had 3 recent falls. she is currently residing in a [facility]. Patient also states she has had a weight loss of 60 pounds since living at [facility]. Chest x-ray shows no evidence of acute pulmonary disease. CT angiogram of the head and neck showed no significant diameter reduction to account for the patient's symptoms. CTA of the [place] showed poor visualization and right A1 segment but otherwise unremarkable. CT of the brain showed right frontal regional hypoattenuation with near CSF attenuation and sulcal atrophy is compatible with encephalomalacia from prior infarct having occurred in the interim in comparison to exam of October 2016. No acute intracranial hemorrhage or midline shift. Additional encephalomalacia in the left temporal lobe and insular cortices unchanged from the prior. Age-related volume loss and moderate burden nonspecific white matter change are also seen. Patient was determined to not be candidate for thrombectomy or TPA. EKG is atrial fibrillation rate controlled. Blood pressures running high 163/103. Patient has failed swallow eval in the emergency center. Speech, physical and occupational therapies requested. White blood cell count 6.7, hemoglobin 10.8, platelet count 338. Sodium 142, potassium 4.7, BUN 17, creatinine 0.8. Troponin negative. 08/28/2018 Patient was seen and examined today, currently she has a sitter at the bedside, she apparently was physically aggressive with the nurse earlier today. She somewhat confused at the time of my examination. She continues to be in atrial fibrillation, her heart rate is currently in the 120 range, we have given an additional dose of IV Cardizem bolus and increased her drip to 10 mg per hour. Blood pressure 144/80, 96% on room air. White blood cell count 10.6, hemoglobin 11.9, platelet count 420. Sodium 141, potassium 3.6, BUN 19, creatinine 0.8. Patient did undergo a swallow study today, which she failed. 08/29/2018 Patient was seen and examined this morning, very lethargic today. Family has opted to make the patient in hospice. Objective - Vital Signs Vital signs: Vital Signs Temp 97.6 F 08/29/18 08:00 Pulse 95 08/29/18 11:44 Resp 22 08/29/18 11:44 BP 132/75 08/29/18 11:44 Pulse Ox 96 08/29/18 11:44 Intake & Output 08/28/18 08/29/18 08/29/18 18:59 06:59 18:59 Intake Total 0 797.500 43.625 Balance 0 797.500 43.625 Weight 39.4 kg 39.3 kg Intake: Intake, IV Titration 647.500 43.625 Amount ACETAMINOPHEN IV (For NPO 100 ) 1,000 mg In Empty Bag 1 bag @ 400 mls/hr IVPB ONCE STA Rx#:[id number] Aztreonam 1 gm In Sodium 100 Chloride 0.9% 50 ml @ 100 mls/hr IVPB Q12HR LILI Rx #:[id number] Dextrose 5%-0.45% NaCl 1, 330 000 ml @ 20 mls/hr IV . Q24H LILI Rx#:[id number] Diltiazem 50 mg In Sodium 117.500 43.625 Chloride 0.9% 40 ml @ 10 MG/HR 10 mls/hr IV .Q5H LILI Rx#:[id number] Oral 0 150 Other: Voiding Method Diaper Diaper Diaper # Voids 1 4 1 - Exam PHYSICAL EXAMINATION: GENERAL: 87-year-old female in no acute distress at the time of my examination HEENT: Head is atraumatic, normocephalic. Pupils equal, round. Sclera anicteric. Conjunctiva are clear. Mucous membranes of the mouth are moist. Neck is supple. There is no elevated jugular venous pressure.] bruit is heard. HEART EXAMINATION: Heart S1 and S2 irregularly irregular a systolic murmur is heard CHEST EXAMINATION: On's reveal diminished air entry bilaterally. ABDOMEN: Soft, nontender. Bowel sounds are heard. No organomegaly noted. EXTREMITIES: 2+ peripheral pulses with no evidence of peripheral edema and no calf tenderness noted. NEUROLOGIC patient is lethargic - Labs CBC & Chem 7: 08/29/18 05:55 08/29/18 05:55 Labs: Abnormal Lab Results - Last 24 Hours (Table) 08/28/18 08/28/18 08/29/18 Range/Units 16:06 19:49 03:49 Potassium (3.5-5.1) mmol/L Carbon Dioxide (22-30) mmol/L BUN (7-17) mg/dL Glucose (74-99) mg/dL POC Glucose (mg/dL) 124 H 102 H 193 H (75-99) mg/dL 08/29/18 08/29/18 08/29/18 Range/Units 05:53 05:55 11:46 Potassium 3.2 L (3.5-5.1) mmol/L Carbon Dioxide 21 L (22-30) mmol/L BUN 18 H (7-17) mg/dL Glucose 120 H (74-99) mg/dL POC Glucose (mg/dL) 128 H 112 H (75-99) mg/dL Assessment and Plan Plan: Assessment and plan 1. 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 2. Chronic, persistent atrial fibrillation. Patient has not been felt to be a candidate for any anticoagulation due to frequent falls. 2. History of CAD 3. Hypertension 4. Vascular dementia 5. Hypothyroidism: 6. Hyperlipidemia. 7. Generalized anxiety disorder 8. Insomnia. 9. Chronic anemia Plan Patient is quite lethargic today, family decided to make the patient hospice. We will follow now on an as-needed basis only, least on hesitate to call with any questions. DNP note has been reviewed, I agree with a documented findings and plan of care. Patient was seen and examined.
[2018-08-29 15:52] VITALS: BP 134/69; PULSE 101; RESP 20; TEMP 98.9
[2018-08-29 16:06] LABS: Glucose,Whole Blood 151 mg/dL (75-99)
--- NOTE | 2018-08-30 10:17 | P.DS ---
Providers Date of admission: 08/24/18 10:46 Expected date of discharge: 08/29/18 Attending physician: Celia Morin Consults: 08/24/18 10:47 Consult Physician Routine Consulting Provider: Paulina Pace Consult Reason/Comments: CVA Do you want consulting provider notified?: Yes 08/26/18 08:39 Consult Physician Routine Consulting Provider: Reji Tabor Consult Reason/Comments: afib rvr Do you want consulting provider notified?: Yes Primary care physician: [facility] Course: This is an 87-year-old female patient of Dr. Escoto with long-standing history of CAD, chronic A. fib but poor candidate for anticoagulation due to her age and recurrent falls and dementia history, recurrent angina and chest pain with multiple fall is known to have mild COPD, abnormal balance and gait for long time. Apparently the patient was brought into the emergency department at [facility] for evaluation of left facial droop, left-sided weakness. She states that her caregiver thought she had a stroke and she was brought in here. She apparently has had 3 recent falls. she is currently residing in a [facility]. Patient also states she has had a weight loss of 60 pounds since living at [facility]. Chest x-ray shows no evidence of acute pulmonary disease. CT angiogram of the head and neck showed no significant diameter reduction to account for the patient's symptoms. CTA of the [place] showed poor visualization and right A1 segment but otherwise unremarkable. CT of the brain showed right frontal regional hypoattenuation with near CSF attenuation and sulcal atrophy is compatible with encephalomalacia from prior infarct having occurred in the interim in comparison to exam of October 2016. No acute intracranial hemorrhage or midline shift. Additional encephalomalacia in the left temporal lobe and insular cortices unchanged from the prior. Age-related volume loss and moderate burden nonspecific white matter change are also seen. Patient was determined to not be candidate for thrombectomy or TPA. EKG is atrial fibrillation rate controlled. Blood pressures running high 163/103. Patient awaiting admission to the selective care unit. Neurology consult requested. Patient has failed swallow eval in the emergency center. Speech, physical and occupational therapies requested. 08/25: Patient has again failed swallow evaluation and speech therapy is unable to get her to follow directions. We have changed her medications to IV or aspirin as rectally. Patient is refusing to cooperate for aspirin and she was screaming throughout the night. She does have a sitter at the bedside. Patient 's son is her power of damascener and she is been made DO NOT RESUSCITATE. Plan is to reassess in 24 hours to make further determination. 08/26: Patient remains confused. During the night, she went into A. fib with RVR and was started on Cardizem drip. We will ask for cardiology consult. Patient remains nothing by mouth as she is not able to pass a swallow evaluation 1 was noted to be aspirating. Family is discussing possibility of comfort care. 08/27: Patient seems to be more alert today. Left-sided weakness is improved. No change in swallowing ability. Plan for speech therapy to reevaluate tomorrow. Patient has been refusing rectal aspirin. She is continued on IV antibiotics with Azactam and Levaquin. Chest x-ray from yesterday shows cardiomegaly. Heart rate is controlled. Cardiology on consult. 08/28: Patient did poorly with modified very swallow but speech therapy has recommended pured diet, honey thick liquids, one-to-one supervision, aspiration precautions, no straws. Patient will be started on eliquis 2.5 mg twice daily, aspirin and subcu heparin discontinued. Levothyroxine will be switched to oral as well as Protonix. Patient did have symptoms of fluid overload last evening and was given 1 dose of IV Lasix. IV fluids were changed to KVO. Anticipate discharge to [facility] tomorrow. 08/29: This morning, patient is difficult to wake her up. She continues to be in A. fib with RVR and sometimes up to 160 bpm. She is on Cardizem drip and received a Cardizem bolus as well. There is question whether she had an episode of V. tach. IV Lasix was ordered again last night. Discussed case with the patient's son and patient will be transitioned to [facility] hospice care. Discharge diagnoses: 1. 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 2. Chronic atrial fibrillation with RVR. 2. History of CAD. 3. Hypertension and hypertensive cardiovascular disease. 4. Vascular dementia 5. Hypothyroidism 6. Hyperlipidemia. 7. Generalized anxiety disorder 8. Insomnia. 9. Chronic anemia of chronic disease. 10. Vitamin D deficiency. 11. Possible aspiration pneumonia. 12. Fluid overload secondary to IV fluids status post 1 dose of IV Lasix. Code status: No code Discharge plan: on Tuesday Impression and plan of care have been directed as dictated by the signing physician. Irene Villegas nurse practitioner acting as scribe for signing physician. Patient Condition at Discharge: Undetermined Plan - Discharge Summary Discharge Rx Participant: No New Discharge Prescriptions: No Action amLODIPine BESYLATE [Norvasc] 5 mg PO DAILY Ergocalciferol [Vitamin D2 (DRISDOL)] 50,000 unit PO RAMÍREZ Potassium Chloride ER [K-Dur 10] 10 meq PO DAILY Levothyroxine Sodium [Synthroid] 75 mcg PO DAILY Isosorbide Mononitrate ER [Imdur] 30 mg PO DAILY Simvastatin [Zocor] 20 mg PO HS Metoprolol Succinate [Toprol XL] 25 mg PO DAILY Gabapentin [Neurontin] 100 mg PO DAILY Furosemide [Lasix] 20 mg PO DAILY ALPRAZolam [Xanax] 0.25 mg PO DAILY PRN #3 tab PRN Reason: Anxiety Temazepam [Restoril] 15 mg PO HS PRN #3 cap PRN Reason: RESTLESS LEGS Discharge Medication List amLODIPine BESYLATE [Norvasc] 5 mg PO DAILY 04/22/14 [History] Ergocalciferol [Vitamin D2 (DRISDOL)] 50,000 unit PO RAMÍREZ 09/09/15 [History] Potassium Chloride ER [K-Dur 10] 10 meq PO DAILY 09/09/15 [History] Levothyroxine Sodium [Synthroid] 75 mcg PO DAILY 11/10/15 [History] Isosorbide Mononitrate ER [Imdur] 30 mg PO DAILY 11/17/15 [History] Furosemide [Lasix] 20 mg PO DAILY 10/15/17 [History] Gabapentin [Neurontin] 100 mg PO DAILY 10/15/17 [History] Metoprolol Succinate [Toprol XL] 25 mg PO DAILY 10/15/17 [History] Simvastatin [Zocor] 20 mg PO HS 10/15/17 [History] ALPRAZolam [Xanax] 0.25 mg PO DAILY PRN #3 tab 06/06/18 [Rx] Temazepam [Restoril] 15 mg PO HS PRN #3 cap 06/06/18 [Rx] Follow up Appointment(s)/Referral(s): Brandin Escoto MD [Primary Care Provider] - 1-2 days Activity/Diet/Wound Care/Special Instructions: #1 Ricarda #2 Femi Ulloa Discharge Disposition: DC/TRNS IP HOSP W/[facility] IP READ
== END 2018-08-29 16:03 | disposition hospice, inpatient (51) | DRG 64 ==
LOC: EC 07:45 → 3SCARD 10:46
PROVIDERS: ADMIT Internal Medicine; ATTEND Internal Medicine
DX: I63.9 Cerebral infarction, unspecified (principal); J69.0 Pneumonitis due to inhalation of food and vomit; G81.94 Hemiplegia, unspecified affecting left nondominant side; I48.1 Persistent atrial fibrillation; Z68.1 Body mass index [BMI] 19.9 or less, adult; D63.8 Anemia in other chronic diseases classified elsewhere; E89.0 Postprocedural hypothyroidism; E55.9 Vitamin D deficiency, unspecified; E78.5 Hyperlipidemia, unspecified; F01.50 Vascular dementia, unspecified severity, without behavioral disturbance, psychotic disturbance, mood disturbance, and anxiety; F32.9 Major depressive disorder, single episode, unspecified; F41.1 Generalized anxiety disorder; G47.00 Insomnia, unspecified; G93.89 Other specified disorders of brain; H35.30 Unspecified macular degeneration; I11.0 Hypertensive heart disease with heart failure; I25.10 Atherosclerotic heart disease of native coronary artery without angina pectoris; I48.2 Chronic atrial fibrillation; I50.9 Heart failure, unspecified; J44.9 Chronic obstructive pulmonary disease, unspecified; K21.9 Gastro-esophageal reflux disease without esophagitis; M81.0 Age-related osteoporosis without current pathological fracture; R13.10 Dysphagia, unspecified; R29.810 Facial weakness; Z51.5 Encounter for palliative care; Z66 Do not resuscitate; Z79.01 Long term (current) use of anticoagulants; Z79.890 Hormone replacement therapy; Z79.899 Other long term (current) drug therapy; Z80.3 Family history of malignant neoplasm of breast; Z82.49 Family history of ischemic heart disease and other diseases of the circulatory system; Z87.891 Personal history of nicotine dependence; Z91.81 History of falling; R29.6 Repeated falls; R63.4 Abnormal weight loss; M19.90 Unspecified osteoarthritis, unspecified site; I73.9 Peripheral vascular disease, unspecified; Z87.440 Personal history of urinary (tract) infections; Z87.01 Personal history of pneumonia (recurrent); Z88.5 Allergy status to narcotic agent; Z88.0 Allergy status to penicillin; Z88.2 Allergy status to sulfonamides; Z84.1 Family history of disorders of kidney and ureter; Z86.010 Personal history of colon polyps; Z98.42 Cataract extraction status, left eye; Z98.41 Cataract extraction status, right eye; Z96.643 Presence of artificial hip joint, bilateral; Z96.651 Presence of right artificial knee joint; K57.90 Diverticulosis of intestine, part unspecified, without perforation or abscess without bleeding
CPT/HCPCS: 36415; 70450; 70496; 70498; 71045; 71046; 74230; 80048; 80053; 80061; 82550; 82553; 83735; 84484; 85025; 85027; 85610; 85730; 96361; 96374; 96375; 99285

== ENCOUNTER 2018-08-29 15:10 | Inpatient (IN) | payer MEDICAID ==
[2018-08-29] MEDS ORDERED: ONDANSETRON 4 MG/2 ML VIAL IVP PRN (15:34)
[2018-08-29] MEDS ORDERED: LORazepam 2 MG/ML INJ IV PRN (15:34)
[2018-08-29] MEDS ORDERED: ATROPINE OPHTH SOLN 1% 5ML BTL SUBLINGUAL PRN (15:34)
[2018-08-29] MEDS ORDERED: BISACODYL 10 MG SUPP RECTAL PRN (15:41)
[2018-08-29 16:32] VITALS: BMI 14.4
[2018-08-29] MEDS: SCOPOLAMINE 1.5MG/72HR PATCH TRANSDERM SCH (18:12)
[2018-08-29] MEDS: HYDROmorphone 0.5 MG/0.5 ML SYRINGE IVP PRN (18:20)
[2018-08-30] MEDS ORDERED: HYDROmorphone 0.5 MG/0.5 ML SYRINGE ONE (03:39)
[2018-08-30] MEDS: HYDROmorphone 0.5 MG/0.5 ML SYRINGE IVP PRN ×2 (08:36→18:03)
[2018-08-31] MEDS: HYDROmorphone 0.5 MG/0.5 ML SYRINGE IVP PRN (02:11)
[2018-08-31] MEDS: LORazepam ORAL CONC 60 MG/30 ML BOTTLE SL PRN ×3 (12:38→20:48)
[2018-08-31] MEDS: HYDROmorphone 2 MG TAB PO PRN (15:07)
[2018-08-31] MEDS: CHERRY FLAVOR 60 ML BOTTLE PO PRN (15:08)
[2018-09-01] MEDS: HYDROmorphone 2 MG TAB PO PRN ×2 (12:53→19:09)
[2018-09-01] MEDS: CHERRY FLAVOR 60 ML BOTTLE PO PRN ×2 (12:54→19:09)
[2018-09-01] MEDS: LORazepam ORAL CONC 60 MG/30 ML BOTTLE SL PRN (13:51)
[2018-09-01] MEDS: SCOPOLAMINE 1.5MG/72HR PATCH TRANSDERM SCH (17:23)
[2018-09-01] MEDS: ACETAMINOPHEN SUPPOSITORY 650 MG SUPP RECTAL PRN (20:53)
[2018-09-01 22:52] VITALS: PULSE 126; TEMP 100.7
[2018-09-01 23:38] VITALS: RESP 26
[2018-09-02] MEDS: CHERRY FLAVOR 60 ML BOTTLE PO PRN (01:37)
[2018-09-02] MEDS: HYDROmorphone 2 MG TAB PO PRN (01:37)
[2018-09-02] MEDS: ACETAMINOPHEN SUPPOSITORY 650 MG SUPP RECTAL PRN (02:23)
== END 2018-09-02 08:21 | disposition expired | DRG 951 ==
LOC: 3SCARD 16:04 → 3NMEDONC 18:00 → 3SCARD 18:02 → 3NMEDONC 19:46
PROVIDERS: ADMIT Internal Medicine; ATTEND Internal Medicine
DX: Z51.5 Encounter for palliative care (principal); I63.9 Cerebral infarction, unspecified; G81.94 Hemiplegia, unspecified affecting left nondominant side; R29.810 Facial weakness; I25.10 Atherosclerotic heart disease of native coronary artery without angina pectoris; I48.2 Chronic atrial fibrillation; R29.6 Repeated falls; F01.50 Vascular dementia, unspecified severity, without behavioral disturbance, psychotic disturbance, mood disturbance, and anxiety; J44.9 Chronic obstructive pulmonary disease, unspecified; K21.9 Gastro-esophageal reflux disease without esophagitis; I11.9 Hypertensive heart disease without heart failure; E78.5 Hyperlipidemia, unspecified; M19.90 Unspecified osteoarthritis, unspecified site; F41.9 Anxiety disorder, unspecified; G47.00 Insomnia, unspecified; E07.9 Disorder of thyroid, unspecified; H35.30 Unspecified macular degeneration; M81.0 Age-related osteoporosis without current pathological fracture; D63.8 Anemia in other chronic diseases classified elsewhere; E55.9 Vitamin D deficiency, unspecified; R26.9 Unspecified abnormalities of gait and mobility; K57.90 Diverticulosis of intestine, part unspecified, without perforation or abscess without bleeding; Z87.01 Personal history of pneumonia (recurrent); Z87.440 Personal history of urinary (tract) infections; Z88.5 Allergy status to narcotic agent; Z88.0 Allergy status to penicillin; Z88.2 Allergy status to sulfonamides; Z79.890 Hormone replacement therapy; Z79.899 Other long term (current) drug therapy; Z96.642 Presence of left artificial hip joint; Z96.651 Presence of right artificial knee joint; Z86.010 Personal history of colon polyps; Z98.42 Cataract extraction status, left eye; Z98.41 Cataract extraction status, right eye; Z96.1 Presence of intraocular lens; Z80.3 Family history of malignant neoplasm of breast; Z84.1 Family history of disorders of kidney and ureter; Z82.49 Family history of ischemic heart disease and other diseases of the circulatory system